=== PATIENT | male | born 1965 | race Caucasian/White ===

== ENCOUNTER → 2016-11-07 | Outpatient (CLI) | payer BC ==
[~2016-11-07] MED LIST: ALLO300T2 PO; AMOX500T PO; CARV3.122 PO; CRG625 PO; MYCO180T PO; PRED-301 PO; PRG1 PO; TACR1CAP PO
--- NOTE | 2016-11-07 10:23 | DIAGNOSTIC IMAGING REPORT ---
RENAL TRANSPLANT W/WO DUPLEX ULTRASOUND CLINICAL HISTORY: N18.9 Chronic kidney disease (CKD)Z94.0 Kidney replaced by transplant COMPARISON STUDY: Renal transplant duplex ultrasound 09/11/2015. FINDINGS: Borderline elevated peak systolic velocity within the right iliac artery and right transplant artery measuring up to 189 cm/s. However, these are nearly symmetric. Therefore, no significant stenosis. The resistive indices within the right renal transplant arcuate arteries measure between 0.5 and 0.7 which is considered normal. Mild dilatation within the upper pole collecting system of the transplant remains unchanged. The renal transplant vein is patent. The bladder is unremarkable. The [place] kidneys are atrophic and echogenic. IMPRESSION: 1. No change in the mild dilatation of the upper pole collecting system within the right lower quadrant renal transplant. 2. [place] atrophic and echogenic kidneys are again noted. 3. Resistive indices within the right renal transplant arteries are within normal limits. Electronically signed by: Galo Jerez M.D. 11/07/2016 10:21 AM Dictated Date/Time: 11/07/2016 10:12 AM
== END | disposition home or self-care (01) ==
LOC: C.ULTR 09:21
PROVIDERS: ATTEND Internal Medicine
DX: N18.9 Chronic kidney disease, unspecified (principal); Z94.0 Kidney transplant status

== ENCOUNTER → 2016-12-12 | Outpatient (CLI) | payer BC ==
[2016-12-12 12:24] LABS: BASO % 0.6 %; BASO ABS # 0.03 K/uL (0-0.2); COMPLETE YES; EOS % 2.2 %; HEMATOCRIT 34.4 % (42-52); IG% 0.2 %; LYMPH % 14.6 %; LYMPH ABS # 0.73 K/uL (1.2-3.4); MEAN CELL VOLUME 88.2 fL (80-100); MEAN CORPUSCULAR HGB CONC 32.8 g/dl (32-36); MEAN PLATELET VOLUME 9.7 fL (7.4-10.4); MONO % 8.6 %; NEUT % 73.8 %; PLATELET COUNT 214 K/uL (130-400); WHITE BLOOD COUNT 5.01 K/uL (4.8-10.8)
[2016-12-12 12:25] LABS: MANUAL MICROSCOPIC REQUIRED? NO; REVIEW REQ? NO; URINE APPEARANCE CLEAR (CLEAR); URINE BILIRUBIN NEG (NEG); URINE COLOR YELLOW; URINE EPITHELIAL CELL AUTO 0-5 /lpf (0-5); URINE NITRITE NEG (NEG); URINE PH 5.5 (4.5-7.5); URINE SPECIFIC GRAVITY 1.012 (1.000-1.030); UROBILINOGEN NEG (NEG)
[2016-12-12 12:48] LABS: BLOOD UREA NITROGEN 43 mg/dl (7-18); BUN/CREATININE RATIO 12.7 (10-20); CALCIUM 9.1 mg/dl (8.5-10.1); CARBON DIOXIDE 22 mmol/L (21-32); CHLORIDE 113 mmol/L (98-107); GLUCOSE 94 mg/dl (70-99); POTASSIUM 4.2 mmol/L (3.5-5.1); SODIUM 144 mmol/L (136-145)
[2016-12-16 14:22] LABS: FK506 TACROLIMUS HIGHLY SENS 6.9 MCG/L (5-20)
== END | disposition home or self-care (01) ==
LOC: C.LABPBG 09:28
PROVIDERS: ATTEND Internal Medicine
DX: E78.00 Pure hypercholesterolemia, unspecified (principal)

== ENCOUNTER → 2017-03-13 | Day surgery (SDC) | payer BC ==
[2017-03-10 07:36] VITALS: Ht 180.3 cm; Wt 81.8 kg
[~2017-03-13] VITALS: Ht 180.3 cm; Wt 81.8 kg
[~2017-03-13] MED LIST changes: -CARV3.122 PO; +LIDOCAINE HCL 2% 2 ML VIAL (20MG/ML) ONE; +MIDAZOLAM HCL 1 MG/ML 2ML VIAL ONE; +ONDANSETRON INJ 2 MG/ML 2 ML VIAL ONE; -PRG1 PO; +PROPOFOL IV EMULSION 10 MG/ML 20 ML VIAL IV ONE; +SODIUM CHLORIDE 0.9% 500ML 500 ML IV ONE
--- NOTE | 2017-03-13 11:56 | Endo History and Physical ---
History & Physical Date of Service: March 13, 2017. Chief Complaint: SCREENING FOR COLON CANCER Referring Physician: DR. BRAVO History of Present Illness 51 yo CM who presents for screening colonoscopy. Past Medical History Angioplasty/Stent, Kidney Disease Past Surgical History Hx Cardiac Surgery: Yes (HEART CATH, STENTS X3) Hx Internal Defibrillator: No Hx Pacemaker: No Hx Abdominal Surgery: Yes (APPY) Hx of Implantable Prosthesis: No Hx Post-Op Nausea and Vomiting: No Hx Cancer Surgery: Yes (SCC REMOVALS) Hx Thoracic Surgery: No Hx Orthopedic: No Hx Urinary Tract Surgery: Yes (URINARY RECON SURGERY, KIDNEY TRANSPLANT (STILL HAS 2 OWN)) Family History Colon [place] Social History Smoking Status: Never Smoker Hx Substance Use: No Hx Alcohol Use: Yes (OCCASIONAL) Allergies Coded Allergies: Red Dye (Verified Allergy, Unknown, ITCHY AND BLOTCHY WITH RED DYE ON IBUPROFEN, 03/13/17) Current Medications Reported Home Medications Medications Dose Route/Sig Max Daily Dose Days Date Category Augmentin 500MG (Amoxicillin & Pot Clavulanate) 1 Tab Tab 500 Mg PO MWF 03/10/17 Reported Myfortic (Mycophenolate Sodium) 180 Mg Tab 180 Mg PO BID 07/25/15 Reported Zyloprim (Allopurinol) 300 Mg Tab 450 Mg PO QAM 07/25/15 Reported Carvedilol 6.25 Mg Tab 6.25 Mg PO QPM 07/25/15 Reported Prograf (Tacrolimus) 1 Mg Cap 2 Mg PO BID 07/25/15 Reported Prednisone 5 Mg Tab 5 Mg PO QAM 12/27/10 Reported Vital Signs Weight (Kilograms): 81.82 Height (Feet): 5 Height (Inches): 11 Date Time Temp Pulse Resp B/P Pulse Ox O2 Delivery O2 Flow Rate FiO2 03/13/17 11:46 36.5 65 18 162/86 98 Room Air Physical Exam General Appearance: WD/WN, no apparent distress Respiratory/Chest: Auscultation: breath sounds normal Cardiovascular: Heart Auscultation: RRR Abdomen: Bowel Sounds: normal Inspection & Palpation: soft, non-distended, no tenderness, guarding & rebound Assessment and Plan Assessment: 51 yo CM who presents for screening colonoscopy. Plan: Proceed with colonoscopy.
--- NOTE | 2017-03-13 13:34 | GI REPORT ---
Procedure Date: 03/13/2017 1:05 PM Procedure: Colonoscopy Indications: Screening for colorectal malignant neoplasm Medicines: Monitored Anesthesia Care Complications: No immediate complications. Estimated Blood Loss: Estimated blood loss: none. Procedure: Pre-Anesthesia Assessment: - Prior to the procedure, a History and Physical was performed, and patient medications and allergies were reviewed. The patient's tolerance of previous anesthesia was also reviewed. The risks and benefits of the procedure and the sedation options and risks were discussed with the patient. All questions were answered, and informed consent was obtained. Prior Anticoagulants: The patient has taken no previous anticoagulant or antiplatelet agents. ASA Grade Assessment: III - A patient with severe systemic disease. After reviewing the risks and benefits, the patient was deemed in satisfactory condition to undergo the procedure. After I obtained informed consent, the scope was passed under direct vision. Throughout the procedure, the patient's blood pressure, pulse, and oxygen saturations were monitored continuously. The Scope was introduced through the anus and advanced to the terminal ileum. The colonoscopy was performed without difficulty. The patient tolerated the procedure well. The quality of the bowel preparation was good. The terminal ileum, ileocecal valve, appendiceal orifice, and rectum were photographed. Findings: The perianal and digital rectal examinations were normal. Pertinent negatives include normal sphincter tone, no palpable rectal lesions, normal prostate (size, shape, and consistency) and no anal lesion or abnormality was detected. A 4 mm polyp was found in the rectum. The polyp was sessile. The polyp was removed with a hot snare. Resection and retrieval were complete. Internal hemorrhoids were found during retroflexion. The hemorrhoids were small. Impression: - One 4 mm polyp in the rectum, removed with a hot snare. Resected and retrieved. - Internal hemorrhoids. Recommendation: - Resume previous diet. - Continue present medications. - Repeat colonoscopy for surveillance based on pathology results. - Return to primary care physician as previously scheduled. Gurdeep Rae, DO 03/13/2017 1:33:56 PM This report has been signed electronically. Note Initiated On: 03/13/2017 1:05 PM I attest to the content of the Intraoperative Record and orders documented therein, exceptions below
--- NOTE | 2017-03-13 13:36 | Discharge Instructions ---
Endoscopy Patient Instructions Date / Procedure(s) Performed March 13, 2017. Colonoscopy Allergy Information Coded Allergies: Red Dye (Verified Allergy, Unknown, ITCHY AND BLOTCHY WITH RED DYE ON IBUPROFEN, 03/13/17) Discharge Date / Findings March 13, 2017. Rectal polyp Internal hemorrhoids Medication Instructions OK to resume all medications today as prescribed Reported Home Medications Medications Dose Route/Sig Max Daily Dose Days Date Category Augmentin 500MG (Amoxicillin & Pot Clavulanate) 1 Tab Tab 500 Mg PO MWF 03/10/17 Reported Myfortic (Mycophenolate Sodium) 180 Mg Tab 180 Mg PO BID 07/25/15 Reported Zyloprim (Allopurinol) 300 Mg Tab 450 Mg PO QAM 07/25/15 Reported Carvedilol 6.25 Mg Tab 6.25 Mg PO QPM 07/25/15 Reported Prograf (Tacrolimus) 1 Mg Cap 2 Mg PO BID 07/25/15 Reported Prednisone 5 Mg Tab 5 Mg PO QAM 12/27/10 Reported Provider Instructions Activity Restrictions - No exercising or heavy lifting for 24 hours. - Do not drink alcohol the day of the procedure. - Do not drive a car or operate machinery until the day after the procedure. - Do not make any important decisions or sign important papers in 24 hours after the procedure. Following Day: - Return to full activity which may include returning to work/school. Diet Start your diet with liquids and light foods (jello, soup, juice, toast). Then eat your usual diet if not nauseated. Treatment For Common After Affects For mild abdominal pain, bloating, or excessive gas: - Rest - Eat lightly - Lie on right side Follow-Up Information Follow-up with DR. BRAVO as scheduled Anesthesia Information What You Should Know You have had a procedure that required some medicine to reduce anxiety and discomfort. This treatment is called moderate sedation. After receiving the treatment, you may be sleepy, but you will be able to breathe on your own. The effects of the treatment may last for several hours. Follow these instructions along with Activity/Diet recommendations noted above: * Do NOT do anything where dizziness or clumsiness would be dangerous. * Rest quietly at home today, then you can be up and about tomorrow. * Have a responsible person stay with you the rest of today. * You may have had an I.V. today. If so, you may take the dressing off later today. Recommendations Call your doctor if: * Trouble breathing * Continuous vomiting for more than 24 hours * Temperature above 101 degrees * Severe abdominal pain or bloating * Pain not relieved by pain medicine ordered * There is increased drainage or redness from any incision * A large amount of rectal bleeding greater than 2-3 tablespoons. (If you had a polyp/s removed or have hemorrhoids, a small amount of blood - from the rectum is to be expected.) * You have any unanswered questions or concerns. IN THE EVENT OF A SERIOUS EMERGENCY, GO TO THE NEAREST EMERGENCY ROOM Your discharge instructions were prepared by provider Gurdeep Rae. Patient Instructions Signature Page Jay Serrato Patient (or Guardian) Signature/Date: I have read and understand the instructions given to me by my caregivers. Caregiver/RN/Doctor Signature/Date: The above-named patient and/or guardian has received patient instructions on this date. + Original Patient Signature Page (only) stays with chart. Please make copy for patient.
[2017-03-13 13:50] VITALS: BP 112/60; PULSE 60; O2SAT 97
--- NOTE | 2017-03-13 13:59 | Anesthesiology Progress Note ---
Anesthesia Post Op Note Date & Time March 13, 2017 at 13:59 Vital Signs Pain Intensity: 0 Vital Signs Past 12 Hours Date Time Temp Pulse Resp B/P Pulse Ox O2 Delivery O2 Flow Rate FiO2 03/13/17 13:50 60 16 112/60 97 Room Air 03/13/17 13:40 68 16 105/54 98 Room Air 03/13/17 13:30 67 16 91/46 98 Room Air 03/13/17 11:46 36.5 65 18 162/86 98 Room Air Notes Mental Status: alert / awake / arousable, participated in evaluation Pt Amnestic to Procedure: Yes Nausea / Vomiting: adequately controlled Pain: adequately controlled Airway Patency, RR, SpO2: stable & adequate BP & HR: stable & adequate Hydration State: stable & adequate Anesthetic Complications: no major complications apparent
== END | disposition home or self-care (01) ==
LOC: C.GI 10:52
PROVIDERS: ATTEND Internal Medicine
DX: Z12.11 Encounter for screening for malignant neoplasm of colon (principal); Z80.0 Family history of malignant neoplasm of digestive organs; D12.8 Benign neoplasm of rectum; K64.8 Other hemorrhoids

== ENCOUNTER → 2017-03-27 | Outpatient (CLI) | payer BC ==
[~2017-03-27] MED LIST changes: -LIDOCAINE HCL 2% 2 ML VIAL (20MG/ML) ONE; -MIDAZOLAM HCL 1 MG/ML 2ML VIAL ONE; -ONDANSETRON INJ 2 MG/ML 2 ML VIAL ONE; -PROPOFOL IV EMULSION 10 MG/ML 20 ML VIAL IV ONE; -SODIUM CHLORIDE 0.9% 500ML 500 ML IV ONE
[2017-03-27 13:32] LABS: BLOOD UREA NITROGEN 46 mg/dl (7-18); BUN/CREATININE RATIO 13.2 (10-20); CALCIUM 8.9 mg/dl (8.5-10.1); CARBON DIOXIDE 20 mmol/L (21-32); CHLORIDE 116 mmol/L (98-107); GLUCOSE 99 mg/dl (70-99); PHOSPHORUS 2.2 mg/dl (2.5-4.9); POTASSIUM 4.3 mmol/L (3.5-5.1); SODIUM 145 mmol/L (136-145)
== END | disposition home or self-care (01) ==
LOC: C.LABPBG 08:45
PROVIDERS: ATTEND Internal Medicine
DX: N18.9 Chronic kidney disease, unspecified (principal)

== ENCOUNTER → 2017-04-09 | Outpatient (CLI) | payer BC ==
[2017-04-09 12:22] LABS: CHOLESTEROL/HDL RATIO 5.1
== END | disposition home or self-care (01) ==
LOC: C.LABPBG 08:17
PROVIDERS: ATTEND Physician Assistant
DX: N18.9 Chronic kidney disease, unspecified (principal)

== ENCOUNTER → 2017-06-05 | Outpatient (CLI) | payer BC ==
[2017-06-05 17:30] LABS: BASO % 0.5 %; BASO ABS # 0.03 K/uL (0-0.2); COMPLETE YES; EOS % 1.9 %; HEMATOCRIT 35.5 % (42-52); IG% 0.3 %; LYMPH % 10.5 %; LYMPH ABS # 0.61 K/uL (1.2-3.4); MEAN CELL VOLUME 89.2 fL (80-100); MEAN CORPUSCULAR HEMOGLOBIN 28.9 pg (25-34); MEAN CORPUSCULAR HGB CONC 32.4 g/dl (32-36); MEAN PLATELET VOLUME 9.7 fL (7.4-10.4); MONO % 5.3 %; NEUT % 81.5 %; PLATELET COUNT 224 K/uL (130-400); RED BLOOD COUNT 3.98 M/uL (4.7-6.1); WHITE BLOOD COUNT 5.83 K/uL (4.8-10.8)
[2017-06-05 17:39] LABS: BLOOD UREA NITROGEN 41 mg/dl (7-18); BUN/CREATININE RATIO 11.7 (10-20); CALCIUM 8.9 mg/dl (8.5-10.1); CARBON DIOXIDE 21 mmol/L (21-32); CHLORIDE 114 mmol/L (98-107); GLUCOSE 134 mg/dl (70-99); PHOSPHORUS 2.3 mg/dl (2.5-4.9); POTASSIUM 4.6 mmol/L (3.5-5.1); SODIUM 142 mmol/L (136-145)
== END | disposition home or self-care (01) ==
LOC: C.LABPBG 15:17
PROVIDERS: ATTEND Internal Medicine
DX: D64.9 Anemia, unspecified (principal); N18.9 Chronic kidney disease, unspecified; I12.9 Hypertensive chronic kidney disease with stage 1 through stage 4 chronic kidney disease, or unspecified chronic kidney disease; Z94.0 Kidney transplant status; E05.90 Thyrotoxicosis, unspecified without thyrotoxic crisis or storm

== ENCOUNTER → 2017-08-07 | Outpatient (CLI) | payer BC ==
[2017-08-07 12:41] LABS: BASO % 0.6 %; BASO ABS # 0.04 K/uL (0-0.2); COMPLETE YES; EOS % 2.7 %; HEMATOCRIT 35.4 % (42-52); IG% 0.4 %; LYMPH % 10.3 %; LYMPH ABS # 0.69 K/uL (1.2-3.4); MEAN CELL VOLUME 88.3 fL (80-100); MEAN CORPUSCULAR HEMOGLOBIN 29.2 pg (25-34); MEAN CORPUSCULAR HGB CONC 33.1 g/dl (32-36); MEAN PLATELET VOLUME 10.3 fL (7.4-10.4); MONO % 8.3 %; NEUT % 77.7 %; PLATELET COUNT 224 K/uL (130-400); RED BLOOD COUNT 4.01 M/uL (4.7-6.1); WHITE BLOOD COUNT 6.73 K/uL (4.8-10.8)
[2017-08-07 12:57] LABS: MANUAL MICROSCOPIC REQUIRED? NO; REVIEW REQ? NO; URINE APPEARANCE CLEAR (CLEAR); URINE BILIRUBIN NEG (NEG); URINE COLOR YELLOW; URINE EPITHELIAL CELL AUTO 0-5 /lpf (0-5); URINE NITRITE NEG (NEG); URINE PH 6.5 (4.5-7.5); UROBILINOGEN NEG (NEG)
[2017-08-07 13:12] LABS: BLOOD UREA NITROGEN 42 mg/dl (7-18); BUN/CREATININE RATIO 12.2 (10-20); CALCIUM 8.8 mg/dl (8.5-10.1); CARBON DIOXIDE 20 mmol/L (21-32); CHLORIDE 113 mmol/L (98-107); CREATININE 3.41 mg/dl (0.60-1.40); GLUCOSE 99 mg/dl (70-99); POTASSIUM 4.1 mmol/L (3.5-5.1); SODIUM 142 mmol/L (136-145)
[2017-08-07 13:13] LABS: PHOSPHORUS 2.7 mg/dl (2.5-4.9)
== END | disposition home or self-care (01) ==
LOC: C.LABPBG 08:42
PROVIDERS: ATTEND Physician Assistant
DX: N18.9 Chronic kidney disease, unspecified (principal)

== ENCOUNTER → 2017-09-04 | Outpatient (CLI) | payer BC ==
[2017-09-04 17:16] LABS: BASO % 0.3 %; BASO ABS # 0.02 K/uL (0-0.2); COMPLETE YES; EOS % 0.7 %; HEMATOCRIT 33.1 % (42-52); IG% 0.3 %; LYMPH % 8.8 %; LYMPH ABS # 0.64 K/uL (1.2-3.4); MEAN CELL VOLUME 89.2 fL (80-100); MEAN CORPUSCULAR HEMOGLOBIN 28.8 pg (25-34); MEAN CORPUSCULAR HGB CONC 32.3 g/dl (32-36); MEAN PLATELET VOLUME 9.7 fL (7.4-10.4); MONO % 4.8 %; NEUT % 85.1 %; PLATELET COUNT 216 K/uL (130-400); RED BLOOD COUNT 3.71 M/uL (4.7-6.1); WHITE BLOOD COUNT 7.24 K/uL (4.8-10.8)
[2017-09-04 17:38] LABS: BLOOD UREA NITROGEN 46 mg/dl (7-18); BUN/CREATININE RATIO 13.2 (10-20); CARBON DIOXIDE 22 mmol/L (21-32); CHLORIDE 115 mmol/L (98-107); CREATININE 3.46 mg/dl (0.60-1.40); GLUCOSE 96 mg/dl (70-99); SODIUM 145 mmol/L (136-145)
[2017-09-04 17:42] LABS: FERRITIN 357.7 ng/ml (8.0-388.0); PHOSPHORUS 2.5 mg/dl (2.5-4.9)
== END | disposition home or self-care (01) ==
LOC: C.LABPBG 15:54
PROVIDERS: ATTEND Internal Medicine
DX: N25.81 Secondary hyperparathyroidism of renal origin (principal); I12.9 Hypertensive chronic kidney disease with stage 1 through stage 4 chronic kidney disease, or unspecified chronic kidney disease; I73.00 Raynaud's syndrome without gangrene; N18.9 Chronic kidney disease, unspecified

== ENCOUNTER → 2017-10-09 | Outpatient (CLI) | payer BC | END | disposition home or self-care (01) | LOC: C.RDSM 11:47 | PROVIDERS: ATTEND Physical Medicine & Rehabilitation Sports Medicine | DX: M25.512 Pain in left shoulder (principal) ==

== ENCOUNTER → 2017-10-09 | Outpatient (CLI) | payer BC ==
[2017-10-09 10:34] LABS: BASO % 0.5 %; BASO ABS # 0.04 K/uL (0-0.2); COMPLETE YES; EOS % 2.3 %; HEMATOCRIT 36.2 % (42-52); IG% 0.2 %; LYMPH % 9.4 %; LYMPH ABS # 0.77 K/uL (1.2-3.4); MEAN CELL VOLUME 89.2 fL (80-100); MEAN CORPUSCULAR HEMOGLOBIN 28.6 pg (25-34); MEAN PLATELET VOLUME 9.6 fL (7.4-10.4); MONO % 6.5 %; NEUT % 81.1 %; PLATELET COUNT 226 K/uL (130-400); RED BLOOD COUNT 4.06 M/uL (4.7-6.1); WHITE BLOOD COUNT 8.17 K/uL (4.8-10.8)
[2017-10-09 10:59] LABS: BLOOD UREA NITROGEN 42 mg/dl (7-18); BUN/CREATININE RATIO 11.4 (10-20); CALCIUM 9.1 mg/dl (8.5-10.1); CARBON DIOXIDE 22 mmol/L (21-32); CHLORIDE 113 mmol/L (98-107); CREATININE 3.68 mg/dl (0.60-1.40); GLUCOSE 101 mg/dl (70-99); PHOSPHORUS 2.6 mg/dl (2.5-4.9); POTASSIUM 4.2 mmol/L (3.5-5.1); SODIUM 142 mmol/L (136-145)
== END | disposition home or self-care (01) ==
LOC: C.LAB 15:42
PROVIDERS: ATTEND Internal Medicine
DX: I42.9 Cardiomyopathy, unspecified (principal); D64.9 Anemia, unspecified; Z94.0 Kidney transplant status; N18.9 Chronic kidney disease, unspecified; E05.90 Thyrotoxicosis, unspecified without thyrotoxic crisis or storm

== ENCOUNTER → 2017-10-16 | Outpatient (CLI) | payer BC ==
--- NOTE | 2017-10-16 17:35 | DIAGNOSTIC IMAGING REPORT ---
L UPPER EXT JOINT WITHOUT CLINICAL HISTORY: LEFT SHOULDER PAIN pain TECHNIQUE: MRI multi axial acquisition COMPARISON STUDY: None FINDINGS: Generalized degenerative change of the left shoulder glenohumeral and acromioclavicular joints. Hypertrophic change of the acromioclavicular joints with the inferior osteophytic reaction from the distal clavicle creating rather significant impingement upon the musculotendinous juncture of the supraspinatus. Apparent full-thickness tear of the mid to anterior margin of the supraspinous tendon with 1 cm of muscular tendinous retraction. Moderate to significant tendinopathy of the residual posterior component of the supraspinatus tendon. Trace fluid within the subdeltoid and acromioclavicular regions. The infraspinatus and subscapularis tendons appear unremarkable. Potential small short segment linear split of the biceps tendon near the superior margin of the bicipital groove. Generalized deterioration of the glenoid labrum with moderate loss of the labral substance has anterior aspect. No evidence for bone marrow replacing process. Generalized deterioration of the articular services of the glenohumeral joint. IMPRESSION: 1. Generalized degenerative change of the left shoulder glenohumeral joint as well as acromioclavicular joint.. 2. Hypertrophic change of the distal clavicle and acromioclavicular joint creates significant impingement upon the supraspinatus musculotendinous junction. 3. Full-thickness tear mid to anterior aspect of the supraspinatus with a 1 cm muscle tendinous retraction. Significant tendinopathy of the residual posterior margin of the supraspinatus. 4. Short segment linear split/tear superior margin biceps tendon within the bicipital groove 5. Moderate substance deterioration of the glenoid. The above report was generated using voice recognition software. It may contain grammatical, syntax or spelling errors. Electronically signed by: Thiago Moser M.D. 10/16/2017 5:34 PM Dictated Date/Time: 10/16/2017 5:27 PM
== END | disposition home or self-care (01) ==
LOC: C.MRI 16:31
PROVIDERS: ATTEND Physical Medicine & Rehabilitation Sports Medicine
DX: M19.012 Primary osteoarthritis, left shoulder (principal); M75.102 Unspecified rotator cuff tear or rupture of left shoulder, not specified as traumatic; S46.212A Strain of muscle, fascia and tendon of other parts of biceps, left arm, initial encounter; M75.42 Impingement syndrome of left shoulder; X58.XXXA Exposure to other specified factors, initial encounter

== ENCOUNTER → 2017-11-13 | Outpatient (CLI) | payer BC | END | disposition home or self-care (01) | LOC: C.LABPBG 08:58 | PROVIDERS: ATTEND Surgery | DX: N18.6 End stage renal disease (principal); Z76.82 Awaiting organ transplant status ==

== ENCOUNTER → 2018-02-05 | Outpatient (CLI) | payer BC ==
[2018-02-05 17:00] LABS: BASO % 0.3 %; BASO ABS # 0.02 K/uL (0-0.2); EOS % 1.4 %; HEMATOCRIT 35.1 % (42-52); HEMOGLOBIN 11.6 g/dL (14.0-18.0); IG# 0.03 K/uL (0.00-0.02); LYMPH % 8.1 %; LYMPH ABS # 0.58 K/uL (1.2-3.4); MEAN CELL VOLUME 88.9 fL (80-100); MEAN CORPUSCULAR HEMOGLOBIN 29.4 pg (25-34); MEAN PLATELET VOLUME 9.6 fL (7.4-10.4); MONO ABS # 0.36 K/uL (0.11-0.59); NEUT % 84.8 %; NEUT ABS # 6.04 K/uL (1.4-6.5); PLATELET COUNT 235 K/uL (130-400); RED CELL DISTRIBUTION WIDTH CV 14.7 % (11.5-14.5); RED CELL DISTRIBUTION WIDTH SD 47.9 fL (36.4-46.3); WHITE BLOOD COUNT 7.13 K/uL (4.8-10.8)
[2018-02-05 17:37] LABS: ALBUMIN 3.8 gm/dl (3.4-5.0); BLOOD UREA NITROGEN 46 mg/dl (7-18); CALCIUM 9.1 mg/dl (8.5-10.1); CARBON DIOXIDE 21 mmol/L (21-32); CREATININE 3.79 mg/dl (0.60-1.40); GLUCOSE 99 mg/dl (70-99); POTASSIUM 4.4 mmol/L (3.5-5.1); SODIUM 142 mmol/L (136-145)
[2018-02-05 17:41] LABS: PHOSPHORUS 2.1 mg/dl (2.5-4.9)
== END ==
LOC: C.LABPBG 11:10
PROVIDERS: ATTEND Internal Medicine
DX: K64.8 Other hemorrhoids (principal)

== ENCOUNTER → 2018-06-04 | Outpatient (CLI) | payer BC ==
[2018-06-04 16:54] LABS: BASO % 0.4 %; BASO ABS # 0.03 K/uL (0-0.2); EOS ABS # 0.08 K/uL (0-0.5); HEMATOCRIT 35.5 % (42-52); HEMOGLOBIN 11.5 g/dL (14.0-18.0); IG# 0.02 K/uL (0.00-0.02); LYMPH % 6.2 %; LYMPH ABS # 0.51 K/uL (1.2-3.4); MEAN CELL VOLUME 90.1 fL (80-100); MEAN CORPUSCULAR HEMOGLOBIN 29.2 pg (25-34); MEAN CORPUSCULAR HGB CONC 32.4 g/dl (32-36); MEAN PLATELET VOLUME 10.2 fL (7.4-10.4); MONO % 2.8 %; MONO ABS # 0.23 K/uL (0.11-0.59); NEUT % 89.4 %; NEUT ABS # 7.42 K/uL (1.4-6.5); PLATELET COUNT 224 K/uL (130-400); RED CELL DISTRIBUTION WIDTH CV 14.8 % (11.5-14.5); RED CELL DISTRIBUTION WIDTH SD 48.3 fL (36.4-46.3); WHITE BLOOD COUNT 8.29 K/uL (4.8-10.8)
[2018-06-04 17:10] LABS: ALBUMIN 3.7 gm/dl (3.4-5.0); ALT/SGPT 19 U/L (12-78); AST/SGOT 9 U/L (15-37); BLOOD UREA NITROGEN 48 mg/dl (7-18); CALCIUM 8.8 mg/dl (8.5-10.1); CARBON DIOXIDE 17 mmol/L (21-32); CHOLESTEROL 172 mg/dl (0-200); CREATININE 3.72 mg/dl (0.60-1.40); GLUCOSE 117 mg/dl (70-99); LDL CHOLESTEROL CALCULATED 100 mg/dl; PHOSPHORUS 2.4 mg/dl (2.5-4.9); SODIUM 142 mmol/L (136-145)
== END | disposition home or self-care (01) ==
LOC: C.LABPBG 11:36
PROVIDERS: ATTEND Internal Medicine Nephrology
DX: E78.00 Pure hypercholesterolemia, unspecified (principal); Z94.0 Kidney transplant status; N18.9 Chronic kidney disease, unspecified

== ENCOUNTER 2022-04-09 15:34 | Inpatient (IN) ==
[2022-04-09] MEDS ORDERED: MoRPHine SULFATE 10 MG/ML CARP/VIAL IV STA (16:23)
[2022-04-09] MEDS ORDERED: ONDANSETRON INJ 2 MG/ML 2 ML VIAL IV STA ×2 (16:23→21:48)
--- NOTE | 2022-04-09 16:27 | Emergency Department Note ---
Impression & Plan SOB (shortness of breath), Hypomagnesemia, Left-sided chest pain, Renal failure, Pleural effusion, Leukocytosis ED Provider Note NAME: AVERY DYER AGE: 56 SEX: M : 1965 ARRIVES VIA: Walk-In INFORMANT: [Patient][family] ED PROVIDER(S): [Tom Ugarte MD] CHIEF COMPLAINT: Respiratory problems HISTORY OF PRESENT ILLNESS: The patient is a 56-year-old male who uses peritoneal dialysis. For 3 days, he has had some left chest pain. He went to the chiropractor who attempted to pop a rib back in place. The pain has persisted and it is preventing him from mo ving. Today, he has felt short of breath and just cannot take a deep breath. He is concerned that he is fluid overloaded. As per his family, he has been coughing, there has been no fever. He has not fallen. No vomiting or diarrhea. The patient has a history of kidney transplant although, the transplant failed. He has a history of periauricular squamous cell carcinoma. REVIEW OF SYSTEMS: See HPI for pertinent positives and negatives. A total of ten systems were reviewed and were otherwise negative. PMHx/PSHx: See Below SOCIAL HISTORY: See Below. PHYSICAL EXAM: GENERAL: Patient is in moderate distress from pain. HEENT: No acute trauma, normocephalic atraumatic, mucous membranes moist, no nasal congestion, no scleral icterus. NECK: No stridor, no adenopathy, no meningismus, trachea is midline. LUNGS: Breath sounds are diminished but seem fairly clear. No crackles heard. No wheezing. No respiratory distress although he does have an increased respiratory rate and does seem to be breathing fairly shallow. HEART: Tachycardic, subtle systolic murmur, normal rhythm. ABDOMEN: Soft, nontender, bowel sounds positive, no peritonitis. EXTREMITIES: No cyanosis or edema, full range of motion of all the joints without pain or difficulty, no signs for acute trauma. NEUROLOGIC: Oriented x 3, no acute motor or sensory deficits, no focal weakness. SKIN: No rash, no jaundice, no diaphoresis. DIFFERENTIAL DIAGNOSIS: Reactive airway disease, COVID-19, influenza, rib fracture, pneumothorax, COPD, CHF, infection, cardiac ischemia, pulmonary embolism, bronchitis, musculoskeletal, gastrointestinal, as well as other pathologies. EMERGENCY DEPARTMENT COURSE/PROCEDURES: ECG: Indication was shortness of breath. The ECG shows a sinus tachycardia with a right bundle branch block. The rate is 111. There is significant baseline artifact. No obvious ST elevation, no PVCs. The QTc is 495. Continuous Cardiac Monitoring: An order was placed for continuous cardiac monitoring. The monitor shows a rate of 105 with sinus tachycardia. Critical Care Note: I have personally spent 41 minutes of critical care time in the direct management of this patient. This includes bedside care, interpretation of diagnostic studies, and testing, discussion with consultants, patient, and family members, and other required patient management activities. This 41 minutes is in excess of all separately billable procedures. MEDICAL DECISION MAKING: There is a mild leukocytosis, this could be consistent with infection or his pain. The patient is anemic but he has a history of anemia. There is a normal platelet count. No concerning coagulopathy. Venous blood gas shows a very mild acidosis with a pH of 7.30. No significant CO2 retention. Renal panel testing shows his dialysis need with a creatinine of 18. Potassium was normal. Magnesium was low 1.3. Lactic acid level is not elevated making severe sepsis less likely. No worrisome liver enzyme elevation. ECG showed a sinus tachycardia with artifact and a right bundle branch block. No obvious ST elevation. Cardiac enzyme testing x1 was slightly elevated, possibly from cardiac injury or potentially mismatch. COVID test returned negative. Chest x- ray showed a left pleural effusion with a potential infiltrate at the left base. No concerning CHF. No pneumothorax. Chest CT shows a left pleural effusion and some congestion at the left base thought potentially from atelectasis. The patient was quite uncomfortable and his family was quite upset. The patient was given IV morphine for pain. He was given 6 mg IV and then 4 mg IV as needed for additional pain control. He was given IV Zofran for nausea. IV magnesium for the low magnesium value. He was given a DuoNeb and IV cefepime. I think the patient deserves a hospital stay. He is in intense pain. He has a leukocytosis and feels short of breath. He has a left pleural effusion and may be an early infiltrate at the left base. Dr. Foreman of nephrology did see the patient here in the ED and feels the patient is failing peritoneal dialysis and likely will need hemodialysis tomorrow. I spoke with the patient and his family, I talked to case the it application development manager. The on- call hospitalist was consulted. 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 3XWK FOR 2 MONTHS RIGHT UE AVF PLACED MARCH 2020 CAD (coronary artery disease) S/p stent 2010. Had stress test was in preparation for kidney transplant, resulted in cath- had stent placed due to trauma to vessel Follows with cardio as needed Managed by primary care. Cardiomyopathy NO LONGER FOLLOWS WITH DR SUAREZ AT LEAST PAST 2 YRS End stage renal disease follows with [facility] Gout, joint No recent issues HTN (hypertension) Hypercholesterolemia Peritoneal dialysis catheter in place Patient does treatments at home Daily Raynaud phenomenon Secondary hyperparathyroidism of renal origin Squamous cell carcinoma of external ear Surgical History AVF (arteriovenous fistula) RIGHT ARM History of amputation of finger index finger History of appendectomy History of cardiac cath 8 YRS AGO History of colonoscopy History of Mohs micrographic surgery for skin cancer BASAL AND SQUAMOUS CELL Kidney transplant recipient RIGHT > 8 YRS AGO Family History Mother , age 65 heart failure Diabetes Hypertension Stroke Heart disease Kidney disease on dialysis for 6 monhts Father , age 65 Burkitts lymphoma Cancer Heart disease Sister , brain tumor age 30 diabetes coma Diabetes Sister Heart disease Brother Diabetes Brother No problems noted. Brother No problems noted. Daughter No problems noted. Son No problems noted. 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 How many Children do You have: 2 Feels Safe at Home: Yes Childhood Exposure to Second-Hand Smoke: Yes caffeine: Yes (one cup per daycaffeine soda 2-3 per day) during the past year weight has: remained stable Dental Care, Regularly: Yes Physical Activity Frequency: Daily Seatbelt Use: sometimes Sunscreen Use: Yes Assistive Devices: Contacts Allergies Allergies Allergy/AdvReac Type Severity Reaction Status Date / Time cephalexin [From Keflex] Allergy Intermediate itchy/ Verified 04/09/22 17:52 nausea red dye Allergy Intermediate Hives Verified 04/09/22 17:52 Home Meds Home Medications Medication Instructions Recorded Confirmed calcitriol 0.5 mcg capsule 0.5 mcg PO QPM 10/28/21 04/09/22 lorazepam 0.5 mg tablet 1 mg PO HS PRN 04/09/22 04/09/22 Previous Rx's Medication Instructions Recorded tacrolimus 1 mg capsule, 1 mg PO BID #360 cap 11/14/21 immediate-release carvedilol 6.25 mg tablet 6.25 mg PO QPM #90 tab 01/20/22 Results & Data (ED) Vital Signs Vital Signs - 24 hr 04/09/22 15:39 04/09/22 16:52 04/09/22 16:55 Temperature 36.7 C Temperature Source Temporal Artery Scan Pulse Rate 108 H 110 H 110 H Pulse Rate from SpO2 Sensor Pulse Rhythm Regular Regular Pulse Strength Normal Respiratory Rate 20 30 H 25 H Respiratory Effort / Characteristics Non-Labored Spontaneous Respiratory Depth Normal Respiratory Pattern Regular Blood Pressure 137/83 Blood Pressure Mean 101 Blood Pressure Position Sitting Pulse Oximetry 93 96 95 Oxygen Delivery Method Room Air Nasal Cannula Room Air Oxygen Flow Rate 2 Sepsis Recent Fever Within 48 Hours No Sepsis New/Unexplained Change in Mental Status No Sepsis Action Taken by Nursing No Action Required 04/09/22 17:00 04/09/22 17:02 04/09/22 17:30 Temperature Temperature Source Pulse Rate 112 H 105 H 112 H Pulse Rate from SpO2 Sensor Pulse Rhythm Regular Pulse Strength Respiratory Rate 29 H 24 30 H Respiratory Effort / Characteristics Respiratory Depth Respiratory Pattern Blood Pressure Blood Pressure Mean Blood Pressure Position Pulse Oximetry 97 96 96 Oxygen Delivery Method Nasal Cannula Room Air Nasal Cannula Oxygen Flow Rate 2 2 Sepsis Recent Fever Within 48 Hours Sepsis New/Unexplained Change in Mental Status Sepsis Action Taken by Nursing 04/09/22 18:00 04/09/22 18:22 04/09/22 19:03 Temperature Temperature Source Pulse Rate 113 H 113 H Pulse Rate from SpO2 Sensor 122 H Pulse Rhythm Pulse Strength Respiratory Rate 26 H 35 H Respiratory Effort / Characteristics Respiratory Depth Respiratory Pattern Blood Pressure 122/78 Blood Pressure Mean 92 Blood Pressure Position Pulse Oximetry 95 92 91 Oxygen Delivery Method Nasal Cannula Nasal Cannula Nasal Cannula Oxygen Flow Rate 2 2 2 Sepsis Recent Fever Within 48 Hours Sepsis New/Unexplained Change in Mental Status Sepsis Action Taken by Nursing 04/09/22 19:49 04/09/22 19:50 04/09/22 20:00 Temperature Temperature Source Pulse Rate 110 H 109 H 107 H Pulse Rate from SpO2 Sensor Pulse Rhythm Pulse Strength Respiratory Rate 14 21 19 Respiratory Effort / Characteristics Respiratory Depth Respiratory Pattern Blood Pressure 102/56 L Blood Pressure Mean 71 Blood Pressure Position Pulse Oximetry 96 95 97 Oxygen Delivery Method Nasal Cannula Nasal Cannula Nasal Cannula Oxygen Flow Rate 2 2 2 Sepsis Recent Fever Within 48 Hours Sepsis New/Unexplained Change in Mental Status Sepsis Action Taken by Nursing 04/09/22 20:30 04/09/22 21:00 04/09/22 21:04 Temperature Temperature Source Pulse Rate 108 H 105 H 105 H Pulse Rate from SpO2 Sensor Pulse Rhythm Pulse Strength Respiratory Rate 26 H 25 H 28 H Respiratory Effort / Characteristics Respiratory Depth Respiratory Pattern Blood Pressure 96/58 L Blood Pressure Mean 70 Blood Pressure Position Pulse Oximetry 95 96 Oxygen Delivery Method Nasal Cannula Nasal Cannula Oxygen Flow Rate 2 2 Sepsis Recent Fever Within 48 Hours Sepsis New/Unexplained Change in Mental Status Sepsis Action Taken by [facility] Medications Current Medication List: was personally reviewed by me Laboratory Data Attestation: I reviewed the patient's lab results. Result diagrams: 04/09/22 16:04 04/09/22 16:04 Lab Results 04/09/22 04/09/22 04/09/22 Range/Units 16:04 16:04 16:04 WBC 13.55 H (4.8-10.8) K/uL RBC 3.71 L (4.7-6.1) M/uL Hgb 10.7 L (14.0-18.0) g/dL Hct 33.0 L (42-52) % MCV 88.9 (80-100) fL MCH 28.8 (25-34) pg MCHC 32.4 (32-36) g/dL RDW Std Deviation 60.6 H (36.4-46.3) fL RDW Coeff of Nano 18.6 H (11.5-14.5) % Plt Count 245 (130-400) K/uL MPV 8.9 (7.4-10.4) fL Immature Gran % (Auto) 0.2 % Neut % (Auto) 88.7 % Lymph % (Auto) 3.3 % [place] % (Auto) 7.0 % Eos % (Auto) 0.7 % Baso % (Auto) 0.1 % Neut # (Auto) 12.01 H (1.4-6.5) K/uL Lymph # (Auto) 0.45 L (1.2-3.4) K/uL [place] # (Auto) 0.95 H (0.11-0.59) K/uL Eos # (Auto) 0.09 (0-0.5) K/uL Baso # (Auto) 0.02 (0-0.2) K/uL Immature Gran # (Auto) 0.03 H (0.00-0.02) K/uL PT 12.1 H (9.0-12.0) Seconds INR 1.1 (0.9-1.1) APTT 34.4 H (21.0-31.0) Seconds PTT Ratio 1.3 VBG pH (7.36-7.41) VBG pCO2 (38-50) mmHg VBG pO2 mmHg VBG HCO3 mmol/L VBG O2 Saturation % VBG Base Excess mEq/L Sodium 135 L (136-145) mmol/L Potassium 4.2 (3.5-5.1) mmol/L Chloride 93 L (98-107) mmol/L Carbon Dioxide 21 (21-32) mmol/L Anion Gap 21 H (3-11) BUN 86 H (6-23) mg/dl Creatinine 18.16 H* (0.6-1.4) mg/dl Est Cr Clr Drug Dosing Not Reportable Est GFR ( Amer) 2.9 ml/min Est GFR (Non-Af Amer) 2.5 ml/min BUN/Creatinine Ratio 4.7 L (10-20) Glucose 81 (70-99(Fasting)) mg/dl Lactate (0.4-2.0) mmol/L Calcium 8.8 (8.5-10.1) mg/dl Magnesium 1.3 L (1.7-2.4) mg/dl Total Bilirubin 0.6 (0.2-1.0) mg/dl AST 9 L (13-39) U/L ALT 13 (7-52) U/L Alkaline Phosphatase 78 (34-104) U/L Troponin I High Sens 38.3 H (0-20) pg/ml Total Protein 6.9 (6.0-8.3) gm/dl Albumin 3.3 L (3.4-5.0) gm/dl Globulin 3.6 (2.5-4.0) gm/dl Albumin/Globulin Ratio 0.9 (0.9-2) SARS-CoV-2, RNA, NAAT (NEGATIVE) 04/09/22 04/09/22 04/09/22 Range/Units 17:09 17:50 Unknown WBC (4.8-10.8) K/uL RBC (4.7-6.1) M/uL Hgb (14.0-18.0) g/dL Hct (42-52) % MCV (80-100) fL MCH (25-34) pg MCHC (32-36) g/dL RDW Std Deviation (36.4-46.3) fL RDW Coeff of Nano (11.5-14.5) % Plt Count (130-400) K/uL MPV (7.4-10.4) fL Immature Gran % (Auto) % Neut % (Auto) % Lymph % (Auto) % [place] % (Auto) % Eos % (Auto) % Baso % (Auto) % Neut # (Auto) (1.4-6.5) K/uL Lymph # (Auto) (1.2-3.4) K/uL [place] # (Auto) (0.11-0.59) K/uL Eos # (Auto) (0-0.5) K/uL Baso # (Auto) (0-0.2) K/uL Immature Gran # (Auto) (0.00-0.02) K/uL PT (9.0-12.0) Seconds INR (0.9-1.1) APTT (21.0-31.0) Seconds PTT Ratio VBG pH 7.30 L (7.36-7.41) VBG pCO2 45 (38-50) mmHg VBG pO2 31 mmHg VBG HCO3 22 mmol/L VBG O2 Saturation < 60.0 % VBG Base Excess -4.4 mEq/L Sodium (136-145) mmol/L Potassium (3.5-5.1) mmol/L Chloride (98-107) mmol/L Carbon Dioxide (21-32) mmol/L Anion Gap (3-11) BUN (6-23) mg/dl Creatinine (0.6-1.4) mg/dl Est Cr Clr Drug Dosing Est GFR ( Amer) ml/min Est GFR (Non-Af Amer) ml/min BUN/Creatinine Ratio (10-20) Glucose (70-99(Fasting)) mg/dl Lactate 0.8 (0.4-2.0) mmol/L Calcium (8.5-10.1) mg/dl Magnesium (1.7-2.4) mg/dl Total Bilirubin (0.2-1.0) mg/dl AST (13-39) U/L ALT (7-52) U/L Alkaline Phosphatase (34-104) U/L Troponin I High Sens (0-20) pg/ml Total Protein (6.0-8.3) gm/dl Albumin (3.4-5.0) gm/dl Globulin (2.5-4.0) gm/dl Albumin/Globulin Ratio (0.9-2) SARS-CoV-2, RNA, NAAT NEGATIVE (NEGATIVE) Administered Medications Morphine Sulfate (Morphine Sulfate 4 Mg/Ml 1 Ml Carp\Vial) 4 mg IV Q30M PRN PRN Reason: Pain Stop: 04/23/22 16:22 Last Admin: 04/09/22 20:53 Dose: 4 mg Documented by: [id number] Admin: 04/09/22 19:46 Dose: 4 mg Documented by: [id number] Admin: 04/09/22 18:18 Dose: 4 mg Documented by: [id number] Admin: 04/09/22 17:36 Dose: 4 mg Documented by: [id number] Discontinued Medications Albuterol (Albut/Ipratrop 3mg/0.5mg Neb 3 Ml Vial) 3 ml NEB NOW STA; Protocol Stop: 04/09/22 17:04 Last Admin: 04/09/22 17:46 Dose: 3 ml Documented by: [id number] Cefepime HCl (Maxipime) 2,000 mg in 20 mls @ 5 mls/min IV NOW STA; Protocol Stop: 04/09/22 17:18 Last Admin: 04/09/22 17:57 Dose: 5 mls/min Documented by: [id number] Magnesium Sulfate/Dextrose (Magnesium Sulfate / D5w) 1 gm in 100 mls @ 100 mls/hr IV NOW STA Stop: 04/09/22 18:27 Last Infusion: 04/09/22 21:14 Dose: 0 mls/hr Documented by: [id number] Admin: 04/09/22 19:51 Dose: 100 mls/hr Documented by: [id number] Morphine Sulfate (Morphine Sulfate 10 Mg/Ml Carp/Vial) 6 mg IV NOW STA Stop: 04/09/22 16:24 Last Admin: 04/09/22 16:39 Dose: 6 mg Documented by: [id number] Ondansetron HCl (Ondansetron Inj 2 Mg/Ml 2 Ml Vial) 4 mg IV NOW STA Stop: 04/09/22 16:24 Last Admin: 04/09/22 16:37 Dose: 4 mg Documented by: [id number] Imaging Data Radiologist's Impression: Chest X-Ray 04/09/22 16:24 XR chest 1V portable CLINICAL HISTORY: Dyspnea COMPARISON STUDY: Chest CT April 05, 2021. Chest radiograph January 15, 2022. FINDINGS: There is no pneumothorax. Small left pleural effusion is noted. There is mild interstitial thickening. Enlargement of the cardiac silhouette is noted. Low lung volumes are noted. This may reflect a hypoventilatory study. Left basilar opacity is noted. IMPRESSION: 1. Small left pleural effusion with left basilar opacity which could reflect atelectasis or consolidation. Radiographic follow-up to ensure resolution is recommended. 2. Moderate enlargement of the cardiac silhouette. Pulmonary vascular congestion with possible mild pulmonary edema. ACT 112: Negative or not required by law. Electronically signed by: [email or web address] Almodovar M.D. 04/09/2022 4:[address] 04/09/22 17:16 CT chest diagnostic wo con CLINICAL HISTORY: poss pneumonia or rib fx, sob COMPARISON STUDY: Portable chest from 04/09/2022 CT DOSE: 184.03 mGy.cm TECHNIQUE: Standard CT of the Chest was performed without IV contrast. A dose lowering technique was utilized adhering to the principles of ALARA. FINDINGS: Airway: The airway is clear. No endobronchial lesion is identified. Lungs: There is breathing motion artifact present. Crowding of the bronchovascular markings is present at the lung bases. The lungs are otherwise clear of acute alveolar opacities, air bronchograms or pulmonary nodules. Pleura: There is trace fluid present at the left lung base. There is no right pleural effusion. There is no evidence for pneumothorax. Mediastinum: There is no evidence for pathologic adenopathy on these limited n oncontrast images. The heart is enlarged. There is extensive coronary artery calcification. The thoracic aorta is within normal limits. There is no evidence for pericardial effusion. Osseous structures: There is no acute osseous pathology. IMPRESSION: 1. Breathing motion artifact with crowding the bronchovascular markings at the lung bases. 2. Trace left-sided pleural effusion. 3. There is otherwise no acute chest disease on these noncontrast images. 4. Cardiomegaly with extensive coronary artery calcification. ACT 112: Negative or not required by law. Electronically signed by: Tommie Romero M.D. 04/09/2022 7:06 PM Discharge Plan Visit Data Chief Complaint: Respiratory Problems Stated Complaint: DIALYSIS PT, RESP PROBLEMS ED Provider: Tom Ugarte Discharge Problem: SOB (shortness of breath), Hypomagnesemia, Left-sided chest pain, Renal failure, Pleural effusion, Leukocytosis Patient Disposition: Admitted As Inpatient Condition: Fair Forms Stand Alone Forms: [employer] Prescriptions Prescriptions: No Action tacrolimus 1 mg capsule 1 mg PO BID Qty: 360 RF: 3 carvedilol 6.25 mg tablet 6.25 mg PO QPM Qty: 90 RF: 3 lorazepam 0.5 mg tablet 1 mg PO HS PRN (Reason: Sleep) RF: 0 calcitriol 0.5 mcg capsule 0.5 mcg PO QPM RF: 0 Referrals Referrals: PCP,NO [Primary Care Provider] -
[2022-04-09 16:52] LABS: Basophils # (auto) 0.02 K/uL (0-0.2); Basophils % (auto) 0.1 %; Eosinophils # (auto) 0.09 K/uL (0-0.5); Eosinophils % (auto) 0.7 %; Hemoglobin 10.7 g/dL (14.0-18.0); Immature Granulocytes # (auto) 0.03 K/uL (0.00-0.02); Immature Granulocytes % (auto) 0.2 %; Lymphocytes # (auto) 0.45 K/uL (1.2-3.4); Lymphocytes % (auto) 3.3 %; Mean Corpuscular Hemoglobin 28.8 pg (25-34); Mean Corpuscular Hgb Conc 32.4 g/dL (32-36); Mean Corpuscular Volume 88.9 fL (80-100); Mean Platelet Volume 8.9 fL (7.4-10.4); Monocytes # (auto) 0.95 K/uL (0.11-0.59); Neutrophils # (auto) 12.01 K/uL (1.4-6.5); Neutrophils % (auto) 88.7 %; Platelet Count 245 K/uL (130-400); RDW Coefficient of Variation 18.6 % (11.5-14.5); RDW Standard Deviation 60.6 fL (36.4-46.3); Red Blood Count 3.71 M/uL (4.7-6.1); White Blood Count 13.55 K/uL (4.8-10.8)
--- NOTE | 2022-04-09 16:58 | XRay Report ---
XR chest 1V portable CLINICAL HISTORY: Dyspnea COMPARISON STUDY: Chest CT April 05, 2021. Chest radiograph January 15, 2022. FINDINGS: There is no pneumothorax. Small left pleural effusion is noted. There is mild interstitial thickening. Enlargement of the cardiac silhouette is noted. Low lung volumes are noted. This may refl ect a hypoventilatory study. Left basilar opacity is noted. IMPRESSION: 1. Small left pleural effusion with left basilar opacity which could reflect atelectasis or consolida tion. Radiographic follow-up to ensure resolution is recommended. 2. Moderate enlargement of the cardiac silhouette. Pulmonary vascular congestion with possible mild p ulmonary edema. ACT 112: Negative or not required by law. Electronically signed by: Kodi Almodovar M.D. 04/09/2022 4:56 PM
[2022-04-09 17:02] LABS: INR 1.1 (0.9-1.1); Partial Thromboplastin Ratio 1.3; Partial Thromboplastin Time 34.4 Seconds (21.0-31.0); Prothrombin Time 12.1 Seconds (9.0-12.0)
[2022-04-09] MEDS ORDERED: ALBUT/IPRATROP 3MG/0.5MG NEB 3 ML VIAL NEB STA (17:03)
[2022-04-09] MEDS ORDERED: CEFEPIME 2,000 MG/20 ML VIAL IV STA (17:15)
[2022-04-09 17:17] LABS: Alanine Aminotransferase 13 U/L (7-52); Albumin Globulin Ratio 0.9 (0.9-2); Albumin Level 3.3 gm/dl (3.4-5.0); Alkaline Phosphatase 78 U/L (34-104); Anion Gap 21 (3-11); Aspartate Aminotransferase 9 U/L (13-39); BUN Creatinine Ratio 4.7 (10-20); Bilirubin,Total 0.6 mg/dl (0.2-1.0); Blood Urea Nitrogen 86 mg/dl (6-23); Calcium 8.8 mg/dl (8.5-10.1); Carbon Dioxide 21 mmol/L (21-32); Chloride 93 mmol/L (98-107); Est GFR (African American) 2.9 ml/min; Est GFR (Non-African American) 2.5 ml/min; Globulin 3.6 gm/dl (2.5-4.0); Glucose 81 mg/dl (70-99(Fasting)); Magnesium 1.3 mg/dl (1.7-2.4); Potassium 4.2 mmol/L (3.5-5.1); Sodium 135 mmol/L (136-145); Total Protein 6.9 gm/dl (6.0-8.3); Troponin I High Sensitivity 38.3 pg/ml (0-20)
[2022-04-09 17:19] LABS: Base Excess VBG -4.4 mEq/L; HCO3 VBG 22 mmol/L; Oxygen Saturation VBG < 60.0 %; PCO2 VBG 45 mmHg (38-50); PO2 VBG 31 mmHg
[2022-04-09] MEDS ORDERED: MAGNESIUM SULFATE / D5W 1 GM/100 ML BAG IV STA (17:28)
[2022-04-09] MEDS: MoRPHine SULFATE 4 MG/ML 1 ML CARP\\VIAL IV PRN ×4 (17:36→20:53)
--- NOTE | 2022-04-09 19:09 | CT Scan Report ---
CT chest diagnostic wo con CLINICAL HISTORY: poss pneumonia or rib fx, sob COMPARISON STUDY: Portable chest from 04/09/2022 CT DOSE: 184.03 mGy.cm TECHNIQUE: Standard CT of the Chest was performed without IV contrast. A dose lowering technique was utilized adhering to the principles of ALARA. FINDINGS: Airway: The airway is clear. No endobronchial lesion is identified. Lungs: There is breathing motion artifact present. Crowding of the bronchovascular markings is presen t at the lung bases. The lungs are otherwise clear of acute alveolar opacities, air bronchograms or p ulmonary nodules. Pleura: There is trace fluid present at the left lung base. There is no right pleural effusion. There is no evidence for pneumothorax. Mediastinum: There is no evidence for pathologic adenopathy on these limited noncontrast images. The heart is enlarged. There is extensive coronary artery calcification. The thoracic aorta is within nor mal limits. There is no evidence for pericardial effusion. Osseous structures: There is no acute osseous pathology. IMPRESSION: 1. Breathing motion artifact with crowding the bronchovascular markings at the lung bases. 2. Trace left-sided pleural effusion. 3. There is otherwise no acute chest disease on these noncontrast images. 4. Cardiomegaly with extensive coronary artery calcification. ACT 112: Negative or not required by law. Electronically signed by: Tommie Romero M.D. 04/09/2022 7:06 PM
--- NOTE | 2022-04-09 20:13 | History & Physical Report ---
Date of Service April 09, 2022 Assessment & Plan (1) Chest pain: Plan: - Unclear etiology, differential at this point includes myocarditis or pericarditis due to immunotherapy versus shingles/post hrepetic neuralgi versus ACS. He has been having this chest pain for the past 3 days and his hs trop on presentation was 38.3, EKG with poor baseline due to movement, however no new changes seen on compared to EKG from December making his presentation less concerning for ACS. hsTrop may be elevated in setting of ESRD. CT showed trace left pleural effusion with cardiomegaly. His SOB is associated with severity of his chest pain with inspiration. He also reports drinking rash developed sterile peripheral aspect of his back in the area with pain is, rash no longer present. - For now, his pain has been controlled for 30-45 minutes with 4 mg IV morphine. Will transition to 0.5 mg Dilaudid every 3 hours [address] floor. - Repeat troponin in a.m. - Continue lorazepam 1mg at night for sleep. - Given history of rash in area of pain--will cover for shingles/post-herpetic n euralgia with Valtrex 1g TID. - If pain not controlled overnight with Dilaudid, could consider thoracic MRI tomorrow to look for nerve impingement. (2) Hypomagnesemia: Plan: - 1.3, replete and recheck in a.m. (3) End stage kidney disease: Plan: - On peritoneal dialysis, baseline Cr several months ago ~6-8, however for the past month has been 14, 16, and 18 tonight in the ED. Has had some immunosuppressant medications reduced/stopped in anticipation of immunotherapy. - Consult Dr. Foreman with nephrology, has plans for hemodialysis tomorrow. - Continue carvedilol. (4) Kidney transplant failure: Plan: - Renal transplant 12 years ago. Currently on tacrolimus 1 mg BID. 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 - Libtayo immunotherapy 6 weeks ago, has been on prednisone tape up until last week due to side effects from therapy. - Consult Dr. Valentin given concern he may be having reactions/side effects from Libtayo (6) Secondary anemia: Plan: - Hgb 10.7, at his baseline. - Continue to follow on AM labs. Plan: - Admit to med/tele for pain control, nephrology and oncology consults as above. - SCDs for VTE ppx. - Full Code. 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 Proximately 8 weeks ago, patient's immun osuppressive medications were reduced due to upcoming immunotherapy for his squamous cell carcinoma. 2 weeks later, he had immunotherapy with Libtayo and had done well with this, however shortly after developed myalgias, therefore was placed on a prednisone taper. This was completed 1 week ago, and on Thursday, patient developed left sided anterolateral chest pain that wraps around to his back on the left side. It is exacerbated with breathing, the pain is so much that he becomes short of breath from it. Today, the chest pain has become unbearable so he presents to the ED for further evaluation. He states he did have a rash along the lateral aspect of his left chest, but denies fever/chills, palpitations, radiation of chest pain to arms, neck, jaw, denies cough, exacerbation of pain when lying flat. In the ED, he is tachycardic with HR 100s, otherwise vital signs wnl and stable. Labs remarkable for WBC 13.55, BUN 86, Cr 18.16, AG 21, Mg++ 1.3, hs trop 38.3. Blood cultures sent. CXR with small left pleural effusion with basilar opacity, as well as pulmonary vascular congestion, and mild pulmonary edema. CT chest confirmed these findings, no evidence of a pneumothorax or pneumonia. Allergies Allergy/AdvReac Type Severity Reaction Status Date / Time cephalexin [From Keflex] Allergy Intermediate itchy/ Verified 04/09/22 17:52 nausea red dye Allergy Intermediate Hives Verified 04/09/22 17:52 Home Medications Medication Instructions Recorded Confirmed Type calcitriol 0.5 mcg capsule 0.5 mcg PO QPM 10/28/21 04/09/22 History tacrolimus 1 mg capsule, 1 mg PO BID #360 cap 11/14/21 04/09/22 Rx immediate-release carvedilol 6.25 mg tablet 6.25 mg PO QPM #90 tab 01/20/22 04/09/22 Rx lorazepam 0.5 mg tablet 1 mg PO HS PRN 04/09/22 04/09/22 History Past Med/Surg History Medical History Amputation of right index finger Anemia 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 3XWK FOR 2 MONTHS RIGHT UE AVF PLACED MARCH 2020 CAD (coronary artery disease) S/p stent 2010. Had stress test was in preparation for kidney transplant, resulted in cath- had stent placed due to trauma to vessel Follows with cardio as needed Managed by primary care. Cardiomyopathy NO LONGER FOLLOWS WITH DR SUAREZ AT LEAST PAST 2 YRS End stage renal disease follows with [place] nephrology Gout, joint No recent issues HTN (hypertension) Hypercholesterolemia Peritoneal dialysis catheter in place Patient does treatments at home Daily Raynaud phenomenon Secondary hyperparathyroidism of renal origin Squamous cell carcinoma of external ear Surgical History AVF (arteriovenous fistula) RIGHT ARM History of amputation of finger index finger History of appendectomy History of cardiac cath 8 YRS AGO History of colonoscopy History of Mohs micrographic surgery for skin cancer BASAL AND SQUAMOUS CELL Kidney transplant recipient RIGHT > 8 YRS AGO Family History Mother , age 65 heart failure Diabetes Hypertension Stroke Heart disease Kidney disease on dialysis for 6 monhts Father , age 65 Burkitts lymphoma Cancer Heart disease Sister , brain tumor age 30 diabetes coma Diabetes Sister Heart disease Brother Diabetes Brother No problems noted. Brother No problems noted. Daughter No problems noted. Son No problems noted. Other No family history of allergies No family history of bleeding disorder Denies family history of Hearing loss Asthma Social History Smoking Status: Smoker, status unknown Tobacco Type: Cigars Age Started Using Tobacco: 15; Years Smoked: 6; Smoking End Date: 04/09/22; Second Hand Exposure: No; Do You Dip or Chew Tobacco: Yes; Tobacco Cessation Education Requested by Patient: No Hx Alcohol Use: No Hx Substance Use: No Preferred Language: Senegalese Communication Ability: Effective Out And Out Cigar Maker Hand Required: No Beliefs That Will Affect Care: None marital status: Current Living Situation: Spouse current occupational status: previously employed 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 How many Children do You have: 2 Other Information That Helps Us Care for You: No Feels Safe at Home: Yes Safety Concerns: Feels Safe At This Time Childhood Exposure to Second-Hand Smoke: Yes caffeine: Yes (one cup per daycaffeine soda 2-3 per day) during the past year weight has: remained stable Dental Care, Regularly: Yes Physical Activity Frequency: Daily Seatbelt Use: sometimes Sunscreen Use: Yes Assistive Devices: Contacts and Oxygen - Continuous Review of Systems Review of Systems: Constitutional: No fever/chills, weakness, fatigue, myalgias, anorexia, night sweats Eyes: No diplopia, no worsening or blurred vision ENT: normal hearing, no trouble swallowing Respiratory: Shortness of breath due to chest pain; no cough Cardiovascular: Pleuritic chest pain x3 days; no tightness or palpitations Abdomen: No pain, nausea, vomiting, diarrhea or constipation : Denies dysuria, hematuria, increased urgency/frequency, urinary retention Musculoskeletal: No joint pain, calf pain, swelling Neurologic: No weakness, numbness/tingling, or balance problems Psychiatric: No anxiety or depression Skin: No rash or itch Physical Exam Physical Exam: General: awake, alert, visibly agitated but not in acute distress Head: Normocephalic, atraumatic ENT: PERRL, EOMI, no pharyngeal exudate, mucous membranes moist Chest: Clear to auscultation, on room air, no adventitious breath sounds Cardiac: Tachycardic, regular rhythm, no murmur, no JVD, normal peripheral pulses, good capillary refill Abdominal: NABS x 4 quadrants, soft, nontender to palpation, no rebound, guarding or tenderness Extremities: Normal inspection, no peripheral edema or erythema, calfs nontender to palpation Psych: Normal mood and affect Neuro: AAO x 3, strength intact bilaterally and rated 5/5, no motor deficits, speech is clear, no peripheral sensory deficits Skin: no rash or erythema Results & Data Results & Data ([facility]) Vital Signs (Past 12 Hours) Vital Signs Temp Pulse Resp BP Pulse Ox 04/09/22 17:02 105 H 24 96 04/09/22 16:55 110 H 25 H 95 04/09/22 15:39 36.7 C 108 H 20 137/83 93 Laboratory Results Abnormal lab results 04/09/22 04/09/22 04/09/22 Range/Units 16:04 16:04 16:04 WBC 13.55 H (4.8-10.8) K/uL RBC 3.71 L (4.7-6.1) M/uL Hgb 10.7 L (14.0-18.0) g/dL Hct 33.0 L (42-52) % RDW Std Deviation 60.6 H (36.4-46.3) fL RDW Coeff of Nano 18.6 H (11.5-14.5) % Neut # (Auto) 12.01 H (1.4-6.5) K/uL Lymph # (Auto) 0.45 L (1.2-3.4) K/uL [place] # (Auto) 0.95 H (0.11-0.59) K/uL Immature Gran # (Auto) 0.03 H (0.00-0.02) K/uL PT 12.1 H (9.0-12.0) Seconds APTT 34.4 H (21.0-31.0) Seconds VBG pH (7.36-7.41) Sodium 135 L (136-145) mmol/L Chloride 93 L (98-107) mmol/L Anion Gap 21 H (3-11) BUN 86 H (6-23) mg/dl Creatinine 18.16 H* (0.6-1.4) mg/dl BUN/Creatinine Ratio 4.7 L (10-20) Magnesium 1.3 L (1.7-2.4) mg/dl AST 9 L (13-39) U/L Troponin I High Sens 38.3 H (0-20) pg/ml Albumin 3.3 L (3.4-5.0) gm/dl 04/09/22 Range/Units 17:09 WBC (4.8-10.8) K/uL RBC (4.7-6.1) M/uL Hgb (14.0-18.0) g/dL Hct (42-52) % RDW Std Deviation (36.4-46.3) fL RDW Coeff of Nano (11.5-14.5) % Neut # (Auto) (1.4-6.5) K/uL Lymph # (Auto) (1.2-3.4) K/uL [place] # (Auto) (0.11-0.59) K/uL Immature Gran # (Auto) (0.00-0.02) K/uL PT (9.0-12.0) Seconds APTT (21.0-31.0) Seconds VBG pH 7.30 L (7.36-7.41) Sodium (136-145) mmol/L Chloride (98-107) mmol/L Anion Gap (3-11) BUN (6-23) mg/dl Creatinine (0.6-1.4) mg/dl BUN/Creatinine Ratio (10-20) Magnesium (1.7-2.4) mg/dl AST (13-39) U/L Troponin I High Sens (0-20) pg/ml Albumin (3.4-5.0) gm/dl Diagnostic Findings Chest X-Ray 04/09/22 16:24 XR chest 1V portable CLINICAL HISTORY: Dyspnea COMPARISON STUDY: Chest CT April 05, 2021. Chest radiograph January 15, 2022. FINDINGS: There is no pneumothorax. Small left pleural effusion is noted. There is mild interstitial thickening. Enlargement of the cardiac silhouette is noted. Low lung volumes are noted. This may reflect a hypoventilatory study. Left basilar opacity is noted. IMPRESSION: 1. Small left pleural effusion with left basilar opacity which could reflect atelectasis or consolidation. Radiographic follow-up to ensure resolution is recommended. 2. Moderate enlargement of the cardiac silhouette. Pulmonary vascular congestion with possible mild pulmonary edema. ACT 112: Negative or not required by law. Electronically signed by: Kodi Almodovar M.D. 04/09/2022 4:[address] 04/09/22 17:16 CT chest diagnostic wo con CLINICAL HISTORY: poss pneumonia or rib fx, sob COMPARISON STUDY: Portable chest from 04/09/2022 CT DOSE: 184.03 mGy.cm TECHNIQUE: Standard CT of the Chest was performed without IV contrast. A dose lowering technique was utilized adhering to the principles of ALARA. FINDINGS: Airway: The airway is clear. No endobronchial lesion is identified. Lungs: There is breathing motion artifact present. Crowding of the bronchovascular markings is present at the lung bases. The lungs are otherwise clear of acute alveolar opacities, air bronchograms or pulmonary nodules. Pleura: There is trace fluid present at the left lung base. There is no right pleural effusion. There is no evidence for pneumothorax. Mediastinum: There is no evidence for pathologic adenopathy on these limited noncontrast images. The heart is enlarged. There is extensive coronary artery calcification. The thoracic aorta is within normal limits. There is no evidence for pericardial effusion. Osseous structures: There is no acute osseous pathology. IMPRESSION: 1. Breathing motion artifact with crowding the bronchovascular markings at the lung bases. 2. Trace left-sided pleural effusion. 3. There is otherwise no acute chest disease on these noncontrast images. 4. Cardiomegaly with extensive coronary artery calcification. ACT 112: Negative or not required by law. Electronically signed by: Tommie Romero M.D. 04/09/2022 7:06 PM ECG Additional Comments: Sinus tachycardia Possible Left atrial enlargement Right bundle branch block Abnormal ECG When compared with ECG of 15-JAN-2022 14:18, No significant change was found. Supervising Physician Co-Signing Physician Notes Attending addendum: I have physically seen this patient, have supervised the BENJIE's activities, and agree with the H&P unless as otherwise noted. Assessment and Plan: Chest pain- The patient will be admitted to telemetry for serial cardiac enzymes, serial EKG's, cardiac rhythm monitoring and a 2-D echocardiogram with Dopplers. Unclear etiology Initial troponin 38.3 Patient reports having had a rash transiently in this area prior to the pain developing Concerned about the possibility of postherpetic neuralgia Valtrex 1 g p.o. 3 times daily Hypomagnesemia- Magnesium level 1.3 on admission Replace both orally and IV, recheck in a.m. ESRD/kidney transplant failure- Patient has been on peritoneal dialysis, however, nephrology plans hemodialysis tomorrow, Remaining orders and notations as noted PG Care Time/CCT Total # of Minutes Spent Total Time Spent with Patient: Total time spent is greater than 50% in coordination of care (as documented) at patient's floor/unit and/or counseling patient: Coding Level of Care Code 02742 Initial Inpt Care Lvl 3 Diagnoses Squamous cell carcinoma of preauricular region C44.329 Kidney transplant failure T86.12 End stage kidney disease N18.6 Secondary anemia D64.9 Chest pain R07.9 Hypomagnesemia E83.42
[2022-04-09] MEDS ORDERED: ONDANSETRON INJ 2 MG/ML 2 ML VIAL ONE (21:39)
[2022-04-09] MEDS ORDERED: HYDROmorphone INJ 0.5 MG/0.5 ML SYR IV STA (21:47)
[2022-04-09] MEDS ORDERED: ACETAMINOPHEN 325 MG TAB PO PRN (23:04)
[2022-04-09] MEDS ORDERED: LORazepam 1 MG TAB PO PRN (23:04)
[2022-04-09] MEDS ORDERED: POLYETHYLENE (MIRALAX) 17 GM PACK PO PRN (23:04)
[2022-04-10] MEDS: CALCITRIOL 0.25 MCG CAPSULE PO SCH ×2 (00:41→20:41)
[2022-04-10] MEDS: carvediloL 6.25 MG TAB PO SCH ×2 (00:41→20:41)
[2022-04-10] MEDS: TACROLIMUS 1 MG CAP PO SCH ×3 (00:42→20:41)
[2022-04-10] MEDS: MAGNESIUM SULFATE / D5W 1 GM/100 ML BAG IV SCH ×2 (01:25→04:07)
[2022-04-10] MEDS: HYDROmorphone INJ 0.5 MG/0.5 ML SYR IV PRN ×3 (04:07→20:41)
[2022-04-10 07:45] LABS: Basophils # (auto) 0.02 K/uL (0-0.2); Basophils % (auto) 0.1 %; Eosinophils # (auto) 0.01 K/uL (0-0.5); Hematocrit (blood only) 28.2 % (42-52); Hemoglobin 9.1 g/dL (14.0-18.0); Immature Granulocytes # (auto) 0.05 K/uL (0.00-0.02); Immature Granulocytes % (auto) 0.2 %; Lymphocytes # (auto) 0.43 K/uL (1.2-3.4); Lymphocytes % (auto) 2.1 %; Mean Corpuscular Hemoglobin 28.3 pg (25-34); Mean Corpuscular Hgb Conc 32.3 g/dL (32-36); Mean Corpuscular Volume 87.9 fL (80-100); Mean Platelet Volume 8.4 fL (7.4-10.4); Monocytes # (auto) 1.03 K/uL (0.11-0.59); Neutrophils % (auto) 92.6 %; Platelet Count 172 K/uL (130-400); RDW Coefficient of Variation 18.6 % (11.5-14.5); RDW Standard Deviation 59.6 fL (36.4-46.3); Red Blood Count 3.21 M/uL (4.7-6.1); White Blood Count 20.74 K/uL (4.8-10.8)
[2022-04-10 07:52] LABS: Albumin Globulin Ratio 0.9 (0.9-2); Albumin Level 2.7 gm/dl (3.4-5.0); Bilirubin,Total 0.6 mg/dl (0.2-1.0); Calcium 8.5 mg/dl (8.5-10.1); Creatinine Clr Calc Pharmacy 4.4 ml/min; Est GFR (African American) 2.8 ml/min; Est GFR (Non-African American) 2.4 ml/min; Magnesium 2.2 mg/dl (1.7-2.4); Total Protein 5.7 gm/dl (6.0-8.3)
[2022-04-10] MEDS: valACYclovir HCL 500 MG TABLET PO SCH (08:02)
[2022-04-10] MEDS ORDERED: SODIUM CHLORIDE 0.9% 1000ML 1,000 ML IV PRN (09:10)
--- NOTE | 2022-04-10 11:09 | Nephrology Consultation ---
Date of Consultation April 10, 2022 Assessment & Plan (1) End stage kidney disease: Mr. Serrato's physical exam is c/w pericarditis. Elevated BUN/Cr on admission suggest uremia as the cause. Discussed indications/benefits of conversion from PD to HD. Mr. Serrato is agreeable. Will plan heparin free HD this afternoon and again in am. Orders have been placed in EMR and HD RN notified. Follow up ECG, echocardiogram and consultation w/ Cardiology has been requested. Case briefly discussed w/ Cardiology this morning by telephone as well. Chest CT report reviewed - no reported thoracic aortic aneurysm. Explained to Mr. Serrato that he will require several day hospitalization follow ed by outpatient HD. Case management consulted to set up outpatient HD at [facility]. History of Present Illness Reason for Consultation: ESKD Attending Physician: Roni Mcdonnell History of Present Illness Mr. Serrato is a 56 year old white male who is seen at the request of [facility] to provide dialysis and assist w/ medical management during hospitalization. Mr. 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 He did not undergo renal biopsy or immunosuppressive therapy. He was on IHD for ~ 2 months and then received a LURT from his . He suffered a slow progressive loss of allograft function and 11/09 started NCCPD therapy. PD has been complicated by inflow and outflow discomfort. He has only been able to tolerate 1500 cc fill volumes. Last evening Mr. Serrato presented to the [facility] w/ a 3 day h/o retrosternal chest discomfort radiating to his back. It was made worse by deep inspiration. He denied fever, hemoptysis, hematemesis, or abdominal pain. He has been adherent to his PD regimen and denies cloudy PD effluent or abdominal pain. Laboratory studies revealed COVID negative, mild leukocytosis, Cr 18, BUN 95. ECG was atrial tachycardia w/ mild diffuse ST segment elevation. Initial troponin was mildly elevated at 38 but repeat has risen to 61. CXR revealed small L pleural effusion and moderate enlargement of the cardiac silhouette and mild pulmonary vascular congestion. Chest CT revealed a normal thoracic aorta and trace L pleural effusion. He is currently resting comfortably after receiving IV Dilaudid PMH is significant for recurrent UTI, squamous cell CA of R external ear metastatic to the R neck/parotid. He has undergone R parotidectomy/neck dissection and adjuvant XRT. 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 Allergies Allergy/AdvReac Type Severity Reaction Status Date / Time cephalexin [From Keflex] Allergy Intermediate itchy/ Verified 04/09/22 17:52 nausea red dye Allergy Intermediate Hives Verified 04/09/22 17:52 Home Medications Medication Instructions Recorded Confirmed Type calcitriol 0.5 mcg capsule 0.5 mcg PO QPM 10/28/21 04/09/22 History tacrolimus 1 mg capsule, 1 mg PO BID #360 cap 11/14/21 04/09/22 Rx immediate-release carvedilol 6.25 mg tablet 6.25 mg PO QPM #90 tab 01/20/22 04/09/22 Rx lorazepam 0.5 mg tablet 1 mg PO HS PRN 04/09/22 04/09/22 History Patient History Medical History Amputation of right index finger Anemia 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 3XWK FOR 2 MONTHS RIGHT UE AVF PLACED MARCH 2020 CAD (coronary artery disease) S/p stent 2010. Had stress test was in preparation for kidney transplant, resulted in cath- had stent placed due to trauma to vessel Follows with cardio as needed Managed by primary care. Cardiomyopathy NO LONGER FOLLOWS WITH DR SUAREZ AT LEAST PAST 2 YRS End stage renal disease follows with [place] nephrology Gout, joint No recent issues HTN (hypertension) Hypercholesterolemia Peritoneal dialysis catheter in place Patient does treatments at home Daily Raynaud phenomenon Secondary hyperparathyroidism of renal origin Squamous cell carcinoma of external ear Surgical History AVF (arteriovenous fistula) RIGHT ARM History of amputation of finger index finger History of appendectomy History of cardiac cath 8 YRS AGO History of colonoscopy History of Mohs micrographic surgery for skin cancer BASAL AND SQUAMOUS CELL Kidney transplant recipient RIGHT > 8 YRS AGO Family History Mother , age 65 heart failure Diabetes Hypertension Stroke Heart disease Kidney disease on dialysis for 6 monhts Father , age 65 Burkitts lymphoma Cancer Heart disease Sister , brain tumor age 30 diabetes coma Diabetes Sister Heart disease Brother Diabetes Brother No problems noted. Brother No problems noted. Daughter No problems noted. Son No problems noted. Other No family history of allergies No family history of bleeding disorder Denies family history of Hearing loss Asthma Social History Smoking Status: Smoker, status unknown Tobacco Type: Cigars Age Started Using Tobacco: 15; Years Smoked: 6; Smoking End Date: 04/09/22; Second Hand Exposure: No; Do You Dip or Chew Tobacco: Yes; Tobacco Cessation Education Requested by Patient: No Hx Alcohol Use: No Hx Substance Use: No Preferred Language: Malawian Communication Ability: Effective Gear Generator Set Up Operator Required: No Beliefs That Will Affect Care: None marital status: Current Living Situation: Spouse current occupational status: previously employed 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 How many Children do You have: 2 Other Information That Helps Us Care for You: No Feels Safe at Home: Yes Safety Concerns: Feels Safe At This Time Childhood Exposure to Second-Hand Smoke: Yes caffeine: Yes (one cup per daycaffeine soda 2-3 per day) during the past year weight has: remained stable Dental Care, Regularly: Yes Physical Activity Frequency: Daily Seatbelt Use: sometimes Sunscreen Use: Yes Assistive Devices: Contacts and Oxygen - Continuous Review of Systems Constitutional: no fever Eyes: no problem reported Ear, Nose, Mouth, Throat: no problem reported Respiratory: + dyspnea (mild); no cough Cardiovascular: + chest pain (radiating to the back, made worse w/ deep inspiration) and + edema; no palpitations Gastrointestinal: no abdominal pain, no nausea, no vomiting and no diarrhea/loose stools Neurologic: no confusion Physical Exam Constitutional: no acute distress Eyes: PERRL, conjunctivae normal, anicteric sclerae ENMT: scars noted from prior R neck dissection and Moh's nasal surgery Neck: no carotid bruit Respiratory: normal respiratory effort, lungs clear to auscultation Cardiovascular: tachycardic w/ 3 component pericardial friction rub R RC AVF + bruit Gastrointestinal (Abdomen): Inspection/Auscultation: normal bowel sounds Percussion/Palpation: abdomen nontender and no guarding PD catheter w/ clean, dry dressing Neurologic: Speech / Cognition: normal speech and normal cognition Psychiatric: Mood: + depressed mood Results & Data ([facility]) Vital Signs (Past 12 Hours) Vital Signs Temp Pulse Pulse Resp BP Pulse Ox 04/10/22 06:47 36.5 C 84 18 105/68 91 04/10/22 02:01 36.8 C 84 18 107/68 97 04/10/22 01:53 96 H 04/09/22 23:38 36.9 C 98 H 20 109/72 98 Laboratory Results Laboratory Tests 04/10/22 04/10/22 06:56 06:56 WBC 20.74 H Hgb 9.1 L Hct 28.2 L Plt Count 172 Sodium 133 L Potassium 5.0 Chloride 94 L Carbon Dioxide 20 L BUN 95 H Creatinine 18.92 H* D Glucose 85 Calcium 8.5 Magnesium 2.2 Troponin I High Sens 61.0 H* D Albumin 2.7 L PG Care Time/CCT Total # of Minutes Spent Total Time Spent with Patient: Total time spent is greater than 50% in coordination of care (as documented) at patient's floor/unit and/or counseling patient: Coding Level of Care Code 46911 Inpt Consult Level 5 Diagnoses End stage kidney disease N18.6
--- NOTE | 2022-04-10 13:10 | Hospitalist Progress Note ---
Date of Service April 10, 2022 Assessment & Plan (1) Acute pericarditis: Plan: clinical picture most c/w acute pericarditis. differential - uremic pericarditis vs viral (recent rash, poor appetite, feeling poorly overall, nausea, etc) vs immunotherapy (Libtayo - recently given for SCC of skin). With latter there is reports of ~1% of people taking Libtayo developing pericarditis. Most likely etiology is uremia. Plan - * consulted Dr Hamilton - [facility] * I corresponded with Dr Hamilton - will resume prednisone at 40mg/day * as we improve his BUN & Cr with serial HD sessions the prednisone can likely be tapered * [employer] resp panel - r/o viral cause of this issue * I spoke with Dr Valentin from oncology; we discussed the Libtayo - hopefully this medication was NOT cause of his pericarditis; if it was not cause then obviously it can be used again in the future with caution * re-eval patient in AM with repeat labs, etc (2) Chest pain: Plan: likely 2nd to #1. symptoms not c/w ischemia/ACS. mild troponin elevation 2nd to #1. pain should improve with serial HD sessions as well as prednisone as above. (3) Hypomagnesemia: Plan: repleted/resolved (4) End stage kidney disease: Plan: on PD at home. despite PD his BUN and Creatinine have climbed to very high levels. s/p nephrology consult today with Dr Amaral. Due to concerns for acute pericarditis - possibly uremic in etiology - PD to switch to HD, first session today. appreciate nephrology consultation. (5) Kidney transplant failure: Plan: Renal transplant 12 years ago. Currently on tacrolimus 1 mg BID. Based on pharmacy records it appears he was taking chronic prednisone 5mg/day prior to the prednisone being increased to 60mg/day in early March. need to clarify with family. 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 Libtayo immunotherapy 6 weeks ago s/p prednisone 60mg/day starting early March for concern of reaction/side effects from the Libtayo; was tapered down about 1 week ago (7) Secondary anemia: Plan: 2nd ESRD Trend (8) CAD (coronary artery disease): Plan: prior h/o stent in the remote past current clinical picture not c/w ACS or ischemia cont coreg not on statin therapy - reason? (9) Chronic systolic CHF (congestive heart failure): Plan: compensated at this time PD or HD for volume control continue coreg EF noted on today's echo (past echos showed EF 30s) (10) Peritoneal dialysis catheter in place: (11) Squamous cell carcinoma of external ear: (12) Renal transplant recipient: Plan: previously followed by Dr Blas Grayson, now Dr Yoni Foreman based on records it appears he was on chronic prednisone 5mg/day as well as Tacrolimus BID renal transplant failed initiated PD in October 2021 see discussion above regarding transition to HD today appreciate nephrology assistance need to clarify with patient if indeed he was compliant with the 5mg of prednisone this spring Admission and Anticipated Discharge Date Admission Date: April 09, 2022 Subjective patient still with ongoing, constant pleuritic chest pain (points to just left of his mid sternum) but it is "90% better" pain present since yesterday /daughter at bedside -- they report a rash for several days on his back; no pruritis - "red little bumps" no rash other locations they report he was on immunotherapy for his SCC of the skin (face) - developed side effects, and was placed on prednisone taper (60mg) on 03/24/22 based on pharmacy records prior to that was on chronic prednisone 5mg/day - for his kidney transplant? he denies feeling short of breath today has had ongoing nausea with some vomiting at times poor appetite of late tele overnight wnl Review of Systems Review of Systems: gen - no fevers or chills; some fatigue cv - ongoing pleuritic chest pain; does not radiate pulm - no cough GI - no abdominal pain; nausea/emesis Physical Exam Physical Exam: gen - NAD, nontoxic face - dressing in place right side of face neck - no JVD mouth - MMM, no thrush heart - very loud holosystolic/holodiastolic rub heard all over chest; possible 1/6 systolic murmur LSB; RRR, s1 s2 lungs - scant rales bases, otherwise CTA b/l abd - soft NT ND BS+; PD catheter in place L abdomen - clean ext - no edema, pulses 2+ b/l vascular - RUE AV fistula skin - faint erythematous macularpapular rash on back only; palms, soles, arms, legs, torso without rash Results & Data Results & Data ([facility]) Vital Signs (Past 12 Hours) Vital Signs Temp Pulse Pulse Resp BP Pulse Ox 04/10/22 11:40 36.6 C 127 H 16 105/68 95 04/10/22 06:47 36.5 C 84 18 105/68 91 04/10/22 02:01 36.8 C 84 18 107/68 97 04/10/22 01:53 96 H Laboratory Results CBC with elevated WBC BUN/Cr noted ESR 95 CRP 25 Echo - trace pericardial effusion, EF 40-45%, no vegetations on valves PG Care Time/CCT Total # of Minutes Spent Total Time Spent with Patient: Total time spent is greater than 50% in coordination of care (as documented) at patient's floor/unit and/or counseling patient: Coding Level of Care Code 25383 Subseq Hosp Care Lvl 3 Diagnoses Chest pain R07.9 Hypomagnesemia E83.42 End stage kidney disease N18.6 Kidney transplant failure T86.12 Squamous cell carcinoma of preauricular region C44.329 Secondary anemia D64.9 Acute pericarditis I30.9 CAD (coronary artery disease) I25.10 Chronic systolic CHF (congestive heart failure) I50.22 Peritoneal dialysis catheter in place Z99.2 Squamous cell carcinoma of external ear C44.222 Laterality: right Renal transplant recipient Z94.0 (1) Squamous cell carcinoma of external ear Laterality: right Qualified Code(s): C44.222 - Squamous cell carcinoma of skin of right ear and external auricular canal
[2022-04-10] MEDS: ONDANSETRON INJ 2 MG/ML 2 ML VIAL IV PRN ×2 (13:14→18:05)
[2022-04-10] MEDS ORDERED: predniSONE 20 MG TAB PO STA (18:07)
--- NOTE | 2022-04-10 18:18 | XCELERA ---
[id number]
--- NOTE | 2022-04-11 06:56 | Electrocardiogram Report ---
Test Reason : Blood Pressure : / mmHG Vent. Rate : 111 BPM Atrial Rate : 111 BPM P-R Int : 164 ms QRS Dur : 148 ms QT Int : 364 ms P-R-T Axes : 053 119 029 degrees QTc Int : 495 ms Poor data quality, interpretation may be adversely affected Sinus tachycardia Possible Left atrial enlargement Right bundle branch block Abnormal ECG When compared with ECG of 15-JAN-2022 14:18, No significant change was found Confirmed by Scooby Tanner ([id number]) on 04/11/2022 6:56:16 AM Referred By: REFERRED SELF Confirmed By:Scooby Tanner
[2022-04-11] MEDS ORDERED: EPOETIN ALFA 10,000 UNITS/ML VIAL IV ONE (07:00)
[2022-04-11] MEDS ORDERED: SODIUM CHLORIDE 0.9% 1000ML 1,000 ML IV PRN (07:00)
--- NOTE | 2022-04-11 07:06 | Electrocardiogram Report ---
Test Reason : Blood Pressure : / mmHG Vent. Rate : 101 BPM Atrial Rate : 101 BPM P-R Int : 164 ms QRS Dur : 154 ms QT Int : 408 ms P-R-T Axes : 045 119 056 degrees QTc Int : 529 ms Sinus tachycardia Possible Left atrial enlargement Right bundle branch block Abnormal ECG When compared with ECG of 09-APR-2022 16:38, No significant change was found Confirmed by Scooby Tanner ([id number]) on 04/11/2022 7:06:33 AM Referred By: REFERRED SELF Confirmed By:Scooby Tanner
[2022-04-11 07:12] LABS: Hematocrit (blood only) 31.3 % (42-52); Hemoglobin 10.1 g/dL (14.0-18.0); Mean Corpuscular Hemoglobin 28.4 pg (25-34); Mean Corpuscular Hgb Conc 32.3 g/dL (32-36); Mean Corpuscular Volume 87.9 fL (80-100); Mean Platelet Volume 9.6 fL (7.4-10.4); Platelet Count 271 K/uL (130-400); RDW Coefficient of Variation 18.7 % (11.5-14.5); RDW Standard Deviation 60.8 fL (36.4-46.3); Red Blood Count 3.56 M/uL (4.7-6.1); White Blood Count 16.42 K/uL (4.8-10.8)
[2022-04-11 07:36] LABS: BUN Creatinine Ratio 4.7 (10-20); Calcium 9.3 mg/dl (8.5-10.1); Creatinine Clr Calc Pharmacy 5.1 ml/min; Est GFR (African American) 3.4 ml/min; Est GFR (Non-African American) 2.9 ml/min
--- NOTE | 2022-04-11 07:37 | Electrocardiogram Report ---
Test Reason : Blood Pressure : / mmHG Vent. Rate : 084 BPM Atrial Rate : 084 BPM P-R Int : 182 ms QRS Dur : 164 ms QT Int : 454 ms P-R-T Axes : 063 115 081 degrees QTc Int : 536 ms Normal sinus rhythm Right bundle branch block Abnormal ECG When compared with ECG of 09-APR-2022 21:32, No significant change was found Confirmed by Scooby Tanner ([id number]) on 04/11/2022 7:37:34 AM Referred By: REFERRED SELF Confirmed By:Scooby Tanner
[2022-04-11 07:43] LABS: C Reactive Protein 35.09 mg/dl (0-0.5)
[2022-04-11] MEDS: valACYclovir HCL 500 MG TABLET PO SCH (08:33)
[2022-04-11] MEDS: predniSONE 20 MG TAB PO SCH (08:33)
[2022-04-11] MEDS: TACROLIMUS 1 MG CAP PO SCH ×2 (08:34→20:19)
--- NOTE | 2022-04-11 09:13 | Cardiology Consultation ---
Date of Consultation April 11, 2022 History of Present Illness Reason for Consultation: Pericarditis likely secondary to uremia Attending Physician: Roni Mcdonnell History of Present Illness Tate was admitted to the hospital with significant back discomfort difficulty taking a deep breath, and associated shortness of breath. He was started on home hemodialysis but actually only was able to do it twice. He had been failing peritoneal dialysis at home. He was started on hemodialysis yesterday in the hospital his BUN was 95. With 1 dialysis treatment, improvement in his BUN, and initiation of steroids his chest discomfort this morning is dramatically better. He notes that just present if he takes moderate sized breath. At home he had chest discomfort laying flat he had difficulty getting comfortable. He notes he just could not really do anything. He thought it was related to an injury from working over the weekend. He has noticed some mild lower extremity edema. He denies any palpitations or fluttering or feeling his heart racing. [place] any fevers chills or sweats. Denies a cough. This morning he is more comfortable he notes his appetite has improved as well. The rest of a complete her systems otherwise negative Allergies Allergy/AdvReac Type Severity Reaction Status Date / Time cephalexin [From Keflex] Allergy Intermediate itchy/ Verified 04/09/22 17:52 nausea red dye Allergy Intermediate Hives Verified 04/09/22 17:52 Home Medications Medication Instructions Recorded Confirmed Type calcitriol 0.5 mcg capsule 0.5 mcg PO QPM 10/28/21 04/09/22 History tacrolimus 1 mg capsule, 1 mg PO BID #360 cap 11/14/21 04/09/22 Rx immediate-release carvedilol 6.25 mg tablet 6.25 mg PO QPM #90 tab 01/20/22 04/09/22 Rx lorazepam 0.5 mg tablet 1 mg PO HS PRN 04/09/22 04/09/22 History Patient History Medical History Amputation of right index finger Anemia 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 3XWK FOR 2 MONTHS RIGHT UE AVF PLACED MARCH 2020 CAD (coronary artery disease) S/p stent 2010. Had stress test was in preparation for kidney transplant, resulted in cath- had stent placed due to trauma to vessel Follows with cardio as needed Managed by primary care. Cardiomyopathy NO LONGER FOLLOWS WITH DR SUAREZ AT LEAST PAST 2 YRS End stage renal disease follows with [place] nephrology Gout, joint No recent issues HTN (hypertension) Hypercholesterolemia Peritoneal dialysis catheter in place Patient does treatments at home Daily Raynaud phenomenon Secondary hyperparathyroidism of renal origin Squamous cell carcinoma of external ear Surgical History AVF (arteriovenous fistula) RIGHT ARM History of amputation of finger index finger History of appendectomy History of cardiac cath 8 YRS AGO History of colonoscopy History of Mohs micrographic surgery for skin cancer BASAL AND SQUAMOUS CELL Kidney transplant recipient RIGHT > 8 YRS AGO Family History Mother , age 65 heart failure Diabetes Hypertension Stroke Heart disease Kidney disease on dialysis for 6 monhts Father , age 65 Burkitts lymphoma Cancer Heart disease Sister , brain tumor age 30 diabetes coma Diabetes Sister Heart disease Brother Diabetes Brother No problems noted. Brother No problems noted. Daughter No problems noted. Son No problems noted. Other No family history of allergies No family history of bleeding disorder Denies family history of Hearing loss Asthma Social History Smoking Status: Smoker, status unknown Tobacco Type: Cigars Age Started Using Tobacco: 15; Years Smoked: 6; Smoking End Date: 04/09/22; Second Hand Exposure: No; Do You Dip or Chew Tobacco: Yes; Tobacco Cessation Education Requested by Patient: No Hx Alcohol Use: No Hx Substance Use: No Preferred Language: Swedish Communication Ability: Effective Video Presentation Operator Required: No Beliefs That Will Affect Care: None marital status: Current Living Situation: Spouse current occupational status: previously employed 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 How many Children do You have: 2 Other Information That Helps Us Care for You: No Feels Safe at Home: Yes Safety Concerns: Feels Safe At This Time Childhood Exposure to Second-Hand Smoke: Yes caffeine: Yes (one cup per daycaffeine soda 2-3 per day) during the past year weight has: remained stable Dental Care, Regularly: Yes Physical Activity Frequency: Daily Seatbelt Use: sometimes Sunscreen Use: Yes Assistive Devices: Contacts and Oxygen - Continuous Results & Data ([facility]) Vital Signs (Past 12 Hours) Vital Signs Temp Pulse Pulse Pulse Resp BP Pulse Ox 04/11/22 07:40 111 H 04/11/22 07:37 36.6 C 87 16 119/76 94 04/11/22 03:48 36.8 C 87 16 115/79 92 04/10/22 23:03 36.6 C 85 18 112/72 92 04/10/22 22:20 86 He is awake alert and oriented x3 he did not appear to Short of breath talking in sentences. HEENT: Mildly reduced carotid upstrokes Lungs: Clear to auscultation bilaterally globally decreased breath sounds due to his discomfort of taking a deep breath Heart: Regular rate and rhythm he has a very prominent friction rub there is a soft systolic ejection murmur at the right sternal border Abdomen: Soft nontender distended positive bowel sounds : Extremities no clubbing cyanosis or edema Psychiatric: His affect appeared appropriate His echocardiogram and inpatient laboratory studies and EKG were reviewed He has diffuse ST elevation on his EKG consistent with pericarditis. Echocardiogram with mild global hypokinesis and EF in the range of 45% of note there was no significant pericardial effusion IMPRESSIONS: 1. Acute pericarditis likely secondary to uremia Without evidence of a pericardial effusion 2. History of a severe Nonischemic cardiomyopathy diagnosed in 2010 with an EF in the range of 30% EF 55% in 2015 EF this admission 45% with global hypokinesis 3. History of coronary artery disease with 3 stents to the LAD for what sounds like a coronary dissection at the time of his cardiac catheterization to [facility] number next end-stage renal disease status post renal transplantation in 2010 4. Metastatic squamous cell carcinoma 5. Renal transplantation in 2010 6. Ongoing tobacco abuse As I discussed with him likely is pericarditis is related to uremia and is also likely the cause for his worsening LV function. If there is room I would try to uptitrate his Coreg. Previously (when I last saw him two years ago) he was taking 3.125 mg in the morning and at least 9.375 mg in the evening. If he is only able to tolerate the 6.25 mg once a day then I would switch it to 3.125 mg twice a day as it is a twice a day drug My hope it is with hemodialysis and improvement in his uremia that his pericarditis will continue to improve and that his LV function will return to his baseline. HIs mildly elevated troponin is secondary to both end-stage renal disease and pericarditis there is no evidence of an acute coronary syndrome Unfortunately with his ESRD he cannot receive colchicine. The only option would be steroids to treat his discomfort and current inflammation. He is currently on 40 mg daily. He has had improvement in his symptoms. I would recommend a slow taper Over a month and hopefully this in combination with regular home hemodialysis his discomfort will not recur. He is hoping to go home tomorrow after dialysis today. Depending on that we will need to see him in the office in about 2 weeks with a limited echocardiogram just to make sure There is no evidence of pericardial effusion and make sure his symptoms have resolved. All this was discussed with the hospitalist service as well.
[2022-04-11] MEDS: ONDANSETRON INJ 2 MG/ML 2 ML VIAL IV PRN (09:49)
--- NOTE | 2022-04-11 10:54 | Nephrology Progress Note ---
Date of Service April 11, 2022 Assessment & Plan (1) End stage kidney disease: Plan: * Mr. Serrato's physical exam remains c/w active pericarditis * I have explained to Mr. Serrato that he will require daily heparin free HD until his pericardial friction rub resolves. I have encouraged him to remain hospitalized until this is completed * Once rub is no longer clinically evident on physical exam then patient can transition to outpatient dialysis * Discussed w/ Mr. Serrato today that he has lost residual renal function and likely suffered peritoneal membrane failure related to CNI/Immune checkpoint inhibitor therapy. He will need ongoing IHD. Return to PD therapy will likely be complicated by inadequate clearance and recurrent pericarditis. Mr. Serrato voice understanding * Agree w/ steroid taper. Avoid colchicine due to ESKD * Echocardiogram and chest CT reviewed - LVEF 40 - 45%, no thoracic aortic aneurysm * Case management has been consulted to set up outpatient HD at [facility] * Will schedule next heparin free inpatient HD for Thursday04/12/22. HD RN has been notified Admission and Anticipated Discharge Date Admission Date: April 09, 2022 Subjective Mr. Serrato was seen and examined in his hospital room this morning. He reports that his chest discomfort is improved. He reports no complications w/ HD yesterday Review of Systems Constitutional: no fever Eyes: no problem reported Ear, Nose, Mouth, Throat: no problem reported Respiratory: + dyspnea (mild); no cough Cardiovascular: + chest pain (radiating to the back, made worse w/ deep inspiration) and + edema; no palpitations Gastrointestinal: no abdominal pain, no nausea, no vomiting and no diarrhea/loose stools Neurologic: no confusion Physical Exam Constitutional: no acute distress Eyes: PERRL, conjunctivae normal, anicteric sclerae Neck: no carotid bruit Respiratory: normal respiratory effort, lungs clear to auscultation Cardiovascular: tachycardia w/3 component pericardial friction rub R RC AVF + bruit Gastrointestinal (Abdomen): Inspection/Auscultation: normal bowel sounds Percussion/Palpation: abdomen nontender and no guarding Neurologic: Speech / Cognition: normal speech and normal cognition Psychiatric: Mood: + depressed mood Results & Data ([facility]) Vital Signs (Past 12 Hours) Vital Signs Temp Pulse Pulse Pulse Resp BP Pulse Ox 04/11/22 07:40 111 H 04/11/22 07:37 36.6 C 87 16 119/76 94 04/11/22 03:48 36.8 C 87 16 115/79 92 04/10/22 23:03 36.6 C 85 18 112/72 92 Laboratory Results Laboratory Tests 04/10/22 04/10/22 04/10/22 06:56 06:56 11:52 WBC Hgb Hct Plt Count Sodium Potassium Chloride Carbon Dioxide BUN Creatinine Glucose Troponin I High Sens 61.0 H* D 58.8 H* C-Reactive Protein 25.40 H Albumin 2.7 L 04/11/22 04/11/22 06:46 06:46 WBC 16.42 H Hgb 10.1 L Hct 31.3 L Plt Count 271 D Sodium 135 L Potassium 5.0 Chloride 95 L Carbon Dioxide 21 BUN 75 H D Creatinine 15.98 H* D Glucose 117 H Troponin I High Sens C-Reactive Protein 35.09 H Albumin PG Care Time/CCT Total # of Minutes Spent Total Time Spent with Patient: Total time spent is greater than 50% in coordination of care (as documented) at patient's floor/unit and/or counseling patient: Coding Level of Care Code 05560 Subseq Hosp Care Lvl 3 Diagnoses End stage kidney disease N18.6
[2022-04-11 11:47] LABS: HBSAG NON-REACTIVE (NON-REACTIVE); Hepatitis B Surface Ab, Quant <5 mIU/mL (> OR = 10)
[2022-04-11] MEDS ORDERED: valACYclovir HCL 500 MG TABLET PO SCH (16:00)
[2022-04-11] MEDS: CALCITRIOL 0.25 MCG CAPSULE PO SCH (20:19)
--- NOTE | 2022-04-11 21:05 | Hospitalist Progress Note ---
Date of Service April 11, 2022 Assessment & Plan (1) Acute pericarditis: Plan: likely 2nd to uremia. IMPROVED s/p HD sessions x 2 and re-initiation of high-dose prednisone. day #2 of prednisone 40mg. plan - cont HD. prednisone taper over 1 month, then resume his usual 5mg/day. There are reports of ~1% of people taking Libtayo developing pericarditis but uremia more likely cause of his presentation. Viral etiology also possible but less likely. Appreciate nephrology & cardiology consultations. Plan for HD tomorrow per nephro. (2) Chest pain: Plan: IMPROVED. likely 2nd to #1. symptoms not c/w ischemia/ACS. mild troponin elevation 2nd to #1. pain should resolve with serial HD sessions as well as prednisone as above. (3) Hypomagnesemia: Plan: repleted/resolved (4) End stage kidney disease: Plan: on PD at home. Initiated 10/2021. despite PD his BUN and Creatinine had climbed to very high levels. s/p nephrology consult with Dr Amaral and initiation of HD. Day #2 of HD. Will dialyze in [facility] post-discharge. (5) Kidney transplant failure: Plan: Renal transplant 12 years ago. Currently on tacrolimus 1 mg BID. was taking chronic prednisone 5mg/day prior to the prednisone being increased to 60mg/day in early March. this was confirmed w/ patient today. 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 (9) Chronic systolic CHF (congestive heart failure): Plan: compensated at this time HD for volume control continue coreg EF 40s on echo this admission (improved from prior when EF was 30%) (10) Peritoneal dialysis catheter in place: (11) Squamous cell carcinoma of external ear: (12) Renal transplant recipient: Plan: previously followed by Dr Blas Grayson, now Dr Yoni Foreman based on records it appears he was on chronic prednisone 5mg/day as well as Tacrolimus BID renal transplant failed initiated PD in October 2021 see discussion above regarding transition to HD this admission appreciate nephrology assistance Plan: home tomorrow? Thursday? I updated pt's daughter, Radha, extensively by phone today Admission and Anticipated Discharge Date Admission Date: April 09, 2022 Subjective pt feels "nearly back to normal" today only the slightest of sternal pain with a very deep breath otherwise pain is basically resolved no dyspnea feeling very good today with normal appetite and resolution of nausea/emesis he does confirm that after increasing his chronic 5mg of prednisone to 60mg earlier in March that it was weaned down and then off for about 1 week he has been taking it daily since his renal transplant 10+ years ago Review of Systems Review of Systems: gen - no fevers cv - see HPI pulm - no cough or wheeze GI - no abd pain/n/v Physical Exam Physical Exam: gen - NAD, looks great today! face - dressing in place right side of face neck - no JVD mouth - MMM, no thrush heart - very loud holosystolic/holodiastolic rub heard all over chest but softer today; RRR, s1 s2 lungs - scant rales bases, otherwise CTA b/l abd - soft NT ND BS+ ext - no edema, pulses 2+ b/l vascular - RUE AV fistula Results & Data Results & Data ([facility]) Vital Signs (Past 12 Hours) Vital Signs Temp Pulse Pulse Pulse Resp BP BP 04/11/22 19:24 36.8 C 95 H 18 120/79 04/11/22 15:23 89 04/11/22 14:59 36.9 C 89 16 101/61 04/11/22 13:15 36.5 C 70 115/76 04/11/22 13:00 81 106/70 04/11/22 12:30 83 109/65 04/11/22 12:00 84 108/71 04/11/22 11:30 84 101/70 04/11/22 11:00 84 116/72 04/11/22 10:30 90 109/74 04/11/22 10:01 36.5 C 87 Pulse Ox 06/24/22 19:24 93 04/11/22 15:23 04/11/22 14:59 92 04/11/22 13:15 04/11/22 13:00 04/11/22 12:30 04/11/22 12:00 04/11/22 11:30 04/11/22 11:00 04/11/22 10:30 04/11/22 10:01 Laboratory Results Laboratory Results - last 24 hr 04/10/22 04/11/22 04/11/22 11:52 06:46 06:46 WBC 16.42 H RBC 3.56 L Hgb 10.1 L Hct 31.3 L MCV 87.9 MCH 28.4 MCHC 32.3 RDW Std Deviation 60.8 H RDW Coeff of Nano 18.7 H Plt Count 271 D MPV 9.6 Sodium 135 L Potassium 5.0 Chloride 95 L Carbon Dioxide 21 Anion Gap 19 H BUN 75 H D Creatinine 15.98 H* D Est Cr Clr Drug Dosing 5.1 Est GFR ( Amer) 3.4 Est GFR (Non-Af Amer) 2.9 BUN/Creatinine Ratio 4.7 L Glucose 117 H Calcium 9.3 C-Reactive Protein 35.09 H Hep Bs Antigen NON-REACTIVE Hep Bs Ag Confirmation TNP Hep Bs Antibody, Quant <5 L PG Care Time/CCT Total # of Minutes Spent Total Time Spent with Patient: Total time spent is greater than 50% in coordination of care (as documented) at patient's floor/unit and/or counseling patient: Coding Level of Care Code 39149 Subseq Hosp Care Lvl 2 Diagnoses Acute pericarditis I30.9 Chest pain R07.9 Hypomagnesemia E83.42 End stage kidney disease N18.6 Kidney transplant failure T86.12 Squamous cell carcinoma of preauricular region C44.329 Secondary anemia D64.9 CAD (coronary artery disease) I25.10 Chronic systolic CHF (congestive heart failure) I50.22 Peritoneal dialysis catheter in place Z99.2 Squamous cell carcinoma of external ear C44.222 Laterality: right Renal transplant recipient Z94.0 (1) Squamous cell carcinoma of external ear Laterality: right Qualified Code(s): C44.222 - Squamous cell carcinoma of [place] of right ear and external auricular canal
[2022-04-11] MEDS: carvediloL 3.125 MG TAB PO SCH (21:08)
[2022-04-12] MEDS ORDERED: SODIUM CHLORIDE 0.9% 1000ML 1,000 ML IV PRN (07:00)
[2022-04-12 08:18] VITALS: O2SAT 94
[2022-04-12] MEDS: predniSONE 20 MG TAB PO SCH (08:19)
[2022-04-12] MEDS: TACROLIMUS 1 MG CAP PO SCH (08:19)
[2022-04-12] MEDS: carvediloL 3.125 MG TAB PO SCH (08:20)
[2022-04-12 08:50] LABS: Hematocrit (blood only) 28.9 % (42-52); Immature Granulocytes % (auto) 0.3 %; Lymphocytes # (auto) 0.47 K/uL (1.2-3.4); Lymphocytes % (auto) 2.9 %; Mean Corpuscular Hemoglobin 27.9 pg (25-34); Mean Corpuscular Hgb Conc 31.1 g/dL (32-36); Mean Corpuscular Volume 89.5 fL (80-100); Mean Platelet Volume 9.5 fL (7.4-10.4); Monocytes % (auto) 4.9 %; Neutrophils # (auto) 15.15 K/uL (1.4-6.5); Neutrophils % (auto) 91.9 %; Platelet Count 290 K/uL (130-400); RDW Coefficient of Variation 18.8 % (11.5-14.5); RDW Standard Deviation 61.6 fL (36.4-46.3); Red Blood Count 3.23 M/uL (4.7-6.1); White Blood Count 16.47 K/uL (4.8-10.8)
[2022-04-12 08:51] LABS: Immature Granulocytes # (auto) 0.05 K/uL (0.00-0.02)
[2022-04-12 09:12] LABS: BUN Creatinine Ratio 5.1 (10-20); C Reactive Protein 22.56 mg/dl (0-0.5); Calcium 9.6 mg/dl (8.5-10.1); Creatinine Clr Calc Pharmacy 6.9 ml/min; Est GFR (Non-African American) 4.3 ml/min; Potassium 4.7 mmol/L (3.5-5.1)
[2022-04-12 09:54] VITALS: TEMP 98.1
--- NOTE | 2022-04-12 11:45 | Nephrology Progress Note ---
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 admitted with chest pain, shortness of breath and found to have pericarditis most likely uremic pericarditis as his BUN was found to be above 150s and creatinine 18. he was started on hemodialysis and had [id number] dialysis over last 3 days. Clinically pericardial rub improve significantly and chest pain and shortness of breath resolved. -- He agreed to continue on hemodialysis for the time being although looking forward to go back to PD as he had pretty bad experience with hemodialysis before, had difficulty tolerating and headache with each treatment. But so far has been okay with hemodialysis. His schedule to start dialysis at [facility] once he gets discharge. Will continue to follow while inpatient. Admission and Anticipated Discharge Date Admission Date: April 09, 2022 Subjective Tate was seen and examined during dialysis. He has been tolerating dialysis. No leg cramp, dizziness, hypotension during dialysis. He is still making urine. Electrolyte has been acceptable. Overall he has been feeling better, denies any chest pain, shortness of breath. Appetite has been fair. Blood pressure has been acceptable. Review of Systems Review of Systems: The detailed review of system was otherwise unremarkable. Physical Exam Constitutional: WD/WN, vitals as above no acute distress Eyes: + anicteric sclerae Neck: normal visual inspection Respiratory: Auscultation: lungs clear to auscultation bilaterally Cardiovascular: Rate/Rhythm: regular rate and regular rhythm Extremities: no edema Skin: + scar ( On left side of face); no rashes Neurologic: no focal motor deficits Psychiatric: Orientation: alert and oriented x 3 Results & Data ([facility]) Vital Signs (Past 12 Hours) Vital Signs Temp Pulse Pulse Resp BP BP Pulse Ox 04/12/22 11:00 85 120/79 04/12/22 10:40 79 121/73 04/12/22 10:20 81 117/73 04/12/22 10:00 80 114/73 04/12/22 09:40 82 114/77 04/12/22 09:35 83 116/76 06/25/22 09:33 36.7 C 83 06/25/22 08:17 36.6 C 84 18 118/75 94 04/12/22 03:13 36.6 C 81 16 110/65 93 04/11/22 23:54 36.5 C 86 16 104/67 93 04/11/22 23:46 93 H PG Care Time/CCT Total # of Minutes Spent Total Time Spent with Patient: Total time spent is greater than 50% in coordination of care (as documented) at patient's floor/unit and/or counseling patient: Coding Level of Care Code 83089 Subseq Hosp Care Lvl 3 Diagnoses End stage kidney disease N18.6 Kidney transplant failure T86.12 Acute pericarditis I30.9 HTN (hypertension) I10 Secondary anemia D64.9
[2022-04-12 14:15] VITALS: BP 127/81
[2022-04-12 15:21] VITALS: PULSE 95
--- NOTE | 2022-04-12 15:22 | Discharge Summary ---
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 Proximately 8 weeks ago, patient's immunosuppressive medications were reduced due to upcoming immunotherapy for his squamous cell carcinoma. 2 weeks later, he had immunotherapy with Libtayo and had done well with this, however shortly after developed myalgias, therefore was placed on a prednisone taper. This was completed 1 week ago, and on Thursday, patient developed left sided anterolateral chest pain that wraps around to his back on the left side. It is exacerbated with breathing, the pain is so much that he becomes short of breath from it. Today, the chest pain has become unbearable so he presents to the ED for further evaluation. He states he did have a rash along the lateral aspect of his left chest, but denies fever/chills, palpitations, radiation of chest pain to arms, neck, jaw, denies cough, exacerbation of pain when lying flat. In the ED, he is tachycardic with HR 100s, otherwise vital signs wnl and stable. Labs remarkable for WBC 13.55, BUN 86, Cr 18.16, AG 21, Mg++ 1.3, hs trop 38.3. Blood cultures sent. CXR with small left pleural effusion with basilar opacity, as well as pulmonary vascular congestion, and mild pulmonary edema. CT chest confirmed these findings, no evidence of a pneumothorax or pneumonia. Discharge Exam gen - NAD, looks great today! face - dressing in place right side of face neck - no JVD mouth - MMM, no thrush heart - very loud holosystolic/holodiastolic rub heard all over chest but softer today; RRR, s1 s2 lungs - scant rales bases, otherwise CTA b/l abd - soft NT ND BS+ ext - no edema, pulses 2+ b/l vascular - RUE AV fistula Discharge Data Allergies Allergy/AdvReac Type Severity Reaction Status Date / Time cephalexin [From Keflex] Allergy Intermediate itchy/ Verified 04/09/22 17:52 nausea red dye Allergy Intermediate Hives Verified 04/09/22 17:52 Consultations 04/09/22 19:48 ED Decision to Admit Stat 04/09/22 23:04 Consult Nephrology Routine Consult Oncology Routine 04/10/22 09:00 Consult Cardiology Routine Ordered Studies 04/09/22 17:16 CT chest diagnostic wo con Stat Hospital Course (1) Acute pericarditis: likely 2nd to uremia. IMPROVED s/p HD sessions x 2 and re-initiation of high-dose prednisone. day #2 of prednisone 40mg. plan - cont HD. prednisone taper over 1 month, then resume his usual 5mg/day. There are reports of ~1% of people taking Libtayo developing pericarditis but uremia more likely cause of his presentation. Viral etiology also possible but less likely. Appreciate nephrology & cardiology consultations. Plan for HD tomorrow per nephro. (2) Chest pain: IMPROVED. likely 2nd to #1. symptoms not c/w ischemia/ACS. mild troponin elevation 2nd to #1. pain should resolve with serial HD sessions as well as prednisone as above. (3) Hypomagnesemia: repleted/resolved (4) End stage kidney disease: on PD at home. Initiated 10/2021. despite PD his BUN and Creatinine had climbed to very high levels. s/p nephrology consult with Dr Amaral and initiation of HD. Day #2 of HD. Will dialyze in [facility] post-discharge. (5) Kidney transplant failure: Renal transplant 12 years ago. Currently on tacrolimus 1 mg BID. was taking chronic prednisone 5mg/day prior to the prednisone being increased to 60mg/day in early March. this was confirmed w/ patient today. 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 Libtayo immunotherapy 6 weeks ago s/p prednisone 60mg/day starting early March for concern of reaction/side effects from the Libtayo; was tapered down about 1 week ago and then off prednisone resumed at 40mg/day for #1 (7) Secondary anemia: 2nd ESRD Trend (8) CAD (coronary artery disease): prior h/o stent in the remote past current clinical picture not c/w ACS or ischemia cont coreg - change to 3.125mg BID not on statin therapy - reason? (9) Chronic systolic CHF (congestive heart failure): compensated at this time HD for volume control continue coreg EF 40s on echo this admission (improved from prior when EF was 30%) (10) Peritoneal dialysis catheter in place: (11) Squamous cell carcinoma of external ear: (12) Renal transplant recipient: previously followed by Dr Blas Grayson, now Dr Yoni Foreman based on records it appears he was on chronic prednisone 5mg/day as well as Tacrolimus BID renal transplant failed initiated PD in October 2021 see discussion above regarding transition to HD this admission appreciate nephrology assistance home tomorrow? Thursday? I updated pt's daughter, Radha, jeanie by phone today Discharge Plan Discharge Items Patient Disposition: Home - Self-Care Reason For Visit: CHEST PAIN Discharge Diagnosis: 1. Acute Pericarditis due to end-stage renal disease - pericarditis improving 2. End-stage renal disease - previously on PD, now on hemodialysis 3. History of renal transplant 4. Chronic prednisone use Activity: As commented below Activity Comment: No heavy exertional activities until cleared by cardiology Lifting: No more than 10 pounds Sexual Activity: Wait until after follow-up appointment Exercise/Sports: Wait until after follow-up appointment Non-emergency contact: Director Biomedical Engineering and Change Management Lead Call non-emergency contact if: you have any medication questions, your symptoms worsen, your pain is not controlled, your pain is worsening and you have a fever Follow-up/Referrals: Yoni Foreman DO [Family Provider] - (please report to [facility] on Thursday, 04/14 as scheduled ) Evangelist Hamilton DO [Physician] - (2 weeks - for follow-up of pericarditis ) Theodora Valentin MD [Physician] - (please keep any previously scheduled visit with Dr Valentin) Diet: Dialysis Renal Fluids: 1500ml (6 cups) Addtl Attending Provider Instructions: Mr Serrato, Armand were admitted to [facility] due to severe chest pain. Testing did not suggest a heart attack as the cause of your pain. After undergoing an echocardiogram, and after consultation with nephrology and cardiology, it was felt that you were suffering from "acute pericarditis" as the cause of your pain. A number of things can cause pericarditis but it was suspected that your kidney disease was the contributor. There was a very tiny chance that your Libtayo could have caused the pericarditis but this was unlikely. Viruses can also cause pericarditis but this was also felt unlikely. Pericarditis is inflammation of the lining or sac of the heart. Please see "pericarditis" handout for more information. You improved with prednisone and serial hemodialysis treatments. At time of discharge your pain was nearly gone. Recommendations - 1. prednisone - take as follows starting 04/13/22 - * 40mg once daily with food x 4 days (4 tabs of 10mg), THEN - * 30mg once daily with food x 7 days (3 tabs of 10mg), THEN - * 20mg once daily with food x 7 days (2 tabs of 10mg), THEN - * 10mg once daily with food x 7 days After you complete the above course please resume your normal 5mg daily dose of prednisone as previous. With respect to the chronic 5mg of prednisone - please speak to Dr Foreman about its ongoing use in the future. 2. to help prevent stomach irritation from the prednisone while on higher doses please take - * pantoprazole 40mg once daily every morning * take for 30 days 3. heart medication - please change your carvedilol dose to - * 3.125mg twice daily every day 4. chronic sleep issues - I have not prescribed trazodone because of several findings on your EKG. Perhaps down the line we may be able to use trazodone, however. In the meantime please use your lorazepam as previously prescribed earlier this month by Donna Ponce. If the lorazepam is not effective you can talk to Ms Ponce about a medication called mirtazapine or another agent. 5. if you need additional pain relief you can take [id number] tylenol 1000mg up to three times daily as needed. Follow-up - see separate section Return to [facility] if - * you have fevers over 100 degrees * you have worsening or ongoing severe chest pain despite taking prednisone, tylenol, etc * you have shortness of breath * you develop abdominal pains * any other concerns It was our pleasure to care for you at [facility]! Continue to feel better, Dr Mcdonnell Pending Studies at Discharge: No Stand-Alone Forms: My [facility], Smoking Cessation Medications and DC Order Prescriptions: New prednisone 10 mg tablet 10 mg PO .daily as directed Qty: 60 RF: 0 pantoprazole [Protonix] 40 mg tablet,delayed release (DR/EC) 40 mg PO QAM Qty: 30 RF: 0 Continued tacrolimus 1 mg capsule 1 mg PO BID Qty: 360 RF: 3 lorazepam 0.5 mg tablet 1 mg PO HS PRN (Reason: Sleep) RF: 0 calcitriol 0.5 mcg capsule 0.5 mcg PO QPM RF: 0 Changed carvedilol 3.125 mg tablet 3.125 mg PO BID Qty: 60 RF: 5 Discharge Orders: Discharge Order (Routine); Ordered 04/12/22 Ordered By: Roni Dockery/Other Patient Handouts: Pericarditis Admission Data Admit Date/Time: 04/09/22 21:14 Attending Provider: Roni Mcdonnell Admit Provider: Steve Kline Primary Care Provider: PCP,NO Other Providers: Steve Kline ; Yoni Foreman ; Evangelist Hamilton ; Theodora Valentin Other Interventions: Discharge Summary Assessment (RN) Last Done: 04/12/22 15:20 Coding Diagnoses Acute pericarditis I30.9 Chest pain R07.9 Hypomagnesemia E83.42 End stage kidney disease N18.6 Kidney transplant failure T86.12 Squamous cell carcinoma of preauricular region C44.329 Secondary anemia D64.9 CAD (coronary artery disease) I25.10 Chronic systolic CHF (congestive heart failure) I50.22 Peritoneal dialysis catheter in place Z99.2 Squamous cell carcinoma of external ear C44.222 Laterality: right Renal transplant recipient Z94.0
== END 2022-04-12 15:44 | disposition home or self-care (01) | DRG 314 ==
LOC: ED 15:34 → SUATTDRO 21:14 → 2N 21:14

== ENCOUNTER 2022-06-11 02:55 | Observation (INO) ==
[2022-06-11] MEDS ORDERED: MoRPHine SULFATE 4 MG/ML 1 ML CARP\\VIAL ONE (04:07)
[2022-06-11] MEDS ORDERED: MoRPHine SULFATE 4 MG/ML 1 ML CARP\\VIAL IV STA (04:11)
[2022-06-11] MEDS ORDERED: ONDANSETRON INJ 2 MG/ML 2 ML VIAL IV STA (04:11)
[2022-06-11 04:26] LABS: Hematocrit (blood only) 30.5 % (40.1-51.0); Hemoglobin 9.4 g/dl (14.0-18.0); Mean Corpuscular Hemoglobin 29.9 pg (25.0-34.0); Mean Corpuscular Hgb Conc 30.8 g/dL (32.0-36.0); Mean Corpuscular Volume 97.1 fL (80.0-100.0); Mean Platelet Volume 9.7 fL (9.4-12.4); Platelet Count 179 K/uL (130-400); RDW Coefficient of Variation 20.2 % (11.5-14.5); RDW Standard Deviation 72.7 fL (36.4-46.3); Red Blood Count 3.14 M/uL (4.63-6.08); White Blood Count 6.73 K/ul (4.8-10.8)
--- NOTE | 2022-06-11 04:31 | Emergency Department Note ---
History of Present Illness General Chief complaint: Abdominal Pain Stated complaint: SEVERE ABDOMINAL PAIN,CATHETER IN BUT NOT USED Time Seen by Provider: 06/11/22 04:09 History of Present Illness Maximum Pain Intensity: 10 This 56-year-old presents to the ER complaining of severe lower abdominal pain who gets dialyzed Thursday Location: Abdomen Quality: Severe Severity: Severe Duration: Today Timing: Today Context: Patient was concerned and came in Modifying factors: better with rest; worse with movement Patient denies chest pain, dyspnea, fevers, flank pain, testicular pain. He makes very little urine. Home Medications Medication Instructions Recorded Confirmed Type carvedilol 3.125 mg tablet 3.125 mg PO BID #60 tabs 04/12/22 06/11/22 Rx colchicine 0.6 mg tablet 0.6 mg PO QAM 06/11/22 06/11/22 History fluorouracil 5 % topical cream 1 applic topical BID PRN skin 06/11/22 06/11/22 History growths prednisone 20 mg tablet 20 mg PO QAM 06/11/22 06/11/22 History trazodone 50 mg tablet 50 mg PO HS 06/11/22 06/11/22 History Allergies Allergy/AdvReac Type Severity Reaction Status Date / Time cephalexin [From Keflex] Allergy Intermediate itchy/ Verified 06/11/22 09:45 nausea red dye Allergy Intermediate Hives Verified 06/11/22 09:45 Past Med/Surg History Medical History Amputation of right index finger Anemia 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 3XWK FOR 2 MONTHS RIGHT UE AVF PLACED MARCH 2020 Cardiomyopathy NO LONGER FOLLOWS WITH DR SUAREZ AT LEAST PAST 2 YRS End stage renal disease follows with [facility] Gout, joint No recent issues Hypercholesterolemia Raynaud phenomenon Secondary hyperparathyroidism of renal origin Squamous cell carcinoma of preauricular region Surgical History AVF (arteriovenous fistula) RIGHT ARM History of amputation of finger index finger History of appendectomy History of cardiac cath 8 YRS AGO History of colonoscopy History of Mohs micrographic surgery for skin cancer BASAL AND SQUAMOUS CELL Kidney transplant recipient RIGHT > 8 YRS AGO Family History Mother , age 65 heart failure Diabetes Hypertension Stroke Heart disease Kidney disease on dialysis for 6 monhts Father , age 65 Burkitts lymphoma Cancer Heart disease Sister , brain tumor age 30 diabetes coma Diabetes Sister Heart disease Brother Diabetes Brother No problems noted. Brother No problems noted. Daughter No problems noted. Son No problems noted. 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 How many Children do You have: 2 Feels Safe at Home: Yes Childhood Exposure to Second-Hand Smoke: Yes caffeine: Yes (one cup per daycaffeine soda 2-3 per day) during the past year weight has: remained stable Dental Care, Regularly: Yes Physical Activity Frequency: Daily Seatbelt Use: sometimes Sunscreen Use: Yes Assistive Devices: None Review of Systems A total of 10 systems reviewed and were otherwise negative Physical Exam Vital Signs Vital Signs - 24 hr 06/11/22 03:05 06/11/22 05:29 06/11/22 07:30 Temperature 36.4 C L Temperature Source Temporal Artery Scan Pulse Rate 119 H 109 H Pulse Rate [Finger] 94 H Pulse Rate from SpO2 Sensor 109 H Respiratory Rate 18 18 24 Respiratory Effort / Characteristics Non-Labored Spontaneous Non-Labored Spontaneous Respiratory Depth Normal Normal Blood Pressure 131/80 107/67 Blood Pressure [Left Arm] 103/74 Blood Pressure Mean 97 80 Blood Pressure Mean [Left Arm] 83 Blood Pressure Position Sitting Blood Pressure Position [Left Arm] Lying Pulse Oximetry 97 92 95 Oxygen Delivery Method Room Air Room Air Oxygen Flow Rate Sepsis Recent Fever Within 48 Hours Yes Sepsis New/Unexplained Change in Mental Status No Sepsis Action Taken by Nursing No Action Required 06/11/22 09:00 06/11/22 10:00 Temperature Temperature Source Pulse Rate Pulse Rate [Finger] Pulse Rate from SpO2 Sensor 93 H 98 H Respiratory Rate 18 18 Respiratory Effort / Characteristics Respiratory Depth Blood Pressure 90/60 L 98/62 L Blood Pressure [Left Arm] Blood Pressure Mean 70 74 Blood Pressure Mean [Left Arm] Blood Pressure Position Blood Pressure Position [Left Arm] Pulse Oximetry 97 95 Oxygen Delivery Method Nasal Cannula Nasal Cannula Oxygen Flow Rate 2 2 Sepsis Recent Fever Within 48 Hours Sepsis New/Unexplained Change in Mental Status Sepsis Action Taken by Nursing VITALS: Vitals are noted on the nurse's note and reviewed by myself. Vital signs reviewed. GENERAL: White male who appears in pain, in no acute distress, nondiaphoretic, well-developed well-nourished. SKIN: The skin was without rashes, erythema, edema, or bruising. There is no tenting of the skin. Capillary reflex less than 2 seconds. HEAD: Normocephalic atraumatic. EARS: External auditory canals clear, EYES: Pupils equal round and reactive to light and accommodation. Conjunctivae without injection, sclerae without icterus. Extraocular movements intact. NOSE: Patent, turbinates without inflammation or discharge MOUTH: Mucous membranes moist. Pharynx without erythema or exudate. Uvula midline. Airway patent. Tongue does not deviate. NECK: Supple without nuchal rigidity. No lymphadenopathy. No thyromegaly. Cervical spine is nontender. No JVD. HEART: Regular rate and rhythm LUNGS: Clear to auscultation bilaterally without wheezes, rales or rhonchi. No retractions or accessory muscle use. ABDOMEN: Positive bowel sounds x 4. Normal tympanic percussion. Soft, tender lower abdomen, without masses or organomegaly. Velez sign negative. No guarding or rebound tenderness. No CVA tenderness MUSCULOSKELETAL: No muscle atrophy, erythema, or edema noted. NEURO: Patient was alert and oriented to person place and time. Normal sensation to light and sharp touch. No focal neurological deficits. Course Administered Medications Carvedilol (Carvedilol 3.125 Mg Tab) 3.125 mg PO BID [facility] Stop: 07/11/22 20:59 Last Admin: 06/11/22 22:06 Dose: 3.125 mg Documented By: [facility] Epoetin Nickolas (Epoetin Nickolas 10,000 Units/Ml Vial) 10,000 units IV TODAY@1415 [facility] Stop: 06/11/22 23:59 Last Admin: 06/11/22 19:27 Dose: Not Given Documented By: CHAPINCITO Heparin Sodium (Porcine) (Heparin Sod 5,000 Unit/0.5 Ml Vial) 5,000 units SQ Q12 YENNY Stop: 07/11/22 20:59 Last Admin: 06/11/22 22:13 Dose: Not Given Documented By: LYNNE Cefepime HCl 1,000 mg/ Syringe 11.3 mls @ 5 mls/min IV Q24H YENNY; Protocol Stop: 06/13/22 20:59 Last Admin: 06/11/22 22:06 Dose: 5 mls/min Documented By: LYNNE Daptomycin 300 mg/ Syringe 6 mls @ 3 mls/min IV Q48H [facility]; Protocol Stop: 06/13/22 16:59 Last Admin: 06/11/22 19:23 Dose: 3 mls/min Documented By: CHAPINCITO Prednisone (Prednisone 20 Mg Tab) 20 mg PO QAM YENNY Stop: 07/11/22 13:49 Last Admin: 06/11/22 19:26 Dose: Not Given Documented By: CHAPINCITO Sennosides (Senna 8.6 Mg Tab) 8.6 mg PO BID YENNY Stop: 07/11/22 13:49 Last Admin: 06/11/22 22:06 Dose: 8.6 mg Documented By: Admin: 06/11/22 19:27 Dose: Not Given Documented By: CHAPINCITO Trazodone HCl (Trazodone Hcl 50 Mg Tab) 50 mg PO HS [facility] Stop: 07/11/22 20:59 Last Admin: 06/11/22 22:06 Dose: 50 mg Documented By: LYNNE Discontinued Medications Colchicine (Colchicine 0.6 Mg Tab) 0.6 mg PO NOW ONE Stop: 06/11/22 18:21 Last Admin: 06/11/22 19:57 Dose: 0.6 mg Documented By: LYNNE Glycerin (Glycerin Adult 12 Supp/Box Supp) 1 supp AK NOW ONE Stop: 06/11/22 13:51 Last Admin: 06/11/22 19:22 Dose: Not Given Documented By: CHAPINCITO Hydromorphone HCl (Hydromorphone Inj 0.5 Mg/0.5 Ml Syr) 0.25 mg IV NOW STA Stop: 06/11/22 10:37 Last Admin: 06/11/22 10:57 Dose: 0.25 mg Documented By: GERTRUDE Lidocaine HCl (Lidocaine 2% Jelly 5 Ml Tube) 1 ml EXT NOW ONE Stop: 06/11/22 12:50 Last Admin: 06/11/22 13:00 Dose: 1 ml Documented By: GERTRUDE Lidocaine HCl (Lidocaine 2% Jelly 5 Ml Tube) Confirm Administered Dose 5 ml .ROUTE .STK-MED ONE Stop: 06/11/22 13:05 Last Admin: 06/11/22 19:21 Dose: Not Given Documented By: CHAPINCITO Miscellaneous (No Heparin In Dialysis) 1 each N/A ONE ONE Stop: 06/11/22 09:19 Last Admin: 06/11/22 19:21 Dose: Not Given Documented By: CHAPINCITO Morphine Sulfate (Morphine Sulfate 4 Mg/Ml 1 Ml Carp\Vial) Confirm Administered Dose 4 mg .ROUTE .STK-MED ONE Stop: 06/11/22 04:08 Last Admin: 06/11/22 04:09 Dose: 4 mg Documented By: VELMA Morphine Sulfate (Morphine Sulfate 4 Mg/Ml 1 Ml Carp\Vial) 4 mg IV NOW STA Stop: 06/11/22 04:12 Last Admin: 06/11/22 05:09 Dose: 4 mg Documented By: PRETTY Ondansetron HCl (Ondansetron Inj 2 Mg/Ml 2 Ml Vial) 4 mg IV NOW STA Stop: 06/11/22 04:12 Last Admin: 06/11/22 05:08 Dose: 4 mg Documented By: PRETTY Prednisone (Prednisone 20 Mg Tab) 20 mg PO NOW STA Stop: 06/11/22 18:21 Last Admin: 06/11/22 19:28 Dose: 20 mg Documented By: CHAPINCITO Medical Decision Making Medical Records Attestation: I reviewed the patient's medical records. Home Medications Current Medication List: was personally reviewed by me Laboratory Data Attestation: I reviewed the patient's lab results. Result diagrams: 06/11/22 04:00 06/11/22 04:00 Lab Results 06/11/22 06/11/22 06/11/22 Range/Units 04:00 04:00 04:00 WBC 6.73 (4.8-10.8) K/ul RBC 3.14 L (4.63-6.08) M/uL Hgb 9.4 L (14.0-18.0) g/dl Hct 30.5 L (40.1-51.0) % MCV 97.1 (80.0-100.0) fL MCH 29.9 (25.0-34.0) pg MCHC 30.8 L (32.0-36.0) g/dL RDW Std Deviation 72.7 H (36.4-46.3) fL RDW Coeff of Nano 20.2 H (11.5-14.5) % Plt Count 179 (130-400) K/uL MPV 9.7 (9.4-12.4) fL Immature Gran % (Auto) 0.6 % Neut % (Auto) 91.1 % Lymph % (Auto) 3.9 % Clay % (Auto) 3.4 % Eos % (Auto) 0.7 % Baso % (Auto) 0.3 % Neut # (Auto) 6.13 (1.4-6.5) K/uL Lymph # (Auto) 0.26 L (1.2-3.4) K/uL Clay # (Auto) 0.23 L (0.24-0.82) K/uL Eos # (Auto) 0.05 (0-0.50) K/uL Baso # (Auto) 0.02 (0-0.2) K/uL Immature Gran # (Auto) 0.04 H (0.00-0.02) K/uL Polychromasia 1+ Anisocytosis Present Tear Drop Cells 1+ Ovalocytes 1+ Sodium 139 (136-145) mmol/L Potassium 4.9 (3.5-5.1) mmol/L Chloride 96 L (98-107) mmol/L Carbon Dioxide 32 (21-32) mmol/L Anion Gap 11 (3-11) BUN 60 H (6-23) mg/dl Creatinine 8.52 H* (0.6-1.4) mg/dl Est Cr Clr Drug Dosing Not Reportable Est GFR ( Amer) 7.3 ml/min Est GFR (Non-Af Amer) 6.3 ml/min BUN/Creatinine Ratio 7.0 L (10-20) Glucose 86 (70-99(Fasting)) mg/dl Calcium 7.8 L (8.5-10.1) mg/dl Total Bilirubin 0.4 (0.2-1.0) mg/dl AST 37 (13-39) U/L ALT 87 H (7-52) U/L Alkaline Phosphatase 176 H (34-104) U/L C-Reactive Protein 3.99 H (0-0.5) mg/dl Total Protein 5.4 L (6.0-8.3) gm/dl Albumin 3.0 L (3.4-5.0) gm/dl Globulin 2.4 L (2.5-4.0) gm/dl Albumin/Globulin Ratio 1.3 (0.9-2) Lipase 29 (11-82) U/L Procalcitonin (0-0.5) ng/ml 06/11/22 Range/Units 04:00 WBC (4.8-10.8) K/ul RBC (4.63-6.08) M/uL Hgb (14.0-18.0) g/dl Hct (40.1-51.0) % MCV (80.0-100.0) fL MCH (25.0-34.0) pg MCHC (32.0-36.0) g/dL RDW Std Deviation (36.4-46.3) fL RDW Coeff of Nano (11.5-14.5) % Plt Count (130-400) K/uL MPV (9.4-12.4) fL Immature Gran % (Auto) % Neut % (Auto) % Lymph % (Auto) % Clay % (Auto) % Eos % (Auto) % Baso % (Auto) % Neut # (Auto) (1.4-6.5) K/uL Lymph # (Auto) (1.2-3.4) K/uL Clay # (Auto) (0.24-0.82) K/uL Eos # (Auto) (0-0.50) K/uL Baso # (Auto) (0-0.2) K/uL Immature Gran # (Auto) (0.00-0.02) K/uL Polychromasia Anisocytosis Tear Drop Cells Ovalocytes Sodium (136-145) mmol/L Potassium (3.5-5.1) mmol/L Chloride (98-107) mmol/L Carbon Dioxide (21-32) mmol/L Anion Gap (3-11) BUN (6-23) mg/dl Creatinine (0.6-1.4) mg/dl Est Cr Clr Drug Dosing Est GFR ( Amer) ml/min Est GFR (Non-Af Amer) ml/min BUN/Creatinine Ratio (10-20) Glucose (70-99(Fasting)) mg/dl Calcium (8.5-10.1) mg/dl Total Bilirubin (0.2-1.0) mg/dl AST (13-39) U/L ALT (7-52) U/L Alkaline Phosphatase (34-104) U/L C-Reactive Protein (0-0.5) mg/dl Total Protein (6.0-8.3) gm/dl Albumin (3.4-5.0) gm/dl Globulin (2.5-4.0) gm/dl Albumin/Globulin Ratio (0.9-2) Lipase (11-82) U/L Procalcitonin 1.11 H (0-0.5) ng/ml Imaging Data Attestation: I personally reviewed and interpreted this imaging study as foll ows: MDM Narrative Prior records/ancillary studies reviewed. Triage Nursing notes reviewed. Additional history obtained from family. The patient's history was concerning for abdominal pain. Differential diagnosis: Etiologies such as appendicitis, diverticulitis, PUD, biliary pathology, UTI, pancreatitis, obstruction, mesenteric ischemia, aortic pathology, infections, inflammatory bowel disease, renal colic, as well as others were entertained. Physical examination findings: As above. ER treatment provided: An order was placed for continuous cardiac monitoring. The monitor shows a rate of 60- 150 with a sinus rhythm. Morphine, Zofran On reassessment the patient felt better. Diagnostics interpreted by me: The labs revealed stable anemia per chart review Imaging studies: As above Exam and history seem consistent with abdominal pain. Imaging was read by radiology and patient has known end-stage renal disease. Patient is requesting to go home and attend dialysis. He was upset about needing dialysis. He was offered admission and declined when I asked him. He was advised to follow-up family care in a few days or here in the ER sooner for abdominal pain, fevers, vomiting, worsening signs or symptoms or as needed. By the evaluation outlined above emergent etiologies such as appendicitis, diverticulitis, PUD, biliary pathology, UTI, pancreatitis, obstruction, mesenteric ischemia, aortic pathology, infections, inflammatory bowel disease, renal colic, as well as others were deemed relatively unlikely. The pt informed about the findings as listed above. All questions were answered and pleased with the treatment. Return instructions were outlined and the patient was discharged in stable condition. Referral: The patient was referred back to their primary care physician for follow-up in 2 to 3 days for a recheck of the current condition. The chart was completed utilizing [employer] Speech voice recognition software. Grammatical errors, random word insertions, pronoun errors, and incomplete s entences are an occassional consequence of this system due to software limitations, ambient noise, and hardware issues. Any formal questions or concerns about the content, text, or information contained within the body of this dictation should be directly addressed to the physician child center assistant for cl arification. Impression & Plan Acute abdominal pain Discharge Plan Visit Data Chief Complaint: Abdominal Pain Stated Complaint: SEVERE ABDOMINAL PAIN,CATHETER IN BUT NOT USED ED Provider: Thiago Domínguez ED Midlevel Provider: Maryana Sandhu Discharge Problem: Acute abdominal pain Patient Disposition: Admitted As Inpatient Condition: Good Discharge Instructions Interventions: ED Discharge Assessment Last Done: 06/11/22 13:49
[2022-06-11 04:56] LABS: Alanine Aminotransferase 87 U/L (7-52); Albumin Globulin Ratio 1.3 (0.9-2); Alkaline Phosphatase 176 U/L (34-104); Anion Gap 11 (3-11); Aspartate Aminotransferase 37 U/L (13-39); Bilirubin,Total 0.4 mg/dl (0.2-1.0); Blood Urea Nitrogen 60 mg/dl (6-23); Calcium 7.8 mg/dl (8.5-10.1); Carbon Dioxide 32 mmol/L (21-32); Chloride 96 mmol/L (98-107); Est GFR (African American) 7.3 ml/min; Est GFR (Non-African American) 6.3 ml/min; Globulin 2.4 gm/dl (2.5-4.0); Glucose 86 mg/dl (70-99(Fasting)); Lipase 29 U/L (11-82); Potassium 4.9 mmol/L (3.5-5.1); Sodium 139 mmol/L (136-145); Total Protein 5.4 gm/dl (6.0-8.3)
[2022-06-11] MEDS ORDERED: MoRPHine SULFATE 4 MG/ML 1 ML CARP\\VIAL IV PRN (05:00)
[2022-06-11 05:54] LABS: Basophils # (auto) 0.02 K/uL (0-0.2); Basophils % (auto) 0.3 %; Eosinophils # (auto) 0.05 K/uL (0-0.50); Eosinophils % (auto) 0.7 %; Immature Granulocytes # (auto) 0.04 K/uL (0.00-0.02); Immature Granulocytes % (auto) 0.6 %; Lymphocytes # (auto) 0.26 K/uL (1.2-3.4); Lymphocytes % (auto) 3.9 %; Monocytes # (auto) 0.23 K/uL (0.24-0.82); Monocytes % (auto) 3.4 %; Neutrophils # (auto) 6.13 K/uL (1.4-6.5); Neutrophils % (auto) 91.1 %; Ovalocytes 1+; Polychromasia 1+; Tear Drop Cells 1+
[2022-06-11 05:56] LABS: Anisocytosis Present
--- NOTE | 2022-06-11 07:17 | CT Scan Report ---
CT SCAN OF THE ABDOMEN AND PELVIS WITHOUT IV CONTRAST CLINICAL HISTORY: Generalized abdominal pain. COMPARISON STUDY: PET/CT dated 06/27/2020. Abdominal CT dated 07/06/2009. TECHNIQUE: CT scan of the abdomen and pelvis is performed from the lung bases to the proximal femora. Images are reviewed in the axial, sagittal, and coronal planes. IV contrast was not administered for this examination. A dose lowering technique was utilized adhering to the principles of ALARA. CT DOSE: 713.05 mGy.cm FINDINGS: Lung bases: The heart is markedly enlarged and without pericardial effusion. There is trace right ple ural effusion. Atelectasis is noted at the lung bases. Intralobular septal thickening is observed. A small hiatal hernia is noted. Liver: The unenhanced liver is normal in size, contour, and attenuation. There is no intrahepatic jossue iary ductal dilatation. Scattered subcentimeter hepatic hypodensities likely represent cysts but are too small for definitive characterization. Gallbladder: Unremarkable. Spleen: Normal in size and attenuation. Pancreas: The unenhanced pancreas is grossly unremarkable. Adrenal glands: Unremarkable. Kidneys: The unenhanced [place] kidneys are atrophic and without hydronephrosis. There are numerous bi lateral nonobstructing renal calculi which measure up to at least 8 mm. Bilateral renal cysts measure up to 2.1 cm. Additional subcentimeter cortical hypodensities also likely represent cysts but are to o small for definitive characterization. Abdominal vasculature: The is advanced atherosclerotic calcification and mild ectasia of the abdomina l aorta. Bowel: There is rectosigmoid fecal retention and mild to moderate constipation. No bowel obstruction is seen. There are scattered colonic diverticula without CT evidence of acute diverticulitis. The jolanta endix is nonvisualized. Peritoneum: A dialysis catheter is present in the pelvis from a ventral abdominal approach. A small v olume of free fluid is seen in the pelvis. Free fluid is also seen in the right mid abdomen. No intra peritoneal free air is identified. Lymphadenopathy: None. Pelvic viscera: The prostate gland is mildly enlarged and heterogeneous. The bladder is normal as vis ualized. A renal transplant is seen in the right pelvis. The transplant demonstrates cortical atrophy and severe hydronephrosis. There is evidence of previous right inguinal herniorrhaphy. Skeletal structures: The skeletal structures are osteopenic. There is mild lumbosacral spondylosis. T here are bilateral pars defects at L5 with advanced disc space narrowing and 10 mm of anterolisthesis at L5-S1. No lytic or blastic lesions are seen. IMPRESSION: 1. Marked cardiomegaly. Intralobular septal thickening at the lung bases could represent acute versus chronic congestive change. Clinical correlation will be required. 2. Trace right pleural effusion. 3. A dialysis catheter is present in the pelvis. A small volume of free fluid in the abdomen and pelv is is nonspecific and could be related to the catheter. 4. Rectosigmoid fecal retention and mild to moderate constipation. 5. An atrophic renal transplant in the right pelvis demonstrates severe hydronephrosis. Hydronephrosi s of the transplant has increased as compared to 07/07/2020 examination. 6. The [place] kidneys are severely atrophic and contain numerous nonobstructing calculi. 7. Additional findings as above. ACT 112: Negative or not required by law. Electronically signed by: Tom Sullivan M.D. 06/11/2022 7:15 AM
--- NOTE | 2022-06-11 08:05 | Emergency Department Note ---
ED Visit Note I was asked to assist with disposition of this patient that was originally placed for discharge per his wishes by Piper Sandhu PA-C, patient's later arrived at the bedside and stated that the patient change his mind because he is having abdominal pain again and he wishes to be admitted. Patient states that his pain began overnight, he has had chronic abdominal pain and he believes it is related to his peritoneal dialysis catheter that he no longer uses. CT imaging of the abdomen pelvis was obtained that does not show any obvious surgic al pathology, does show some hydronephrosis of transplanted kidney, mild amount of fluid around the catheter that is likely catheter related. Patient does not have any fever or leukocytosis, he does have some tenderness on abdominal exam but no guarding or rigidity and no significant distention. He is no longer using his peritoneal dialysis catheter and he is currently being dialyzed with his fistula in the right upper extremity. Patient is moderately agitated on my reevaluation, he states that he believes he needs to be admitted for pain control and to be evaluated to have his catheter removed. I did explain to the patient that I was happy to arrange this, given his abdominal pain with catheter in place I will cover him with ceftriaxone over concern for the potential of SBP. Despite this he does not have any leukocytosis or fever, he does not have any significant abdominal distention therefore diagnostic paracentesis will be deferred inpatient service if determined to be required. Patient was ordered as needed morphine, he will be admitted to the hospitalist service for further management. And his at the bedside are in agreement to the above plan and the patient was admitted in stable condition. Thiago Domínguez, DO Emergency Medicine .
[2022-06-11] MEDS ORDERED: SODIUM CHLORIDE 0.9% 1000ML 1,000 ML IV PRN (09:18)
[2022-06-11] MEDS ORDERED: HYDROmorphone INJ 0.5 MG/0.5 ML SYR IV STA (10:36)
--- NOTE | 2022-06-11 10:57 | History & Physical Report ---
Date of Service June 11, 2022 Assessment & Plan (1) Acute abdominal pain: Plan: Acute pain rectum, sharp cramping with fecal retention - DDX: Infection of intraabdominal source vs. urinary source vs. constipation vs. 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- HOLD (3) Peritoneal dialysis catheter in place: Plan: As above- await cultures appreciate vascualr surgery evaluation - not infected looking without pain surrounding site no drainage - without fevers or with elevation in WBC count (4) Squamous cell carcinoma: Plan: HX of follows with rad onc (5) Hydronephrosis: Plan: Noted increase related to previous scan - urology and nephrology consulted appreciate assistance - cath for evaluation of UTI (6) Renal transplant, status post: Plan: Renal transplant 12 years ago- which appears to have failed and is on dialysis continues prednisone therapy - Urology consulted as above (7) HFrEF (heart failure with reduced ejection fraction): Plan: Chronic not acute exacerbation - continue with carvedilol BID 3.125mg - follow volume status with dialysis History of Present Illness Primary Care Provider: [facility] PCP 56 YOM with: medical history of kidney failure transplant (tacrolimus/prednisone), Squamous cell carcinoma preauricular, anemia, CAD, HFrEF, peritoneal dialysis with catheter in place/ now on hemodialysis. Patient came to the EMD for complaints of rectal pain/abdominal pain, this occurred earlier this morning and woke him up from sleep. Patient initially reported that the pain started at his peritoneal dialysis access port and then radiated down to his rectum, however on further questioning the pain started in his rectum was sharp and stabbing then advanced up into his abdomen as sharp and cramping pain. His endorses that he had a fever of 101.3 two days ago, but he refused any further temperature checks. Patient does not use his peritoneal dialysis catheter anymore and is on hemodialysis and last dialysis was on Thursday. Patient reports that he has a normal BM every morning without pain, constipation or diarrhea. He has not noted any blood or mucous with his bowel movements. In the EMD the patient had routine labs performed and CT scan of his abdomen/pelvis- without IV contrast. This was interpreted with bilateral non- obstructing renal calculi 8mm, and rectosigmoid fecal retention and mild to moderate constipation without obstruction, prostate gland mildly enlarged but heterogenous, and increase in hydronephrosis of transplanted kidney. Patient was given morphine for pain, there was concern for possible infective process of the abdomen related to his peritoneal catheter and hospitalist team was consulted for admission. Nephrology was consulted by [facility] for culture of his dialysate fluid, this was installed and will be withdrawn by tech writer and cultured. Vascular surgery was consulted by the [facility] provider. Urology was c onsulted by Nephrology for increase in hydronephrosis of transplanted kidney. Will admit to medical surgical floor await culture from dialysis fluid, blood culture, procal, He remains making urine await urine culture, bowel regime and pain control. COVID test on admission is: NEGATIVE Allergies Allergy/AdvReac Type Severity Reaction Status Date / Time cephalexin [From Keflex] Allergy Intermediate itchy/ Verified 06/11/22 09:45 nausea red dye Allergy Intermediate Hives Verified 06/11/22 09:45 Home Medications Medication Instructions Recorded Confirmed Type carvedilol 3.125 mg tablet 3.125 mg PO BID #60 tabs 04/12/22 06/11/22 Rx colchicine 0.6 mg tablet 0.6 mg PO QAM 06/11/22 06/11/22 History fluorouracil 5 % topical cream 1 applic topical BID PRN skin 06/11/22 06/11/22 History growths prednisone 20 mg tablet 20 mg PO QAM 06/11/22 06/11/22 History trazodone 50 mg tablet 50 mg PO HS 06/11/22 06/11/22 History Past Med/Surg History Medical History Amputation of right index finger Anemia 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 3XWK FOR 2 MONTHS RIGHT UE AVF PLACED MARCH 2020 Cardiomyopathy NO LONGER FOLLOWS WITH DR SUAREZ AT LEAST PAST 2 YRS End stage renal disease follows with [place] nephrology Gout, joint No recent issues Hypercholesterolemia Raynaud phenomenon Secondary hyperparathyroidism of renal origin Squamous cell carcinoma of preauricular region Surgical History AVF (arteriovenous fistula) RIGHT ARM History of amputation of finger index finger History of appendectomy History of cardiac cath 8 YRS AGO History of colonoscopy History of Mohs micrographic surgery for skin cancer BASAL AND SQUAMOUS CELL Kidney transplant recipient RIGHT > 8 YRS AGO Family History Mother , age 65 heart failure Diabetes Hypertension Stroke Heart disease Kidney disease on dialysis for 6 monhts Father , age 65 Burkitts lymphoma Cancer Heart disease Sister , brain tumor age 30 diabetes coma Diabetes Sister Heart disease Brother Diabetes Brother No problems noted. Brother No problems noted. Daughter No problems noted. Son No problems noted. 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 How many Children do You have: 2 Feels Safe at Home: Yes Childhood Exposure to Second-Hand Smoke: Yes caffeine: Yes (one cup per daycaffeine soda 2-3 per day) during the past year weight has: remained stable Dental Care, Regularly: Yes Physical Activity Frequency: Daily Seatbelt Use: sometimes Sunscreen Use: Yes Assistive Devices: None Review of Systems Review of Systems: REVIEW OF SYSTEMS: Constitutional: (+) fever, sweats or chills- resolved following Thursday Eyes: No diplopia, no worsening or blurred vision ENT: normal hearing, no trouble swallowing Respiratory: No cough, sputum, dyspnea at rest or on exertion Cardiovascular: No chest pain, tightness or palpitations Abdomen: (+) pain, nausea, NO vomiting, diarrhea or constipation Musculoskeletal: No joint pain, calf pain, swelling Neurologic: No weakness, numbness/tingling, or balance problems Psychiatric: No anxiety or depression Skin: No rash or itch Physical Exam 2 Physical Exam: PHYSICAL EXAM: General: awake, alert, no apparent distress Head: Normocephalic, atraumatic ENT: PERRL, EOMI, no pharyngeal exudate, mucous membranes moist Neuro: AAO x 3, speech clear and appropriate, strength intact bilaterally 5/5, sensation intact and equal all extremities and dermatomes, no pronator drift Chest: equal rise and fall of the chest, no accessory muscle use, no heaves or thrills, Clear to auscultation, on room air, Cardiac: Regular rate and rhythm, telemetry reviewed, skin warm dry, cap refill <3 seconds, peripheral pulses +2 no JVD, no murmur, no edema GI: NABS x 4 quadrants, softly distended tympanic on percussion, nontender to palpation, no rebound, guarding or tenderness. no pain at rectum or prostate externally, testicles not erythematous or enlarged : Spontaneously voiding, no pain, no CVA tenderness, Extremities: Normal inspection, no peripheral edema or erythema, calfs nontender to palpation Psych: Normal mood and affect Skin: no rash or erythema Results & Data Results & Data ([facility]) Vital Signs (Past 12 Hours) Vital Signs Temp Pulse Pulse Resp BP BP Pulse Ox 06/11/22 07:30 109 H 24 107/67 95 06/11/22 05:29 94 H 18 103/74 92 06/11/22 03:05 36.4 C L 119 H 18 131/80 97 O2 Del Method 06/11/22 07:30 06/11/22 05:29 Room Air 06/11/22 03:05 Room Air Laboratory Results Abnormal lab results 06/11/22 06/11/22 Range/Units 04:00 04:00 RBC 3.14 L (4.63-6.08) M/uL Hgb 9.4 L (14.0-18.0) g/dl Hct 30.5 L (40.1-51.0) % MCHC 30.8 L (32.0-36.0) g/dL RDW Std Deviation 72.7 H (36.4-46.3) fL RDW Coeff of Nano 20.2 H (11.5-14.5) % Lymph # (Auto) 0.26 L (1.2-3.4) K/uL [place] # (Auto) 0.23 L (0.24-0.82) K/uL Immature Gran # (Auto) 0.04 H (0.00-0.02) K/uL Chloride 96 L (98-107) mmol/L BUN 60 H (6-23) mg/dl Creatinine 8.52 H* (0.6-1.4) mg/dl BUN/Creatinine Ratio 7.0 L (10-20) Calcium 7.8 L (8.5-10.1) mg/dl ALT 87 H (7-52) U/L Alkaline Phosphatase 176 H (34-104) U/L Total Protein 5.4 L (6.0-8.3) gm/dl Albumin 3.0 L (3.4-5.0) gm/dl Globulin 2.4 L (2.5-4.0) gm/dl Diagnostic Findings Abdomen/Pelvis CT 06/11/22 04:09 CT SCAN OF THE ABDOMEN AND PELVIS WITHOUT IV CONTRAST CLINICAL HISTORY: Generalized abdominal pain. COMPARISON STUDY: PET/CT dated 06/27/2020. Abdominal CT dated 07/06/2009. TECHNIQUE: CT scan of the abdomen and pelvis is performed from the lung bases to the proximal femora. Images are reviewed in the axial, sagittal, and coronal planes. IV contrast was not administered for this examination. A dose lowering technique was utilized adhering to the principles of ALARA. CT DOSE: 713.05 mGy.cm FINDINGS: Lung bases: The heart is markedly enlarged and without pericardial effusion. There is trace right pleural effusion. Atelectasis is noted at the lung bases. Intralobular septal thickening is observed. A small hiatal hernia is noted. Liver: The unenhanced liver is normal in size, contour, and attenuation. There is no intrahepatic biliary ductal dilatation. Scattered subcentimeter hepatic hypodensities likely represent cysts but are too small for definitive characterization. Gallbladder: Unremarkable. Spleen: Normal in size and attenuation. Pancreas: The unenhanced pancreas is grossly unremarkable. Adrenal glands: Unremarkable. Kidneys: The unenhanced solomon kidneys are atrophic and without hydronephrosis. There are numerous bilateral nonobstructing renal calculi which measure up to at least 8 mm. Bilateral renal cysts measure up to 2.1 cm. Additional subcentimeter cortical hypodensities also likely represent cysts but are too small for definitive characterization. Abdominal vasculature: The is advanced atherosclerotic calcification and mild ectasia of the abdominal aorta. Bowel: There is rectosigmoid fecal retention and mild to moderate constipation. No bowel obstruction is seen. There are scattered colonic diverticula without CT evidence of acute diverticulitis. The appendix is nonvisualized. Peritoneum: A dialysis catheter is present in the pelvis from a ventral abdominal approach. A small volume of free fluid is seen in the pelvis. Free fluid is also seen in the right mid abdomen. No intraperitoneal free air is identified. Lymphadenopathy: None. Pelvic viscera: The prostate gland is mildly enlarged and heterogeneous. The bladder is normal as visualized. A renal transplant is seen in the right pelvis. The transplant demonstrates cortical atrophy and severe hydronephrosis. There is evidence of previous right inguinal herniorrhaphy. Skeletal structures: The skeletal structures are osteopenic. There is mild lumbosacral spondylosis. There are bilateral pars defects at L5 with advanced disc space narrowing and 10 mm of anterolisthesis at L5-S1. No lytic or blastic lesions are seen. IMPRESSION: 1. Marked cardiomegaly. Intralobular septal thickening at the lung bases could represent acute versus chronic congestive change. Clinical correlation will be required. 2. Trace right pleural effusion. 3. A dialysis catheter is present in the pelvis. A small volume of free fluid in the abdomen and pelvis is nonspecific and could be related to the catheter. 4. Rectosigmoid fecal retention and mild to moderate constipation. 5. An atrophic renal transplant in the right pelvis demonstrates severe hydronephrosis. Hydronephrosis of the transplant has increased as compared to 07/07/2020 examination. 6. The solomon kidneys are severely atrophic and contain numerous nonobstructing calculi. 7. Additional findings as above. ACT 112: Negative or not required by law. Electronically signed by: Tom Sullivan M.D. 06/11/2022 7:15 AM Medications Administered Home Medications lorazepam 0.5 mg tablet 1 mg PO HS PRN Sleep 04/09/22 [History Confirmed 06/11/22] carvedilol 3.125 mg tablet 3.125 mg PO BID #60 tabs 04/12/22 [Rx Confirmed 06/11/22] colchicine 0.6 mg tablet 0.6 mg PO QAM 06/11/22 [History Confirmed 06/11/22] fluorouracil 5 % topical cream 1 applic topical BID PRN skin growths 06/11/22 [History Confirmed 06/11/22] prednisone 20 mg tablet 20 mg PO QAM 06/11/22 [History Confirmed 06/11/22] trazodone 50 mg tablet 50 mg PO HS 06/11/22 [History Confirmed 06/11/22] Active Medications Epoetin Nickolas (Epoetin Nickolas 10,000 Units/Ml Vial) 10,000 units IV ONE ONE Stop: 06/11/22 09:19 Hydromorphone HCl (Hydromorphone Inj 0.5 Mg/0.5 Ml Syr) 0.25 mg IV NOW STA Stop: 06/11/22 10:37 Sodium Chloride (Nss 1000ml) 1,000 mls @ 0 mls/hr IV .Q0M PRN PRN Reason: For Hemodialysis Use ONLY Stop: 06/11/22 15:17 Miscellaneous (No Heparin In Dialysis) 1 each N/A ONE ONE Stop: 06/11/22 09:19 Morphine Sulfate (Morphine Sulfate 4 Mg/Ml 1 Ml Carp\Vial) 4 mg IV Q1H PRN PRN Reason: Pain Stop: 06/25/22 04:59 ECG Additional Comments: pending on admission Code Status & VTE Plan Code Status CODE: FULL VTE: SCDS, Heparin 5000 units subq q q12 Supervising Physician Co-Signing Physician Notes 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 Ongoing and severe, thinks from PD catheter. Does make urine. O- Vitals reviewed Gen: [AAOx3, NAD but appears in pain] HEENT: [anicteric sclerae, EOMI] CV: [RRR no mgr nl S1S2] Pulm: [CTAB no wcr] Abd: [+BS soft +TTP around PD catheter ND ] Ext: [1+ pitting edema LEs] Skin: [no rashes, warm/dry] Neuro: [full strength throughout] Labs and rads reviewed Discussed case with Urology A/P-56 yo male here with h/o failed renal transplant, previously on PD and now back on HD, with acute on chronic abd pain Peritoneal fluid sample + for many polys, no bacteria. UA without evidence of UTI--> start empiric broad spectrum abx for SBP from skin source and coverage for urinary source as well follow cultures pain medication ok to continue colchicine and prednisone for uremic pericarditis consult Vascular to remove PD catheter if ok with Nephro appreciate Neprho and Urology consults PG Care Time/CCT Total # of Minutes Spent Total Time Spent with Patient: Total time spent is greater than 50% in coordination of care (as documented) at patient's floor/unit and/or counseling patient: Coding Level of Care Code INT OBSERVATION CARE 70M LVL 3 Diagnoses Acute abdominal pain R10.9 End stage renal disease N18.6 Peritoneal dialysis catheter in place Z99.2 Squamous cell carcinoma Hydronephrosis N13.30 Renal transplant, status post Z94.0 HFrEF (heart failure with reduced ejection fraction) I50.20
--- NOTE | 2022-06-11 11:25 | Nephrology Consultation ---
Date of Consultation June 11, 2022 Assessment & Plan (1) ESRD (end stage renal disease) on dialysis: * HD MWF at [facility]. Will schedule heparin free HD today. HD RN notified (2) Abdominal pain: * Possible peritonitis or recurrent UTI from hydronephrotic renal allograft * Will instill 2 L 1.5% Delflex for 90 min, drain and send to cell #, bacterial and fungal culture * Blood and urine cultures have been ordered * Recommend starting empiric broad spectrum antibiotics after above cultures have been obtained (coverage for both skin and urinary pathogens) * Will consult Vascular Surgery to assess PD catheter removal (3) Hydronephrosis: * Urinalysis w/ culture has been ordered * Will consult Urology to assess need to stent or remove hydronephrotic failed renal allograft History of Present Illness Reason for Consultation: ESKD on HD History of Present Illness Mr. Serrato is a 56 year old white male who is seen at the request of Dr. Domínguez to provide dialysis and assist w/ medical management during hospitalization. Mr. 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 He did not undergo renal biopsy or immunosuppressive therapy. He was on IHD for ~ 2 months and then received a LURT from his . He suffered a slow progressive loss of allograft function and 11/09 started NCCPD therapy. PD has been complicated by inflow and outflow discomfort. He has only been able to tolerate 1500 cc fill volumes. He was last hospitalized 04/09 with uremic pericarditis and was transitioned back to IHD. PD catheter was left in place as patient expressed a desire to potentially return to home dialysis in the future. Unfortunately he did not tolerated reini tiation of PD and remains on IHD therapy. Mr. Serrato reports a 2 day h/o fever. He awoke this morning with diffuse abdominal pain and present to the [facility] EMD. Initial evaluation revealed normal temperature and WBC#. Abdominal CT revealed normal gallbladder and pancreas, appendix was not visualized, PD catheter was appropriately positioned within the pelvis, [place] kidneys were atrophic w/ non-obstructing kidney stones, RLQ renal allograft demonstrates progressive severe hydronephrosis. Pain was controlled w/ narcotic analgesics. 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 He has undergone R parotidectomy/neck dissection and adjuvant XRT. 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 Allergies Allergy/AdvReac Type Severity Reaction Status Date / Time cephalexin [From Keflex] Allergy Intermediate itchy/ Verified 06/11/22 09:45 nausea red dye Allergy Intermediate Hives Verified 06/11/22 09:45 Home Medications Medication Instructions Recorded Confirmed Type lorazepam 0.5 mg tablet 1 mg PO HS PRN Sleep 04/09/22 06/11/22 History carvedilol 3.125 mg tablet 3.125 mg PO BID #60 tabs 04/12/22 06/11/22 Rx colchicine 0.6 mg tablet 0.6 mg PO QAM 06/11/22 06/11/22 History fluorouracil 5 % topical cream 1 applic topical BID PRN skin 06/11/22 06/11/22 History growths prednisone 20 mg tablet 20 mg PO QAM 06/11/22 06/11/22 History trazodone 50 mg tablet 50 mg PO HS 06/11/22 06/11/22 History Patient History Medical History Amputation of right index finger Anemia 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 3XWK FOR 2 MONTHS RIGHT UE AVF PLACED MARCH 2020 Cardiomyopathy NO LONGER FOLLOWS WITH DR SUAREZ AT LEAST PAST 2 YRS End stage renal disease follows with [place] nephrology Gout, joint No recent issues Hypercholesterolemia Raynaud phenomenon Secondary hyperparathyroidism of renal origin Squamous cell carcinoma of preauricular region Surgical History AVF (arteriovenous fistula) RIGHT ARM History of amputation of finger index finger History of appendectomy History of cardiac cath 8 YRS AGO History of colonoscopy History of Mohs micrographic surgery for skin cancer BASAL AND SQUAMOUS CELL Kidney transplant recipient RIGHT > 8 YRS AGO Family History Mother , age 65 heart failure Diabetes Hypertension Stroke Heart disease Kidney disease on dialysis for 6 monhts Father , age 65 Burkitts lymphoma Cancer Heart disease Sister , brain tumor age 30 diabetes coma Diabetes Sister Heart disease Brother Diabetes Brother No problems noted. Brother No problems noted. Daughter No problems noted. Son No problems noted. 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 How many Children do You have: 2 Feels Safe at Home: Yes Childhood Exposure to Second-Hand Smoke: Yes caffeine: Yes (one cup per daycaffeine soda 2-3 per day) during the past year weight has: remained stable Dental Care, Regularly: Yes Physical Activity Frequency: Daily Seatbelt Use: sometimes Sunscreen Use: Yes Assistive Devices: Contacts and Oxygen - Continuous Review of Systems Constitutional: + fever Eyes: no problem reported Ear, Nose, Mouth, Throat: no problem reported Respiratory: no cough and no dyspnea Cardiovascular: no chest pain, no palpitations and no edema Gastrointestinal: + abdominal pain; no nausea, no vomiting and no diarrhea/loose stools Neurologic: no confusion Physical Exam Constitutional: + acute distress Eyes: PERRL, conjunctivae normal, anicteric sclerae Neck: no carotid bruit Respiratory: normal respiratory effort, lungs clear to auscultation Cardiovascular: Rate/Rhythm: regular rhythm and + tachycardic Heart Sounds: no cardiac rub Extremities: + AV fistula (+ bruit) Gastrointestinal (Abdomen): Inspection/Auscultation: + hypoactive bowel sounds Percussion/Palpation: + abdomen tender (mild rebound tenderness); no guarding renal allograft is enlarged and easily palpable within the RLQ Neurologic: Speech / Cognition: normal speech and normal cognition Results & Data ([facility]) Vital Signs (Past 12 Hours) Vital Signs Temp Pulse Pulse Resp BP BP Pulse Ox 06/11/22 10:30 98/66 L 95 06/11/22 10:00 18 98/62 L 95 06/11/22 09:00 18 90/60 L 97 06/11/22 07:30 109 H 24 107/67 95 06/11/22 05:29 94 H 18 103/74 92 06/11/22 03:05 36.4 C L 119 H 18 131/80 97 O2 Del Method O2 Flow Rate 06/11/22 10:30 2 06/11/22 10:00 Nasal Cannula 2 06/11/22 09:00 Nasal Cannula 2 06/11/22 07:30 06/11/22 05:29 Room Air 06/11/22 03:05 Room Air Laboratory Results Laboratory Results - last 24 hr 06/11/22 06/11/22 06/11/22 04:00 04:00 Unknown WBC 6.73 RBC 3.14 L Hgb 9.4 L Hct 30.5 L MCV 97.1 MCH 29.9 MCHC 30.8 L RDW Std Deviation 72.7 H RDW Coeff of Nano 20.2 H Plt Count 179 MPV 9.7 Immature Gran % (Auto) 0.6 Neut % (Auto) 91.1 Lymph % (Auto) 3.9 [place] % (Auto) 3.4 Eos % (Auto) 0.7 Baso % (Auto) 0.3 Neut # (Auto) 6.13 Lymph # (Auto) 0.26 L [place] # (Auto) 0.23 L Eos # (Auto) 0.05 Baso # (Auto) 0.02 Immature Gran # (Auto) 0.04 H Polychromasia 1+ Anisocytosis Present Tear Drop Cells 1+ Ovalocytes 1+ Sodium 139 Potassium 4.9 Chloride 96 L Carbon Dioxide 32 Anion Gap 11 BUN 60 H Creatinine 8.52 H* Est Cr Clr Drug Dosing Not Reportable Est GFR ( Amer) 7.3 Est GFR (Non-Af Amer) 6.3 BUN/Creatinine Ratio 7.0 L Glucose 86 Calcium 7.8 L Total Bilirubin 0.4 AST 37 ALT 87 H Alkaline Phosphatase 176 H Total Protein 5.4 L Albumin 3.0 L Globulin 2.4 L Albumin/Globulin Ratio 1.3 Lipase 29 SARS-CoV-2, RNA, NAAT NEGATIVE PG Care Time/CCT Total # of Minutes Spent Total Time Spent with Patient: Total time spent is greater than 50% in coordination of care (as documented) at patient's floor/unit and/or counseling patient: Coding Level of Care Code 35030 Inpt Consult Level 5 Diagnoses ESRD (end stage renal disease) on dialysis N18.6; Z99.2 Abdominal pain R10.9 Hydronephrosis N13.30
[2022-06-11 12:17] LABS: Appearance Peritoneal Fluid Cloudy; Color Peritoneal Fluid Straw; RBC Peritoneal Fluid (A) < 2000 /uL; WBC Peritoneal Fluid (A) 15220 /ul (0-300)
[2022-06-11] MEDS ORDERED: LIDOCAINE 2% JELLY 5 ML TUBE EXT ONE (12:49)
[2022-06-11 13:00] LABS: Lymphocytes, Fluid 1 %; Mono,Macrophage,Mesothelial 10 %; Neutrophils, Fluid 89 %
[2022-06-11] MEDS ORDERED: LIDOCAINE 2% JELLY 5 ML TUBE ONE (13:04)
[2022-06-11] MEDS ORDERED: ACETAMINOPHEN 325 MG TAB PO PRN (13:50)
[2022-06-11] MEDS ORDERED: POLYETHYLENE (MIRALAX) 17 GM PACK PO PRN (13:50)
[2022-06-11] MEDS ORDERED: GLYCERIN ADULT 12 SUPP/BOX SUPP PR ONE (13:50)
[2022-06-11] MEDS ORDERED: LORazepam 1 MG TAB PO PRN (13:50)
[2022-06-11] MEDS ORDERED: carvediloL 3.125 MG TAB PO SCH (13:50)
[2022-06-11] MEDS ORDERED: ONDANSETRON INJ 2 MG/ML 2 ML VIAL IV PRN (13:50)
[2022-06-11 13:51] LABS: Appearance Urine Clear (Clear); Bacteria Urine Automated Negative (Negative); Bilirubin Urine Negative (Negative); Blood Urine 3+ (Negative); Color Urine Orange; Glucose Urine UA Trace (Negative); Ketones Urine Negative (Negative); Leukocyte Esterase Urine Negative (Negative); Nitrite Urine Negative (Negative); RBC Urine Automated >30 /hpf (0-4); Urobilinogen Urine Negative (Negative); pH Urine 8.5 (4.5-7.5)
[2022-06-11 13:55] LABS: Protein Urine 2+ (Negative)
[2022-06-11] MEDS ORDERED: EPOETIN ALFA 10,000 UNITS/ML VIAL IV SCH (14:15)
--- NOTE | 2022-06-11 15:56 | Urology Consultation ---
Date of Consultation June 11, 2022 Assessment & Plan (1) End stage renal disease: (2) Hydronephrosis: Plan 56-year-old male with a history of end-stage renal disease status post renal transplant which is since failed. He is currently on hemodialysis. He was admitted today due to abdominal and rectal pain and a CT scan showed a significantly hydronephrotic renal transplant in his right lower quadrant. Patient feels the pain is from something other than the kidney. The pain is in the right lower quadrant where the kidney resides but he thinks his issue is more related to the PD catheters. His pain is under better control with medications. His urinalysis was negative and I think there is low concern for infection as he has no leukocytosis. Although his hydronephrosis has worsened since previous scan, I do not think there is any urgent intervention warranted at this time. Recommend a Duncan catheter to maximally drain his bladder, which is already been placed. If he were to need any sort of intervention for his hydronephrosis, I recommend transfer to a tertiary care center where they can place a nephrostomy tube. I feel that placing a stent in him would be incredibly challenging and likely unsuccessful due to the angle of his implanted ureter as well as his significantly tortuous ureter due to prolonged obstruction. Once he is over his acute issues, recommend that he gets set up to see a transplant surgery team to further evaluate this kidney and also discuss options. The kidney may require drainage or removal if it causes any issues in the future. Urology to sign off. If patient improves, catheter can be removed per primary team's discretion. History of Present Illness Reason for Consultation: Hydronephrosis in transplant kidney Attending Physician: Jigna Wallace MD History of Present Illness 56-year-old male with a history of kidney failure status post renal transplant. He has had failure of his renal transplant and is currently on hemodialysis. He previously had used peritoneal dialysis. He came into the emergency department with rectal pain and abdominal pain. On presentation he was afebrile. He was initially tachycardic with some soft blood pressures but these have since normalized. Labs showed a white blood cell count of 6.3, hemoglobin of 9.4, creatinine of 8.52, and a urinalysis that was negative for nitrites negative for leukocyte esterase, 1-5 WBCs, 30+ RBCs and no bacteria. CT scan of the abdomen pelvis was performed which I independently reviewed and showed a significantly hydronephrotic transplant kidney in the right lower quadrant. I reviewed a PET scan previously that did show hydronephrosis but today's scan showed significant progression. He reports the pain began this morning. It is not in his right lower quadrant where his renal transplant is but he is convinced that it is unrelated to his kidney. He was unaware of the previous hydronephrosis of his renal transplant. His transplant was done at [place]. He does not follow with any transplant physicians at this time. His pain is under better control with pain medication. He does void maybe once per day but says it is a very small amount. Allergies Allergy/AdvReac Type Severity Reaction Status Date / Time cephalexin [From Keflex] Allergy Intermediate itchy/ Verified 06/11/22 09:45 nausea red dye Allergy Intermediate Hives Verified 06/11/22 09:45 Home Medications Medication Instructions Recorded Confirmed Type lorazepam 0.5 mg tablet 1 mg PO HS PRN Sleep 04/09/22 06/11/22 History carvedilol 3.125 mg tablet 3.125 mg PO BID #60 tabs 04/12/22 06/11/22 Rx colchicine 0.6 mg tablet 0.6 mg PO QAM 06/11/22 06/11/22 History fluorouracil 5 % topical cream 1 applic topical BID PRN skin 06/11/22 06/11/22 History growths prednisone 20 mg tablet 20 mg PO QAM 06/11/22 06/11/22 History trazodone 50 mg tablet 50 mg PO HS 06/11/22 06/11/22 History Patient History Medical History Amputation of right index finger Anemia 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 3XWK FOR 2 MONTHS RIGHT UE AVF PLACED MARCH 2020 Cardiomyopathy NO LONGER FOLLOWS WITH DR SUAREZ AT LEAST PAST 2 YRS End stage renal disease follows with [place] nephrology Gout, joint No recent issues Hypercholesterolemia Raynaud phenomenon Secondary hyperparathyroidism of renal origin Squamous cell carcinoma of preauricular region Surgical History AVF (arteriovenous fistula) RIGHT ARM History of amputation of finger index finger History of appendectomy History of cardiac cath 8 YRS AGO History of colonoscopy History of Mohs micrographic surgery for skin cancer BASAL AND SQUAMOUS CELL Kidney transplant recipient RIGHT > 8 YRS AGO Family History Mother , age 65 heart failure Diabetes Hypertension Stroke Heart disease Kidney disease on dialysis for 6 monhts Father , age 65 Burkitts lymphoma Cancer Heart disease Sister , brain tumor age 30 diabetes coma Diabetes Sister Heart disease Brother Diabetes Brother No problems noted. Brother No problems noted. Daughter No problems noted. Son No problems noted. 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 How many Children do You have: 2 Feels Safe at Home: Yes Childhood Exposure to Second-Hand Smoke: Yes caffeine: Yes (one cup per daycaffeine soda 2-3 per day) during the past year weight has: remained stable Dental Care, Regularly: Yes Physical Activity Frequency: Daily Seatbelt Use: sometimes Sunscreen Use: Yes Assistive Devices: Contacts and Oxygen - Continuous Review of Systems Review of Systems: 14 point review of systems negative outside of what is listed above in HPI Physical Exam Physical Exam: General: Alert and oriented, no acute distress HEENT: Normocephalic, mucous membranes moist Pulmonary: Nonlabored respirations Abdomen: Nondistended, soft, nontender during exam : Duncan catheter draining small amount of urine. Extremities: Moves all 4 spontaneously Neuro: No gross deficits Skin: Warm, dry, no rashes noted Results & Data ([facility]) Vital Signs (Past 12 Hours) Vital Signs Temp Pulse Pulse Resp BP BP Pulse Ox 06/11/22 15:30 90 118/80 06/11/22 15:00 92 H 127/84 06/11/22 14:30 95 H 123/80 06/11/22 14:00 94 H 108/76 06/11/22 13:44 36.5 C 06/11/22 13:49 36.8 C 90 20 87/62 L 06/11/22 11:00 89/62 L 98 06/11/22 10:30 98/66 L 95 06/11/22 10:00 18 98/62 L 95 06/11/22 09:00 18 90/60 L 97 06/11/22 07:30 109 H 24 107/67 95 06/11/22 05:29 94 H 18 103/74 92 O2 Del Method O2 Flow Rate 06/11/22 15:30 06/11/22 15:00 06/11/22 14:30 06/11/22 14:00 06/11/22 13:44 06/11/22 13:49 Nasal Cannula 2 06/11/22 11:00 Nasal Cannula 2 06/11/22 10:30 2 06/11/22 10:00 Nasal Cannula 2 06/11/22 09:00 Nasal Cannula 2 06/11/22 07:30 06/11/22 05:29 Room Air PG Care Time/CCT Total # of Minutes Spent Total Time Spent with Patient: Total time spent is greater than 50% in coordination of care (as documented) at patient's floor/unit and/or counseling patient: [place] [address] Inpt Consult Level 5 Patient Type New Diagnoses End stage renal disease N18.6 Hydronephrosis N13.30
[2022-06-11] MEDS ORDERED: DAPTOmycin 300 MG in SYRINGE 0 ML IV SCH (17:00)
[2022-06-11] MEDS ORDERED: predniSONE 20 MG TAB PO STA (18:20)
[2022-06-11] MEDS ORDERED: COLCHICINE 0.6 MG TAB PO ONE (18:20)
[2022-06-11] MEDS: predniSONE 20 MG TAB PO SCH (19:26)
[2022-06-11] MEDS: SENNA 8.6 MG TAB PO SCH ×2 (19:27→22:06)
[2022-06-11] MEDS: CEFEPIME 1,000 MG in SYRINGE 0 ML IV SCH (22:06)
[2022-06-11] MEDS: traZODone HCL 50 MG TAB PO SCH (22:06)
[2022-06-11] MEDS: HEPARIN SOD 5,000 UNIT/0.5 ML VIAL SQ SCH ×2 (22:06→22:13)
[2022-06-11] MEDS: carvediloL 3.125 MG TAB PO SCH (22:06)
[2022-06-12] MEDS: HYDROmorphone INJ 0.5 MG/0.5 ML SYR IV PRN ×2 (00:07→06:28)
[2022-06-12 06:46] LABS: Hematocrit (blood only) 28.6 % (40.1-51.0); Hemoglobin 8.8 g/dl (14.0-18.0); Mean Corpuscular Hemoglobin 29.5 pg (25.0-34.0); Mean Corpuscular Hgb Conc 30.8 g/dL (32.0-36.0); Platelet Count 135 K/uL (130-400); RDW Coefficient of Variation 20.3 % (11.5-14.5); RDW Standard Deviation 70.9 fL (36.4-46.3); Red Blood Count 2.98 M/uL (4.63-6.08); White Blood Count 6.55 K/ul (4.8-10.8)
[2022-06-12 07:14] LABS: Anisocytosis Present; Basophils # (auto) 0.01 K/uL (0-0.2); Basophils % (auto) 0.2 %; Immature Granulocytes # (auto) 0.04 K/uL (0.00-0.02); Immature Granulocytes % (auto) 0.6 %; Lymphocytes # (auto) 0.15 K/uL (1.2-3.4); Lymphocytes % (auto) 2.3 %; Monocytes # (auto) 0.19 K/uL (0.24-0.82); Monocytes % (auto) 2.9 %; Neutrophils # (auto) 6.16 K/uL (1.4-6.5); Ovalocytes 1+; Tear Drop Cells 1+
[2022-06-12 07:38] LABS: BUN Creatinine Ratio 6.4 (10-20); Creatinine Clr Calc Pharmacy 12.8 ml/min; Est GFR (African American) 10.2 ml/min; Est GFR (Non-African American) 8.8 ml/min; Magnesium 1.8 mg/dl (1.7-2.4)
--- NOTE | 2022-06-12 08:11 | Communication Note ---
Date of Service: June 12, 2022 Will see patient later today. Will plan on PD catheter removal if agreeable with Nephrology
[2022-06-12] MEDS ORDERED: SODIUM CHLORIDE 0.9% 1000ML 1,000 ML IV PRN (08:37)
--- NOTE | 2022-06-12 08:41 | Nephrology Progress Note ---
Date of Service June 12, 2022 Assessment & Plan (1) ESRD (end stage renal disease) on dialysis: Plan: * Will provide 3 hours HD today for correction of hyperkalemia. Orders placed in EMR and HD RN notified (2) Abdominal pain: Plan: * Peritoneal fluid c/w peritonitis. Initial culture reveals Staph. Await final sensitivities * Continue IV antibiotic therapy. Patient has not tolerated PD dialysate dwell in the past due to abdominal pain * Pharmacy is monitoring antibiotic dose and adjusting for HD * Vascular surgery has been consulted to remove PD catheter (3) Hydronephrosis: Plan: * Urinalysis w/ culture has been ordered * Will need [place] neph[place] [facility] once peritonitis resolved. Discussed w/ patient today Admission and Anticipated Discharge Date Admission Date: June 11, 2022 Subjective Mr. Serrato was evaluated in his hospital room this morning. He was dialyzed yesterday without complication. Serum potassium this morning is elevated. He is agreeable to an additional treatment today. Mr. Serrato reports that his abdominal discomfort is mildly improved. Review of Systems Constitutional: + fever Eyes: no problem reported Ear, Nose, Mouth, Throat: no problem reported Respiratory: no cough and no dyspnea Cardiovascular: no chest pain, no palpitations and no edema Gastrointestinal: + abdominal pain; no nausea, no vomiting and no diarrhea/loose stools Neurologic: no confusion Physical Exam Constitutional: + acute distress Eyes: PERRL, conjunctivae normal, anicteric sclerae Respiratory: normal respiratory effort, lungs clear to auscultation Cardiovascular: Rate/Rhythm: regular rhythm and + tachycardic Heart Sounds: no cardiac rub Extremities: + AV fistula (+ bruit) Gastrointestinal (Abdomen): Inspection/Auscultation: + hypoactive bowel sounds Percussion/Palpation: + abdomen tender (mild rebound tenderness); no guarding Neurologic: Speech / Cognition: normal speech and normal cognition Results & Data ([facility]) Vital Signs (Past 12 Hours) Vital Signs Temp Pulse Resp BP Pulse Ox O2 Del Method 06/12/22 08:06 36.9 C 85 20 95/61 L 97 Room Air 06/12/22 03:00 37.4 C 89 18 93/59 L 94 06/11/22 23:00 37.0 C 101 H 18 101/58 L 96 Laboratory Results Laboratory Tests 06/12/22 06/12/22 06:03 06:03 WBC 6.55 Hgb 8.8 L Hct 28.6 L Plt Count 135 Sodium 135 L Potassium 6.0 H D Chloride 99 Carbon Dioxide 27 BUN 41 H Creatinine 6.43 H* D Calcium 8.0 L PG Care Time/CCT Total # of Minutes Spent Total Time Spent with Patient: Total time spent is greater than 50% in coordination of care (as documented) at patient's floor/unit and/or counseling patient: Coding Level of Care Code 46316 Subseq Hosp Care Lvl 3 Diagnoses ESRD (end stage renal disease) on dialysis N18.6; Z99.2 Abdominal pain R10.9 Hydronephrosis N13.30
[2022-06-12] MEDS ORDERED: HEPARIN SOD (PORCINE) 1000 UNIT/ML IV SCH ×2 (09:00)
--- NOTE | 2022-06-12 13:34 | Hospitalist Progress Note ---
Date of Service June 12, 2022 Assessment & Plan (1) Peritonitis due to infected peritoneal dialysis catheter: Plan: P/w acute on chronic abd pain, no significant findings on CT abd/pel except hydronephrosis progressed from previous of renal transplant and also with constipation -Found to have peritonitis with many polys on peritoneal fluid sample and now growing Staph on cx -UA neg for infection Pain now improved with treating with broad spectrum abx continue Dapto and Cefepime, renally dosed await final cx results hoping for discharge tomorrow with abx-po vs IV TBD based on sensitivities nad final ID appreciate Nephrology input (2) Acute abdominal pain: Plan: as above, resolving wean off IV dilaudid, add oxycodone prn tylenol prn treating for peritonitis (3) End stage renal disease: Plan: ESRD with allograft kidney transplant- now on hemodialysis - Appreciate nephrology assistance - renally dose medications received HD today for hyperkalemia (4) Peritoneal dialysis catheter in place: Plan: Vascular surgery plans on removing PD catheter tomorrow NPO after midnight (5) Uremic pericarditis: Plan: continue prednisone and colchicine improved f/u with Cardiology as outpt (6) Squamous cell carcinoma: Plan: HX of follows with rad onc (7) Hydronephrosis: Plan: Noted increase related to previous scan - urology and nephrology consulted appreciate assistance - cath for evaluation of UTI showed no infection can dc Duncan prior to discharge plan for eval by transplant team for nephrectomy of transplant as recommended by Neprhology (8) Renal transplant, status post: Plan: Renal transplant 12 years ago- which appears to have failed and is on dialysis - Urology consulted as above (9) HFrEF (heart failure with reduced ejection fraction): Plan: Chronic not acute exacerbation - continue with carvedilol BID 3.125mg - follow volume status with dialysis Plan Dispo-continued stay, improving hopeful for dc to home tomorrow with po vs IV abx Admission and Anticipated Discharge Date Admission Date: June 12, 2022 Subjective Pt feeling so much better. No abd pain now. Is eating and drinking. No BM yet. Denies CP, SOB. Tele with NSR, normal rates Review of Systems Review of Systems: All systems reviewed & are unremarkable except as noted in HPI & below Physical Exam Constitutional: WD/WN, vitals as above Eyes: + anicteric sclerae Neck: trachea midline, no thyromegaly Respiratory: normal respiratory effort, lungs clear to auscultation Cardiovascular: Rate/Rhythm: regular rate and regular rhythm Heart Sounds: + cardiac rub; no murmur Extremities: + edema (1+ pitting edema feet and ankles) Chest (Breasts): Chest: normal inspection of chest Gastrointestinal (Abdomen): normal bowel sounds, soft, nontender, no hepatosplenomegaly Inspection/Auscultation: + abdomen abnormal to inspection (PD catheter in place) Musculoskeletal: Extremities: extremities normal to inspection; no cyanosis and no clubbing Skin: no rashes, warm and dry Neurologic: moves all extremities and awake; no focal motor deficits Psychiatric: A+Ox3, euthymic affect Lymphatic: no lymphedema Results & Data Results & Data ([facility]) Vital Signs (Past 12 Hours) Vital Signs Temp Pulse Pulse Pulse Resp BP BP 06/12/22 12:20 36.7 C 85 97/62 L 06/12/22 12:00 85 96/64 L 06/12/22 11:30 84 100/61 06/12/22 12:41 36.6 C 92 H 16 104/68 06/12/22 11:00 72 104/53 L 06/12/22 10:30 89 96/61 L 06/12/22 10:30 89 06/12/22 08:00 06/12/22 10:00 87 99/67 L 06/12/22 09:30 88 93/65 L 06/12/22 09:06 36.9 C 88 06/12/22 08:06 36.9 C 85 20 95/61 L 06/12/22 03:00 37.4 C 89 18 93/59 L Pulse Ox O2 Del Method 06/12/22 12:20 06/12/22 12:00 06/12/22 11:30 06/12/22 12:41 95 Room Air 06/12/22 11:00 06/12/22 10:30 06/12/22 10:30 06/12/22 08:00 Room Air 06/12/22 10:00 06/12/22 09:30 06/12/22 09:06 06/12/22 08:06 97 Room Air 06/12/22 03:00 94 Laboratory Results 06/12/22 06/12/22 06/11/22 Range/Units 06:03 06:03 13:20 WBC 6.55 (4.8-10.8) K/ul RBC 2.98 L (4.63-6.08) M/uL Hgb 8.8 L (14.0-18.0) g/dl Hct 28.6 L (40.1-51.0) % MCV 96.0 (80.0-100.0) fL MCH 29.5 (25.0-34.0) pg MCHC 30.8 L (32.0-36.0) g/dL RDW Std Deviation 70.9 H (36.4-46.3) fL RDW Coeff of Nano 20.3 H (11.5-14.5) % Plt Count 135 (130-400) K/uL MPV 10.0 (9.4-12.4) fL Immature Gran % (Auto) 0.6 % Neut % (Auto) 94.0 % Lymph % (Auto) 2.3 % [place] % (Auto) 2.9 % Eos % (Auto) 0.0 % Baso % (Auto) 0.2 % Neut # (Auto) 6.16 (1.4-6.5) K/uL Lymph # (Auto) 0.15 L (1.2-3.4) K/uL [place] # (Auto) 0.19 L (0.24-0.82) K/uL Eos # (Auto) 0.00 (0-0.50) K/uL Baso # (Auto) 0.01 (0-0.2) K/uL Immature Gran # (Auto) 0.04 H (0.00-0.02) K/uL Hypersegmented Neuts 1+ Anisocytosis Present Tear Drop Cells 1+ Ovalocytes 1+ Sodium 135 L (136-145) mmol/L Potassium 6.0 H D (3.5-5.1) mmol/L Chloride 99 (98-107) mmol/L Carbon Dioxide 27 (21-32) mmol/L Anion Gap 9 (3-11) BUN 41 H (6-23) mg/dl Creatinine 6.43 H* D (0.6-1.4) mg/dl Est Cr Clr Drug Dosing 12.8 ml/min Est GFR ( Amer) 10.2 ml/min Est GFR (Non-Af Amer) 8.8 ml/min BUN/Creatinine Ratio 6.4 L (10-20) Glucose 109 H (70-99(Fasting)) mg/dl Calcium 8.0 L (8.5-10.1) mg/dl Magnesium 1.8 (1.7-2.4) mg/dl C-Reactive Protein (0-0.5) mg/dl Procalcitonin (0-0.5) ng/ml Urine Color [place] Urine Appearance Clear (Clear) Urine pH 8.5 H (4.5-7.5) Ur Specific [place] 1.010 (1.000-1.030) Urine Protein 2+ H (Negative) Urine Glucose (UA) Trace H (Negative) Urine Ketones Negative (Negative) Urine Blood 3+ H (Negative) Urine Nitrite Negative (Negative) Urine Bilirubin Negative (Negative) Urine Urobilinogen Negative (Negative) Ur Leukocyte Esterase Negative (Negative) Urine WBC (Auto) 1-5 (0-5) /hpf Urine RBC (Auto) >30 H (0-4) /hpf U Hyaline Cast (Auto) 1-5 (0-5) /lpf U Epithel Cells (Auto) 10-20 H (0-5) /lpf Urine Bacteria (Auto) Negative (Negative) 06/11/22 06/11/22 Range/Units 04:00 04:00 WBC (4.8-10.8) K/ul RBC (4.63-6.08) M/uL Hgb (14.0-18.0) g/dl Hct (40.1-51.0) % MCV (80.0-100.0) fL MCH (25.0-34.0) pg MCHC (32.0-36.0) g/dL RDW Std Deviation (36.4-46.3) fL RDW Coeff of Nano (11.5-14.5) % Plt Count (130-400) K/uL MPV (9.4-12.4) fL Immature Gran % (Auto) % Neut % (Auto) % Lymph % (Auto) % [place] % (Auto) % Eos % (Auto) % Baso % (Auto) % Neut # (Auto) (1.4-6.5) K/uL Lymph # (Auto) (1.2-3.4) K/uL [place] # (Auto) (0.24-0.82) K/uL Eos # (Auto) (0-0.50) K/uL Baso # (Auto) (0-0.2) K/uL Immature Gran # (Auto) (0.00-0.02) K/uL Hypersegmented Neuts Anisocytosis Tear Drop Cells Ovalocytes Sodium (136-145) mmol/L Potassium (3.5-5.1) mmol/L Chloride (98-107) mmol/L Carbon Dioxide (21-32) mmol/L Anion Gap (3-11) BUN (6-23) mg/dl Creatinine (0.6-1.4) mg/dl Est Cr Clr Drug Dosing ml/min Est GFR ( Amer) ml/min Est GFR (Non-Af Amer) ml/min BUN/Creatinine Ratio (10-20) Glucose (70-99(Fasting)) mg/dl Calcium (8.5-10.1) mg/dl Magnesium (1.7-2.4) mg/dl C-Reactive Protein 3.99 H (0-0.5) mg/dl Procalcitonin 1.11 H (0-0.5) ng/ml Urine Color Urine Appearance (Clear) Urine pH (4.5-7.5) Ur Specific [place] (1.000-1.030) Urine Protein (Negative) Urine Glucose (UA) (Negative) Urine Ketones (Negative) Urine Blood (Negative) Urine Nitrite (Negative) Urine Bilirubin (Negative) Urine Urobilinogen (Negative) Ur Leukocyte Esterase (Negative) Urine WBC (Auto) (0-5) /hpf Urine RBC (Auto) (0-4) /hpf U Hyaline Cast (Auto) (0-5) /lpf U Epithel Cells (Auto) (0-5) /lpf Urine Bacteria (Auto) (Negative) PG Care Time/CCT Total # of Minutes Spent Total Time Spent with Patient: Total time spent is greater than 50% in coordination of care (as documented) at patient's floor/unit and/or counseling patient: Coding Level of Care Code 78849 Subseq Hosp Care Lvl 3 Diagnoses Peritonitis due to infected peritoneal dialysis catheter T85.71XA; K65.9 Acute abdominal pain R10.9 End stage renal disease N18.6 Peritoneal dialysis catheter in place Z99.2 Uremic pericarditis N18.9; I32 Squamous cell carcinoma Hydronephrosis N13.30 Renal transplant, status post Z94.0 HFrEF (heart failure with reduced ejection fraction) I50.20
[2022-06-12] MEDS: predniSONE 20 MG TAB PO SCH (13:39)
[2022-06-12] MEDS: SENNA 8.6 MG TAB PO SCH ×2 (13:39→20:19)
[2022-06-12] MEDS: carvediloL 3.125 MG TAB PO SCH ×2 (13:40→20:19)
[2022-06-12] MEDS: HEPARIN SOD 5,000 UNIT/0.5 ML VIAL SQ SCH ×3 (13:40→20:19)
[2022-06-12] MEDS: POLYETHYLENE (MIRALAX) 17 GM PACK PO SCH (13:47)
--- NOTE | 2022-06-12 14:13 | History & Physical Report ---
Date of Service June 12, 2022 Assessment & Plan (1) Peritonitis due to infected peritoneal dialysis catheter: Plan: Recommend removal of the peritoneal dialysis catheter. This will be done in the morning. Thank you very much for letting us participate in the care of this patient. Admission and Anticipated Discharge Date Admission Date: June 12, 2022 History of Present Illness Chief Complaint: Status post peritoneal dialysis catheter insertion, peritonitis Primary Care Provider: NO PCP This a 56-year-old gentleman on hemodialysis who has a peritoneal dialysis catheter in place. He came in with abdominal pain. His catheter did not work well over the last few weeks. Fluid did grew out staph species. He does have a failed transplant with a hydronephrosis of the ureter of the kidney. At time of admission he was having significant abdominal pain. Allergies Allergy/AdvReac Type Severity Reaction Status Date / Time cephalexin [From Keflex] Allergy Intermediate itchy/ Verified 06/11/22 09:45 nausea red dye Allergy Intermediate Hives Verified 06/11/22 09:45 Home Medications Medication Instructions Recorded Confirmed Type carvedilol 3.125 mg tablet 3.125 mg PO BID #60 tabs 04/12/22 06/11/22 Rx colchicine 0.6 mg tablet 0.6 mg PO QAM 06/11/22 06/11/22 History fluorouracil 5 % topical cream 1 applic topical BID PRN skin 06/11/22 06/11/22 History growths prednisone 20 mg tablet 20 mg PO QAM 06/11/22 06/11/22 History trazodone 50 mg tablet 50 mg PO HS 06/11/22 06/11/22 History Past Med/Surg History Medical History Amputation of right index finger Anemia 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 Surgical History AVF (arteriovenous fistula) RIGHT ARM History of amputation of finger index finger History of appendectomy History of cardiac cath 8 YRS AGO History of colonoscopy History of Mohs micrographic surgery for skin cancer BASAL AND SQUAMOUS CELL Kidney transplant recipient RIGHT > 8 YRS AGO Family History Mother , age 65 heart failure Diabetes Hypertension Stroke Heart disease Kidney disease on dialysis for 6 monhts Father , age 65 Burkitts lymphoma Cancer Heart disease Sister , brain tumor age 30 diabetes coma Diabetes Sister Heart disease Brother Diabetes Brother No problems noted. Brother No problems noted. Daughter No problems noted. Son No problems noted. Other No family history of allergies No family history of bleeding disorder Denies family history of Hearing loss Asthma Social History Smoking Status: Former smoker Tobacco Type: Cigars Age Started Using Tobacco: 15; Years Smoked: 6; Second Hand Exposure: No; Do You Dip or Chew Tobacco: Yes; Tobacco Cessation Education Requested by Patient: No Hx Alcohol Use: No Hx Substance Use: No Preferred Language: Spanish Communication Ability: Effective Taker Off Hemp Fiber Required: No Beliefs That Will Affect Care: None marital status: Current Living Situation: Spouse current occupational status: previously employed 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 How many Children do You have: 2 Other Information That Helps Us Care for You: No Feels Safe at Home: Yes Safety Concerns: Feels Safe At This Time Childhood Exposure to Second-Hand Smoke: Yes caffeine: Yes (one cup per daycaffeine soda 2-3 per day) during the past year weight has: remained stable Dental Care, Regularly: Yes Physical Activity Frequency: Daily Seatbelt Use: sometimes Sunscreen Use: Yes Assistive Devices: None Review of Systems All systems reviewed & are unremarkable except as noted in HPI & below Physical Exam Constitutional: WD/WN, vitals as above Respiratory: normal respiratory effort; no respiratory distress Cardiovascular: Rate/Rhythm: regular rate and regular rhythm Gastrointestinal (Abdomen): Inspection/Auscultation: abdomen normal to inspection; abdomen not distended Percussion/Palpation: + abdomen tender and abdomen soft Musculoskeletal: no cyanosis or clubbing, extremities motor strength 5/5 Neurologic: CN's II-XI intact bilaterally and moves all extremities Psychiatric: Orientation: alert and oriented x 3 Results & Data ([facility]) Vital Signs (Past 12 Hours) Vital Signs Temp Pulse Pulse Pulse Resp BP BP 06/12/22 12:20 36.7 C 85 97/62 L 06/12/22 12:00 85 96/64 L 06/12/22 11:30 84 100/61 06/12/22 12:41 36.6 C 92 H 16 104/68 06/12/22 11:00 72 104/53 L 06/12/22 10:30 89 96/61 L 06/12/22 10:30 89 06/12/22 08:00 06/12/22 10:00 87 99/67 L 06/12/22 09:30 88 93/65 L 06/12/22 09:06 36.9 C 88 06/12/22 08:06 36.9 C 85 20 95/61 L 06/12/22 03:00 37.4 C 89 18 93/59 L Pulse Ox O2 Del Method 06/12/22 12:20 06/12/22 12:00 06/12/22 11:30 06/12/22 12:41 95 Room Air 06/12/22 11:00 06/12/22 10:30 06/12/22 10:30 06/12/22 08:00 Room Air 06/12/22 10:00 06/12/22 09:30 06/12/22 09:06 06/12/22 08:06 97 Room Air 06/12/22 03:00 94 Code Status & VTE Plan VTE Prophylaxis Plan VTE Prophylaxis will be ordered: Yes
[2022-06-12] MEDS: COLCHICINE 0.6 MG TAB PO SCH (14:40)
--- NOTE | 2022-06-12 17:28 | Anesthesiology Consultation ---
Date of Service June 12, 2022 Assessment & Plan Chart Review Chart Review: Pending: Refer to Additional Notes / Consult section (resolution of hyperkalemia) and Patient NOT seen in Pre Admission Testing The patient's potassium today was 6. He underwent hemodialysis today. He will need his potassium level to be rechecked prior to receiving anesthesia. Consults Requested none medicine and nephrology are following History Surgery Operation Date: 06/13/22 08:50 Proposed Procedures p Removal Peritoneal Diaylsis Catheter - Carlos Tracy MD Height/Weight Height: 5 ft 9 in Weight: 73.2 kg Allergies Allergy/AdvReac Type Severity Reaction Status Date / Time cephalexin [From Keflex] Allergy Intermediate itchy/ Verified 06/11/22 09:45 nausea red dye Allergy Intermediate Hives Verified 06/11/22 09:45 Medications Home Medications Medication Instructions Recorded Confirmed Last Taken carvedilol 3.125 mg tablet 3.125 mg PO BID #60 tabs 04/12/22 06/11/22 06/10/22 colchicine 0.6 mg tablet 0.6 mg PO QAM 06/11/22 06/11/22 06/10/22 fluorouracil 5 % topical cream 1 applic topical BID PRN skin 06/11/22 06/11/22 06/10/22 growths prednisone 20 mg tablet 20 mg PO QAM 06/11/22 06/11/22 06/10/22 trazodone 50 mg tablet 50 mg PO HS 06/11/22 06/11/22 06/10/22 Active Medications Generic Name Dose Route Start Last Admin Trade Name Freq PRN Reason Stop Dose Admin Acetaminophen 650 mg 06/11/22 13:50 06/12/22 14:44 Acetaminophen 325 Mg Tab PO 07/11/22 13:49 650 mg Q4H PRN Administration Pain or Fever Carvedilol 3.125 mg 06/11/22 21:00 06/12/22 13:40 Carvedilol 3.125 Mg Tab PO 07/11/22 20:59 3.125 mg BID YENNY Administration Colchicine 0.6 mg 06/12/22 09:00 06/12/22 14:40 Colchicine 0.6 Mg Tab PO 07/12/22 08:59 0.6 mg QAM YENNY Administration Heparin Sodium (Porcine) 5,000 units 06/11/22 21:00 06/12/22 13:55 Heparin Sod 5,000 Unit/0.5 Ml Vial SQ 07/11/22 20:59 Not Given Q12 YENNY Heparin Sodium (Porcine) 2,000 units 06/12/22 09:00 06/12/22 10:37 Heparin Sod (Porcine) 1000 Unit/Ml IV 06/12/22 23:59 Not Given TODAY@0900 YENNY Heparin Sodium (Porcine) 1,000 units 06/12/22 09:00 06/12/22 10:37 Heparin Sod (Porcine) 1000 Unit/Ml IV 06/12/22 23:59 Not Given TODAY@0900 YENNY Hydromorphone HCl 0.25 mg 06/11/22 13:50 06/12/22 06:28 Hydromorphone Inj 0.5 Mg/0.5 Ml Syr IV 06/25/22 13:49 0.25 mg Q6H PRN Administration Pain Cefepime HCl 1,000 mg/ Syringe 11.3 mls @ 5 mls/min 06/11/22 21:00 06/11/22 22:06 IV 06/13/22 20:59 5 mls/min Q24H YENNY Administration Protocol Daptomycin 300 mg/ Syringe 6 mls @ 3 mls/min 06/11/22 17:00 06/11/22 19:23 IV 06/13/22 16:59 3 mls/min Q48H YENNY Administration Protocol Polyethylene Glycol 17 gm 06/12/22 13:30 06/12/22 13:47 Polyethylene (Miralax) 17 Gm Pack PO 07/12/22 13:29 17 gm DAILY YENNY Administration Prednisone 20 mg 06/11/22 13:50 06/12/22 13:39 Prednisone 20 Mg Tab PO 07/11/22 13:49 20 mg QAM YENNY Administration Sennosides 8.6 mg 06/11/22 13:50 06/12/22 13:39 Senna 8.6 Mg Tab PO 07/11/22 13:49 8.6 mg BID YENNY Administration Trazodone HCl 50 mg 06/11/22 21:00 06/11/22 22:06 Trazodone Hcl 50 Mg Tab PO 07/11/22 20:59 50 mg HS YENNY Administration Past Medical History Medical History Amputation of right index finger Anemia 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 Brother No problems noted. Daughter No problems noted. Son No problems noted. Other No family history of allergies No family history of bleeding disorder Denies family history of Hearing loss Asthma Past Surgical History Surgical History AVF (arteriovenous fistula) RIGHT ARM History of amputation of finger index finger History of appendectomy History of cardiac cath 8 YRS AGO History of colonoscopy History of Mohs micrographic surgery for skin cancer BASAL AND SQUAMOUS CELL Kidney transplant recipient RIGHT > 8 YRS AGO Social History Smoking Status: Former smoker tobacco type: cigarettes and smokeless tobacco Do You Dip or Chew Tobacco: Yes Hx Alcohol Use: No Alcohol type: beer alcohol intake frequency: other Hx Substance Use: No substance use type: does not use Physical Exam Vital Signs Last Vital Signs Temp 37.1 C 06/12/22 15:54 Pulse 93 H 06/12/22 15:54 Resp 19 06/12/22 15:54 BP 91/52 L 06/12/22 15:54 Pulse Ox 94 06/12/22 15:54 O2 Del Method 06/12/22 15:54 O2 Flow Rate 2 06/11/22 13:49 Testing Laboratory Results 06/12/22 06:03 06/12/22 06:03 Urine Color [place] 06/11/22 13:20 Urine Appearance Clear (Clear) 06/11/22 13:20 Urine pH 8.5 (4.5-7.5) H 06/11/22 13:20 Ur Specific [place] 1.010 (1.000-1.030) 06/11/22 13:20 Urine Protein 2+ (Negative) H 06/11/22 13:20 Urine Glucose (UA) Trace (Negative) H 06/11/22 13:20 Urine Ketones Negative (Negative) 06/11/22 13:20 Urine Nitrite Negative (Negative) 06/11/22 13:20 Ur Leukocyte Esterase Negative (Negative) 06/11/22 13:20 Urine WBC (Auto) 1-5 /hpf (0-5) 06/11/22 13:20 Urine RBC (Auto) >30 /hpf (0-4) H 06/11/22 13:20 U Hyaline Cast (Auto) 1-5 /lpf (0-5) 06/11/22 13:20 U Epithel Cells (Auto) 10-20 /lpf (0-5) H 06/11/22 13:20 Urine Bacteria (Auto) Negative (Negative) 06/11/22 13:20 06/11/22 11:22 Aerobic Blood Culture - Preliminary Blood No growth in Aerobic bottle after 24 hours. Anaerobic Blood Culture - Preliminary No growth in Anaerobic bottle after 24 hours. 06/11/22 10:55 Aerobic Blood Culture - Preliminary Blood No growth in Aerobic bottle after 24 hours. Anaerobic Blood Culture - Preliminary No growth in Anaerobic bottle after 24 hours. 06/11/22 11:15 Gram Stain - Final Peritoneal dialysis fluid Aerobic and Anaerobic Culture - Preliminary Staphylococcus species 06/11/22 11:15 Fungal Smear - Final Peritoneal Fluid Electrocardiogram Date: 04/10/22 Test Reason : Blood Pressure : / mmHG Vent. Rate : 084 BPM Atrial Rate : 084 BPM P-R Int : 182 ms QRS Dur : 164 ms QT Int : 454 ms P-R-T Axes : 063 115 081 degrees QTc Int : 536 ms Normal sinus rhythm Right bundle branch block Abnormal ECG When compared with ECG of 09-APR-2022 21:32, No significant change was found Confirmed by Scooby Tanner ([id number]) on 04/11/2022 7:37:34 AM Referred By: REFERRED SELF Confirmed By:Scooby Tanner Echocardiogram Date: 04/10/22 EF: 40-45 LV Function: dysfunctional Other Findings: + atrial enlargement (mild right, moderate left) and + LVH (mild) Valvular Disease: + MR (mild) Other Testing CT SCAN OF THE ABDOMEN AND PELVIS WITHOUT IV CONTRAST CLINICAL HISTORY: Generalized abdominal pain. COMPARISON STUDY: PET/CT dated 06/27/2020. Abdominal CT dated 07/06/2009. TECHNIQUE: CT scan of the abdomen and pelvis is performed from the lung bases to the proximal femora. Images are reviewed in the axial, sagittal, and coronal planes. IV contrast was not administered for this examination. A dose lowering technique was utilized adhering to the principles of ALARA. CT DOSE: 713.05 mGy.cm FINDINGS: Lung bases: The heart is markedly enlarged and without pericardial effusion. There is trace right pleural effusion. Atelectasis is noted at the lung bases. Intralobular septal thickening is observed. A small hiatal hernia is noted. Liver: The unenhanced liver is normal in size, contour, and attenuation. There is no intrahepatic biliary ductal dilatation. Scattered subcentimeter hepatic hypodensities likely represent cysts but are too small for definitive characterization. Gallbladder: Unremarkable. Spleen: Normal in size and attenuation. Pancreas: The unenhanced pancreas is grossly unremarkable. Adrenal glands: Unremarkable. Kidneys: The unenhanced [place] kidneys are atrophic and without hydronephrosis. There are numerous bilateral nonobstructing renal calculi which measure up to at least 8 mm. Bilateral renal cysts measure up to 2.1 cm. Additional subcentimeter cortical hypodensities also likely represent cysts but are too small for definitive characterization. Abdominal vasculature: The is advanced atherosclerotic calcification and mild ectasia of the abdominal aorta. Bowel: There is rectosigmoid fecal retention and mild to moderate constipation. No bowel obstruction is seen. There are scattered colonic diverticula without CT evidence of acute diverticulitis. The appendix is nonvisualized. Peritoneum: A dialysis catheter is present in the pelvis from a ventral abdominal approach. A small volume of free fluid is seen in the pelvis. Free fluid is also seen in the right mid abdomen. No intraperitoneal free air is identified. Lymphadenopathy: None. Pelvic viscera: The prostate gland is mildly enlarged and heterogeneous. The bladder is normal as visualized. A renal transplant is seen in the right pelvis. The transplant demonstrates cortical atrophy and severe hydronephrosis. There is evidence of previous right inguinal herniorrhaphy. Skeletal structures: The skeletal structures are osteopenic. There is mild lumbosacral spondylosis. There are bilateral pars defects at L5 with advanced disc space narrowing and 10 mm of anterolisthesis at L5-S1. No lytic or blastic lesions are seen. IMPRESSION: 1. Marked cardiomegaly. Intralobular septal thickening at the lung bases could represent acute versus chronic congestive change. Clinical correlation will be required. 2. Trace right pleural effusion. 3. A dialysis catheter is present in the pelvis. A small volume of free fluid in the abdomen and pelvis is nonspecific and could be related to the catheter. 4. Rectosigmoid fecal retention and mild to moderate constipation. 5. An atrophic renal transplant in the right pelvis demonstrates severe hydronephrosis. Hydronephrosis of the transplant has increased as compared to 07/07/2020 examination. 6. The [place] kidneys are severely atrophic and contain numerous nonobstructing calculi. 7. Additional findings as above. ACT 112: Negative or not required by law. Electronically signed by: Tom Sullivan M.D. 06/11/2022 7:15 AM Dictated:06/11/22 0706
[2022-06-12] MEDS: oxyCODONE HCL IR 5 MG TAB (IMMEDIATE RELEASE) PO PRN (18:45)
[2022-06-12 19:53] LABS: BUN Creatinine Ratio 6.5 (10-20); Est GFR (African American) 15.4 ml/min; Est GFR (Non-African American) 13.3 ml/min; Magnesium 1.8 mg/dl (1.7-2.4); Potassium 4.7 mmol/L (3.5-5.1)
[2022-06-12] MEDS ORDERED: MAGNESIUM SULFATE / D5W 1 GM/100 ML BAG IV ONE (20:17)
[2022-06-12] MEDS: CEFEPIME 1,000 MG in SYRINGE 0 ML IV SCH (20:19)
[2022-06-12] MEDS: traZODone HCL 50 MG TAB PO SCH (20:19)
[2022-06-13 07:04] LABS: Hematocrit (blood only) 26.6 % (40.1-51.0); Hemoglobin 8.1 g/dl (14.0-18.0); Mean Corpuscular Hemoglobin 29.3 pg (25.0-34.0); Mean Corpuscular Hgb Conc 30.5 g/dL (32.0-36.0); Mean Corpuscular Volume 96.4 fL (80.0-100.0); Mean Platelet Volume 9.7 fL (9.4-12.4); Platelet Count 128 K/uL (130-400); RDW Standard Deviation 70.4 fL (36.4-46.3); Red Blood Count 2.76 M/uL (4.63-6.08); White Blood Count 6.09 K/ul (4.8-10.8)
[2022-06-13 07:23] LABS: Eosinophils # (auto) 0.01 K/uL (0-0.50); Eosinophils % (auto) 0.2 %; Immature Granulocytes # (auto) 0.03 K/uL (0.00-0.02); Immature Granulocytes % (auto) 0.5 %; Lymphocytes # (auto) 0.19 K/uL (1.2-3.4); Lymphocytes % (auto) 3.1 %; Monocytes # (auto) 0.36 K/uL (0.24-0.82); Monocytes % (auto) 5.9 %; Neutrophils % (auto) 90.3 %
--- NOTE | 2022-06-13 07:34 | History & Physical Bridge Note ---
Date of Service June 13, 2022 History & Physical Bridge Note Patient for removal of pd catheter today. I have discussed the risks options and benefits of the procedure with the patient. The patient understands the risks options and benefits and agrees to the procedure. I have examined the patient, reviewed the History & Physical and in the interval since the performance of the History & Physical I have noted the following changes of clinical significance: no changes noted
[2022-06-13 07:41] LABS: BUN Creatinine Ratio 6.9 (10-20); Calcium 8.1 mg/dl (8.5-10.1); Creatinine Clr Calc Pharmacy 14.9 ml/min; Est GFR (African American) 12.3 ml/min; Est GFR (Non-African American) 10.6 ml/min; Magnesium 2.1 mg/dl (1.7-2.4); Potassium 5.1 mmol/L (3.5-5.1)
[2022-06-13] MEDS ORDERED: PROPOFOL IV EMULSION 10 MG/ML 20 ML VIAL IV ONE (08:07)
[2022-06-13] MEDS ORDERED: MIDAZOLAM HCL 1 MG/ML 2ML VIAL ONE (08:07)
[2022-06-13] MEDS ORDERED: LIDOCAINE 2% 20 MG/ML 5 ML SYR IV ONE (08:07)
[2022-06-13] MEDS ORDERED: fentaNYL citrate 100 MCG/2 ML VIAL ONE (08:07)
[2022-06-13] MEDS ORDERED: SODIUM CHLORIDE 0.9% 1000ML 1,000 ML IV PRN (08:11)
--- NOTE | 2022-06-13 08:14 | Nephrology Progress Note ---
Date of Service June 13, 2022 Assessment & Plan (1) ESRD (end stage renal disease) on dialysis: Plan: * Will provide HD today to resume outpatient MWF schedule * If discharge is anticipated, please advise patient to resume his MWF outpatient HD at [facility] (2) Abdominal pain: Plan: * Peritoneal fluid c/w peritonitis. Culture reveals Staph sensitive to Clindamycin * Recommend oral Clindamycin to complete a 14 day course of antibiotic therapy * Vascular surgery has removed PD catheter (3) Hydronephrosis: Plan: * Discussed w/ patient today the need for transplant follow up once peritonitis resolves. He will likely require transplant nephrectomy due to severe hydronephrosis and increased risk or allograft infection * I have spoken with the [facility] post public policy coordinator. [facility] transplant surgical services are not currently available * Will request that my office staff contact [facility] to set up evaluation for possible transplant nephrectomy Admission and Anticipated Discharge Date Admission Date: June 12, 2022 Subjective Mr. Serrato was evaluated in his hospital room this morning. His PD catheter had just been removed. He reports that his abdominal discomfort has markedly im proved. Mr. Serrato is anxious to have HD today and then hopefully return home Review of Systems Constitutional: + fever Eyes: no problem reported Ear, Nose, Mouth, Throat: no problem reported Respiratory: no cough and no dyspnea Cardiovascular: no chest pain, no palpitations and no edema Gastrointestinal: + abdominal pain; no nausea, no vomiting and no diarrhea/loo se stools Neurologic: no confusion Physical Exam Constitutional: + acute distress Eyes: PERRL, conjunctivae normal, anicteric sclerae Respiratory: normal respiratory effort, lungs clear to auscultation Cardiovascular: Rate/Rhythm: regular rhythm and + tachycardic Heart Sounds: no cardiac rub Extremities: + AV fistula (+ bruit) Gastrointestinal (Abdomen): Inspection/Auscultation: + hypoactive bowel sounds Percussion/Palpation: + abdomen tender (mild rebound tenderness); no guarding Neurologic: Speech / Cognition: normal speech and normal cognition Results & Data ([facility]) Vital Signs (Past 12 Hours) Vital Signs Temp Pulse Pulse Pulse Resp BP Pulse Ox 06/13/22 07:00 92 H 06/13/22 07:59 36.6 C 92 H 18 106/77 100 06/13/22 07:00 06/13/22 07:23 36.7 C 89 19 97/63 L 98 06/13/22 03:25 36.6 C 89 16 113/78 97 06/12/22 23:02 36.9 C 92 H 18 112/76 97 06/12/22 23:01 92 H O2 Del Method 06/13/22 07:00 06/13/22 07:59 Room Air 06/13/22 07:00 Room Air 06/13/22 07:23 Room Air 06/13/22 03:25 Room Air 06/12/22 23:02 Room Air 06/12/22 23:01 Laboratory Results Laboratory Tests 06/13/22 06/13/22 06:18 06:18 WBC 6.09 Hgb 8.1 L Hct 26.6 L Plt Count 128 L Sodium 137 Potassium 5.1 Chloride 103 Carbon Dioxide 25 BUN 38 H Creatinine 5.53 H* D Calcium 8.1 L Magnesium 2.1 Peritoneal fluid culture - Staph sensitive to Clindamycin PG Care Time/CCT Total # of Minutes Spent Total Time Spent with Patient: Total time spent is greater than 50% in coordination of care (as documented) at patient's floor/unit and/or counseling patient: Coding Level of Care Code 19689 Subseq Hosp Care Lvl 3 Diagnoses ESRD (end stage renal disease) on dialysis N18.6; Z99.2 Abdominal pain R10.9 Hydronephrosis N13.30
[2022-06-13] MEDS ORDERED: LIDOCAINE 1% LOCAL 20 ML VIAL ONE (08:40)
[2022-06-13] MEDS ORDERED: EPINEPHrine INJ 1 MG/ML AMP ONE (08:41)
[2022-06-13] MEDS ORDERED: BUPIVACAINE 0.5 % 5 MG/1 ML MPF 30ML VIAL ONE (08:41)
[2022-06-13] MEDS ORDERED: ONDANSETRON INJ 2 MG/ML 2 ML VIAL ONE (09:46)
[2022-06-13] MEDS ORDERED: PHENYLEPHRINE HCL 10 MG/ML VIAL ONE (09:46)
--- NOTE | 2022-06-13 09:51 | Operative Report ---
Post Operative Report Pre & Post Diagnosis Operation Date: 06/13/22 08:50 Pre-Op Diagnosis: Infected PD catheter Post-Op Diagnosis: Infected PD catheter I identified the patient and participated in the time-out.: Yes Procedure Operation Date: 06/13/22 08:50 Actual Procedures p Removal Peritoneal Diaylsis Catheter(Not Applicable) - Carlos Tracy MD Surgeon Carlos Tracy MD [employer] Estimated Blood Loss 0 Findings Consistent with Post-Op Diagnosis Specimens catheter tip for culture Anesthesia Type MAC Complications none Disposition Accompanied Patient To Recovery: No Disposition: Recovery Room Indications This is a 56-year-old male with end-stage renal disease on dialysis. He has a PD catheter in place which has become infected. He is dialyzing via using a fistula at this point. Removal of the PD catheter is recommended. I have discussed the risks options and benefits of the procedure with the patient. The patient understands the risks options and benefits and agrees to t he procedure. Description of Procedure The patient was taken the operating room and placed in supine position. After the abdomen was prepped and draped in sterile manner a timeout was performed the patient was identified. Local anesthetic was administered along the midline incision along the course of the catheter. Affect was accomplished large i ncision was made Of the old incision below the umbilicus. This was carried down to where the catheter was removed and went into the peritoneum. The Prolene suture holding the cath in place was snipped. The fibrin sheath was incised and the catheter and cuff were removed from the abdominal cavity. The tip was cut off and sent for culture. A 2-0 Prolene was used to close the hole in the fascial layer. Next the other cuff and the soft tissue was freed up from the midline incision. The fibrin sheath along the scope was then incised and the rest of the catheter was removed in total. After hemostasis was noted. The midline incision was closed using a running 3-0 Vicryl suture for subcutaneous layer and carie for the skin. Sterile dressings were applied to the wound.The patient left the operation room in satisfactory condition and tolerated the procedure well. All needle and sponge counts were correct at the end of the procedure. Donna Horn Pac assisted due to lack of resident availability and was necessary for positioning, draping, retraction, wound closure deep layers, subcutaneous tissue, and skin closure and was necessary for assisting with the case. I attest to the content of the Intraoperative Record and any orders documented therein. Any exceptions are noted below.
--- NOTE | 2022-06-13 10:58 | Anesthesiology Progress Note ---
Date of Service June 13, 2022 Anesthesia Post Procedure Vital Signs Vital Signs: Temp Pulse Pulse Pulse Pulse Resp BP 06/13/22 10:35 77 19 06/13/22 10:25 36.7 C 77 14 06/13/22 10:15 75 18 06/13/22 10:05 75 14 06/13/22 09:59 36.8 C 85 12 06/13/22 07:00 92 H 06/13/22 07:59 36.6 C 92 H 18 06/13/22 07:00 06/13/22 07:23 36.7 C 89 19 06/13/22 03:25 36.6 C 89 16 06/12/22 23:02 36.9 C 92 H 18 06/12/22 23:01 92 H 06/12/22 19:48 06/12/22 19:08 37.0 C 93 H 20 06/12/22 15:54 37.1 C 93 H 19 06/12/22 15:09 95 H 06/12/22 12:20 36.7 C 85 06/12/22 12:00 85 96/64 L 06/12/22 11:30 84 100/61 06/12/22 12:41 36.6 C 92 H 16 06/12/22 11:00 72 104/53 L BP Pulse Ox O2 Del Method O2 Flow Rate 06/13/22 10:35 82/56 L 100 Room Air 06/13/22 10:25 87/57 L 98 Room Air 06/13/22 10:15 80/55 L 100 Oxymask 5 06/13/22 10:05 79/50 L 100 Oxymask 9 06/13/22 09:59 103/70 100 Oxymask 9 06/13/22 07:00 06/13/22 07:59 106/77 100 Room Air 06/13/22 07:00 Room Air 06/13/22 07:23 97/63 L 98 Room Air 06/13/22 03:25 113/78 97 Room Air 06/12/22 23:02 112/76 97 Room Air 06/12/22 23:01 06/12/22 19:48 Room Air 06/12/22 19:08 102/61 97 Room Air 06/12/22 15:54 91/52 L 94 Room Air 06/12/22 15:09 06/12/22 12:20 97/62 L 06/12/22 12:00 06/12/22 11:30 06/12/22 12:41 104/68 95 Room Air 06/12/22 11:00 Pain Intensity Bilateral Abdomen: Pain Intensity: 0 Transfer of Care Handoff Completed per policy Notes Mental Status: alert / awake / arousable Patient Amnestic to Procedure: Yes Nausea / Vomiting: adequately controlled Pain: adequately controlled Airway Patency, RR, SpO2: stable & adequate BP & HR: stable & adequate Hydration State: stable & adequate Anesthetic Complications: no major complications apparent
[2022-06-13 11:00] VITALS: O2SAT 98
[2022-06-13] MEDS: carvediloL 3.125 MG TAB PO SCH (11:34)
[2022-06-13] MEDS: predniSONE 20 MG TAB PO SCH (11:35)
[2022-06-13] MEDS: COLCHICINE 0.6 MG TAB PO SCH (11:36)
[2022-06-13] MEDS: POLYETHYLENE (MIRALAX) 17 GM PACK PO SCH (11:36)
[2022-06-13] MEDS: SENNA 8.6 MG TAB PO SCH (11:37)
[2022-06-13] MEDS ORDERED: DexMEDEtomidine HCL IV 100 MCG/ML VIAL IV ONE (11:52)
[2022-06-13] MEDS ORDERED: EPOETIN ALFA 10,000 UNITS/ML VIAL IV SCH (12:00)
[2022-06-13] MEDS: HEPARIN SOD 5,000 UNIT/0.5 ML VIAL SQ SCH (12:30)
--- NOTE | 2022-06-13 16:24 | Discharge Summary ---
Date of Service June 13, 2022 Admission HPI Per Admitting Provider 56 YOM with: medical history of kidney failure transplant (tacrolimus/prednisone), Squamous cell carcinoma preauricular, anemia, CAD, HFrEF, peritoneal dialysis with catheter in place/ now on hemodialysis. Patient came to the [facility] for complaints of rectal pain/abdominal pain, this occurred earlier this morning and woke him up from sleep. Patient initially reported that the pain started at his peritoneal dialysis access port and then radiated down to his rectum, however on further questioning the pain started in his rectum was sharp and stabbing then advanced up into his abdomen as sharp and cramping pain. His endorses that he had a fever of 101.3 two days ago, but he refused any further temperature checks. Patient does not use his peritoneal dialysis catheter anymore and is on hemodialysis and last dialysis was on Thursday. Patient reports that he has a normal BM every morning without pain, constipation or diarrhea. He has not noted any blood or mucous with his bowel movements. In the EMD the patient had routine labs performed and CT scan of his abdomen/pelvis- without IV contrast. This was interpreted with bilateral non- obstructing renal calculi 8mm, and rectosigmoid fecal retention and mild to moderate constipation without obstruction, prostate gland mildly enlarged but heterogenous, and increase in hydronephrosis of transplanted kidney. Patient was given morphine for pain, there was concern for possible infective process of the abdomen related to his peritoneal catheter and hospitalist team was consulted for admission. Nephrology was consulted by [facility] for culture of his dialysate fluid, this was installed and will be withdrawn by facilities technician and cultured. Vascular surgery was consulted by the EMD provider. Urology was consulted by Nephrology for increase in hydronephrosis of transplanted kidney. Will admit to medical surgical floor await culture from dialysis fluid, blood culture, procal, He remains making urine await urine culture, bowel regime and pain control. COVID test on admission is: NEGATIVE Principal Diagnosis Peritonitis due to infected peritoneal dialysis catheter Discharge Exam Constitutional WD/WN, vitals as above Eyes + anicteric sclerae Neck trachea midline, no thyromegaly Respiratory normal respiratory effort, lungs clear to auscultation Cardiovascular Rate/Rhythm: regular rate and regular rhythm Heart Sounds: + cardiac rub; no murmur Extremities: + edema (1+ pitting edema feet and ankles) Chest (Breasts) Chest: normal inspection of chest Gastrointestinal (Abdomen) normal bowel sounds, soft, nontender, no hepatosplenomegaly Inspection/Auscultation: + abdomen abnormal to inspection (dressing in palce over surgocal wound c/d/i) Musculoskeletal Extremities: extremities normal to inspection; no cyanosis and no clubbing Skin no rashes, warm and dry Neurologic moves all extremities and awake; no focal motor deficits Psychiatric A+Ox3, euthymic affect Lymphatic no lymphedema Discharge Data Allergies Allergy/AdvReac Type Severity Reaction Status Date / Time cephalexin [From Keflex] Allergy Intermediate itchy/ Verified 06/11/22 09:45 nausea red dye Allergy Intermediate Hives Verified 06/11/22 09:45 Consultations 06/11/22 08:05 ED Decision to Admit Stat 06/11/22 08:13 Consult Vascular Surgery Routine 06/11/22 09:15 Consult Urology Stat Consult Vascular Surgery Routine 06/11/22 11:08 Consult Nephrology Routine 06/11/22 13:50 Consult Nephrology Routine Procedures Performed Operation Date: 06/13/22 08:50 Actual Procedures p Removal Peritoneal Diaylsis Catheter(Not Applicable) - Carlos Tracy MD Ordered Studies 06/11/22 04:09 CT abd pelvis wo con Urgent Hospital Course (1) Peritonitis due to infected peritoneal dialysis catheter: P/w acute on chronic abd pain, no significant findings on CT abd/pel except hydronephrosis progressed from previous of renal transplant and also with constipation -Found to have peritonitis with many polys on peritoneal fluid sample and now growing MSSA on peritoneal fluid culture-pansensitive -UA neg for infection Pain now completely resolved with treating with broad spectrum abx-received Dapto and Cefepime, renally dosed appreciate Nephrology input Had PD catheter removed by Vascular Surgery on 06/13-post-op care as per Surgery -dc to home on 12 more days (for total of 14 days of tx) of clindamycin 600mg po tid (2) Acute abdominal pain: as above, resolved initially treated with IV dilaudid, oxycodone prn, now not requiring any pain meds at time of discharge treating for peritonitis (3) 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 Tracy in 10-14 days culture collected during surgery and pending at time of discharge (5) Uremic pericarditis: continue prednisone and colchicine improved f/u with Cardiology as outpt (6) Squamous cell carcinoma: HX of follows with rad onc (7) Hydronephrosis: Noted increase related to previous scan - urology and nephrology consulted appreciate assistance - cath for evaluation of UTI showed no infection dcd Duncan prior to discharge plan for eval by transplant team for nephrectomy of transplant as recommended by Nephrology (8) Renal transplant, status post: Renal transplant 12 years ago- which appears to have failed and is on dialysis - Urology consulted as above (9) HFrEF (heart failure with reduced ejection fraction): Chronic not acute exacerbation - continue with carvedilol BID 3.125mg - follow volume status with dialysis Plan Dispo-stable for dc to home, much improved Total Time Total Time Spent Total Time Spent (In Minutes): 40 min Discharge Plan Discharge Items Patient Disposition: Home - Self-Care Reason For Visit: ABDOMINAL PAIN CONCERN FOR SBP Discharge Diagnosis: Peritoneal dialysis catheter associated peritonitis Condition on Discharge: Good Activity: As commented below Lifting: No more than 5 pounds Bathing: Keep incision dry Exercise/Sports: Wait until after follow-up appointment Non-emergency contact: Primary Care Provider, Surgeon and Human Resources Records Clerk Call non-emergency contact if: you have any medication questions, your symptoms worsen, your pain is not controlled, your pain is worsening, your pain is unusual for you, you have a fever, your wound has increased redness, your wound has increased drainage and your wound pain has increased Follow-up/Referrals: Carlos Tracy MD [Physician] - (Call [phone] to schedule a follow up appointment for 10-14 days post discharge) PCP,NO [Primary Care Provider] - Diet: Dialysis Renal Addtl Attending Provider Instructions: Please take the antibiotic called clindamycin for 12 more days for your abdominal infection. Your peritoneal dialysis catheter has been removed. Resume your usual dialysis schedule on Thursday. Nephrology is recommending you be evaluated for surgical removal of your transplant kidney. Dr. Foreman's office will make this referral to you for [facility]. Add Dot Compliance Coordinator Provider Instructions: ACTIVITY RECOMMENDATIONS: May remove dressing tomorrow Replace dressing if needed May shower in 48 hrs, do not soak wound under water SPECIAL CARE INSTRUCTIONS: Call your doctor if: * Temperature above 101 degrees * Pain not relieved by pain medicine ordered * There is increased drainage or redness from any incision * You have any unanswered questions or concerns. Call [phone] to schedule a follow up appointment if one not already scheduled. Pending Studies at Discharge: Yes Studies:: Final blood culture results-no growth to date Stand-Alone Forms: [facility], Smoking Cessation Medications and DC Order Prescriptions: New clindamycin HCl 300 mg capsule 600 mg PO Q8H 12 Days Qty: 72 0RF Continued carvedilol 3.125 mg tablet 3.125 mg PO BID Qty: 60 5RF Rx Instructions: must administer with a meal/food prednisone 20 mg Tablet 20 mg PO QAM fluorouracil 5 % cream 1 applic TOPICAL BID PRN (Reason: skin growths) colchicine 0.6 mg tablet 0.6 mg PO QAM trazodone 50 mg tablet 50 mg PO HS Discharge Orders: Discharge Order (Routine); Ordered 06/13/22 Ordered By: Jigna Wallace Admission Data Admit Date/Time: 06/12/22 13:13 Attending Provider: Jigna Wallace Admit Provider: Jigna Wallace Primary Care Provider: PCP,NO Other Providers: Carlos Tracy ; Israel Amaral ; Jigna Wallace ; Joe Sadler ; Atif Meneses ; Osmar Cain ; Klaudia Fong ; Israel Manuel ; Lovely Bell ; Linda Lake ; Christ Lord ; Popeye Fitzgerald ; Leeanne Cortes ; Carter Delacruz ; Kusum De La Paz ; Nick Bowles Coding Level of Care Code D/C DAY MANAGEMENT >30 MINS Diagnoses Peritonitis due to infected peritoneal dialysis catheter T85.71XA; K65.9 Acute abdominal pain R10.9 End stage renal disease N18.[address] catheter in place Z99.2 Uremic pericarditis N18.9; I32 Squamous cell carcinoma Hydronephrosis N13.30 Renal transplant, status post Z94.0 HFrEF (heart failure with reduced ejection fraction) I50.20
[2022-06-13 17:33] VITALS: BP 119/79
[2022-06-13] MEDS: oxyCODONE HCL IR 5 MG TAB (IMMEDIATE RELEASE) PO PRN (18:27)
[2022-06-13 18:42] VITALS: PULSE 88; TEMP 98.8
--- NOTE | 2022-06-26 09:17 | Consultation ---
Date of Consultation June 26, 2022 History of Present Illness Attending Physician: Jigna Wallace MD History of Present Illness [facility], [id number] History & Physical Report Signed Patient:AVERY DYER Admit Date:06/12/22 MR#:[id number] Att Phy:Jigna Wallace MD Acct ID:[id number] Dahlia Phy:PCP,NO Date:1965 Fam Phy: Age:56 Location:2S Sex:M Room/Bed:S240-2 cc: ~ *NOTICE TO RECEIVING CONSTITUTION PARTY/AGENCY This information is strictly Confidential and protected under [place] law. [place] law prohibits you from making any further disclosure of this information unless further disclosure is expressly permitted by the written consent of the person to whom it pertains or is authorized by law. A general authorization for the release of medical or other information is not sufficient for this purpose. Hospital accepts no responsibility if the information is made available to any other person, INCLUDING THE PATIENT. Date of Service June 12, 2022 Assessment & Plan (1) Peritonitis due to infected peritoneal dialysis catheter: Plan: Recommend removal of the peritoneal dialysis catheter. This will be done in the morning. Thank you very much for letting us participate in the care of this patient. Admission and Anticipated Discharge Date Admission Date: June 12, 2022 History of Present Illness Chief Complaint: Status post peritoneal dialysis catheter insertion, peritonitis Primary Care Provider: NO PCP This a 56-year-old gentleman on hemodialysis who has a peritoneal dialysis catheter in place. He came in with abdominal pain. His catheter did not work well over the last few weeks. Fluid did grew out staph species. He does have a failed transplant with a hydronephrosis of the ureter of the kidney. At time of admission he was having significant abdominal pain. Allergies Allergy/AdvReac Type Severity Reaction Status Date / Time cephalexin [From Keflex] Allergy Intermediate itchy/ Verified 06/11/22 09:45 nausea red dye Allergy Intermediate Hives Verified 06/11/22 09:45 Home Medications Medication Instructions Recorded Confirmed Type carvedilol 3.125 mg tablet 3.125 mg PO BID #60 tabs 04/12/22 06/11/22 Rx colchicine 0.6 mg tablet 0.6 mg PO QAM 06/11/22 06/11/22 Histor y fluorouracil 5 % topical cream 1 applic topical BID PRN skin 06/11/22 06/11/22 History growths prednisone 20 mg tablet 20 mg PO QAM 06/11/22 06/11/22 History trazodone 50 mg tablet 50 mg PO HS 06/11/22 06/11/22 History Past Med/Surg History Medical History Amputation of right index finger Anemia 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 3XWK FOR 2 MONTHS RIGHT UE AVF PLACED MARCH 2020 Cardiomyopathy NO LONGER FOLLOWS WITH DR SUAREZ AT LEAST PAST 2 YRSEnd stage renal disease follows with [facility]rologyGout, joint No recent issuesHypercholesterolemia Raynaud phenomenon Secondary hyperparathyroidism of renal origin Squamous cell carcinoma of preauricular region Uremic pericarditis Surgical History AVF (arteriovenous fistula) RIGHT ARMHistory of amputation of finger index fingerHistory of appendectomy History of cardiac cath 8 YRS AGOHistory of colonoscopy History of Mohs micrographic surgery for skin cancer BASAL AND SQUAMOUS CELLKidney transplant recipient RIGHT > 8 YRS AGO Family History Mother , age 65 heart failure Diabetes Hypertension Stroke Heart disease Kidney disease on dialysis for 6 monhtsFather , age 65 Burkitts lymphoma Cancer Heart diseaseSister , brain tumor age 30 diabetes coma DiabetesSister Heart diseaseBrother DiabetesBrother No problems noted. Brother No problems noted. Daughter No problems noted. Son No problems noted. Other No family history of allergies No family history of bleeding disorder Denies family history of Hearing loss Asthma Social History Smoking Status: Former smoker Tobacco Type: Cigars Age Started Using Tobacco: 15; Years Smoked: 6; Second Hand Exposure: No; Do You Dip or Chew Tobacco: Yes; Tobacco Cessation Education Requested by Patient: No Hx Alcohol Use: No Hx Substance Use: No Preferred Language: Amharic Communication Ability: Effective Glove Operator Required: No Beliefs That Will Affect Care: None marital status: Current Living Situation: Spouse current occupational status: previously employed 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 How many Children do You have: 2 Other Information That Helps Us Care for You: No Feels Safe at Home: Yes Safety Concerns: Feels Safe At This Time Childhood Exposure to Second-Hand Smoke: Yes caffeine: Yes (one cup per daycaffeine soda 2-3 per day) during the past year weight has: remained stable Dental Care, Regularly: Yes Physical Activity Frequency: Daily Seatbelt Use: sometimes Sunscreen Use: Yes Assistive Devices: None Review of Systems All systems reviewed & are unremarkable except as noted in HPI & below Physical Exam Constitutional: WD/WN, vitals as above Respiratory: normal respiratory effort; no respiratory distress Cardiovascular: Rate/Rhythm: regular rate and regular rhythm Gastrointestinal (Abdomen): Inspection/Auscultation: abdomen normal to inspection; abdomen not distended Percussion/Palpation: + abdomen tender and abdomen soft Musculoskeletal: no cyanosis or clubbing, extremities motor strength 5/5 Neurologic: CN's II-XI intact bilaterally and moves all extremities Psychiatric: Orientation: alert and oriented x 3 Results & Data ([facility]) Vital Signs (Past 12 Hours) Vital Signs Temp Pulse Pulse Pulse Resp BP BP 06/12/22 12:20 36.7 C 85 97/62 L 06/12/22 12:00 85 96/64 L 06/12/22 11:30 84 100/61 06/12/22 12:41 36.6 C 92 H 16 104/68 06/12/22 11:00 72 104/53 L 06/12/22 10:30 89 96/61 L 06/12/22 10:30 89 06/12/22 08:00 06/12/22 10:00 87 99/67 L 06/12/22 09:30 88 93/65 L 06/12/22 09:06 36.9 C 88 06/12/22 08:06 36.9 C 85 20 95/61 L 06/12/22 03:00 37.4 C 89 18 93/59 L Pulse Ox O2 Del Method 06/12/22 12:20 06/12/22 12:00 06/12/22 11:30 06/12/22 12:41 95 Room Air 06/12/22 11:00 06/12/22 10:30 06/12/22 10:30 06/12/22 08:00 Room Air 06/12/22 10:00 06/12/22 09:30 06/12/22 09:06 06/12/22 08:06 97 Room Air 06/12/22 03:00 94 Code Status & VTE Plan VTE Prophylaxis Plan VTE Prophylaxis will be ordered: Yes Signed By: <Electronically signed by Carlos Tracy MD> 06/12/22 1413 Created:06/12/22 1410 The status of this report isSigned. Draft = Not yet reviewed or approved by Medical Physician. Signed = Reviewed and approved by Medical Physician. Allergies Allergy/AdvReac Type Severity Reaction Status Date / Time cephalexin [From Keflex] Allergy Intermediate itchy/ Verified 06/11/22 09:45 nausea red dye Allergy Intermediate Hives Verified 06/11/22 09:45 Home Medications Medication Instructions Recorded Confirmed Type carvedilol 3.125 mg tablet 3.125 mg PO BID #60 tabs 04/12/22 06/11/22 Rx colchicine 0.6 mg tablet 0.6 mg PO QAM 06/11/22 06/11/22 History fluorouracil 5 % topical cream 1 applic topical BID PRN skin 06/11/22 06/11/22 History growths prednisone 20 mg tablet 20 mg PO QAM 06/11/22 06/11/22 History trazodone 50 mg tablet 50 mg PO HS 06/11/22 06/11/22 History oxycodone 5 mg tablet 5 mg PO Q4H PRN moderate-severe 06/13/22 Rx pain #15 tabs Patient History Medical History Amputation of right index finger Anemia 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 3XWK FOR 2 MONTHS RIGHT UE AVF PLACED MARCH 2020 Cardiomyopathy NO LONGER FOLLOWS WITH DR SUAREZ AT LEAST PAST 2 YRS End stage renal disease follows with [place] nephrology Gout, joint No recent issues Hypercholesterolemia Raynaud phenomenon Secondary hyperparathyroidism of renal origin Squamous cell carcinoma of preauricular region Uremic pericarditis Surgical History AVF (arteriovenous fistula) RIGHT ARM History of amputation of finger index finger History of appendectomy History of cardiac cath 8 YRS AGO History of colonoscopy History of Mohs micrographic surgery for skin cancer BASAL AND SQUAMOUS CELL Kidney transplant recipient RIGHT > 8 YRS AGO Family History Mother , age 65 heart failure Diabetes Hypertension Stroke Heart disease Kidney disease on dialysis for 6 monhts Father , age 65 Burkitts lymphoma Cancer Heart disease Sister , brain tumor age 30 diabetes coma Diabetes Sister Heart disease Brother Diabetes Brother No problems noted. Brother No problems noted. Daughter No problems noted. Son No problems noted. 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
== END 2022-06-13 18:30 | disposition home or self-care (01) | DRG 981 ==
LOC: ED 02:55 → EDINP 02:55 → INTOOBSV 10:15 → OBSVTOIN 10:15 → EDINP 13:49 → 2S 17:34

== ENCOUNTER 2022-10-16 16:59 | Inpatient (IN) ==
[2022-10-16 17:22] LABS: Basophils # (auto) 0.01 K/uL (0-0.2); Basophils % (auto) 0.1 %; Hematocrit (blood only) 35.2 % (40.1-51.0); Hemoglobin 11.9 g/dl (14.0-18.0); Immature Granulocytes # (auto) 0.13 K/uL (0.00-0.02); Immature Granulocytes % (auto) 1.2 %; Lymphocytes # (auto) 0.36 K/uL (1.2-3.4); Lymphocytes % (auto) 3.4 %; Mean Corpuscular Hemoglobin 35.8 pg (25.0-34.0); Mean Corpuscular Hgb Conc 33.8 g/dL (32.0-36.0); Mean Platelet Volume 9.6 fL (9.4-12.4); Monocytes # (auto) 0.67 K/uL (0.24-0.82); Monocytes % (auto) 6.3 %; Neutrophils # (auto) 9.49 K/uL (1.4-6.5); Nucleated RBC # (auto) 0.02 K/uL (0-0); Nucleated RBC % (auto) 0.2 %; Platelet Count 182 K/uL (130-400); RDW Coefficient of Variation 18.4 % (11.5-14.5); RDW Standard Deviation 71.7 fL (36.4-46.3); Red Blood Count 3.32 M/uL (4.63-6.08); White Blood Count 10.66 K/ul (4.8-10.8)
[2022-10-16 17:30] LABS: Partial Thromboplastin Ratio 0.9; Partial Thromboplastin Time 25.4 Seconds (21.0-31.0)
[2022-10-16 17:40] LABS: Albumin Globulin Ratio 1.4 (0.9-2); Albumin Level 3.8 gm/dl (3.4-5.0); BUN Creatinine Ratio 8.8 (10-20); Bilirubin,Total 0.6 mg/dl (0.2-1.0); Calcium 8.6 mg/dl (8.5-10.1); Creatinine Clr Calc Pharmacy 13.7 ml/min; Est GFR (African American) 10.8 ml/min; Est GFR (Non-African American) 9.3 ml/min; Globulin 2.7 gm/dl (2.5-4.0); Potassium 3.4 mmol/L (3.5-5.1); Total Protein 6.5 gm/dl (6.0-8.3)
--- NOTE | 2022-10-16 18:00 | Emergency Department Note ---
Impression & Plan Acute deep vein thrombosis of right lower extremity ED Provider Note HISTORY OF PRESENT ILLNESS: Patient is a 57-year-old male presenting with right lower extremity swelling. Patient reports he has been having swelling in his right lower extremity for the last week. 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 He is on weekly chemo and received a chemotherapy treatment today. His PET scan showed concern for a thrombus in his right femoral vein and he was referred to the emergency department for further evaluation. Patient is not on any anticoagulation. He is an ESRD patient and receives hemodialysis Thursday/Thursday/Thursday. Denies any pain in the leg. Denies any numbness or tingling down the leg. Denies any wounds on his right lower extremity. Reports that the entire leg has just been swollen for the last week. He has been wearing compression socks. ROS: Constitutional: No fever, chills, or weakness Skin: No rash or diaphoresis HENT: No headaches or congestion Eyes: No vision changes Cardio: No chest pain, palpitations +leg swelling Respiratory: No cough, wheezing or shortness of breath GI: No nausea, vomiting, diarrhea, constipation : No dysuria, polyuria MSK: No joint or back pain Neuro: No loss of sensation, confusion, focal deficits, numbness, tingling Psychiatric: No mood changes PHYSICAL EXAM: Constitutional: Patient appears in no acute distress. HENT: Head: Normocephalic and atraumatic. Eyes: EOMI, PERRL Mouth/Throat: Mucous membranes moist. Neck: Trachea midline. Neck supple. Cardiovascular: RRR, No murmurs, rubs or gallops. Intact distal pulses. Pulmonary/Chest: No respiratory distress. Breath sounds clear and equal bilaterally. No wheezes or rales. Abdominal: BS +. Abdomen soft, no tenderness, rebound or guarding. Back: No midline spinal tenderness, no paraspinal tenderness, no CVA te nderness. Musculoskeletal: No tenderness or deformity noted. RLE with +2 swelling in foot extending to knee. No erythema or wounds noted. Palpable PT pulse in RLE. Skin: Warm and dry. No rash, erythema, pallor or cyanosis Psychiatric: Appropriate mood and affect for situation. Neurological: Alert and keenly responsive. CN II-XII grossly intact, moving all extremities equally and fully. MDM: - Vitals signs stable. - Laboratory workup showed normal WBC; hypokalemia (K 3.4); ESRD (Cr 6.13) - US of RLE showed extensive deep vein thrombosis in RLE - extends from common femoral vein through distal superficial femoral vein component. Occlusive within common femoral vein. - Discussed results with patient and at bedside, as well as daughter over the phone. Recommended admission for IV anticoagulation. Patient agreeable. - IV heparin bolus and drip ordered. - Hospitlaist consulted for admission. Dr. Mcdonough recommended oncology consult. - Oncologist ground operations superintendent, Dr. Grey, consulted. He agreed with admission with IV heparin and possible transition in AM to subQ heparin for patient as outpatient. - Patient admitted to [facility] for further evaluation and management. 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 Surgical History AVF (arteriovenous fistula) RIGHT ARM History of amputation of finger index finger History of appendectomy History of cardiac cath 8 YRS AGO History of colonoscopy History of Mohs micrographic surgery for skin cancer BASAL AND SQUAMOUS CELL Kidney transplant recipient RIGHT > 8 YRS AGO Family History Mother , age 65 heart failure Diabetes Hypertension Stroke Heart disease Kidney disease on dialysis for 6 monhts Father , age 65 Burkitts lymphoma Cancer Heart disease Sister , brain tumor age 30 diabetes coma Diabetes Sister Heart disease Brother Diabetes Brother No problems noted. Brother No problems noted. Daughter No problems noted. Son No problems noted. 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 How many Children do You have: 2 Feels Safe at Home: Yes Childhood Exposure to Second-Hand Smoke: Yes caffeine: Yes (one cup per daycaffeine soda 2-3 per day) during the past year weight has: remained stable Dental Care, Regularly: Yes Physical Activity Frequency: Daily Seatbelt Use: sometimes Sunscreen Use: Yes Assistive Devices: None Allergies Allergies Allergy/AdvReac Type Severity Reaction Status Date / Time cephalexin [From Keflex] Allergy Intermediate itchy/ Verified 06/11/22 09:45 nausea red dye Allergy Intermediate Hives Verified 06/11/22 09:45 Home Meds Home Medications Medication Instructions Recorded Confirmed trazodone 50 mg tablet 50 mg PO HS 06/11/22 06/11/22 ondansetron HCl 8 mg tablet 8 mg PO Q8 PRN Nausea 10/16/22 10/16/22 prednisone 5 mg tablet 5 mg PO UD 10/16/22 10/16/22 sevelamer carbonate 800 mg tablet 800 mg PO UD 10/16/22 10/16/22 Previous Rx's Medication Instructions Recorded carvedilol 3.125 mg tablet 3.125 mg PO BID #60 tabs 04/12/22 prednisone 10 mg tablets in a dose 10 mg PO DAILY #21 ea 10/15/22 pack Results & Data (ED) Vital Signs Vital Signs - 24 hr 10/16/22 17:00 Temperature 37.0 C Temperature Source Temporal Artery Scan Pulse Rate 83 Respiratory Rate 20 Respiratory Effort / Characteristics Non-Labored Spontaneous Respiratory Depth Normal Respiratory Pattern Regular Blood Pressure 136/82 Blood Pressure Mean 100 Blood Pressure Position Sitting Pulse Oximetry 98 Oxygen Delivery Method Room Air Sepsis Recent Fever Within 48 Hours No Sepsis New/Unexplained Change in Mental Status No Sepsis Action Taken by Nursing No Action Required Laboratory Data Result diagrams: 10/16/22 17:09 10/16/22 17:09 Lab Results 10/16/22 10/16/22 10/16/22 Range/Units 17:09 17:09 17:09 WBC 10.66 (4.8-10.8) K/ul RBC 3.32 L (4.63-6.08) M/uL Hgb 11.9 L (14.0-18.0) g/dl Hct 35.2 L (40.1-51.0) % MCV 106.0 H (80.0-100.0) fL MCH 35.8 H (25.0-34.0) pg MCHC 33.8 (32.0-36.0) g/dL RDW Std Deviation 71.7 H (36.4-46.3) fL RDW Coeff of Nano 18.4 H (11.5-14.5) % Plt Count 182 (130-400) K/uL MPV 9.6 (9.4-12.4) fL Immature Gran % (Auto) 1.2 % Neut % (Auto) 89.0 % Lymph % (Auto) 3.4 % Price % (Auto) 6.3 % Eos % (Auto) 0.0 % Baso % (Auto) 0.1 % Neut # (Auto) 9.49 H (1.4-6.5) K/uL Lymph # (Auto) 0.36 L (1.2-3.4) K/uL Price # (Auto) 0.67 (0.24-0.82) K/uL Eos # (Auto) 0.00 (0-0.50) K/uL Baso # (Auto) 0.01 (0-0.2) K/uL Immature Gran # (Auto) 0.13 H (0.00-0.02) K/uL Absolute Nucleated RBC 0.02 H (0-0) K/uL Nucleated RBC % (auto) 0.2 % PT 11.0 (9.0-12.0) Seconds INR 1.0 (0.9-1.1) APTT 25.4 (21.0-31.0) Seconds PTT Ratio 0.9 Sodium 139 (136-145) mmol/L Potassium 3.4 L (3.5-5.1) mmol/L Chloride 97 L (98-107) mmol/L Carbon Dioxide 29 (21-32) mmol/L Anion Gap 13 H (3-11) BUN 54 H D (6-23) mg/dl Creatinine 6.13 H* D (0.6-1.4) mg/dl Est Cr Clr Drug Dosing 13.7 ml/min Est GFR ( Amer) 10.8 ml/min Est GFR (Non-Af Amer) 9.3 ml/min BUN/Creatinine Ratio 8.8 L (10-20) Glucose 121 H (70-99(Fasting)) mg/dl Calcium 8.6 (8.5-10.1) mg/dl Total Bilirubin 0.6 (0.2-1.0) mg/dl AST 19 (13-39) U/L ALT 55 H (7-52) U/L Alkaline Phosphatase 108 H (34-104) U/L Total Protein 6.5 (6.0-8.3) gm/dl Albumin 3.8 (3.4-5.0) gm/dl Globulin 2.7 (2.5-4.0) gm/dl Albumin/Globulin Ratio 1.4 (0.9-2) Imaging Data Radiologist's Impression: Venous Doppler Study 10/16/22 17:29 ULTRASOUND RIGHT LOWER EXTREMITY VENOUS CLINICAL HISTORY: Right leg swelling. COMPARISON STUDY: PET/CT dated 10/16/2022 TECHNIQUE: Real-time, grayscale, and color Doppler sonography of the deep veins of the right lower extremity was performed from the inguinal crease to the calf. Compression and augmentation were utilized. FINDINGS: There is extensive right lower extremity deep venous thrombosis. This extends from the common femoral vein through the distal superficial femoral vein comment and is occlusive within the common femoral vein and proximal superficial femoral vein. The popliteal vein is are patent and normally compressible. There is occlusive superficial venous thrombosis in the profunda femoris vein at the junction of the common femoral vein. The greater saphenous vein at the junction with the common femoral vein is clear. The visualized calf veins are patent. IMPRESSION: Extensive deep venous thrombosis throughout the right lower extremity as above. ACT 112: Negative or not required by law. Electronically signed by: Tom Sullivan M.D. 10/16/2022 6:29 PM Discharge Plan Visit Data Chief Complaint: Swelling/Edema to Extremity Stated Complaint: RIGHT LEG SWOLLEN ED Provider: [facility] Discharge Problem: Acute deep vein thrombosis of right lower extremity Forms Stand Alone Forms: [facility] Prescriptions Prescriptions: No Action prednisone 10 mg tablets,dose pack 10 mg PO DAILY Qty: 21 0RF Rx Instructions: day 1: take 6 tablets by mouth, day 2: take 5 tablets by mouth, day 3: take 4 tablets by mouth, day 4: take 3 tablets by mouth, day 3: take 2 tablets by mouth, day 4: take 1 tablet. then resume 5 mg PO daily. Take with food to avoid upset stomach. carvedilol 3.125 mg tablet 3.125 mg PO BID Qty: 60 5RF Rx Instructions: must administer with a meal/food trazodone 50 mg tablet 50 mg PO HS prednisone 5 mg tablet 5 mg PO UD Rx Instructions: on hold until after 10 mg taper is finished then resume 5 mg daily ondansetron HCl 8 mg tablet 8 mg PO Q8 PRN (Reason: Nausea) sevelamer carbonate 800 mg tablet 800 mg PO UD Referrals Referrals: PCP,NO [Primary Care Provider] -
--- NOTE | 2022-10-16 18:30 | Ultrasound Report ---
ULTRASOUND RIGHT LOWER EXTREMITY VENOUS CLINICAL HISTORY: Right leg swelling. COMPARISON STUDY: PET/CT dated 10/16/2022 TECHNIQUE: Real-time, grayscale, and color Doppler sonography of the deep veins of the right lower ex tremity was performed from the inguinal crease to the calf. Compression and augmentation were utilize d. FINDINGS: There is extensive right lower extremity deep venous thrombosis. This extends from the comm on femoral vein through the distal superficial femoral vein comment and is occlusive within the commo n femoral vein and proximal superficial femoral vein. The popliteal vein is are patent and normally c ompressible. There is occlusive superficial venous thrombosis in the profunda femoris vein at the julia ction of the common femoral vein. The greater saphenous vein at the junction with the common femoral vein is clear. The visualized calf veins are patent. IMPRESSION: Extensive deep venous thrombosis throughout the right lower extremity as above. ACT 112: Negative or not required by law. Electronically signed by: Tom Sullivan M.D. 10/16/2022 6:29 PM
[2022-10-16] MEDS ORDERED: Heparin IV Adult Wt-Based Standard WITH Bolus Protocol IV STA (19:16)
[2022-10-16] MEDS ORDERED: HEPARIN SOD (PORCINE) 1000 UNIT/ML IV ONE ×2 (19:31→19:45)
[2022-10-16] MEDS ORDERED: HEPARIN SODIUM/DEXTROSE 25,000 UNITS/500 ML BAG IV SCH (19:45)
--- NOTE | 2022-10-16 19:57 | Hospitalist Progress Note ---
Date of Service October 16, 2022 Assessment & Plan (1) Acute deep vein thrombosis of right lower extremity: Plan: Patient with acute right lower extremity DVT in the context of ongoing treatment for head neck cancer 10/16/2022 RLE duplex ULTRASOUND RIGHT LOWER EXTREMITY VENOUS CLINICAL HISTORY: Right leg swelling. COMPARISON STUDY: PET/CT dated 10/16/2022 TECHNIQUE: Real-time, grayscale, and color Doppler sonography of the deep veins of the right lower extremity was performed from the inguinal crease to the calf. Compression and augmentation were utilized. FINDINGS: There is extensive right lower extremity deep venous thrombosis. This extends from the common femoral vein through the distal superficial femoral vein comment and is occlusive within the common femoral vein and proximal superficial femoral vein. The popliteal vein is are patent and normally compressible. There is occlusive superficial venous thrombosis in the profunda femoris vein at the junction of the common femoral vein. The greater saphenous vein at the junction with the common femoral vein is clear. The visualized calf veins are patent. IMPRESSION: Extensive deep venous thrombosis throughout the right lower extremity as above. Challenges that he has renal failure on chronic dialysis. Enoxaparin would generally be contraindicated. While there is some early use of apixaban in dialysis patients, Up-to-Date notes ". . . some experts avoid use of apixaban for all indications in patients with a severe reduction in kidney function (CrCl < 25 mL/min, including dialysis) since safety and efficacy remain untested and cannot be assured." Best option would be initial heparinization and conversion to longer term warfarin therapy. Giving warfarin alone to start without covering heparin would risk precipitation of much more severe and even life-threatening thrombosis given the more rapid depletion of protein C/protein S as opposed to the other procoagulant factors. Especially given the extent of the clot, it would be much more prudent to at least start with intravenous heparin. Ideally I would continue him on intravenous and transition to warfarin with close monitoring but given the social circumstances are he is very insistent on going home, will suggest the following plan: 1. Admit overnight for intravenous heparin to assure rapid achievement of therapeutic levels and initial stabilization 2. Work with social work and discharge planning to coordinate an outpatient subcu heparin plan. Dosing can be weight-based at 250 units/kg subcutaneously given every 12 hours. Would plan to give him his first dose here discontinuing the IV heparin simultaneously with the administration of that dose and then continuing as outpatient. This will need to be coordinated with discharge planning and social work to assure supplies of heparin and appropriate syringes to draw it up, fortunately his daughter is one of our chemotherapy infusion nurses and can coordinate administering it at home. He should be made understand that this may be a less ideal approach and ongoing intravenous heparin but in shared decision-making it does offer him the quality of life opportunity to be home for the holiday weekend with his family. Subq heparing can then continue indefinitely. With weight-based dosing there is no need for PTT monitoring but he should have CBC and platelets checked tomorrow and then again through home health on Thursday and Thursday to watch for evolution of HIT. I will ask our offices to make sure that he has appointments coordinated with us next week for follow-up 3. Can discuss conversion in time to warfarin as an outpatient with the ongoing coverage from heparin until he is therapeutic on warfarin. There would be clear advantages in terms of an oral versus subcutaneous medication though there are some theoretical disadvantages to warfarin in the context of malignancy related thrombosis. Those are issues that can be addressed longer-term through his usual oncologist Dr. Valentin and the warfarin clinic I am available prison psychiatrist this evening and through the office tomorrow if additional comment or consultation would be helpful. Plan See above Subjective Patient with head neck cancer on longstanding cetuximab, incidental identification of extensive right lower extremity DVT earlier today not on anticoagulation Results & Data Results & Data ([facility]) Vital Signs (Past 12 Hours) Vital Signs Temp Pulse Resp BP Pulse Ox O2 Del Method 10/16/22 17:00 37.0 C 83 20 136/82 98 Room Air PG Care Time/CCT Total # of Minutes Spent Total Time Spent with Patient: Total time spent is greater than 50% in coordination of care (as documented) at patient's floor/unit and/or counseling patient: Coding Level of Care Code None Diagnoses Acute deep vein thrombosis of right lower extremity I82.401
--- NOTE | 2022-10-16 21:27 | History & Physical Report ---
Date of Service October 16, 2022 Assessment & Plan (1) Acute deep vein thrombosis of right lower extremity: Plan: Patient is a 57-year-old male with a past medical history of head and neck squamous cell carcinoma, end-stage renal disease on Thursday d ialysis, and HFrEF who presented to the emergency room for the chief complaint of right lower extremity swelling for the past week. Work-up has revealed a significant right lower extremity DVT and has been started on heparin bolus with drip. Patient is currently hemodynamically stable. Patient will need hemodialysis in the morning. -Admit to [facility] with telemetry due to ESRD -Patient started on heparin drip after being given bolus. -Hematology consulted, appreciate recommendations, initiate heparin with bolus and drip overnight with transition to subcutaneous heparin 250 units/kg twice da elvi on the morning of 10/17. Lovenox contraindicated given renal function. -Likely would need to follow-up with quality tester in the outpatient setting to determine best course of action in terms of long-term anticoagulation whether it be subcutaneous heparin or a transition to warfarin. This can be discussed in the outpatient setting. -We will need to coordinate home health set up to have CBC and platelets checked on 10/19/2021 and 10/21/2021 per hematology to evaluate for HIT. -EKG as needed for chest pain -No shortness of breath currently, so we will hold off chest CT -Supplemental oxygen as needed for saturations less than 90% (2) ESRD (end stage renal disease) on dialysis: Plan: - Patient receives hemodialysis on Thursday, Thursday, and Thursday -Creatinine greater than 6 on admission to the hospital. -Due for hemodialysis 10/17 at 5 AM. Nephrology consulted for management of dialysis, appreciate recommendations. -Renal dialysis diet ordered -Lovenox contraindicated at this time, inadequate data to support use of DOAC and ESRD -Avoid NSAIDs (3) HFrEF (heart failure with reduced ejection fraction): Plan: -Continue carvedilol -Euvolemic by exam at today's visit, given ESRD, avoid unnecessary saline infusions (4) Squamous cell carcinoma of skin of other parts of face: Plan: -Receives weekly chemotherapy which she had just received today -Zofran as needed for nausea -Low threshold for utilization of pain medication -Given that patient projected to have short hospitalization, held medicinal cannabis Disposition: Admit to [facility] with telemetry, currently on heparin drip with expectation to transition to subcu heparin on 10/17 DVT prophylaxis: Heparin drip Diet: Renal diet CODE STATUS: Full code History of Present Illness Chief Complaint: RLE swelling Primary Care Provider: [facility] PCP Patient is a 57-year-old male with a past medical history of head and neck squamous cell carcinoma, end-stage renal disease on Thursday dialysis, and HFrEF who presented to the emergency room for the chief complaint of right lower extremity swelling for the past week. Patient is diagnosed with head and neck squamous cell carcinoma and was having a PET scan today to evaluate for progress. When the PET scan was being read, it was noticed that there was concern for a right lower extremity DVT and he was called to present to the emergency room for further evaluation and treatment. While in the ED, he had an ultrasound of the right lower extremity showing extensive DVT of the femoral veins. Additionally he had routine lab work done which had showed a mild hypokalemia at 3.4. This information was discussed with the on-call quality tester who recommended admitting the patient to the hospital for initiation of IV anticoagulation. Patient otherwise is not having any chest pain, shortness of breath, nausea, vomiting, headache, or blurry vision. Reports that he gets hemodialysis Thursday and is due to get dialysis tomorrow at 5 AM. In terms of his treatment for his cancer, patient gets weekly chemotherapy and does not know the agent he is currently on. Otherwise no other complaints at this time. Allergies Allergy/AdvReac Type Severity Reaction Status Date / Time cephalexin [From Keflex] Allergy Intermediate itchy/ Verified 10/16/22 20:20 nausea red dye Allergy Intermediate Hives Verified 10/16/22 20:20 trazodone AdvReac Severe Confusion Verified 10/16/22 20:20 melatonin AdvReac Intermediate inablilty Verified 10/16/22 20:20 to sleep Home Medications Medication Instructions Recorded Confirmed Type carvedilol 3.125 mg tablet 3.125 mg PO BID #60 tabs 04/12/22 10/16/22 Rx prednisone 10 mg tablets in a dose 10 mg PO DAILY #21 ea 10/15/22 10/16/22 Rx pack Medical Marijuana 0.5 applicator PO HS 10/16/22 10/16/22 History cyanocobalamin (vitamin B-12) 1,000 mcg PO DAILY 10/16/22 10/16/22 History 1,000 mcg tablet (Vitamin B-12) ondansetron HCl 8 mg tablet 8 mg PO Q8 PRN Nausea 10/16/22 10/16/22 History prednisone 5 mg tablet 10 mg PO UD 10/16/22 10/16/22 History sevelamer carbonate 800 mg tablet 800 mg PO WM 10/16/22 10/16/22 History heparin, porcine (PF) 5,000 20,000 unit (2 mL) subcut Q12H #25 10/17/22 Rx unit/0.5 mL injection syringe mL syringe (disposable) 5 mL #125 ea 10/17/22 Rx Past Med/Surg History Medical History Amputation of right index finger Anemia 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 Surgical History AVF (arteriovenous fistula) RIGHT ARM History of amputation of finger index finger History of appendectomy History of cardiac cath 8 YRS AGO History of colonoscopy History of Mohs micrographic surgery for skin cancer BASAL AND SQUAMOUS CELL Kidney transplant recipient RIGHT > 8 YRS AGO Family History Mother , age 65 heart failure Diabetes Hypertension Stroke Heart disease Kidney disease on dialysis for 6 monhts Father , age 65 Burkitts lymphoma Cancer Heart disease Sister , brain tumor age 30 diabetes coma Diabetes Sister Heart disease Brother Diabetes Brother No problems noted. Brother No problems noted. Daughter No problems noted. Son No problems noted. 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 How many Children do You have: 2 Feels Safe at Home: Yes Childhood Exposure to Second-Hand Smoke: Yes caffeine: Yes (one cup per daycaffeine soda 2-3 per day) during the past year weight has: remained stable Dental Care, Regularly: Yes Physical Activity Frequency: Daily Seatbelt Use: sometimes Sunscreen Use: Yes Assistive Devices: None Review of Systems Review of Systems: All systems reviewed & are unremarkable except as noted in HPI & below Physical Exam Constitutional: WD/WN, vitals as above Eyes: + anicteric sclerae Neck: trachea midline Respiratory: normal respiratory effort, lungs clear to auscultation Cardiovascular: Rate/Rhythm: regular rate and regular rhythm Heart Sounds: + murmur Vessels: no JVD Extremities: + edema (2+ RLE edema) Gastrointestinal (Abdomen): Inspection/Auscultation: normal bowel sounds Percussion/Palpation: abdomen soft Musculoskeletal: Head/Neck/Chest: normocephalic and head atraumatic Extremities: + lower leg abnormality Right (2+ RLE edema, positive silvia sign) Skin: no rashes, warm and dry Neurologic: moves all extremities Psychiatric: A+Ox3, euthymic affect Results & Data Results & Data ([facility]) Vital Signs (Past 12 Hours) Vital Signs Temp Pulse Resp BP Pulse Ox O2 Del Method 10/16/22 17:00 37.0 C 83 20 136/82 98 Room Air Code Status & VTE Plan VTE Prophylaxis Plan VTE Prophylaxis will be ordered: No Reason for no VTE drug order: Contraindicated Supervising Physician Co-Signing Physician Notes Pt seen and examined in concert with Agree with the documented findings as noted in the resident documentation in both the history and the Physical eaxma and discussed with him the overall plan in detail.
[2022-10-17] MEDS ORDERED: ONDANSETRON 4 MG OD TAB PO PRN (01:13)
[2022-10-17] MEDS ORDERED: POLYETHYLENE (MIRALAX) 17 GM PACK PO PRN (01:13)
[2022-10-17] MEDS ORDERED: ACETAMINOPHEN 325 MG TAB PO PRN (01:13)
[2022-10-17] MEDS ORDERED: carvediloL 3.125 MG TAB PO SCH ×2 (01:13→09:00)
[2022-10-17] MEDS ORDERED: FLUARIX QUADRIVALENT 0.5 ML SYR IM ONE (01:59)
[2022-10-17 06:59] LABS: Basophils # (auto) 0.02 K/uL (0-0.2); Basophils % (auto) 0.2 %; Eosinophils # (auto) 0.11 K/uL (0-0.50); Eosinophils % (auto) 1.3 %; Hematocrit (blood only) 33.1 % (40.1-51.0); Hemoglobin 10.9 g/dl (14.0-18.0); Immature Granulocytes # (auto) 0.12 K/uL (0.00-0.02); Immature Granulocytes % (auto) 1.4 %; Lymphocytes # (auto) 0.55 K/uL (1.2-3.4); Lymphocytes % (auto) 6.5 %; Mean Corpuscular Hemoglobin 34.8 pg (25.0-34.0); Mean Corpuscular Hgb Conc 32.9 g/dL (32.0-36.0); Mean Corpuscular Volume 105.8 fL (80.0-100.0); Mean Platelet Volume 9.6 fL (9.4-12.4); Monocytes # (auto) 0.82 K/uL (0.24-0.82); Monocytes % (auto) 9.7 %; Neutrophils # (auto) 6.87 K/uL (1.4-6.5); Neutrophils % (auto) 80.9 %; Platelet Count 167 K/uL (130-400); RDW Coefficient of Variation 18.9 % (11.5-14.5); RDW Standard Deviation 73.4 fL (36.4-46.3); Red Blood Count 3.13 M/uL (4.63-6.08); White Blood Count 8.49 K/ul (4.8-10.8)
[2022-10-17 07:27] LABS: BUN Creatinine Ratio 9.9 (10-20); Calcium 8.1 mg/dl (8.5-10.1); Creatinine Clr Calc Pharmacy 12.4 ml/min; Est GFR (African American) 9.5 ml/min; Est GFR (Non-African American) 8.2 ml/min; Potassium 3.5 mmol/L (3.5-5.1)
[2022-10-17 07:28] LABS: INR 1.1 (0.9-1.1); Partial Thromboplastin Ratio 3.3; Prothrombin Time 11.6 Seconds (9.0-12.0)
[2022-10-17 07:33] LABS: Partial Thromboplastin Time 90.2 Seconds (21.0-31.0)
--- NOTE | 2022-10-17 07:39 | Hospitalist Progress Note ---
Date of Service October 17, 2022 Assessment & Plan (1) Acute deep vein thrombosis of right lower extremity: Plan: Patient is a 57 y/o male with a PMHx of head and neck squamous cell carcinoma, end-stage renal disease on HD MWF, and HFrEF who presented to the emergency room with right lower extremity swelling for the past week workup significant for RLE DVT now HDS on heparin drip and awaiting HD. #Acute RLE DVT Patient found to have RLE DVT on doppler, likely provoked in the setting of head and neck SCC. Condition is complicated by ESRD as Lovenox is contraindicated 2/2 renal function. Patient started on heparin drip after being given bolus in the ED. 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 Will also need home health for CBC 10/19/21 and 10/21/21 to monitor for HIT (per hematology). [] EKG as needed for chest pain [] transition from heparin gtt to subQ heparin 250 units/kg BID [] no shortness of breath currently, so we will hold off chest CT [] supplemental oxygen as needed for saturations less than 90% #ESRD on HD MWF Patient receives hemodialysis on Thursday, Thursday, and Thursday. Creatinine greater than 6 on admission to the hospital. Due for hemodialysis 10/17 at 5 AM. Nephrology consulted for management of dialysis, appreciate recommendations. Renal dialysis diet ordered [] Lovenox contraindicated at this time, inadequate data to support use of DOAC and ESRD [] Avoid NSAIDs #HFrEF [] Continue carvedilol [] Euvolemic by exam at today's visit, given ESRD, avoid unnecessary saline infusions #Squamous cell carcinoma Receives weekly chemotherapy which he last had 10/16 [] Zofran as needed for nausea [] Low threshold for utilization of pain medication [] Given that patient projected to have short hospitalization, held medicinal cannabis Disposition: Admit to [facility] with telemetry, currently on heparin drip with expectation to transition to subQ heparin on 10/17 DVT prophylaxis: Heparin drip Diet: Renal diet CODE STATUS: Full code (2) ESRD (end stage renal disease) on dialysis: (3) HFrEF (heart failure with reduced ejection fraction): (4) Squamous cell carcinoma of skin of other parts of face: Admission and Anticipated Discharge Date Admission Date: October 16, 2022 Review of Systems Review of Systems: See HPI Physical Exam Constitutional: WD/WN, vitals as above Eyes: + anicteric sclerae Neck: trachea midline Respiratory: normal respiratory effort, lungs clear to auscultation Cardiovascular: Rate/Rhythm: regular rate and regular rhythm Heart Sounds: + murmur Vessels: no JVD Extremities: + edema (2+ RLE edema) Gastrointestinal (Abdomen): Inspection/Auscultation: normal bowel sounds Percussion/Palpation: abdomen soft Musculoskeletal: Head/Neck/Chest: normocephalic and head atraumatic Extremities: + lower leg abnormality Skin: no rashes, warm and dry Neurologic: moves all extremities Psychiatric: A+Ox3, euthymic affect Results & Data Results & Data ([place]) Vital Signs (Past 12 Hours) Vital Signs Temp Pulse Pulse Resp BP BP Pulse Ox 10/17/22 01:21 10/17/22 01:21 36.6 C 85 16 164/98 H 96 10/17/22 00:16 81 16 149/91 H 94 10/16/22 22:28 80 16 123/80 123/80 95 O2 Del Method 10/17/22 01:21 Room Air 10/17/22 01:21 Room Air 10/17/22 00:16 Room Air 10/16/22 22:28 Room Air Laboratory Results 10/17/22 10/17/22 10/17/22 Range/Units 06:28 06:28 06:28 WBC 8.49 (4.8-10.8) K/ul RBC 3.13 L (4.63-6.08) M/uL Hgb 10.9 L (14.0-18.0) g/dl Hct 33.1 L (40.1-51.0) % MCV 105.8 H (80.0-100.0) fL MCH 34.8 H (25.0-34.0) pg MCHC 32.9 (32.0-36.0) g/dL RDW Std Deviation 73.4 H (36.4-46.3) fL RDW Coeff of Nano 18.9 H (11.5-14.5) % Plt Count 167 (130-400) K/uL MPV 9.6 (9.4-12.4) fL Immature Gran % (Auto) 1.4 % Neut % (Auto) 80.9 % Lymph % (Auto) 6.5 % Elmore % (Auto) 9.7 % Eos % (Auto) 1.3 % Baso % (Auto) 0.2 % Neut # (Auto) 6.87 H (1.4-6.5) K/uL Lymph # (Auto) 0.55 L (1.2-3.4) K/uL Elmore # (Auto) 0.82 (0.24-0.82) K/uL Eos # (Auto) 0.11 (0-0.50) K/uL Baso # (Auto) 0.02 (0-0.2) K/uL Immature Gran # (Auto) 0.12 H (0.00-0.02) K/uL Absolute Nucleated RBC (0-0) K/uL Nucleated RBC % (auto) % PT Pending (9.0-12.0) Seconds INR Pending (0.9-1.1) APTT Pending (21.0-31.0) Seconds PTT Ratio Pending Sodium 139 (136-145) mmol/L Potassium 3.5 (3.5-5.1) mmol/L Chloride 99 (98-107) mmol/L Carbon Dioxide 29 (21-32) mmol/L Anion Gap 11 (3-11) BUN 67 H (6-23) mg/dl Creatinine 6.79 H* D (0.6-1.4) mg/dl Est Cr Clr Drug Dosing 12.4 ml/min Est GFR ( Amer) 9.5 ml/min Est GFR (Non-Af Amer) 8.2 ml/min BUN/Creatinine Ratio 9.9 L (10-20) Glucose 96 (70-99(Fasting)) mg/dl Calcium 8.1 L (8.5-10.1) mg/dl Total Bilirubin (0.2-1.0) mg/dl AST (13-39) U/L ALT (7-52) U/L Alkaline Phosphatase (34-104) U/L Total Protein (6.0-8.3) gm/dl Albumin (3.4-5.0) gm/dl Globulin (2.5-4.0) gm/dl Albumin/Globulin Ratio (0.9-2) Nasal Screen MRSA (PCR) (Negative) SARS-CoV-2, RNA, NAAT (NEGATIVE) 10/17/22 10/16/22 10/16/22 Range/Units 02:25 Unknown 17:09 WBC (4.8-10.8) K/ul RBC (4.63-6.08) M/uL Hgb (14.0-18.0) g/dl Hct (40.1-51.0) % MCV (80.0-100.0) fL MCH (25.0-34.0) pg MCHC (32.0-36.0) g/dL RDW Std Deviation (36.4-46.3) fL RDW Coeff of Nano (11.5-14.5) % Plt Count (130-400) K/uL MPV (9.4-12.4) fL Immature Gran % (Auto) % Neut % (Auto) % Lymph % (Auto) % Elmore % (Auto) % Eos % (Auto) % Baso % (Auto) % Neut # (Auto) (1.4-6.5) K/uL Lymph # (Auto) (1.2-3.4) K/uL Elmore # (Auto) (0.24-0.82) K/uL Eos # (Auto) (0-0.50) K/uL Baso # (Auto) (0-0.2) K/uL Immature Gran # (Auto) (0.00-0.02) K/uL Absolute Nucleated RBC (0-0) K/uL Nucleated RBC % (auto) % PT 11.0 (9.0-12.0) Seconds INR 1.0 (0.9-1.1) APTT 25.4 (21.0-31.0) Seconds PTT Ratio 0.9 Sodium (136-145) mmol/L Potassium (3.5-5.1) mmol/L Chloride (98-107) mmol/L Carbon Dioxide (21-32) mmol/L Anion Gap (3-11) BUN (6-23) mg/dl Creatinine (0.6-1.4) mg/dl Est Cr Clr Drug Dosing ml/min Est GFR ( Amer) ml/min Est GFR (Non-Af Amer) ml/min BUN/Creatinine Ratio (10-20) Glucose (70-99(Fasting)) mg/dl Calcium (8.5-10.1) mg/dl Total Bilirubin (0.2-1.0) mg/dl AST (13-39) U/L ALT (7-52) U/L Alkaline Phosphatase (34-104) U/L Total Protein (6.0-8.3) gm/dl Albumin (3.4-5.0) gm/dl Globulin (2.5-4.0) gm/dl Albumin/Globulin Ratio (0.9-2) Nasal Screen MRSA (PCR) Negative (Negative) SARS-CoV-2, RNA, NAAT NEGATIVE (NEGATIVE) 10/16/22 10/16/22 Range/Units 17:09 17:09 WBC 10.66 (4.8-10.8) K/ul RBC 3.32 L (4.63-6.08) M/uL Hgb 11.9 L (14.0-18.0) g/dl Hct 35.2 L (40.1-51.0) % MCV 106.0 H (80.0-100.0) fL MCH 35.8 H (25.0-34.0) pg MCHC 33.8 (32.0-36.0) g/dL RDW Std Deviation 71.7 H (36.4-46.3) fL RDW Coeff of Nano 18.4 H (11.5-14.5) % Plt Count 182 (130-400) K/uL MPV 9.6 (9.4-12.4) fL Immature Gran % (Auto) 1.2 % Neut % (Auto) 89.0 % Lymph % (Auto) 3.4 % Elmore % (Auto) 6.3 % Eos % (Auto) 0.0 % Baso % (Auto) 0.1 % Neut # (Auto) 9.49 H (1.4-6.5) K/uL Lymph # (Auto) 0.36 L (1.2-3.4) K/uL [place] # (Auto) 0.67 (0.24-0.82) K/uL Eos # (Auto) 0.00 (0-0.50) K/uL Baso # (Auto) 0.01 (0-0.2) K/uL Immature Gran # (Auto) 0.13 H (0.00-0.02) K/uL Absolute Nucleated RBC 0.02 H (0-0) K/uL Nucleated RBC % (auto) 0.2 % PT (9.0-12.0) Seconds INR (0.9-1.1) APTT (21.0-31.0) Seconds PTT Ratio Sodium 139 (136-145) mmol/L Potassium 3.4 L (3.5-5.1) mmol/L Chloride 97 L (98-107) mmol/L Carbon Dioxide 29 (21-32) mmol/L Anion Gap 13 H (3-11) BUN 54 H D (6-23) mg/dl Creatinine 6.13 H* D (0.6-1.4) mg/dl Est Cr Clr Drug Dosing 13.7 ml/min Est GFR ( Amer) 10.8 ml/min Est GFR (Non-Af Amer) 9.3 ml/min BUN/Creatinine Ratio 8.8 L (10-20) Glucose 121 H (70-99(Fasting)) mg/dl Calcium 8.6 (8.5-10.1) mg/dl Total Bilirubin 0.6 (0.2-1.0) mg/dl AST 19 (13-39) U/L ALT 55 H (7-52) U/L Alkaline Phosphatase 108 H (34-104) U/L Total Protein 6.5 (6.0-8.3) gm/dl Albumin 3.8 (3.4-5.0) gm/dl Globulin 2.7 (2.5-4.0) gm/dl Albumin/Globulin Ratio 1.4 (0.9-2) Nasal Screen MRSA (PCR) (Negative) SARS-CoV-2, RNA, NAAT (NEGATIVE) Diagnostic Findings Venous Doppler Study 10/16/22 17:29 ULTRASOUND RIGHT LOWER EXTREMITY VENOUS CLINICAL HISTORY: Right leg swelling. COMPARISON STUDY: PET/CT dated 10/16/2022 TECHNIQUE: Real-time, grayscale, and color Doppler sonography of the deep veins of the right lower extremity was performed from the inguinal crease to the calf. Compression and augmentation were utilized. FINDINGS: There is extensive right lower extremity deep venous thrombosis. This extends from the common femoral vein through the distal superficial femoral vein comment and is occlusive within the common femoral vein and proximal superficial femoral vein. The popliteal vein is are patent and normally compressible. There is occlusive superficial venous thrombosis in the profunda femoris vein at the junction of the common femoral vein. The greater saphenous vein at the junction with the common femoral vein is clear. The visualized calf veins are patent. IMPRESSION: Extensive deep venous thrombosis throughout the right lower extremity as above. ACT 112: Negative or not required by law. Electronically signed by: Tom Sullivan M.D. 10/16/2022 6:29 PM
[2022-10-17 07:46] VITALS: O2SAT 94
[2022-10-17] MEDS: SEVELAMER HCL 800 MG TABLET PO SCH ×2 (07:49→13:13)
[2022-10-17] MEDS ORDERED: CYANOCOBALAMIN (B-12) 500 MCG TABLET PO SCH (09:00)
[2022-10-17] MEDS ORDERED: predniSONE 10 MG TABLET PO SCH (09:00)
[2022-10-17] MEDS ORDERED: SODIUM CHLORIDE 0.9% 1000ML 1,000 ML IV PRN (09:09)
--- NOTE | 2022-10-17 09:13 | Nephrology Consultation ---
Date of Consultation October 17, 2022 Assessment & Plan (1) ESRD (end stage renal disease) on dialysis: * On HD MWF at [facility] [place], Dr. Valdes (4hr, 2k 2.5Ca, F-180NR, Na 140, HCO3 38, EDW 73 kg) * Will provide HD today. Orders have been entered into EMR and HD RN notified * No heparin during HD today and patient is on heparin gtt (2) Acute deep vein thrombosis of right lower extremity: * Anticoagulation as per Heme/Onc accounting policy consultant (3) Squamous cell carcinoma of skin of other parts of face: * On Cetuximab History of Present Illness Reason for Consultation: ESKD on IHD Attending Physician: Franklin Torres MD History of Present Illness Mr. Serrato is a 56 year old white male who is seen at the request of the hospitalist service to provide dialysis and assist w/ medical management. Mr. 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 He did not undergo renal biopsy or immunosuppressive therapy. He was on IHD for ~ 2 months and then received a LURT from his . He suffered a slow progressive loss of allograft function and 11/09 started NCCPD therapy. PD was complicated by inflow and outflow discomfort, limiting fill volumes to only 1500 cc. He was hospitalized 04/09 with uremic pericarditis and transitioned back to IHD. PD catheter has been removed. Mr. Serrato has head and neck cancer. He recently developed RLE and was diagnosed w/ extensive RLE DVT. Mr. 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 Allergies Allergy/AdvReac Type Severity Reaction Status Date / Time cephalexin [From Keflex] Allergy Intermediate itchy/ Verified 10/16/22 20:20 nausea red dye Allergy Intermediate Hives Verified 10/16/22 20:20 trazodone AdvReac Severe Confusion Verified 10/16/22 20:20 melatonin AdvReac Intermediate inablilty Verified 10/16/22 20:20 to sleep Home Medications Medication Instructions Recorded Confirmed Type carvedilol 3.125 mg tablet 3.125 mg PO BID #60 tabs 06/25/22 12/29/22 Rx prednisone 10 mg tablets in a dose 10 mg PO DAILY #21 ea 10/15/22 10/16/22 Rx pack Medical Marijuana 0.5 applicator PO HS 10/16/22 10/16/22 History cyanocobalamin (vitamin B-12) 1,000 mcg PO DAILY 10/16/22 10/16/22 History 1,000 mcg tablet (Vitamin B-12) ondansetron HCl 8 mg tablet 8 mg PO Q8 PRN Nausea 10/16/22 10/16/22 History prednisone 5 mg tablet 10 mg PO UD 10/16/22 10/16/22 History sevelamer carbonate 800 mg tablet 800 mg PO WM 10/16/22 10/16/22 History Patient History Medical History Amputation of right index finger Anemia 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 Surgical History AVF (arteriovenous fistula) RIGHT ARM History of amputation of finger index finger History of appendectomy History of cardiac cath 8 YRS AGO History of colonoscopy History of Mohs micrographic surgery for skin cancer BASAL AND SQUAMOUS CELL Kidney transplant recipient RIGHT > 8 YRS AGO Family History Mother , age 65 heart failure Diabetes Hypertension Stroke Heart disease Kidney disease on dialysis for 6 monhts Father , age 65 Burkitts lymphoma Cancer Heart disease Sister , brain tumor age 30 diabetes coma Diabetes Sister Heart disease Brother Diabetes Brother No problems noted. Brother No problems noted. Daughter No problems noted. Son No problems noted. 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 How many Children do You have: 2 Feels Safe at Home: Yes Childhood Exposure to Second-Hand Smoke: Yes caffeine: Yes (one cup per daycaffeine soda 2-3 per day) during the past year weight has: remained stable Dental Care, Regularly: Yes Physical Activity Frequency: Daily Seatbelt Use: sometimes Sunscreen Use: Yes Assistive Devices: None Review of Systems Constitutional: no fever Eyes: no problem reported Ear, Nose, Mouth, Throat: no problem reported Respiratory: no cough and no dyspnea Cardiovascular: no chest pain, no palpitations and no edema Gastrointestinal: no abdominal pain, no vomiting and no diarrhea/loose stools Musculoskeletal: + problem reported (+ RLE swelling) Neurologic: no confusion Physical Exam Constitutional: no acute distress Eyes: PERRL, conjunctivae normal, anicteric sclerae Respiratory: normal respiratory effort, lungs clear to auscultation Cardiovascular: Rate/Rhythm: regular rate and regular rhythm Heart Sounds: no cardiac rub Extremities: + AV fistula (+ bruit) Gastrointestinal (Abdomen): normal bowel sounds, soft, nontender, no hepatosplenomegaly Musculoskeletal: Extremities: + lower leg abnormality Right (RLE swelling) Neurologic: Speech / Cognition: normal speech and normal cognition Results & Data ([facility]) Vital Signs (Past 12 Hours) Vital Signs Temp Pulse Pulse Resp BP BP Pulse Ox 10/17/22 07:45 37 C 82 18 142/72 H 94 10/17/22 01:21 10/17/22 01:21 36.6 C 85 16 164/98 H 96 10/17/22 00:16 81 16 149/91 H 94 10/16/22 22:28 80 16 123/80 123/80 95 O2 Del Method 10/17/22 07:45 Room Air 10/17/22 01:21 Room Air 10/17/22 01:21 Room Air 10/17/22 00:16 Room Air 10/16/22 22:28 Room Air Laboratory Results Laboratory Tests 10/16/22 10/17/22 10/17/22 Unknown 06:28 06:28 WBC 8.49 Hgb 10.9 L Hct 33.1 L Plt Count 167 Sodium 139 Potassium 3.5 Chloride 99 Carbon Dioxide 29 BUN 67 H Creatinine 6.79 H* D Glucose 96 SARS-CoV-2, RNA, NAAT NEGATIVE PG Care Time/CCT Total # of Minutes Spent Total Time Spent with Patient: Total time spent is greater than 50% in coordination of care (as documented) at patient's floor/unit and/or counseling patient: Coding Level of Care Code 17538 Inpt Consult Level 5 Diagnoses ESRD (end stage renal disease) on dialysis N18.6; Z99.2 Acute deep vein thrombosis of right lower extremity I82.401 Squamous cell carcinoma of skin of other parts of face C44.329
--- NOTE | 2022-10-17 13:52 | Discharge Summary ---
Date of Service October 17, 2022 Admission HPI Per Admitting Provider Patient is a 57-year-old male with a past medical history of head and neck squamous cell carcinoma, end-stage renal disease on Thursday dialysis, and HFrEF who presented to the emergency room for the chief complaint of right lower extremity swelling for the past week. Patient is diagnosed with head and neck squamous cell carcinoma and was having a PET scan today to evaluate for progress. When the PET scan was being read, it was noticed that there was concern for a right lower extremity DVT and he was called to present to the emergency room for further evaluation and treatment. While in the ED, he had an ultrasound of the right lower extremity showing extensive DVT of the femoral veins. Additionally he had routine lab work done which had showed a mild hypokalemia at 3.4. This information was discussed with the on-call flat knitter helper who recommended admitting the patient to the hospital for initiation of IV anticoagulation. Patient otherwise is not having any chest pain, shortness of breath, nausea, vomiting, headache, or blurry vision. Reports that he gets hemodialysis Thursday and is due to get dialysis tomorrow at 5 AM. In terms of his treatment for his cancer, patient gets weekly chemotherapy and does not know the agent he is currently on. Otherwise no other complaints at this time. Admission Exam Per Admitting Provider Constitutional: WD/WN, vitals as above Eyes: + anicteric sclerae Neck: trachea midline Respiratory: normal respiratory effort, lungs clear to auscultation Cardiovascular: Rate/Rhythm: regular rate and regular rhythm Heart Sounds: + murmur Vessels: no JVD Extremities: + edema (2+ RLE edema) Gastrointestinal (Abdomen): Inspection/Auscultation: normal bowel sounds Percussion/Palpation: abdomen soft Musculoskeletal: Head/Neck/Chest: normocephalic and head atraumatic Extremities: + lower leg abnormality Right (2+ RLE edema, positive silvia sign) Skin: no rashes, warm and dry Neurologic: moves all extremities Psychiatric: A+Ox3, euthymic affect Principal Diagnosis RLE DVT Discharge Exam Constitutional WD/WN, vitals as above Eyes + anicteric sclerae Neck trachea midline Respiratory normal respiratory effort, lungs clear to auscultation Cardiovascular Rate/Rhythm: regular rate and regular rhythm Heart Sounds: + murmur Extremities: no calf tenderness and no edema Gastrointestinal (Abdomen) Percussion/Palpation: abdomen soft Musculoskeletal Head/Neck/Chest: normocephalic and head atraumatic Skin no rashes, warm and dry Neurologic moves all extremities Psychiatric A+Ox3, euthymic affect Discharge Data Allergies Allergy/AdvReac Type Severity Reaction Status Date / Time cephalexin [From Keflex] Allergy Intermediate itchy/ Verified 10/16/22 20:20 nausea red dye Allergy Intermediate Hives Verified 10/16/22 20:20 trazodone AdvReac Severe Confusion Verified 10/16/22 20:20 melatonin AdvReac Intermediate inablilty Verified 10/16/22 20:20 to sleep Consultations 10/16/22 20:12 Consult Oncology Stat ED Decision to Admit Stat 10/17/22 01:13 Consult Nephrology Routine Ordered Studies 10/17/22 10/17/22 10/17/22 Range/Units 06:28 06:28 06:28 WBC 8.49 (4.8-10.8) K/ul RBC 3.13 L (4.63-6.08) M/uL Hgb 10.9 L (14.0-18.0) g/dl Hct 33.1 L (40.1-51.0) % MCV 105.8 H (80.0-100.0) fL MCH 34.8 H (25.0-34.0) pg MCHC 32.9 (32.0-36.0) g/dL RDW Std Deviation 73.4 H (36.4-46.3) fL RDW Coeff of Nano 18.9 H (11.5-14.5) % Plt Count 167 (130-400) K/uL MPV 9.6 (9.4-12.4) fL Immature Gran % (Auto) 1.4 % Neut % (Auto) 80.9 % Lymph % (Auto) 6.5 % Braxton % (Auto) 9.7 % Eos % (Auto) 1.3 % Baso % (Auto) 0.2 % Neut # (Auto) 6.87 H (1.4-6.5) K/uL Lymph # (Auto) 0.55 L (1.2-3.4) K/uL Braxton # (Auto) 0.82 (0.24-0.82) K/uL Eos # (Auto) 0.11 (0-0.50) K/uL Baso # (Auto) 0.02 (0-0.2) K/uL Immature Gran # (Auto) 0.12 H (0.00-0.02) K/uL Absolute Nucleated RBC (0-0) K/uL Nucleated RBC % (auto) % PT 11.6 (9.0-12.0) Seconds INR 1.1 (0.9-1.1) APTT 90.2 H* (21.0-31.0) Seconds PTT Ratio 3.3 Sodium 139 (136-145) mmol/L Potassium 3.5 (3.5-5.1) mmol/L Chloride 99 (98-107) mmol/L Carbon Dioxide 29 (21-32) mmol/L Anion Gap 11 (3-11) BUN 67 H (6-23) mg/dl Creatinine 6.79 H* D (0.6-1.4) mg/dl Est Cr Clr Drug Dosing 12.4 ml/min Est GFR ( Amer) 9.5 ml/min Est GFR (Non-Af Amer) 8.2 ml/min BUN/Creatinine Ratio 9.9 L (10-20) Glucose 96 (70-99(Fasting)) mg/dl Calcium 8.1 L (8.5-10.1) mg/dl Total Bilirubin (0.2-1.0) mg/dl AST (13-39) U/L ALT (7-52) U/L Alkaline Phosphatase (34-104) U/L Total Protein (6.0-8.3) gm/dl Albumin (3.4-5.0) gm/dl Globulin (2.5-4.0) gm/dl Albumin/Globulin Ratio (0.9-2) Nasal Screen MRSA (PCR) (Negative) SARS-CoV-2, RNA, NAAT (NEGATIVE) 10/17/22 10/16/22 10/16/22 Range/Units 02:25 Unknown 17:09 WBC (4.8-10.8) K/ul RBC (4.63-6.08) M/uL Hgb (14.0-18.0) g/dl Hct (40.1-51.0) % MCV (80.0-100.0) fL MCH (25.0-34.0) pg MCHC (32.0-36.0) g/dL RDW Std Deviation (36.4-46.3) fL RDW Coeff of Nano (11.5-14.5) % Plt Count (130-400) K/uL MPV (9.4-12.4) fL Immature Gran % (Auto) % Neut % (Auto) % Lymph % (Auto) % Braxton % (Auto) % Eos % (Auto) % Baso % (Auto) % Neut # (Auto) (1.4-6.5) K/uL Lymph # (Auto) (1.2-3.4) K/uL Braxton # (Auto) (0.24-0.82) K/uL Eos # (Auto) (0-0.50) K/uL Baso # (Auto) (0-0.2) K/uL Immature Gran # (Auto) (0.00-0.02) K/uL Absolute Nucleated RBC (0-0) K/uL Nucleated RBC % (auto) % PT 11.0 (9.0-12.0) Seconds INR 1.0 (0.9-1.1) APTT 25.4 (21.0-31.0) Seconds PTT Ratio 0.9 Sodium (136-145) mmol/L Potassium (3.5-5.1) mmol/L Chloride (98-107) mmol/L Carbon Dioxide (21-32) mmol/L Anion Gap (3-11) BUN (6-23) mg/dl Creatinine (0.6-1.4) mg/dl Est Cr Clr Drug Dosing ml/min Est GFR ( Amer) ml/min Est GFR (Non-Af Amer) ml/min BUN/Creatinine Ratio (10-20) Glucose (70-99(Fasting)) mg/dl Calcium (8.5-10.1) mg/dl Total Bilirubin (0.2-1.0) mg/dl AST (13-39) U/L ALT (7-52) U/L Alkaline Phosphatase (34-104) U/L Total Protein (6.0-8.3) gm/dl Albumin (3.4-5.0) gm/dl Globulin (2.5-4.0) gm/dl Albumin/Globulin Ratio (0.9-2) Nasal Screen MRSA (PCR) Negative (Negative) SARS-CoV-2, RNA, NAAT NEGATIVE (NEGATIVE) 10/16/22 10/16/22 Range/Units 17:09 17:09 WBC 10.66 (4.8-10.8) K/ul RBC 3.32 L (4.63-6.08) M/uL Hgb 11.9 L (14.0-18.0) g/dl Hct 35.2 L (40.1-51.0) % MCV 106.0 H (80.0-100.0) fL MCH 35.8 H (25.0-34.0) pg MCHC 33.8 (32.0-36.0) g/dL RDW Std Deviation 71.7 H (36.4-46.3) fL RDW Coeff of Nano 18.4 H (11.5-14.5) % Plt Count 182 (130-400) K/uL MPV 9.6 (9.4-12.4) fL Immature Gran % (Auto) 1.2 % Neut % (Auto) 89.0 % Lymph % (Auto) 3.4 % Braxton % (Auto) 6.3 % Eos % (Auto) 0.0 % Baso % (Auto) 0.1 % Neut # (Auto) 9.49 H (1.4-6.5) K/uL Lymph # (Auto) 0.36 L (1.2-3.4) K/uL Braxton # (Auto) 0.67 (0.24-0.82) K/uL Eos # (Auto) 0.00 (0-0.50) K/uL Baso # (Auto) 0.01 (0-0.2) K/uL Immature Gran # (Auto) 0.13 H (0.00-0.02) K/uL Absolute Nucleated RBC 0.02 H (0-0) K/uL Nucleated RBC % (auto) 0.2 % PT (9.0-12.0) Seconds INR (0.9-1.1) APTT (21.0-31.0) Seconds PTT Ratio Sodium 139 (136-145) mmol/L Potassium 3.4 L (3.5-5.1) mmol/L Chloride 97 L (98-107) mmol/L Carbon Dioxide 29 (21-32) mmol/L Anion Gap 13 H (3-11) BUN 54 H D (6-23) mg/dl Creatinine 6.13 H* D (0.6-1.4) mg/dl Est Cr Clr Drug Dosing 13.7 ml/min Est GFR ( Amer) 10.8 ml/min Est GFR (Non-Af Amer) 9.3 ml/min BUN/Creatinine Ratio 8.8 L (10-20) Glucose 121 H (70-99(Fasting)) mg/dl Calcium 8.6 (8.5-10.1) mg/dl Total Bilirubin 0.6 (0.2-1.0) mg/dl AST 19 (13-39) U/L ALT 55 H (7-52) U/L Alkaline Phosphatase 108 H (34-104) U/L Total Protein 6.5 (6.0-8.3) gm/dl Albumin 3.8 (3.4-5.0) gm/dl Globulin 2.7 (2.5-4.0) gm/dl Albumin/Globulin Ratio 1.4 (0.9-2) Nasal Screen MRSA (PCR) (Negative) SARS-CoV-2, RNA, NAAT (NEGATIVE) Venous Doppler Study 10/16/22 17:29 ULTRASOUND RIGHT LOWER EXTREMITY VENOUS CLINICAL HISTORY: Right leg swelling. COMPARISON STUDY: PET/CT dated 10/16/2022 TECHNIQUE: Real-time, grayscale, and color Doppler sonography of the deep veins of the right lower extremity was performed from the inguinal crease to the calf. Compression and augmentation were utilized. FINDINGS: There is extensive right lower extremity deep venous thrombosis. This extends from the common femoral vein through the distal superficial femoral vein comment and is occlusive within the common femoral vein and proximal superficial femoral vein. The popliteal vein is are patent and normally compressible. There is occlusive superficial venous thrombosis in the profunda femoris vein at the junction of the common femoral vein. The greater saphenous vein at the junction with the common femoral vein is clear. The visualized calf veins are patent. IMPRESSION: Extensive deep venous thrombosis throughout the right lower extremity as above. ACT 112: Negative or not required by law. Electronically signed by: Tom Sullivan M.D. 10/16/2022 6:29 PM 10/16/22 17:29 US venous doppler LE RT Stat Hospital Course (1) Acute deep vein thrombosis of right lower extremity: Patient is a 57 y/o male with a PMHx of head and neck squamous cell carcinoma, end-stage renal disease on HD MWF, and HFrEF who presented to the emergency room with right lower extremity swelling for the past week workup significant for RLE DVT treated with heparin drip and then transitioned to SubQ heparin now s/p HD, HDS and stable for discharge. #Acute RLE DVT Patient found to have RLE DVT on doppler, likely provoked in the setting of head and neck SCC. Condition is complicated by ESRD as Lovenox is contraindicated 2/2 renal function. Patient started on heparin drip after being given bolus in the ED. Hematology recommended bridge to warfarin. Patient elected to use subQ heparin 250 unit/kg BID until bridge to warfarin can be completed outpatient. F/u with heme/onc outpatient. Patient aware he needs CBC to monitor for HIT - will be done at dialysis center Mon and Wed. No SOB during admission so no CT Chest not done. Supplemental oxygen was not needed. #ESRD on HD MWF Received HD 10/17. Cr 6.13. Nephrology consulted for management of dialysis, appreciate recommendations. Renal dialysis diet ordered. Lovenox contraindicated at this time, inadequate data to support use of DOAC and ESRD #HFrEF (45-50% 04/09 Echo) Continue carvedilol #Squamous cell carcinoma Receives weekly chemotherapy last 10/16. Follows with Dr. Barbie rasmussen/onc. Disposition: admitted to [facility] with telemetry, transitioned from heparin drip to subQ heparin, ready for discharge. DVT prophylaxis: Heparin drip Diet: Renal diet CODE STATUS: Full code (2) ESRD (end stage renal disease) on dialysis: (3) HFrEF (heart failure with reduced ejection fraction): (4) Squamous cell carcinoma of skin of other parts of face: Total Time Total Time Spent Total Time Spent (In Minutes): See attending attestation Discharge Plan Discharge Items Patient Disposition: Home - Home Health Services Reason For Visit: RLE SWELLING Discharge Diagnosis: DVT RLE Activity: Per Instructions section Non-emergency contact: Primary Care Provider, Novelty Twister Tender and Oncologist Call non-emergency contact if: you have any medication questions, your pain is concerning for you and your temperature is above 101.5 Follow-up/Referrals: Yoni Foreman DO [Physician] - Theodora Valentin MD [Physician] - Teodora Burt MD [Resident] - PCP,NO [Primary Care Provider] - Diet: Dialysis Renal Addtl Attending Provider Instructions: You were admitted to the hospital for a blood clot in your right leg. You were treated with heparin. It was recommended that you stay inpatient to transition to oral warfarin. You elected to proceed with subcutaneous heparin until the transition can be done outpatient. A discharge summary will be sent to your primary care physician to ensure continuity of care. Please bring this discharge summary with you to your next office appointment so that your provider can review it at that time. Follow-up appointments: We have requested a follow-up appointment with your primary care physician within one week of discharge. Please call their office if you do not hear from them. We have requested a follow-up appointment with your respiratory therapy director. Please call their office if you do not hear from them. We have requested a follow-up appointment with your Operating Systems Programmer/Oncologist within one week of discharge. Please call their office if you do not hear from them. Medications: Your medication list has been reviewed and reconciled upon discharge to ensure accuracy and continuity of care. An updated list of all your medications is included with your hospital discharge paperwork. Please review this list closely, and make note of any changes. We sent a new medication called heparin to your pharmacy. Take heparin 2mL subcutaneous every 12 hours. You will need blood work - CBC 10/20/22 and 10/22/22. To watch for side effects from the heparin. This can be done with at the dialysis center and will be forwarded to Dr. Valentin. If you have any issues filling these prescriptions, please call [phone] and ask to leave a message for Dr. Burt Take your medications as instructed; do not skip a dose of your medicines. Make sure all of your doctors know every medicine you are taking (including dqsi-[id number] medicines, vitamins, and supplements). Call your primary care provider before taking any new medicines (including over- the- counter medicines, vitamins, and supplements), because some of these may interact with your current medications, or may make your symptoms worse. Tell your primary care provider if you cannot afford your medications. CONTACT YOUR PRIMARY CARE PROVIDER if you experience any of the following: Difficulty following your treatment plan, or difficulty taking medications CALL 911 OR GO TO THE EMERGENCY DEPARTMENT if you experience any of the following: Sudden, severe abdominal pain or nausea/vomiting Severe chest pain, or chest pain that radiates (moves) to your jaw or arm Sudden, severe shortness of breath or difficulty breathing Thank you for allowing us to participate in your care Pending Studies at Discharge: No Stand-Alone Forms: [facility], Smoking Cessation Medications and DC Order Prescriptions: New heparin, porcine (PF) 5,000 unit/0.5 mL Syringe 20,000 unit subcut Q12H Qty: 25 0RF (DME) syringe (disposable) 5 mL syringe See Rx Instructions .Route Qty: 125 0RF Rx Instructions: As directed Continued prednisone 10 mg tablets,dose pack 10 mg PO DAILY Qty: 21 0RF Rx Instructions: day 1: take 6 tablets by mouth, day 2: take 5 tablets by mouth, day 3: take 4 tablets by mouth, day 4: take 3 tablets by mouth, day 3: take 2 tablets by mouth, day 4: take 1 tablet. then resume 5 mg PO daily. Take with food to avoid upset stomach. carvedilol 3.125 mg tablet 3.125 mg PO BID Qty: 60 5RF Rx Instructions: must administer with a meal/food prednisone 5 mg tablet 10 mg PO UD Rx Instructions: on hold until after taper is finished then resume 10 mg daily ondansetron HCl 8 mg tablet 8 mg PO Q8 PRN (Reason: Nausea) sevelamer carbonate 800 mg tablet 800 mg PO WM cyanocobalamin (vitamin B-12) [Vitamin B-12] 1,000 mcg Tablet 1,000 mcg PO DAILY Medical Marijuana 0.5 applicator PO HS Rx Instructions: 1/2 dropper full Discharge Orders: Discharge Order (Routine); Ordered 10/17/22 Ordered By: Teodora Burt Admission Data Admit Date/Time: 10/16/22 21:14 Attending Provider: Franklin Torres Admit Provider: Ant Berry Primary Care Provider: PCP,NO Other Providers: Theodora Valentin ; Johnny Grey ; Douglas Mcdonough ; Yoni Foreman Supervising Physician Co-Signing Physician Notes Attending attestation Pt seen and examined in concert with Dr. Burt. In agreement with the documented findings as noted in the resident documentation with any exceptions or additions as noted here. Seen and examined in dialysis at bedside. No acute complaints at present. VS, nursing notes reviewed. On examination, S1/S2 nl RRR no MCG. CTAB. Abd NT/ND BS+ve RLE DVT, acute - will require AC appropriate for renal status, per hematology recommendations will do heparin SQ as noted ESRD on HD MWF - HD today and return to outpatient management of same Else see resident documentation as noted. Total attending physician time spent with this patient's care on the day of discharge: 35 minutes. Resident Activity Tracking Resident Involvement: Resident Care Provided Care Provided: Adult Hospital Medicine
[2022-10-17 14:13] VITALS: TEMP 98.2
[2022-10-17] MEDS ORDERED: HEPARIN SOD 5,000 UNIT/0.5 ML VIAL SQ SCH (14:30)
[2022-10-17 15:17] VITALS: BP 138/80
[2022-10-17 15:19] VITALS: PULSE 74
== END 2022-10-17 15:59 | disposition home or self-care (01) | DRG 299 ==
LOC: ED 16:59 → 2E 21:14 → INTOOBSV 21:14 → OBSVTOIN 21:14 → SUATTDRO 21:14 → 2E 10-17 01:03

== ENCOUNTER 2022-10-22 16:20 | Inpatient (IN) ==
[2022-10-22] MEDS ORDERED: VANCOMYCIN HCL 2,000 MG in SODIUM CHLORIDE 0.9% 500 ML IV ONE (16:44)
[2022-10-22] MEDS ORDERED: CEFEPIME 2,000 MG/20 ML VIAL IV STA (16:44)
[2022-10-22] MEDS ORDERED: VANCOMYCIN CONSULT ACTIVE PRN (16:44)
[2022-10-22] MEDS ORDERED: VANCOMYCIN HCL 1,750 MG in SODIUM CHLORIDE 0.9% 500 ML IV STA (16:46)
[2022-10-22 17:01] LABS: Basophils # (auto) 0.02 K/uL (0-0.2); Basophils % (auto) 0.2 %; Eosinophils # (auto) 0.07 K/uL (0-0.50); Eosinophils % (auto) 0.8 %; Hematocrit (blood only) 35.1 % (40.1-51.0); Hemoglobin 11.7 g/dl (14.0-18.0); Immature Granulocytes # (auto) 0.04 K/uL (0.00-0.02); Immature Granulocytes % (auto) 0.5 %; Lymphocytes # (auto) 0.33 K/uL (1.2-3.4); Mean Corpuscular Hemoglobin 34.9 pg (25.0-34.0); Mean Corpuscular Hgb Conc 33.3 g/dL (32.0-36.0); Mean Corpuscular Volume 104.8 fL (80.0-100.0); Mean Platelet Volume 9.8 fL (9.4-12.4); Monocytes # (auto) 0.59 K/uL (0.24-0.82); Monocytes % (auto) 7.1 %; Neutrophils # (auto) 7.24 K/uL (1.4-6.5); Neutrophils % (auto) 87.4 %; Platelet Count 163 K/uL (130-400); RDW Coefficient of Variation 18.3 % (11.5-14.5); RDW Standard Deviation 71.2 fL (36.4-46.3); Red Blood Count 3.35 M/uL (4.63-6.08); White Blood Count 8.29 K/ul (4.8-10.8)
--- NOTE | 2022-10-22 17:11 | History & Physical Report ---
Date of Service October 22, 2022 Assessment & Plan (1) Bursitis of left elbow: Plan: Jay is a 57-year-old male with a past medical history of ESRD with renal allograft with progressive loss of function ultimately requiring dialysis now on MWF regimen, heart failure with reduced ejection fraction, SCC, and recent admission 10/16- for acute DVT of the right lower extremity transitioned to warfarin. Lovenox treatment was complicated by his ESRD, this was discussed with hematology and on rare/benefits discussion patient transition from 250 unit/kg twice daily to warfarin bridge. Septic bursitis versus arthritis Patient saw Dr. Crowell as outpatient, was drained in office Patient was referred for concern of bursitis versus septic arthritis requiring operative intervention, was recommended for inpatient assessment by orthopedics Orthopedics consulted, n.p.o. at midnight, no heparinization overnight, broad- spectrum antibiotics Continue cefepime/vancomycin. Patient reports that he has had some stomach upset with Keflex in the past, no anaphylaxis allergy to his knowledge. Elbow flexion/extension is intact without any pain, strength is intact. Clinically suspect bursitis, orthopedic consulted for bursitis versus septic arthritis Right lower extremity DVT Currently on Lovenox, was pending bridging to warfarin which was supposed to be Thursday Per orthopedics hold 1 dose of warfarin tonight, will resume postoperatively tomorrow Discussed risk/benefits of holding versus continuing on operative bleeding versus risk of forming new clot/propagation. ESRD on Thursday dialysis Received dialysis 10/22/2022 Nephrology consulted Renal diet Follow on medical telemetry Severe nonischemic cardiomyopathy Last echo 04/09 with EF 45 to 50%, EF 12/2021 which was 45% with global hypokinesis Follows with [facility] cardiology Continue carvedilol No evidence of volume over SCC Follows hematology oncology DVT prophylaxis: On Lovenox JEWEL STRIPPER, temporarily held for operative intervention Diet: N.p.o. at midnight CODE STATUS: Full code Disposition: Medical telemetry (2) Acute deep vein thrombosis of right lower extremity: (3) ESRD (end stage renal disease) on dialysis: (4) HFrEF (heart failure with reduced ejection fraction): (5) Squamous cell carcinoma of skin of other parts of face: History of Present Illness Primary Care Provider: Theodora Valentin MD 3 weeks ago elbow swelled up and had drained was OK for a day or two then started to fill with fluid and progressively Not painful to him currently, first time was No discharge Drained thick pus in ortho office today No sudden change, just graduation worsening No fevers, chills, sweats No rashes No numbness or tingling in the fingers, no weakness Currently on lovenox, has not transitioned to warfarin yet. First does Thursday. Pred 10mg daily for Allograph. Stopped pred and developed pericarditis with effusion, was restarted per cardiology. Carvedilol, took today. R first digit amputation Chemo regimen: Ermatux. Keflex. Hx Heart Stents - Not able to take aspirin or plavix - Dr. Carlo Pelaez 12 years ago Medical History: Reviewed Medications: Reviewed Surgical History: Reviewed Allergies: Reviewed. Social History:Reviewed. Norma uses snuff 1 pouch every 2 weeks. No alcohol use. Medical marijuana use, evening drops. Would like to self administer. Code Status: Full Code Allergies Allergy/AdvReac Type Severity Reaction Status Date / Time cephalexin [From Keflex] Allergy Intermediate itchy/ Verified 10/16/22 20:20 nausea red dye Allergy Intermediate Hives Verified 10/16/22 20:20 trazodone AdvReac Severe Confusion Verified 10/16/22 20:20 melatonin AdvReac Intermediate inablilty Verified 10/16/22 20:20 to sleep Home Medications Medication Instructions Recorded Confirmed Type carvedilol 3.125 mg tablet 3.125 mg PO BID #60 tabs 04/12/22 10/16/22 Rx prednisone 10 mg tablets in a dose 10 mg PO DAILY #21 ea 10/15/22 10/16/22 Rx pack Medical Marijuana 0.5 applicator PO HS 10/16/22 10/16/22 History cyanocobalamin (vitamin B-12) 1,000 mcg PO DAILY 10/16/22 10/16/22 History 1,000 mcg tablet (Vitamin B-12) ondansetron HCl 8 mg tablet 8 mg PO Q8 PRN Nausea 10/16/22 10/16/22 History prednisone 5 mg tablet 10 mg PO UD 10/16/22 10/16/22 History sevelamer carbonate 800 mg tablet 800 mg PO WM 10/16/22 10/16/22 History heparin, porcine (PF) 5,000 20,000 unit (2 mL) subcut Q12H #25 10/17/22 Rx unit/0.5 mL injection syringe mL syringe (disposable) 5 mL #125 ea 10/17/22 Rx Past Med/Surg History Medical History Amputation of right index finger Anemia 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 Surgical History AVF (arteriovenous fistula) RIGHT ARM History of amputation of finger index finger History of appendectomy History of cardiac cath 8 YRS AGO History of colonoscopy History of Mohs micrographic surgery for skin cancer BASAL AND SQUAMOUS CELL Kidney transplant recipient RIGHT > 8 YRS AGO Family History Mother , age 65 heart failure Diabetes Hypertension Stroke Heart disease Kidney disease on dialysis for 6 monhts Father , age 65 Burkitts lymphoma Cancer Heart disease Sister , brain tumor age 30 diabetes coma Diabetes Sister Heart disease Brother Diabetes Brother No problems noted. Brother No problems noted. Daughter No problems noted. Son No problems noted. 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 NAD. Cooperative. HEENT: Atraumatic, normocephalic. Vision/hearing grossly intact Pulm: CTAB A&P. -wheezes, -rales, -rhonchi. Symmetrical chest rise. No increased work of breathing. No respiratory distress. Cardiac: RRR, -mrg. Radial pulses intact and symmetrical. Abdominal: Nontender, nondistended, soft. BS present. Extremities: Left elbow with mild erythema, boggy swelling nontender to the touch. Active and passive elbow flexion/extension is intact with 5/5 strength and no pain. Field Collector strength 5/5 bilaterally. Sensation soft touch intact in hands and feet. Right ankle with 2+ edema, chronic since DVT per patient and unchanged Results & Data Results & Data ([facility]) Vital Signs (Past 12 Hours) Vital Signs Temp Pulse Resp BP Pulse Ox 10/22/22 16:23 36.8 C 73 20 129/80 96 PG Care Time/CCT Total # of Minutes Spent Total Time Spent with Patient: Total time spent is greater than 50% in coordination of care (as documented) at patient's floor/unit and/or counseling patient: Coding Level of Care Code 09646 INT INP/OBS CARE 2/55MIN Diagnoses Bursitis of left elbow M70.32 Acute deep vein thrombosis of right lower extremity I82.401 ESRD (end stage renal disease) on dialysis N18.6; Z99.2 HFrEF (heart failure with reduced ejection fraction) I50.20 Squamous cell carcinoma of skin of other parts of face C44.329
[2022-10-22 17:24] LABS: INR 1.1 (0.9-1.1); Partial Thromboplastin Ratio 4.8; Prothrombin Time 11.2 Seconds (9.0-12.0)
[2022-10-22 17:26] LABS: BUN Creatinine Ratio 6.5 (10-20); Calcium 9.1 mg/dl (8.5-10.1); Creatinine Clr Calc Pharmacy 18.8 ml/min; Est GFR (African American) 15.8 ml/min; Est GFR (Non-African American) 13.6 ml/min; Potassium 2.9 mmol/L (3.5-5.1)
[2022-10-22 18:34] LABS: Partial Thromboplastin Time 131.5 Seconds (21.0-31.0)
[2022-10-22] MEDS ORDERED: ACETAMINOPHEN 325 MG TAB PO PRN (18:38)
[2022-10-22] MEDS ORDERED: POTASSIUM CHLORIDE CRTAB 20 MEQ TABCR PO STA (18:57)
--- NOTE | 2022-10-22 18:58 | Emergency Department Note ---
History of Present Illness General Chief complaint: Arm Pain Stated complaint: ELBOW DRAINED, PUSS, POSSIBLE INFECTION Time Seen by Provider: 10/22/22 16:24 History of Present Illness Provider complaint: Left elbow pain 57-year-old male stage renal disease Thursday hemodialysis who received full session of dialysis today presents emergency department with left elbow pain. Patient was referred to the emergency department by his orthopedist Dr. Gasca for admission. Home Medications Medication Instructions Recorded Confirmed Type carvedilol 3.125 mg tablet 3.125 mg PO BID #60 tabs 04/12/22 10/16/22 Rx prednisone 10 mg tablets in a dose 10 mg PO DAILY #21 ea 10/15/22 10/16/22 Rx pack Medical Marijuana 0.5 applicator PO HS 10/16/22 10/16/22 History cyanocobalamin (vitamin B-12) 1,000 mcg PO DAILY 10/16/22 10/16/22 History 1,000 mcg tablet (Vitamin B-12) ondansetron HCl 8 mg tablet 8 mg PO Q8 PRN Nausea 10/16/22 10/16/22 History prednisone 5 mg tablet 10 mg PO UD 10/16/22 10/16/22 History sevelamer carbonate 800 mg tablet 800 mg PO WM 10/16/22 10/16/22 History heparin, porcine (PF) 5,000 20,000 unit (2 mL) subcut Q12H #25 10/17/22 Rx unit/0.5 mL injection syringe mL syringe (disposable) 5 mL #125 ea 10/17/22 Rx Allergies Allergy/AdvReac Type Severity Reaction Status Date / Time cephalexin [From Keflex] Allergy Intermediate itchy/ Verified 10/16/22 20:20 nausea red dye Allergy Intermediate Hives Verified 10/16/22 20:20 trazodone AdvReac Severe Confusion Verified 10/16/22 20:20 melatonin AdvReac Intermediate inablilty Verified 10/16/22 20:20 to sleep Past Med/Surg History Medical History Amputation of right index finger Anemia 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 Surgical History AVF (arteriovenous fistula) RIGHT ARM History of amputation of finger index finger History of appendectomy History of cardiac cath 8 YRS AGO History of colonoscopy History of Mohs micrographic surgery for skin cancer BASAL AND SQUAMOUS CELL Kidney transplant recipient RIGHT > 8 YRS AGO Family History Mother , age 65 heart failure Diabetes Hypertension Stroke Heart disease Kidney disease on dialysis for 6 monhts Father , age 65 Burkitts lymphoma Cancer Heart disease Sister , brain tumor age 30 diabetes coma Diabetes Sister Heart disease Brother Diabetes Brother No problems noted. Brother No problems noted. Daughter No problems noted. Son No problems noted. 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 How many Children do You have: 2 Feels Safe at Home: Yes Childhood Exposure to Second-Hand Smoke: Yes caffeine: Yes (one cup per daycaffeine soda 2-3 per day) during the past year weight has: remained stable Dental Care, Regularly: Yes Physical Activity Frequency: Daily Seatbelt Use: sometimes Sunscreen Use: Yes Assistive Devices: None Physical Exam Vital Signs Vital Signs - 24 hr 10/22/22 16:23 10/22/22 17:30 Temperature 36.8 C Temperature Source Temporal Artery Scan Pulse Rate 73 Respiratory Rate 20 16 Respiratory Effort / Characteristics Non-Labored Spontaneous Non-Labored Respiratory Depth Normal Normal Respiratory Pattern Regular Blood Pressure 129/80 Blood Pressure Mean 96 Pulse Oximetry 96 Sepsis Recent Fever Within 48 Hours No Sepsis New/Unexplained Change in Mental Status No Sepsis Action Taken by Nursing No Action Required Physical Exam GENERAL: He is oriented to person, place, and time. He appears well-developed and well-nourished. He does not appear distressed. CV: Normal rate, regular rhythm, normal heart sounds and intact distal pulses. There is no peripheral edema. Palpable radial pulses bue. PULM/CHEST: Effort normal and breath sounds normal. No respiratory distress. No stridor. He has no wheezes. He has no rales. - Chest Wall: He exhibits no tenderness. MUSC/SKEL: Right upper extremity: AV fistula. Left upper extremity: In bandage. Course Course 1524: Received a call from Dr. gasca [facility] orthopedics who states he saw the patient in clinic and did a arthrocentesis of his left elbow. He states he is concerned the patient might have a septic bursitis vs septic arthritis. He recommends that the patient be admitted to the internal medicine service received IV antibiotics broad-spectrum and be kept n.p.o. after midnight as he might take the patient to the OR tomorrow. He states if it is possible to keep the patient off of heparin tonight also. 1624: The patient was evaluated in room D8. A complete history and physical exam was performed Cefepime and vancomycin ordered for the patient patient will be admitted to the [facility] team. 1857: Vital signs stable. Labs show normal white blood cell count hemoglobin 11.7. Patient's APTT is elevated 131.5. Patient is currently being treated with heparin. Creatinine of 4.47 potassium 2.9. Administered Medications Discontinued Medications Cefepime HCl (Maxipime) 2,000 mg in 20 mls @ 5 mls/min IV NOW STA; Protocol Stop: 10/22/22 16:47 Last Admin: 10/22/22 18:11 Dose: 5 mls/min Documented By: AMRIT Medical Decision Making Laboratory Data Attestation: I reviewed the patient's lab results. Result diagrams: 10/22/22 16:43 10/22/22 16:43 Lab Results 10/22/22 10/22/22 10/22/22 Range/Units 16:43 16:43 16:43 WBC 8.29 (4.8-10.8) K/ul RBC 3.35 L (4.63-6.08) M/uL Hgb 11.7 L (14.0-18.0) g/dl Hct 35.1 L (40.1-51.0) % MCV 104.8 H (80.0-100.0) fL MCH 34.9 H (25.0-34.0) pg MCHC 33.3 (32.0-36.0) g/dL RDW Std Deviation 71.2 H (36.4-46.3) fL RDW Coeff of Nano 18.3 H (11.5-14.5) % Plt Count 163 (130-400) K/uL MPV 9.8 (9.4-12.4) fL Immature Gran % (Auto) 0.5 % Neut % (Auto) 87.4 % Lymph % (Auto) 4.0 % [place] % (Auto) 7.1 % Eos % (Auto) 0.8 % Baso % (Auto) 0.2 % Neut # (Auto) 7.24 H (1.4-6.5) K/uL Lymph # (Auto) 0.33 L (1.2-3.4) K/uL [place] # (Auto) 0.59 (0.24-0.82) K/uL Eos # (Auto) 0.07 (0-0.50) K/uL Baso # (Auto) 0.02 (0-0.2) K/uL Immature Gran # (Auto) 0.04 H (0.00-0.02) K/uL PT 11.2 (9.0-12.0) Seconds INR 1.1 (0.9-1.1) APTT 131.5 H* (21.0-31.0) Seconds PTT Ratio 4.8 Sodium 143 (136-145) mmol/L Potassium 2.9 L (3.5-5.1) mmol/L Chloride 97 L (98-107) mmol/L Carbon Dioxide 34 H (21-32) mmol/L Anion Gap 12 H (3-11) BUN 29 H (6-23) mg/dl Creatinine 4.47 H (0.6-1.4) mg/dl Est Cr Clr Drug Dosing 18.8 ml/min Est GFR ( Amer) 15.8 ml/min Est GFR (Non-Af Amer) 13.6 ml/min BUN/Creatinine Ratio 6.5 L (10-20) Glucose 105 H (70-99(Fasting)) mg/dl Calcium 9.1 (8.5-10.1) mg/dl SARS-CoV-2, RNA, NAAT (NEGATIVE) 10/22/22 Range/Units 16:50 WBC (4.8-10.8) K/ul RBC (4.63-6.08) M/uL Hgb (14.0-18.0) g/dl Hct (40.1-51.0) % MCV (80.0-100.0) fL MCH (25.0-34.0) pg MCHC (32.0-36.0) g/dL RDW Std Deviation (36.4-46.3) fL RDW Coeff of Nano (11.5-14.5) % Plt Count (130-400) K/uL MPV (9.4-12.4) fL Immature Gran % (Auto) % Neut % (Auto) % Lymph % (Auto) % [place] % (Auto) % Eos % (Auto) % Baso % (Auto) % Neut # (Auto) (1.4-6.5) K/uL Lymph # (Auto) (1.2-3.4) K/uL [place] # (Auto) (0.24-0.82) K/uL Eos # (Auto) (0-0.50) K/uL Baso # (Auto) (0-0.2) K/uL Immature Gran # (Auto) (0.00-0.02) K/uL PT (9.0-12.0) Seconds INR (0.9-1.1) APTT (21.0-31.0) Seconds PTT Ratio Sodium (136-145) mmol/L Potassium (3.5-5.1) mmol/L Chloride (98-107) mmol/L Carbon Dioxide (21-32) mmol/L Anion Gap (3-11) BUN (6-23) mg/dl Creatinine (0.6-1.4) mg/dl Est Cr Clr Drug Dosing ml/min Est GFR ( Amer) ml/min Est GFR (Non-Af Amer) ml/min BUN/Creatinine Ratio (10-20) Glucose (70-99(Fasting)) mg/dl Calcium (8.5-10.1) mg/dl SARS-CoV-2, RNA, NAAT NEGATIVE (NEGATIVE) MDM Narrative 1524: Received a call from Dr. gasca [facility] orthopedics who states he saw the patient in clinic and did a arthrocentesis of his left elbow. He states he is concerned the patient might have a septic bursitis vs septic arthritis. He recommends that the patient be admitted to the internal medicine service received IV antibiotics broad-spectrum and be kept n.p.o. after midnight as he might take the patient to the OR tomorrow. He states if it is possible to keep the patient off of heparin tonight also. 1624: The patient was evaluated in room D8. A complete history and physical exam was performed Cefepime and vancomycin ordered for the patient patient will be admitted to the [facility] team. 1857: Vital signs stable. Labs show normal white blood cell count hemoglobin 11.7. Patient's APTT is elevated 131.5. Patient is currently being treated with heparin. Creatinine of 4.47 potassium 2.9. Impression & Plan Septic bursitis of elbow Discharge Plan Visit Data Chief Complaint: Arm Pain Stated Complaint: ELBOW DRAINED, PUSS, POSSIBLE INFECTION ED Provider: Eric Wright Discharge Problem: Septic bursitis of elbow Patient Disposition: Admitted As Inpatient Discharge Instructions Interventions: ED Discharge Assessment Last Done: 10/22/22 18:38
[2022-10-22] MEDS: SEVELAMER HCL 800 MG TABLET PO SCH (19:34)
[2022-10-22] MEDS: carvediloL 3.125 MG TAB PO SCH (22:43)
[2022-10-23 06:07] LABS: Basophils # (auto) 0.02 K/uL (0-0.2); Basophils % (auto) 0.3 %; Eosinophils # (auto) 0.08 K/uL (0-0.50); Hematocrit (blood only) 31.6 % (40.1-51.0); Hemoglobin 10.5 g/dl (14.0-18.0); Immature Granulocytes # (auto) 0.05 K/uL (0.00-0.02); Immature Granulocytes % (auto) 0.6 %; Lymphocytes % (auto) 5.1 %; Mean Corpuscular Hemoglobin 34.3 pg (25.0-34.0); Mean Corpuscular Hgb Conc 33.2 g/dL (32.0-36.0); Mean Corpuscular Volume 103.3 fL (80.0-100.0); Mean Platelet Volume 9.4 fL (9.4-12.4); Monocytes # (auto) 0.67 K/uL (0.24-0.82); Monocytes % (auto) 8.6 %; Neutrophils # (auto) 6.61 K/uL (1.4-6.5); Neutrophils % (auto) 84.4 %; Platelet Count 136 K/uL (130-400); RDW Coefficient of Variation 18.2 % (11.5-14.5); RDW Standard Deviation 69.1 fL (36.4-46.3); Red Blood Count 3.06 M/uL (4.63-6.08); White Blood Count 7.83 K/ul (4.8-10.8)
[2022-10-23 06:51] LABS: Albumin Globulin Ratio 1.4 (0.9-2); Albumin Level 3.4 gm/dl (3.4-5.0); BUN Creatinine Ratio 7.2 (10-20); Bilirubin,Total 0.7 mg/dl (0.2-1.0); Calcium 8.2 mg/dl (8.5-10.1); Creatinine Clr Calc Pharmacy 15.2 ml/min; Est GFR (African American) 12.2 ml/min; Est GFR (Non-African American) 10.5 ml/min; Globulin 2.5 gm/dl (2.5-4.0); Potassium 3.8 mmol/L (3.5-5.1); Total Protein 5.9 gm/dl (6.0-8.3)
--- NOTE | 2022-10-23 07:51 | Progress Notes ---
DATE OF SERVICE: 10/23/2022. SUBJECTIVE: Tate is sleeping. The Emmanuel wrap is off his elbow. He reports no significant problems wit h the left arm. He has been afebrile and his vital signs are stable. He is on intravenous antibioti cs. Gram stain, crystal analysis and culture pending. His white count is 7, hemoglobin 11, hematocr it 31. He has a slight left shift. ESR and CRP are pending. His heparin has been held. The olecran on bursa fluid in left elbow shows 130,000 white blood cells, 67% polys. Await further information, but suspect infection. Possible gout. Tentative plans for irrigation and debridement today in the O R. Continue n.p.o. Immunocompromised patient. He is at increased risk for complications given his ongoing cancer treatment, end-stage renal disease and recent blood clot. Job ID: [id number]
[2022-10-23] MEDS: PANTOprazole 40 MG TAB PO SCH (08:41)
[2022-10-23] MEDS: carvediloL 3.125 MG TAB PO SCH ×2 (08:41→19:37)
[2022-10-23] MEDS: predniSONE 10 MG TABLET PO SCH (08:41)
[2022-10-23] MEDS: SEVELAMER HCL 800 MG TABLET PO SCH ×4 (08:41→17:51)
--- NOTE | 2022-10-23 08:42 | Pharmacy Report ---
Pharmacy PK ABX Note - Date of Service October 23, 2022 - Assessment and Plan Assessment 57 year old M receiving VANCOMYCIN for treatment of BURSITIS OF LEFT ELBOW. Pertinent microbiologic data includes: BLOOD CULTURES PENDING Day # 2/??? of antimicrobial therapy. Plan Vancomycin * Loading dose: 1750 mg IV x 1 * Maintenance dose: Will dose vancomycin per levels due to ESRD on HD * Random level this AM 21.5mcg/mL, no vancomycin dose today * Pre-dialysis level ordered for: 10/23/22 with AM labs Pharmacy will continue to follow and will adjust dose/frequency as necessary. Thank you.
--- NOTE | 2022-10-23 09:56 | Hospitalist Progress Note ---
Date of Service October 23, 2022 Assessment & Plan (1) Bursitis of left elbow: Plan: Jay is a 57-year-old male with a past medical history of ESRD with renal allograft with progressive loss of function ultimately requiring dialysis now on MWF regimen, heart failure with reduced ejection fraction, SCC, and recent admission 10/16- for acute DVT of the right lower extremity transitioned to warfarin. Lovenox treatment was complicated by his ESRD, this was discussed with hematology and on rare/benefits discussion patient transition from 250 unit/kg twice daily to warfarin bridge. Septic bursitis versus arthritis Patient saw Dr. Crowell as outpatient, was drained in office Patient was referred for concern of bursitis versus septic arthritis requiring operative intervention, was recommended for inpatient assessment by orthopedics Orthopedics consulted, n.p.o. at midnight, no heparinization overnight, broad- spectrum antibiotics Continue cefepime/vancomycin. Patient reports that he has had some stomach upset with Keflex in the past, no anaphylaxis allergy to his knowledge. Elbow flexion/extension is intact without any pain, strength is intact. Clinically suspect bursitis, orthopedic consulted for bursitis versus septic arthritis Right lower extremity DVT Currently on Lovenox, was pending bridging to warfarin which was supposed to be Thursday Per orthopedics hold 1 dose of warfarin tonight, will resume postoperatively tomorrow Discussed risk/benefits of holding versus continuing on operative bleeding versus risk of forming new clot/propagation. 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 at midnight CODE STATUS: Full code Disposition: Medical telemetry (2) Acute deep vein thrombosis of right lower extremity: (3) ESRD (end stage renal disease) on dialysis: (4) HFrEF (heart failure with reduced ejection fraction): (5) Squamous cell carcinoma of skin of other parts of face: Admission and Anticipated Discharge Date Admission Date: October 22, 2022 Results & Data Results & Data ([facility]) Vital Signs (Past 12 Hours) Vital Signs Temp Pulse Pulse Resp BP Pulse Ox O2 Del Method 10/23/22 07:52 85 10/23/22 07:31 36.9 C 84 18 123/76 97 Room Air 10/23/22 04:21 37.5 C 82 20 137/81 96 Room Air 10/22/22 22:40 92 H 10/22/22 22:07 95 Room Air 10/22/22 22:01 37.1 C 84 18 143/85 H 94 Room Air PG Care Time/CCT Total # of Minutes Spent Total Time Spent with Patient: Total time spent is greater than 50% in coordination of care (as documented) at patient's floor/unit and/or counseling patient: Coding Diagnoses Bursitis of left elbow M70.32 Acute deep vein thrombosis of right lower extremity I82.401 ESRD (end stage renal disease) on dialysis N18.6; Z99.2 HFrEF (heart failure with reduced ejection fraction) I50.20 Squamous cell carcinoma of skin of other parts of face C44.329
--- NOTE | 2022-10-23 10:15 | Hospitalist Progress Note ---
Date of Service October 23, 2022 Assessment & Plan (1) Bursitis of left elbow: Plan: Jay is a 57-year-old male with a past medical history of ESRD with renal allograft with progressive loss of function ultimately requiring dialysis now on MWF regimen, heart failure with reduced ejection fraction, SCC, and recent admission 10/16- for acute DVT of the right lower extremity transitioned to warfarin. Lovenox treatment was complicated by his ESRD, this was discussed with hematology and on rare/benefits discussion patient transition from 250 unit/kg twice daily to warfarin bridge. Septic bursitis versus arthritis, DDx includes gout Patient saw Dr. Velez as outpatient, was drained in office Patient was referred for concern of bursitis versus septic arthritis requiring operative intervention, was recommended for inpatient assessment by orthopedics Orthopedics consulted, n.p.o. at midnight, no heparinization overnight, broad- spectrum antibiotics Continue cefepime/vancomycin. Patient reports that he has had some stomach upset with Keflex in the past, no anaphylaxis allergy to his knowledge. Tolerating cefepime well Elbow flexion/extension is intact without any pain, strength is intact. - Fluid cultures pending. +WBC, RBC - CRP 1.54 Pending operative intervention 10/23, continue to follow cultures Right lower extremity DVT Currently on heparin 250u/kg BID Discussed risk/benefits of holding versus continuing on operative bleeding versus risk of forming new clot/propagation -Discussed with orthopedics, recommend holding heparinization for at least 18 hours. Unless surgical intervention is complicated anticipate resuming heparin to 50 units/kg twice daily AM 10/24/2022 ESRD on Thursday dialysis Last Received dialysis 10/22/2022 Nephrology consulted. Anticipate dialysis tomorrow morning. 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 Diet: N.p.o. pending surgical intervention, then renal diet CODE STATUS: Full code Disposition: Medical telemetry (2) Acute deep vein thrombosis of right lower extremity: (3) ESRD (end stage renal disease) on dialysis: (4) HFrEF (heart failure with reduced ejection fraction): (5) Squamous cell carcinoma of skin of other parts of face: Admission and Anticipated Discharge Date Admission Date: October 22, 2022 Subjective Jay is seen at the bedside. Denies fever, chills, sweats, bleeding overnight. He has had no elbow pain, has not noticed any change in his elbow since yesterday. Has not eaten and would like ice chips, otherwise no questions or concerns. He has brought in THC tincture which he uses in the evening for sleep, discussed with pharmacy and can place orders for this evening. Review of Systems Review of Systems: All systems reviewed & are unremarkable except as noted in Subjective Physical Exam Physical Exam: General: A&Ox3. NAD. Cooperative. HEENT: Atraumatic, normocephalic. Vision/hearing grossly intact Pulm: CTAB A&P. -wheezes, -rales, -rhonchi. Symmetrical chest rise. No increased work of breathing. No respiratory distress. Cardiac: RRR, -mrg. Radial pulses intact and symmetrical. Abdominal: Nontender, nondistended, soft. BS present. Extremities: Left elbow with mild erythema, continues mildly swollen/boggy but nontender to the touch. Active and passive elbow flexion/extension is intact with 5/5 strength and no pain. Door Maker strength 5/5 bilaterally. Sensation soft touch intact in hands and feet. Right ankle continues with 2+ edema Results & Data Results & Data ([facility]) Vital Signs (Past 12 Hours) Vital Signs Temp Pulse Pulse Resp BP Pulse Ox O2 Del Method 10/23/22 07:52 85 10/23/22 07:31 36.9 C 84 18 123/76 97 Room Air 10/23/22 04:21 37.5 C 82 20 137/81 96 Room Air 10/22/22 22:40 92 H PG Care Time/CCT Total # of Minutes Spent Total Time Spent with Patient: Total time spent is greater than 50% in coordination of care (as documented) at patient's floor/unit and/or counseling patient: Coding Level of Care Code 30605 SUB INP/OBS CARE 2/35MIN Diagnoses Bursitis of left elbow M70.32 Acute deep vein thrombosis of right lower extremity I82.401 ESRD (end stage renal disease) on dialysis N18.6; Z99.2 HFrEF (heart failure with reduced ejection fraction) I50.20 Squamous cell carcinoma of skin of other parts of face C44.329
--- NOTE | 2022-10-23 12:52 | Nephrology Consultation ---
Date of Consultation October 23, 2022 Assessment & Plan (1) ESRD (end stage renal disease) on dialysis: (2) Septic bursitis of elbow: (3) Renal transplant failure and rejection: (4) Renal transplant, status post: Plan HD MWF. BP and volume status acceptable. Electrolytes controlled. Adequate clearance and UF with treatment yesterday. Plan next HD tomorrow per schedule. Preliminary orders have been entered into the EHR. Outpatient Rx is 4 hours on a 10 optiflux Qb 450 Qd 800. 2 K. 2.5 calcium. EDW 73 kg. Tate has been leaving dialysis closer to 75 kg. UF yesterday 2 L. He dialyzes via a RUE AVF which has been functioning well. Tate is maintained on Aranesp 60 mcg weekly. Hemoglobin at HD on 10/20 was 10.6. He receives calcitriol 0.25 mcg QHD. Medications are currently appropriately dosed for kidney function. Repeat metabolic profile tomorrow AM. Renal diet. Plan for OR today discussed. History of Present Illness Reason for Consultation: ESRD on HD Requesting Physician: Yamileth Queen DO Attending Physician: Yamileth Queen DO History of Present Illness Mr. Serrato is a 57 year-old male with ESRD. Jay is maintained on IHD at [facility] under the care of Dr. Valdes. He dialyzes MWF. There have not been any recent complications with dialysis. He completed a full treatment yesterday morning. ESRD has been attributed chronic glomerulonephritis. After spending a brief period of time on hemodialysis, he received an unrelated living donor kidney transplant about 12 years ago from his . His clinical course was complicated by issues involving his transplanted ureter. Additionally, he had recurrent urinary tract infections. He suffered a slow progressive loss of allograft function and 11/09 started NCCPD therapy. PD was complicated by inflow and outflow discomfort, limiting fill volumes to only 1500 cc. He was hospitalized 04/09 with uremic pericarditis and transitioned back to IHD. PD catheter has been removed. Mr. Serrato has head and neck cancer. He recently developed RLE and was diagnosed w/ extensive RLE DVT. 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 He presented to the ER at [facility] yesterday for evaluation of bursitis involving the left elbow. Three weeks ago the elbow was drained. Unfortunately, it started to swell shortly following this procedure. He returned to the orthopedic clinic and the bursa was found to be infected and drained purulent fluid. Surgical intervention is planned today. The patient was seen and evaluated with Dr. Mitchell this morning. Plan of care was discussed with the hospitalist. Allergies Allergy/AdvReac Type Severity Reaction Status Date / Time cephalexin [From Keflex] Allergy Intermediate itchy/ Verified 10/22/22 19:05 nausea red dye Allergy Intermediate Hives Verified 10/22/22 19:05 trazodone AdvReac Severe Confusion Verified 10/22/22 19:05 melatonin AdvReac Intermediate inablilty Verified 10/22/22 19:05 to sleep Home Medications Medication Instructions Recorded Confirmed Type carvedilol 3.125 mg tablet 3.125 mg PO BID #60 tabs 04/12/22 10/22/22 Rx prednisone 10 mg tablets in a dose 10 mg PO DAILY #21 ea 10/15/22 10/22/22 Rx pack Medical Marijuana 0.5 applicator PO HS 10/16/22 10/22/22 History cyanocobalamin (vitamin B-12) 1,000 mcg PO DAILY 10/16/22 10/22/22 History 1,000 mcg tablet (Vitamin B-12) ondansetron HCl 8 mg tablet 8 mg PO Q8 PRN Nausea 10/16/22 10/22/22 History prednisone 5 mg tablet 10 mg PO UD 10/16/22 10/22/22 History sevelamer carbonate 800 mg tablet 800 mg PO WM 10/16/22 10/22/22 History syringe (disposable) 5 mL #125 ea 10/17/22 10/22/22 Rx heparin (porcine) 10,000 unit/mL 20,000 unit subcut Q12 10/22/22 10/22/22 History injection solution Patient History Medical History Amputation of right index finger Anemia 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 Surgical History AVF (arteriovenous fistula) RIGHT ARM History of amputation of finger index finger History of appendectomy History of cardiac cath 8 YRS AGO History of colonoscopy History of Mohs micrographic surgery for skin cancer BASAL AND SQUAMOUS CELL Kidney transplant recipient RIGHT > 8 YRS AGO Family History Mother , age 65 heart failure Diabetes Hypertension Stroke Heart disease Kidney disease on dialysis for 6 monhts Father , age 65 Burkitts lymphoma Cancer Heart disease Sister , brain tumor age 30 diabetes coma Diabetes Sister Heart disease Brother Diabetes Brother No problems noted. Brother No problems noted. Daughter No problems noted. Son No problems noted. 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 How many Children do You have: 2 Feels Safe at Home: Yes Childhood Exposure to Second-Hand Smoke: Yes caffeine: Yes (one cup per daycaffeine soda 2-3 per day) during the past year weight has: remained stable Dental Care, Regularly: Yes Physical Activity Frequency: Daily Seatbelt Use: sometimes Sunscreen Use: Yes Assistive Devices: Contacts and Glasses Review of Systems Review of Systems: All systems reviewed & are unremarkable except as noted in HPI & below Physical Exam Constitutional: well developed; no acute distress Eyes: no scleral abnormality and no corneal abnormality Neck: normal visual inspection and trachea midline Respiratory: normal respiratory effort Auscultation: lungs clear to auscultation bilaterally Cardiovascular: Rate/Rhythm: regular rate Heart Sounds: normal S1 and normal S2 Extremities: + AV fistula; no edema Musculoskeletal: Extremities: no cyanosis and no clubbing Skin: normal turgor; no lesions Neurologic: Motor/Sensory: no tremor and no asterixis Psychiatric: Orientation: alert and oriented x 3 Results & Data ([facility]) Vital Signs (Past 12 Hours) Vital Signs Temp Pulse Pulse Resp BP Pulse Ox O2 Del Method 10/23/22 11:09 36.3 C L 78 18 123/75 97 Room Air 10/23/22 07:52 85 10/23/22 07:31 36.9 C 84 18 123/76 97 Room Air 10/23/22 04:21 37.5 C 82 20 137/81 96 Room Air Laboratory Results Laboratory Results - last 24 hr 10/22/22 10/22/22 10/22/22 16:43 16:43 16:43 WBC 8.29 RBC 3.35 L Hgb 11.7 L Hct 35.1 L MCV 104.8 H MCH 34.9 H MCHC 33.3 RDW Std Deviation 71.2 H RDW Coeff of Nano 18.3 H Plt Count 163 MPV 9.8 Immature Gran % (Auto) 0.5 Neut % (Auto) 87.4 Lymph % (Auto) 4.0 Daggett % (Auto) 7.1 Eos % (Auto) 0.8 Baso % (Auto) 0.2 Neut # (Auto) 7.24 H Lymph # (Auto) 0.33 L Daggett # (Auto) 0.59 Eos # (Auto) 0.07 Baso # (Auto) 0.02 Immature Gran # (Auto) 0.04 H ESR PT 11.2 INR 1.1 APTT 131.5 H* PTT Ratio 4.8 Sodium 143 Potassium 2.9 L Chloride 97 L Carbon Dioxide 34 H Anion Gap 12 H BUN 29 H Creatinine 4.47 H Est Cr Clr Drug Dosing 18.8 Est GFR ( Amer) 15.8 Est GFR (Non-Af Amer) 13.6 BUN/Creatinine Ratio 6.5 L Glucose 105 H Calcium 9.1 Total Bilirubin AST ALT Alkaline Phosphatase C-Reactive Protein Total Protein Albumin Globulin Albumin/Globulin Ratio Nasal Screen MRSA (PCR) Random Vancomycin SARS-CoV-2, RNA, NAAT 10/22/22 10/23/22 10/23/22 16:50 05:40 05:49 WBC 7.83 RBC 3.06 L Hgb 10.5 L Hct 31.6 L MCV 103.3 H MCH 34.3 H MCHC 33.2 RDW Std Deviation 69.1 H RDW Coeff of Nano 18.2 H Plt Count 136 MPV 9.4 Immature Gran % (Auto) 0.6 Neut % (Auto) 84.4 Lymph % (Auto) 5.1 Daggett % (Auto) 8.6 Eos % (Auto) 1.0 Baso % (Auto) 0.3 Neut # (Auto) 6.61 H Lymph # (Auto) 0.40 L Daggett # (Auto) 0.67 Eos # (Auto) 0.08 Baso # (Auto) 0.02 Immature Gran # (Auto) 0.05 H ESR PT INR APTT PTT Ratio Sodium Potassium Chloride Carbon Dioxide Anion Gap BUN Creatinine Est Cr Clr Drug Dosing Est GFR ( Amer) Est GFR (Non-Af Amer) BUN/Creatinine Ratio Glucose Calcium Total Bilirubin AST ALT Alkaline Phosphatase C-Reactive Protein Total Protein Albumin Globulin Albumin/Globulin Ratio Nasal Screen MRSA (PCR) Negative Random Vancomycin SARS-CoV-2, RNA, NAAT NEGATIVE 10/23/22 10/23/22 10/23/22 05:49 05:49 05:49 WBC RBC Hgb Hct MCV MCH MCHC RDW Std Deviation RDW Coeff of Nano Plt Count MPV Immature Gran % (Auto) Neut % (Auto) Lymph % (Auto) Daggett % (Auto) Eos % (Auto) Baso % (Auto) Neut # (Auto) Lymph # (Auto) Daggett # (Auto) Eos # (Auto) Baso # (Auto) Immature Gran # (Auto) ESR 14 PT INR APTT PTT Ratio Sodium 142 Potassium 3.8 D Chloride 101 Carbon Dioxide 30 Anion Gap 11 BUN 40 H Creatinine 5.52 H* D Est Cr Clr Drug Dosing 15.2 Est GFR ( Amer) 12.2 Est GFR (Non-Af Amer) 10.5 BUN/Creatinine Ratio 7.2 L Glucose 88 Calcium 8.2 L Total Bilirubin 0.7 AST 18 ALT 50 Alkaline Phosphatase 89 C-Reactive Protein Total Protein 5.9 L Albumin 3.4 Globulin 2.5 Albumin/Globulin Ratio 1.4 Nasal Screen MRSA (PCR) Random Vancomycin 21.5 H SARS-CoV-2, RNA, NAAT 10/23/22 05:49 WBC RBC Hgb Hct MCV MCH MCHC RDW Std Deviation RDW Coeff of Nano Plt Count MPV Immature Gran % (Auto) Neut % (Auto) Lymph % (Auto) Daggett % (Auto) Eos % (Auto) Baso % (Auto) Neut # (Auto) Lymph # (Auto) Daggett # (Auto) Eos # (Auto) Baso # (Auto) Immature Gran # (Auto) ESR PT INR APTT PTT Ratio Sodium Potassium Chloride Carbon Dioxide Anion Gap BUN Creatinine Est Cr Clr Drug Dosing Est GFR ( Amer) Est GFR (Non-Af Amer) BUN/Creatinine Ratio Glucose Calcium Total Bilirubin AST ALT Alkaline Phosphatase C-Reactive Protein 1.54 H Total Protein Albumin Globulin Albumin/Globulin Ratio Nasal Screen MRSA (PCR) Random Vancomycin SARS-CoV-2, RNA, NAAT PG Care Time/CCT Total # of Minutes Spent Total Time Spent with Patient: Total time spent is greater than 50% in coordination of care (as documented) at patient's floor/unit and/or counseling patient: Coding Level of Care Code INP/OBS CONSULT LVL 4, 60 MIN Diagnoses ESRD (end stage renal disease) on dialysis N18.6; Z99.2 Septic bursitis of elbow M71.122 Laterality: left Renal transplant failure and rejection T86.12; T86.11 Renal transplant, status post Z94.0 (1) Septic bursitis of elbow Laterality: left Qualified Code(s): M71.122 - Other infective bursitis, left elbow
--- NOTE | 2022-10-23 13:35 | History & Physical Bridge Note ---
Date of Service October 23, 2022 History & Physical Bridge Note I have examined the patient, reviewed the History & Physical and in the interval since the performance of the History & Physical I have noted the following changes of clinical significance: no changes noted Crystal analysis was negative. Gram stains shows many white blood cells and gram-positive cocci. Swelling of the elbow is increased even compared to this morning. Recommend incision and drainage. Discussed with the patient that his health history including cancer kidney disease on dialysis and chemotherapy and blood clot increases his risk for surgical complications including wound healing problems pulmonary embolism persistent infection among other complications. He acknowledges this. He had chewing tobacco while he was supposed to be n.p.o. He did not have anything to eat. I spoke with about this. In my opinion the benefits of surgery outweigh potential risks related to this.
[2022-10-23] MEDS ORDERED: ceFAZolin 2000MG 2,000 MG/15 ML SYR IV ONE (13:36)
[2022-10-23] MEDS ORDERED: ceFAZolin 2,000 MG/15 ML IV PUSH IV ONE (13:48)
[2022-10-23] MEDS ORDERED: ePHEDrine sulfate 50 MG/ML AMP IV PRN (14:02)
[2022-10-23] MEDS ORDERED: fentaNYL citrate 100 MCG/2 ML VIAL IV PRN (14:02)
[2022-10-23] MEDS ORDERED: ATROPINE SULFATE 0.1 MG/ML 10ML SYR IV PRN (14:02)
[2022-10-23] MEDS ORDERED: HYDROmorphone INJ 1 MG/ML SYRINGE IV PRN ×2 (14:02→17:16)
[2022-10-23] MEDS ORDERED: ONDANSETRON INJ 2 MG/ML 2 ML VIAL IV PRN ×2 (14:02→17:16)
--- NOTE | 2022-10-23 14:04 | Anesthesiology Consultation ---
Date of Service October 23, 2022 Assessment & Plan (1) Encounter for pre-operative examination: Chart Review Chart Review: Acceptable Risk for Surgery and Patient NOT seen in Pre Admission Testing Consults Requested none History Surgery Operation Date: 10/23/22 09:40 Proposed Procedures p Left Elbow Incision and Drainage - Kevin Velez MD Height/Weight Height: 5 ft 10 in Weight: 76.5 kg Allergies Allergy/AdvReac Type Severity Reaction Status Date / Time cephalexin [From Keflex] Allergy Intermediate itchy/ Verified 10/22/22 19:05 nausea red dye Allergy Intermediate Hives Verified 10/22/22 19:05 trazodone AdvReac Severe Confusion Verified 10/22/22 19:05 melatonin AdvReac Intermediate inablilty Verified 10/22/22 19:05 to sleep Medications Home Medications Medication Instructions Recorded Confirmed Last Taken carvedilol 3.125 mg tablet 3.125 mg PO BID #60 tabs 04/12/22 10/22/22 06/10/22 prednisone 10 mg tablets in a dose 10 mg PO DAILY #21 ea 10/15/22 10/22/22 Unknown pack Medical Marijuana 0.5 applicator PO HS 10/16/22 10/22/22 Unknown cyanocobalamin (vitamin B-12) 1,000 mcg PO DAILY 10/16/22 10/22/22 Unknown 1,000 mcg tablet (Vitamin B-12) ondansetron HCl 8 mg tablet 8 mg PO Q8 PRN Nausea 10/16/22 10/22/22 Unknown prednisone 5 mg tablet 10 mg PO UD 10/16/22 10/22/22 Unknown sevelamer carbonate 800 mg tablet 800 mg PO WM 10/16/22 10/22/22 Unknown syringe (disposable) 5 mL #125 ea 10/17/22 10/22/22 Unknown heparin (porcine) 10,000 unit/mL 20,000 unit subcut Q12 10/22/22 10/22/22 Unknown injection solution Active Medications Generic Name Dose Route Start Last Admin Trade Name Freq PRN Reason Stop Dose Admin Carvedilol 3.125 mg 10/22/22 21:00 10/23/22 08:41 Carvedilol 3.125 Mg Tab PO 11/21/22 20:59 3.125 mg BID YENNY Administration Pantoprazole Sodium 40 mg 10/23/22 09:00 10/23/22 08:41 Pantoprazole 40 Mg Tab PO 11/22/22 08:59 40 mg DAILY YENNY Administration Prednisone 10 mg 10/23/22 09:00 10/23/22 08:41 Prednisone 10 Mg Tablet PO 11/22/22 08:59 10 mg DAILY YENNY Administration Sevelamer HCl 800 mg 10/22/22 19:00 10/23/22 12:02 Sevelamer Hcl 800 Mg Tablet PO 11/21/22 18:59 Not Given TIDM YENNY NPO Date Last Intake of Fluids: 10/22/22 Time Last Intake of Fluids: 00:00 Last Intake of Fluids Comment: sip water for meds at 0730 Date Last Intake of Solids: 10/22/22 Time Last Intake of Solids: 23:55 Past Medical History Medical History Amputation of right index finger Anemia 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 Brother No problems noted. Daughter No problems noted. Son No problems noted. Other No family history of allergies No family history of bleeding disorder Denies family history of Hearing loss Asthma Past Surgical History Surgical History AVF (arteriovenous fistula) RIGHT ARM History of amputation of finger index finger History of appendectomy History of cardiac cath 8 YRS AGO History of colonoscopy History of Mohs micrographic surgery for skin cancer BASAL AND SQUAMOUS CELL Kidney transplant recipient RIGHT > 8 YRS AGO Social History Smoking Status: Never smoker tobacco type: cigarettes and smokeless tobacco Do You Dip or Chew Tobacco: Yes Hx Alcohol Use: No Alcohol type: beer alcohol intake frequency: other Hx Substance Use: Yes substance use type: marijuana Physical Exam Vital Signs Last Vital Signs Temp 37 C 10/23/22 12:56 Pulse 80 10/23/22 12:56 Resp 20 10/23/22 12:56 BP 119/81 10/23/22 12:56 Pulse Ox 96 10/23/22 12:56 O2 Del Method 10/23/22 12:56 Testing Laboratory Results 10/23/22 05:49 10/23/22 05:49 PT 11.2 Seconds (9.0-12.0) 10/22/22 16:43 INR 1.1 (0.9-1.1) 10/22/22 16:43 APTT 131.5 Seconds (21.0-31.0) H* 10/22/22 16:43 Electrocardiogram Date: 10/22/22 HR 84. Normal sinus rhythm Possible Left atrial enlargement Right bundle branch block T wave abnormality, consider lateral ischemia Abnormal ECG When compared with ECG of 10-APR-2022 09:01, T wave inversion now evident in Anterior leads T wave inversion less evident in Lateral leads
[2022-10-23] MEDS ORDERED: PROPOFOL IV EMULSION 10 MG/ML 20 ML VIAL IV ONE (14:17)
[2022-10-23] MEDS ORDERED: MIDAZOLAM HCL 1 MG/ML 2ML VIAL ONE (14:18)
[2022-10-23] MEDS ORDERED: LIDOCAINE 2% MPF LOCAL 5 ML VIAL INFIL ONE (14:18)
[2022-10-23] MEDS ORDERED: ONDANSETRON INJ 2 MG/ML 2 ML VIAL ONE ×2 (14:18→14:53)
[2022-10-23] MEDS ORDERED: fentaNYL citrate 100 MCG/2 ML VIAL ONE ×2 (14:18→15:06)
[2022-10-23] MEDS ORDERED: DEXAMETHASONE SOD INJ 4 MG/ML VIAL ONE (14:53)
[2022-10-23] MEDS ORDERED: SUCCINYLCHOLINE 100MG/5ML SYR IV ONE (14:53)
--- NOTE | 2022-10-23 16:25 | Operative Report ---
Post Operative Report Pre & Post Diagnosis Operation Date: 10/23/22 09:40 Pre-Op Diagnosis: Infected left elbow Post-Op Diagnosis: Infected left elbow I identified the patient and participated in the time-out.: Yes Procedure Operation Date: 10/23/22 09:40 Actual Procedures p Left Elbow Incision and Drainage(Left) - Kevin Velez MD Surgeon Kevin Velez M.D. Rf Technician Mony Nolen PA-C Estimated Blood Loss 5 Findings Consistent with Post-Op Diagnosis Specimens Left olecranon bursa fluid and tissue Drains Hemovac x 2 Anesthesia Type General Description of Procedure Patient was taken to the operating room, placed under general anesthesia. Time out performed, prepped and draped in routine sterile fashion. I was present during the entire case, please see Dr. Velez's operative report for further detail. Patient was awakened and taken to the recovery room in stable condition. I attest to the content of the Intraoperative Record and any orders documented therein. Any exceptions are noted below.
[2022-10-23] MEDS ORDERED: BUPIVACAINE 0.5 % 5 MG/1 ML MPF 30ML VIAL ONE (16:30)
--- NOTE | 2022-10-23 16:33 | Operative Report ---
Post Operative Report Pre & Post Diagnosis Operation Date: 10/23/22 09:40 Pre-Op Diagnosis: Infected left elbow olecranon bursa Post-Op Diagnosis: Same I identified the patient and participated in the time-out.: Yes Procedure Operation Date: 10/23/22 09:40 Actual Procedures p Left Elbow Incision and Drainage, extensive debridement (Left) - Kevin evans MD Surgeon Kevin Velez MD Healthcare Administration Intern Mony Nolen no resident or fellow available Estimated Blood Loss 5 Findings Consistent with Post-Op Diagnosis Specimens Excised bursa and a fluid culture for gram stain aerobic and anaerobic cultures. Drains Hemovac x2 Anesthesia Type General Regional Complications none Disposition Accompanied Patient To Recovery: No Disposition: Recovery Room Indications Tate is 57. He has kidney failure on dialysis, skin cancer on chemotherapy and recent DVT. About a month ago the patient had nonseptic olecranon bursitis with negative crystals. Painful at this time. Cortisone shot given. Subsequently he has developed elbow swelling without significant pain. Aspiration yesterday showed purulent fluid with 130,000 white cells. Gram stain showed gram-positive cocci and he is growing out staph and culture. I recommended an I&D and he agreed to proceed. Care coordinated with the medical team as well as his oncologist. Chemotherapy will be held. He was dialyzed yesterday and can get dialyzed dialysis here tomorrow. He was given IV antibiotics. His blood thinner has been held. I discussed with him the risks of the surgical procedure including wound problems persistent infection DVT PE. Description of Procedure Informed consent obtained. Patient identified. He identified the operative s ite as the left elbow. I marked with my initials. A preoperative surgical timeout was performed. A preop dose of IV antibiotics was given. He was taken to the OR positioned supine on the OR table. The anesthetic was administered. The arm was prescrubed then prepped and draped in usual sterile fashion. There were multiple eschars on the arm area. The elbow was largely swollen over the olecranon bursa mildly red without induration. He had full movement of the elbow. Mechanical devices for DVT prophylaxis. Limb exsanguinated with gravity. Tourniquet inflated 250 mmHg. A longitudinal incision was made over the olecranon. There was a large area of swelling which was about 10 cm in diameter. There was indurated tissue around the circumference and I extended the incision to this area. After incising through the skin purulent fluid was evacuated I would estimate about 75 cc. A culture was obtained. I then went ahead and explored the area. There was a thick rind of reactive bursal tissue throughout the wound area. There was a pocket that went laterally. Went ahead and carefully dissected it off of the skin. The skin was very thin. In some areas it was not possible to dissected off the skin especially laterally. In the midportion of the wound near the skin margins were to buttonholes less than a centimeter in size. Otherwise the bursa was thoroughly and completely excised in a sharp fashion using dissection scissors. The chamber out laterally was also debrided. This undermined medially and laterally about 5 cm. The thickened rind proximally and distally as well as circumferentially was dissected. The rongeur was utilized to remove any remaining tissue as it was appropriate. The ulnar nerve was palpated and its location was noted throughout the medial surgical dissection. The tourniquet was then let down and meticulous hemostasis was performed with electrocautery. There was minimal bleeding. Pressure was held. Irrigation was then performed with 1 and half liters of sterile saline. The lateral buttonhole was reapproximated with 3-0 nylon horizontal mattress stitch. The medial buttonhole was right against the skin margin and this was ellipsed out and then repaired primarily to the contralateral side with 3-0 nylon horizontal mattress sutures. The skin on the medial side was very friable and a skin tear occurred putting suture in. This was repaired side to side in a likewise fashion. The remainder of the incision was closed in a loose fashion with horizontal mattress stitches. Prior to full wound closure a large Hemovac drain x2 was introduced medially and laterally exiting out distally. Once the skin was closed the arm was cleaned with wet and dry sponges and a soft roll dressing was applied Xeroform 4 x 4's ABD cast paddi ng. Full-length posterior splint with the elbow at 90 Emmanuel wrap and arm sling. Specimens were as mentioned above. Counts were correct. Blood loss was 5 cc. At the conclusion the operation spoke patient's informed of my findings. Postop instructions were discussed. For the time being he will remain in the hospital on intravenous antibiotics and we will monitor his wound as well as the culture results and sensitivities. I attest to the content of the Intraoperative Record and any orders documented therein. Any exceptions are noted below.
[2022-10-23] MEDS ORDERED: LIDOCAINE 1%/EPINEPHRINE 1:100,000 50 ML VIAL ONE (16:37)
--- NOTE | 2022-10-23 16:44 | Anesthesiology Progress Note ---
Date of Service October 23, 2022 Anesthesia Post Procedure Vital Signs Vital Signs: Temp Pulse Pulse Pulse Resp BP BP 10/23/22 16:35 76 22 116/90 10/23/22 16:26 36.3 C L 76 16 121/63 10/23/22 12:56 37 C 80 20 119/81 10/23/22 11:09 36.3 C L 78 18 123/75 10/23/22 07:52 85 10/23/22 07:31 36.9 C 84 18 123/76 10/23/22 04:21 37.5 C 82 20 137/81 10/22/22 22:40 92 H 10/22/22 22:07 10/22/22 22:01 37.1 C 84 18 143/85 H 10/22/22 18:38 75 20 10/22/22 19:00 83 19 10/22/22 17:30 16 Pulse Ox O2 Del Method O2 Flow Rate 10/23/22 16:35 94 Oxymask 4 10/23/22 16:26 94 Oxymask 6 10/23/22 12:56 96 Room Air 10/23/22 11:09 97 Room Air 10/23/22 07:52 10/23/22 07:31 97 Room Air 10/23/22 04:21 96 Room Air 10/22/22 22:40 10/22/22 22:07 95 Room Air 10/22/22 22:01 94 Room Air 10/22/22 18:38 98 Room Air 10/22/22 19:00 95 10/22/22 17:30 Transfer of Care Handoff Completed per policy Notes Mental Status: alert / awake / arousable Patient Amnestic to Procedure: Yes Nausea / Vomiting: adequately controlled Pain: adequately controlled Airway Patency, RR, SpO2: stable & adequate BP & HR: stable & adequate Hydration State: stable & adequate Anesthetic Complications: no major complications apparent and Pt Satisfied with anesthetic care Notes: The patient is awake and comfortable. His vital signs are stable.
[2022-10-23] MEDS ORDERED: NALOXONE HCL 0.4 MG/1 ML VIAL/CARP IV PRN (17:16)
[2022-10-23] MEDS ORDERED: oxyCODONE HCL IR 5 MG TAB (IMMEDIATE RELEASE) PO PRN (17:16)
[2022-10-23] MEDS ORDERED: SODIUM CHLORIDE 0.9% 1000ML 1,000 ML IV SCH (17:16)
[2022-10-23] MEDS ORDERED: HYDROmorphone INJ 0.5 MG/0.5 ML SYR IV PRN (17:16)
[2022-10-23] MEDS ORDERED: METOCLOPRAMIDE HCL 10 MG in SYRINGE 0 ML IV PRN (17:38)
[2022-10-23] MEDS ORDERED: CEFEPIME 1,000 MG in SYRINGE 0 ML IV SCH (18:00)
[2022-10-23] MEDS ORDERED: METOCLOPRAMIDE HCL INJ 5 MG/ML 2 ML VIAL IV PRN (21:32)
--- NOTE | 2022-10-23 21:33 | Electrocardiogram Report ---
Test Reason : Blood Pressure : / mmHG Vent. Rate : 084 BPM Atrial Rate : 084 BPM P-R Int : 186 ms QRS Dur : 180 ms QT Int : 470 ms P-R-T Axes : 050 120 026 degrees QTc Int : 555 ms Normal sinus rhythm Possible Left atrial enlargement Right bundle branch block T wave abnormality, consider anterior ischemia Abnormal ECG When compared with ECG of 10-APR-2022 09:01, T wave inversion now evident in Anterior leads Confirmed by Scooby Tanner ([id number]) on 10/23/2022 9:32:40 PM Referred By: Kevin Velez Confirmed By:Scooby Tanner
[2022-10-24] MEDS ORDERED: MEDICAL MARIJUANA PO PRN (06:35)
[2022-10-24 07:53] LABS: Basophils # (auto) 0.01 K/uL (0-0.2); Basophils % (auto) 0.1 %; Eosinophils # (auto) 0.01 K/uL (0-0.50); Eosinophils % (auto) 0.1 %; Hematocrit (blood only) 29.1 % (40.1-51.0); Hemoglobin 9.7 g/dl (14.0-18.0); Immature Granulocytes # (auto) 0.03 K/uL (0.00-0.02); Immature Granulocytes % (auto) 0.4 %; Lymphocytes # (auto) 0.34 K/uL (1.2-3.4); Lymphocytes % (auto) 4.1 %; Mean Corpuscular Hemoglobin 34.8 pg (25.0-34.0); Mean Corpuscular Hgb Conc 33.3 g/dL (32.0-36.0); Mean Corpuscular Volume 104.3 fL (80.0-100.0); Mean Platelet Volume 9.8 fL (9.4-12.4); Monocytes # (auto) 0.57 K/uL (0.24-0.82); Monocytes % (auto) 6.8 %; Neutrophils # (auto) 7.38 K/uL (1.4-6.5); Neutrophils % (auto) 88.5 %; Platelet Count 132 K/uL (130-400); RDW Coefficient of Variation 18.1 % (11.5-14.5); RDW Standard Deviation 70.7 fL (36.4-46.3); Red Blood Count 2.79 M/uL (4.63-6.08); White Blood Count 8.34 K/ul (4.8-10.8)
[2022-10-24 08:05] LABS: Prothrombin Time 11.1 Seconds (9.0-12.0)
[2022-10-24 08:16] LABS: Albumin Globulin Ratio 1.2 (0.9-2); Albumin Level 3.3 gm/dl (3.4-5.0); BUN Creatinine Ratio 8.4 (10-20); Bilirubin,Total 0.5 mg/dl (0.2-1.0); Calcium 8.2 mg/dl (8.5-10.1); Creatinine Clr Calc Pharmacy 11.4 ml/min; Est GFR (African American) 8.6 ml/min; Est GFR (Non-African American) 7.4 ml/min; Globulin 2.7 gm/dl (2.5-4.0); Potassium 4.2 mmol/L (3.5-5.1)
[2022-10-24] MEDS: predniSONE 10 MG TABLET PO SCH (08:17)
[2022-10-24] MEDS: SEVELAMER HCL 800 MG TABLET PO SCH ×3 (08:17→16:50)
[2022-10-24] MEDS: PANTOprazole 40 MG TAB PO SCH (08:17)
[2022-10-24] MEDS: carvediloL 3.125 MG TAB PO SCH ×2 (08:17→20:18)
[2022-10-24] MEDS: HEPARIN SOD 5,000 UNIT/0.5 ML VIAL SQ SCH ×2 (08:17→20:18)
--- NOTE | 2022-10-24 12:15 | Nephrology Progress Note ---
Date of Service October 24, 2022 Assessment & Plan (1) ESRD (end stage renal disease) on dialysis: Plan: HD MWF. Orders for HD today entered into the EHR and reviewed with dialysis nurse. Tate is tolerating treatment well. Qb at goal. AVF functioning well. BP acceptable. Outpatient Rx is 4 hours on a 10 optiflux Qb 450 Qd 800. 2 K. 2.5 calcium. EDW 73 kg. Tate has been leaving dialysis closer to 75 kg. He dialyzes via a RUE AVF which has been functioning well. The left arm is wrapped and BP cuff has been applied to his left leg. He receives calcitriol 0.25 mcg QHD. Medications are currently appropriately dosed for kidney function. (2) Septic bursitis of elbow: Plan: POD #1 s/p I&D and debridement by DR. Velez. Tolerated surgery well. Cultures + staph. Rx cephazolin. I discussed the plan of care with Dr. Mario yesterday evening. (3) Renal transplant failure and rejection: Plan: Remains on prednisone 10 mg daily. (4) Renal transplant, status post: Admission and Anticipated Discharge Date Admission Date: October 22, 2022 Subjective No acute events overnight. Tate was seen and evaluated during HD today. He feels well and hopes to go home later today. No fevers or chills. He denies pain. The left arm is wrapped with a surgical drain in place. Review of Systems Review of Systems: All systems reviewed & are unremarkable except as noted in HPI & below Physical Exam Constitutional: well developed; no acute distress Eyes: no scleral abnormality and no corneal abnormality Neck: normal visual inspection and trachea midline Respiratory: normal respiratory effort Auscultation: lungs clear to auscultation bilaterally Cardiovascular: Rate/Rhythm: regular rate Heart Sounds: normal S1 and normal S2 Extremities: + AV fistula; no edema Musculoskeletal: Extremities: no cyanosis and no clubbing Left arm wrapped with LESLYE wrap with surgical drain in place Skin: normal turgor; no lesions Neurologic: Motor/Sensory: no tremor and no asterixis Psychiatric: Orientation: alert and oriented x 3 Results & Data ([facility]) Vital Signs (Past 12 Hours) Vital Signs Temp Pulse Pulse Pulse Resp BP BP 10/24/22 11:30 76 151/63 H 10/24/22 11:00 76 158/76 H 10/24/22 07:16 74 10/24/22 10:30 77 163/73 H 10/24/22 10:00 76 129/79 10/24/22 09:30 74 156/84 H 10/24/22 09:00 76 163/80 H 10/24/22 08:40 76 173/90 H 10/24/22 08:30 36.6 C 77 10/24/22 07:00 36.8 C 72 18 173/84 H 10/24/22 04:05 36.8 C 72 20 165/64 H Pulse Ox O2 Del Method 10/24/22 11:30 10/24/22 11:00 10/24/22 07:16 10/24/22 10:30 10/24/22 10:00 10/24/22 09:30 10/24/22 09:00 10/24/22 08:40 10/24/22 08:30 10/24/22 07:00 98 Room Air 10/24/22 04:05 98 Room Air Laboratory Results Laboratory Results - last 24 hr 10/24/22 10/24/22 10/24/22 07:29 07:29 07:29 WBC 8.34 RBC 2.79 L Hgb 9.7 L Hct 29.1 L MCV 104.3 H MCH 34.8 H MCHC 33.3 RDW Std Deviation 70.7 H RDW Coeff of Nano 18.1 H Plt Count 132 MPV 9.8 Immature Gran % (Auto) 0.4 Neut % (Auto) 88.5 Lymph % (Auto) 4.1 [place] % (Auto) 6.8 Eos % (Auto) 0.1 Baso % (Auto) 0.1 Neut # (Auto) 7.38 H Lymph # (Auto) 0.34 L [place] # (Auto) 0.57 Eos # (Auto) 0.01 Baso # (Auto) 0.01 Immature Gran # (Auto) 0.03 H PT INR Sodium 139 Potassium 4.2 Chloride 98 Carbon Dioxide 29 Anion Gap 12 H BUN 62 H D Creatinine 7.37 H* D Est Cr Clr Drug Dosing 11.4 Est GFR ( Amer) 8.6 Est GFR (Non-Af Amer) 7.4 BUN/Creatinine Ratio 8.4 L Glucose 134 H Calcium 8.2 L Total Bilirubin 0.5 AST 11 L ALT 27 Alkaline Phosphatase 78 Total Protein 6.0 Albumin 3.3 L Globulin 2.7 Albumin/Globulin Ratio 1.2 Random Vancomycin 16.5 10/24/22 07:29 WBC RBC Hgb Hct MCV MCH MCHC RDW Std Deviation RDW Coeff of Nano Plt Count MPV Immature Gran % (Auto) Neut % (Auto) Lymph % (Auto) [place] % (Auto) Eos % (Auto) Baso % (Auto) Neut # (Auto) Lymph # (Auto) [place] # (Auto) Eos # (Auto) Baso # (Auto) Immature Gran # (Auto) PT 11.1 INR 1.0 Sodium Potassium Chloride Carbon Dioxide Anion Gap BUN Creatinine Est Cr Clr Drug Dosing Est GFR ( Amer) Est GFR (Non-Af Amer) BUN/Creatinine Ratio Glucose Calcium Total Bilirubin AST ALT Alkaline Phosphatase Total Protein Albumin Globulin Albumin/Globulin Ratio Random Vancomycin PG Care Time/CCT Total # of Minutes Spent Total Time Spent with Patient: Total time spent is greater than 50% in coordination of care (as documented) at patient's floor/unit and/or counseling patient: Coding Level of Care Code 21638 SUB INP/OBS CARE 3/50MIN Diagnoses ESRD (end stage renal disease) on dialysis N18.6; Z99.2 Septic bursitis of elbow M71.122 Laterality: left Renal transplant failure and rejection T86.12; T86.11 Renal transplant, status post Z94.0 (1) Septic bursitis of elbow Laterality: left Qualified Code(s): M71.122 - Other infective bursitis, left elbow
--- NOTE | 2022-10-24 12:59 | Hospitalist Progress Note ---
Date of Service October 24, 2022 Assessment & Plan (1) Bursitis of left elbow: Plan: Jay is a 57-year-old male with a past medical history of ESRD with renal allograft with progressive loss of function ultimately requiring dialysis now on MWF regimen, heart failure with reduced ejection fraction, SCC, and recent admission 10/16- for acute DVT of the right lower extremity transitioned to warfarin. Lovenox treatment was complicated by his ESRD, this was discussed with hematology and on rare/benefits discussion patient transition from 250 unit/kg twice daily to warfarin bridge. Septic bursitis: Patient saw Dr. Velez as outpatient, was drained in office Patient was referred for concern of bursitis versus septic arthritis requiring operative intervention, was recommended for inpatient assessment by orthopedics Orthopedics consulted, patient now status post I and D -Cultures growing MSSA -Antibiotics narrowed to cefazolin Continue for a couple more days, then transition to PO upon discharge (2) Acute deep vein thrombosis of right lower extremity: Plan: Right lower extremity DVT Currently on heparin 250u/kg BID Discussed risk/benefits of holding versus continuing on operative bleeding versus risk of forming new clot/propagation -Discussed with orthopedics, recommend holding heparinization for at least 18 hours. Unless surgical intervention is complicated anticipate resuming heparin to 50 units/kg twice daily AM 10/24/2022 (3) ESRD (end stage renal disease) on dialysis: Plan: ESRD on Thursday dialysis Nephrology consulted. 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 Diet: N.p.o. pending surgical intervention, then renal diet CODE STATUS: Full code Disposition: Medical telemetry Admission and Anticipated Discharge Date Admission Date: October 22, 2022 Subjective patient seen and examined, came back from HD Review of Systems Review of Systems: All systems reviewed are negative, apart from the ones contained in the history. Physical Exam Physical Exam: The patient is awake, alert and oriented 3, well developed and well nourished, normocephalic and atraumatic, lying in bed and in no acute distress. HEENT--PERRL, EOMI, mucous membranes and oropharynx mildly dry Neck--supple. No JVD. No bruits. Thyroid normal, trachea midline, no adenopathy. Heart--normal S1 and S2. No murmurs, rubs or gallops. Lungs--clear bilaterally, no respiratory distress, no accessory muscle use. Abdomen--normal bowel sounds and soft. Mild epigastric and left sided abdominal pain Extremities--left upper extremity in bandage Dermatologic--normal skin turgor, normal color, no abnormal lymph nodes, no rash. Neurologic--cranial nerves II through XII grossly intact. Rheumatologic--normal range of motion. Psychiatric--normal affect. Results & Data Results & Data ([facility]) Vital Signs (Past 12 Hours) Vital Signs Temp Pulse Pulse Pulse Resp BP BP 10/24/22 12:26 98.1 F 78 20 157/85 H 10/24/22 11:44 98.2 F 75 155/77 H 10/24/22 11:30 76 151/63 H 10/24/22 11:00 76 158/76 H 10/24/22 07:16 74 10/24/22 10:30 77 163/73 H 10/24/22 10:00 76 129/79 10/24/22 09:30 74 156/84 H 10/24/22 09:00 76 163/80 H 10/24/22 08:40 76 173/90 H 10/24/22 08:30 97.9 F 77 10/24/22 07:00 98.2 F 72 18 173/84 H 10/24/22 04:05 98.2 F 72 20 165/64 H Pulse Ox O2 Del Method 10/24/22 12:26 97 Room Air 10/24/22 11:44 10/24/22 11:30 10/24/22 11:00 10/24/22 07:16 10/24/22 10:30 10/24/22 10:00 10/24/22 09:30 10/24/22 09:00 10/24/22 08:40 10/24/22 08:30 10/24/22 07:00 98 Room Air 10/24/22 04:05 98 Room Air PG Care Time/CCT Total # of Minutes Spent Total Time Spent with Patient: Total time spent is greater than 50% in coordination of care (as documented) at patient's floor/unit and/or counseling patient: Coding Level of Care Code 01730 SUB INP/OBS CARE 2/35MIN History Expanded Problem Focused Exam Expanded Problem Focused Medical Decision Making Moderate Complexity Diagnoses Bursitis of left elbow M70.32 Acute deep vein thrombosis of right lower extremity I82.401 ESRD (end stage renal disease) on dialysis N18.6; Z99.2 HFrEF (heart failure with reduced ejection fraction) I50.20 Squamous cell carcinoma of skin of other parts of face C44.329 Time Spent (min) 35
--- NOTE | 2022-10-24 14:24 | Progress Notes ---
DATE OF SERVICE: 10/24/2022. SUBJECTIVE: Resting comfortably. No problems other than he wants to leave. Drain output is 10 mL. The drain vacuum has actually lost and it is pulled out through the skin. Drain is pulled out. He i s afebrile. His vital signs are stable. Median, radial, and ulnar motor and sensory functions intac t. Capillary refill less than 2 seconds. White count is 8, hemoglobin 10, hematocrit 29, platelets 132. He has been restarted on his heparin. He is growing out methicillin-sensitive staph. He is on Ancef. Splint clean, dry and intact. My recommendation would be a minimum of 72 hours of IV antibiotics postop. That would take him throu until Thursday. At that point, I will change dressing and evaluate the wound. If there is any resi dual infection or need for ongoing antibiotic therapy, then I would recommend that we continue the an tibiotics even further. If the wound is healing well, then I would go ahead and consider discharge o n oral antibiotics. I spoke to him about my concerns regarding the health of the wound and the poten tial for breakdown. This may potentially need to be treated with a wound VAC, which I described to marcella salazar. He can be up and about. Continue IV antibiotics. Dr. Bates will be covering over the weekend. I will be on Thursday. Job ID: [id number]
[2022-10-24] MEDS: ceFAZolin 1000MG 1,000 MG/7.5 ML SYR IV SCH (17:52)
[2022-10-25] MEDS: SEVELAMER HCL 800 MG TABLET PO SCH ×3 (08:18→17:42)
[2022-10-25] MEDS: carvediloL 3.125 MG TAB PO SCH ×2 (08:18→20:50)
[2022-10-25] MEDS: PANTOprazole 40 MG TAB PO SCH (08:19)
[2022-10-25] MEDS: predniSONE 10 MG TABLET PO SCH (08:19)
[2022-10-25] MEDS: HEPARIN SOD 5,000 UNIT/0.5 ML VIAL SQ SCH ×2 (08:20→20:50)
[2022-10-25 08:57] LABS: Hematocrit (blood only) 28.7 % (40.1-51.0); Hemoglobin 9.6 g/dl (14.0-18.0); Mean Corpuscular Hemoglobin 35.3 pg (25.0-34.0); Mean Corpuscular Hgb Conc 33.4 g/dL (32.0-36.0); Mean Corpuscular Volume 105.5 fL (80.0-100.0); Mean Platelet Volume 9.9 fL (9.4-12.4); Platelet Count 129 K/uL (130-400); RDW Coefficient of Variation 18.2 % (11.5-14.5); RDW Standard Deviation 70.5 fL (36.4-46.3); Red Blood Count 2.72 M/uL (4.63-6.08); White Blood Count 7.93 K/ul (4.8-10.8)
[2022-10-25 09:19] LABS: BUN Creatinine Ratio 6.7 (10-20); Calcium 8.2 mg/dl (8.5-10.1); Creatinine Clr Calc Pharmacy 12.8 ml/min; Est GFR (African American) 9.9 ml/min; Est GFR (Non-African American) 8.5 ml/min; Potassium 3.9 mmol/L (3.5-5.1)
--- NOTE | 2022-10-25 10:58 | Orthopedic Progress Note ---
Date of Service October 25, 2022 Assessment & Plan (1) Septic bursitis of elbow: Plan Patient did well overnight. This morning, awake and happy. No f/c/n/v; pain well manage Elbow splint intact, no obvious signs of drainage Per Dr Velez, no dressing change today. He will change dressing tomorrow evening NO changes recommended to current plan Admission and Anticipated Discharge Date Admission Date: October 22, 2022 Results & Data ([facility]) Vital Signs (Past 12 Hours) Vital Signs Temp Pulse Pulse Resp BP Pulse Ox O2 Del Method 10/25/22 08:00 37 C 80 20 164/66 H 96 Room Air 10/25/22 02:18 36.8 C 76 18 158/66 H 97 Room Air 10/24/22 23:34 87 10/24/22 23:00 36.9 C 83 18 162/65 H 98 Room Air (1) Septic bursitis of elbow Laterality: left Qualified Code(s): M71.122 - Other infective bursitis, left elbow
--- NOTE | 2022-10-25 11:24 | Nephrology Progress Note ---
Date of Service October 25, 2022 Assessment & Plan (1) ESRD (end stage renal disease) on dialysis: Plan: * Outpatient Rx is MWF [place] - 4 hr, Qb 450/Qd 800, 2 K, EDW 73 kg * Volume status and electrolyte balance are acceptable. No acute indication for HD today (2) Septic bursitis of elbow: Plan: * s/p I&D L elbow 10/23/22 * Cultures + staph. Rx cephazolin. (3) Renal transplant failure and rejection: Plan: * Remains on prednisone 10 mg daily. Admission and Anticipated Discharge Date Admission Date: October 22, 2022 Subjective Mr. Serrato was evaluated in his hospital room this morning. He denied fever or L arm pain. He was dialyzed yesterday for 2 L UF without complication Review of Systems Constitutional: no fever Eyes: no problem reported Ear, Nose, Mouth, Throat: no problem reported Respiratory: no dyspnea Cardiovascular: no chest pain Gastrointestinal: no abdominal pain, no vomiting and no diarrhea/loose stools Neurologic: no confusion Physical Exam Constitutional: not in distress Eyes: PERRL, conjunctivae normal, anicteric sclerae ENMT: external ear and nose normal, oropharynx normal Neck: trachea midline, no thyromegaly Respiratory: normal respiratory effort, lungs clear to auscultation Cardiovascular: Rate/Rhythm: regular rate and regular rhythm Extremities: + AV fistula (+ thrill) Gastrointestinal (Abdomen): normal bowel sounds, soft, nontender, no hepatosplenomegaly Neurologic: awake; not confused Results & Data ([facility]) Vital Signs (Past 12 Hours) Vital Signs Temp Pulse Pulse Resp BP Pulse Ox O2 Del Method 10/25/22 08:00 37 C 80 20 164/66 H 96 Room Air 10/25/22 02:18 36.8 C 76 18 158/66 H 97 Room Air 10/24/22 23:34 87 Laboratory Results Laboratory Tests 10/25/22 10/25/22 08:32 08:32 WBC 7.93 Hgb 9.6 L Hct 28.7 L Plt Count 129 L Sodium 141 Potassium 3.9 Chloride 104 Carbon Dioxide 25 BUN 44 H Creatinine 6.57 H* D PG Care Time/CCT Total # of Minutes Spent Total Time Spent with Patient: Total time spent is greater than 50% in coordination of care (as documented) at patient's floor/unit and/or counseling patient: Coding Level of Care Code 91216 SUB INP/OBS CARE 50MIN Diagnoses ESRD (end stage renal disease) on dialysis N18.6; Z99.2 Septic bursitis of elbow M71.122 Laterality: left Renal transplant failure and rejection T86.12; T86.11 (1) Septic bursitis of elbow Laterality: left Qualified Code(s): M71.122 - Other infective bursitis, left elbow
--- NOTE | 2022-10-25 11:26 | Hospitalist Progress Note ---
Date of Service October 25, 2022 Assessment & Plan (1) Bursitis of left elbow: Plan: Jay is a 57-year-old male with a past medical history of ESRD with renal allograft with progressive loss of function ultimately requiring dialysis now on MWF regimen, heart failure with reduced ejection fraction, SCC, and recent admission 10/16- for acute DVT of the right lower extremity transitioned to warfarin. Lovenox treatment was complicated by his ESRD, this was discussed with hematology and on rare/benefits discussion patient transition from 250 unit/kg twice daily to warfarin bridge. Septic bursitis: Patient saw Dr. Velez as outpatient, was drained in office Patient was referred for concern of bursitis versus septic arthritis requiring operative intervention, was recommended for inpatient assessment by orthopedics Orthopedics consulted, patient now status post I and D -Cultures growing MSSA -Antibiotics narrowed to cefazolin Continue for a couple more days, then transition to PO upon discharge -Wound dressing per ortho (2) Acute deep vein thrombosis of right lower extremity: Plan: Right lower extremity DVT Currently on heparin 250u/kg BID (3) ESRD (end stage renal disease) on dialysis: Plan: ESRD on Thursday dialysis Nephrology consulted. 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 Diet: renal diet CODE STATUS: Full code Disposition: Medical telemetry Admission and Anticipated Discharge Date Admission Date: October 22, 2022 Subjective patient seen and examined, no new complaints, no fevers or chills Review of Systems Review of Systems: All systems reviewed are negative, apart from the ones contained in the history. Physical Exam Physical Exam: The patient is awake, alert and oriented 3, well developed and well nourished, normocephalic and atraumatic, lying in bed and in no acute distress. HEENT--PERRL, EOMI, mucous membranes and oropharynx mildly dry Neck--supple. No JVD. No bruits. Thyroid normal, trachea midline, no adenopathy. Heart--normal S1 and S2. No murmurs, rubs or gallops. Lungs--clear bilaterally, no respiratory distress, no accessory muscle use. Abdomen--normal bowel sounds and soft. Mild epigastric and left sided abdominal pain Extremities--left upper extremity in bandage Dermatologic--normal skin turgor, normal color, no abnormal lymph nodes, no rash. Neurologic--cranial nerves II through XII grossly intact. Rheumatologic--normal range of motion. Psychiatric--normal affect. Results & Data Results & Data ([facility]) Vital Signs (Past 12 Hours) Vital Signs Temp Pulse Pulse Resp BP Pulse Ox O2 Del Method 10/25/22 08:00 98.6 F 80 20 164/66 H 96 Room Air 10/25/22 02:18 98.2 F 76 18 158/66 H 97 Room Air 10/24/22 23:34 87 PG Care Time/CCT Total # of Minutes Spent Total Time Spent with Patient: Total time spent is greater than 50% in coordination of care (as documented) at patient's floor/unit and/or counseling patient: Coding Level of Care Code 78851 SUB INP/OBS CARE 2/35MIN Diagnoses Bursitis of left elbow M70.32 Acute deep vein thrombosis of right lower extremity I82.401 ESRD (end stage renal disease) on dialysis N18.6; Z99.2 HFrEF (heart failure with reduced ejection fraction) I50.20 Squamous cell carcinoma of skin of other parts of face C44.329 Time Spent (min) 35
[2022-10-25] MEDS: ceFAZolin 1000MG 1,000 MG/7.5 ML SYR IV SCH (17:42)
[2022-10-26 06:11] LABS: Mean Corpuscular Hemoglobin 34.9 pg (25.0-34.0); Mean Corpuscular Hgb Conc 33.3 g/dL (32.0-36.0); Mean Corpuscular Volume 104.7 fL (80.0-100.0); Mean Platelet Volume 10.5 fL (9.4-12.4); Platelet Count 121 K/uL (130-400); RDW Coefficient of Variation 17.8 % (11.5-14.5); RDW Standard Deviation 69.5 fL (36.4-46.3); Red Blood Count 2.58 M/uL (4.63-6.08); White Blood Count 6.81 K/ul (4.8-10.8)
[2022-10-26 06:36] LABS: BUN Creatinine Ratio 6.9 (10-20); Calcium 8.2 mg/dl (8.5-10.1); Creatinine Clr Calc Pharmacy 10.2 ml/min; Est GFR (African American) 7.5 ml/min; Est GFR (Non-African American) 6.5 ml/min; Potassium 4.3 mmol/L (3.5-5.1)
[2022-10-26] MEDS: PANTOprazole 40 MG TAB PO SCH (08:42)
[2022-10-26] MEDS: carvediloL 3.125 MG TAB PO SCH (08:42)
[2022-10-26] MEDS: SEVELAMER HCL 800 MG TABLET PO SCH ×2 (08:42→12:50)
[2022-10-26] MEDS: predniSONE 10 MG TABLET PO SCH (08:43)
[2022-10-26] MEDS: HEPARIN SOD 5,000 UNIT/0.5 ML VIAL SQ SCH (08:45)
--- NOTE | 2022-10-26 09:13 | Nephrology Progress Note ---
Date of Service October 26, 2022 Assessment & Plan (1) ESRD (end stage renal disease) on dialysis: Plan: * Outpatient Rx is MWF [place] - 4 hr, Qb 450/Qd 800, 2 K, EDW 73 kg * Volume status and electrolyte balance are acceptable. No acute indication for HD today * Will provide HD tomorrow if still hospitalized. Advised patient to resume MWF outpatient HD if discharged (2) Septic bursitis of elbow: Plan: * s/p I&D L elbow 10/23/22 * Cultures + staph. Rx cephazolin. (3) Renal transplant failure and rejection: Plan: * Remains on prednisone 10 mg daily. Admission and Anticipated Discharge Date Admission Date: October 22, 2022 Subjective Mr. Serrato was evaluated in his hospital room this morning. He denied fever or L arm pain. Review of Systems Constitutional: no fever Eyes: no problem reported Ear, Nose, Mouth, Throat: no problem reported Respiratory: no dyspnea Cardiovascular: no chest pain Gastrointestinal: no abdominal pain, no vomiting and no diarrhea/loose stools Neurologic: no confusion Physical Exam Constitutional: not in distress Eyes: PERRL, conjunctivae normal, anicteric sclerae ENMT: external ear and nose normal, oropharynx normal Neck: trachea midline, no thyromegaly Respiratory: normal respiratory effort, lungs clear to auscultation Cardiovascular: Rate/Rhythm: regular rate and regular rhythm Extremities: + AV fistula (+ thrill) Gastrointestinal (Abdomen): normal bowel sounds, soft, nontender, no hepatosp lenomegaly Neurologic: awake; not confused Results & Data ([facility]) Vital Signs (Past 12 Hours) Vital Signs Temp Pulse Resp BP Pulse Ox O2 Del Method 10/26/22 07:54 36.6 C 77 20 140/75 97 Room Air 10/26/22 07:38 Room Air 10/26/22 03:44 36.9 C 80 18 163/89 H 97 Room Air 10/25/22 23:12 37 C 86 18 164/93 H 98 Room Air Laboratory Results Laboratory Tests 10/26/22 10/26/22 05:42 05:42 WBC 6.81 Hgb 9.0 L Hct 27.0 L Plt Count 121 L Sodium 140 Potassium 4.3 Chloride 104 Carbon Dioxide 25 BUN 57 H Creatinine 8.28 H* D Glucose 97 PG Care Time/CCT Total # of Minutes Spent Total Time Spent with Patient: Total time spent is greater than 50% in coordination of care (as documented) at patient's floor/unit and/or counseling patient: Coding Level of Care Code 34313 SUB INP/OBS CARE 3/50MIN Diagnoses ESRD (end stage renal disease) on dialysis N18.6; Z99.2 Septic bursitis of elbow M71.122 Laterality: left Renal transplant failure and rejection T86.12; T86.11 (1) Septic bursitis of elbow Laterality: left Qualified Code(s): M71.122 - Other infective bursitis, left elbow
[2022-10-26 11:28] VITALS: BP 162/76; TEMP 98.4; O2SAT 98
--- NOTE | 2022-10-26 12:10 | Hospitalist Progress Note ---
Date of Service October 26, 2022 Assessment & Plan (1) Bursitis of left elbow: Plan: Jay is a 57-year-old male with a past medical history of ESRD with renal allograft with progressive loss of function ultimately requiring dialysis now on MWF regimen, heart failure with reduced ejection fraction, SCC, and recent admission 10/16- for acute DVT of the right lower extremity transitioned to warfarin. Lovenox treatment was complicated by his ESRD, this was discussed with hematology and on rare/benefits discussion patient transition from 250 unit/kg twice daily to warfarin bridge. Septic bursitis: Patient saw Dr. Velez as outpatient, was drained in office Patient was referred for concern of bursitis versus septic arthritis requiring operative intervention, was recommended for inpatient assessment by orthopedics Orthopedics consulted, patient now status post I and D -Cultures growing MSSA -Antibiotics narrowed to cefazolin Continue for a couple more days, then transition to PO upon discharge -Wound dressing per ortho (2) Acute deep vein thrombosis of right lower extremity: Plan: Right lower extremity DVT Currently on heparin 250u/kg BID (3) ESRD (end stage renal disease) on dialysis: Plan: ESRD on Thursday dialysis Nephrology consulted. 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 Diet: renal diet CODE STATUS: Full code Disposition: Hopefully d/c home in the next 24-48 hrs Admission and Anticipated Discharge Date Admission Date: October 22, 2022 Subjective patient seen and examined, no new complaints Review of Systems Review of Systems: All systems reviewed are negative, apart from the ones contained in the history. Physical Exam Physical Exam: The patient is awake, alert and oriented 3, well developed and well nourished, normocephalic and atraumatic, lying in bed and in no acute distress. HEENT--PERRL, EOMI, mucous membranes and oropharynx mildly dry Neck--supple. No JVD. No bruits. Thyroid normal, trachea midline, no adenopathy. Heart--normal S1 and S2. No murmurs, rubs or gallops. Lungs--clear bilaterally, no respiratory distress, no accessory muscle use. Abdomen--normal bowel sounds and soft. Mild epigastric and left sided abdominal pain Extremities--left upper extremity in bandage Dermatologic--normal skin turgor, normal color, no abnormal lymph nodes, no rash. Neurologic--cranial nerves II through XII grossly intact. Rheumatologic--normal range of motion. Psychiatric--normal affect. Results & Data Results & Data ([facility]) Vital Signs (Past 12 Hours) Vital Signs Temp Pulse Resp BP Pulse Ox O2 Del Method 10/26/22 11:27 98.4 F 76 19 162/76 H 98 Room Air 10/26/22 07:54 97.9 F 77 20 140/75 97 Room Air 10/26/22 07:38 Room Air 10/26/22 03:44 98.4 F 80 18 163/89 H 97 Room Air PG Care Time/CCT Total # of Minutes Spent Total Time Spent with Patient: Total time spent is greater than 50% in coordination of care (as documented) at patient's floor/unit and/or counseling patient: Coding Level of Care Code 28602 SUB INP/OBS CARE 2/35MIN Diagnoses Bursitis of left elbow M70.32 Acute deep vein thrombosis of right lower extremity I82.401 ESRD (end stage renal disease) on dialysis N18.6; Z99.2 HFrEF (heart failure with reduced ejection fraction) I50.20 Squamous cell carcinoma of skin of other parts of face C44.329 Time Spent (min) 35
--- NOTE | 2022-10-26 14:25 | Discharge Summary ---
Date of Service October 26, 2022 Admission HPI Per Admitting Provider 3 weeks ago elbow swelled up and had drained was OK for a day or two then started to fill with fluid and progressively Not painful to him currently, first time was No discharge Drained thick pus in ortho office today No sudden change, just graduation worsening No fevers, chills, sweats No rashes No numbness or tingling in the fingers, no weakness Currently on lovenox, has not transitioned to warfarin yet. First does Thursday. Pred 10mg daily for Allograph. Stopped pred and developed pericarditis with effusion, was restarted per cardiology. Carvedilol, took today. R first digit amputation Chemo regimen: Ermatux. Keflex. Hx Heart Stents - Not able to take aspirin or plavix - Dr. Carlo Pelaez 12 years ago Medical History: Reviewed Medications: Reviewed Surgical History: Reviewed Allergies: Reviewed. Social History:Reviewed. Currenly uses snuff 1 pouch every 2 weeks. No alcohol use. Medical marijuana use, evening drops. Would like to self administer. Code Status: Full Code Principal Diagnosis Bursitis Discharge Exam The patient is awake, alert and oriented 3, well developed and well nourished, normocephalic and atraumatic, lying in bed and in no acute distress. HEENT--PERRL, EOMI, mucous membranes and oropharynx mildly dry Neck--supple. No JVD. No bruits. Thyroid normal, trachea midline, no adenopathy. Heart--normal S1 and S2. No murmurs, rubs or gallops. Lungs--clear bilaterally, no respiratory distress, no accessory muscle use. Abdomen--normal bowel sounds and soft. Mild epigastric and left sided abdominal pain Extremities--left upper extremity in bandage Dermatologic--normal skin turgor, normal color, no abnormal lymph nodes, no rash. Neurologic--cranial nerves II through XII grossly intact. Rheumatologic--normal range of motion. Psychiatric--normal affect. Discharge Data Allergies Allergy/AdvReac Type Severity Reaction Status Date / Time cephalexin [From Keflex] Allergy Intermediate itchy/ Verified 10/22/22 19:05 nausea red dye Allergy Intermediate Hives Verified 10/22/22 19:05 trazodone AdvReac Severe Confusion Verified 10/22/22 19:05 melatonin AdvReac Intermediate inablilty Verified 10/22/22 19:05 to sleep Consultations 10/22/22 16:45 ED Decision to Admit Stat 10/22/22 17:35 Consult Orthopedic Surgery Stat 10/22/22 18:38 Consult Nephrology Routine Procedures Performed Operation Date: 10/23/22 09:40 Actual Procedures p Left Elbow Incision and Drainage(Left) - Kevin Velez MD Hospital Course (1) Bursitis of left elbow: Jay is a 57-year-old male with a past medical history of ESRD with renal allograft with progressive loss of function ultimately requiring dialysis now on MWF regimen, heart failure with reduced ejection fraction, SCC, and recent admission 10/16- for acute DVT of the right lower extremity transitioned to warfarin. Lovenox treatment was complicated by his ESRD, this was discussed with hematology and on rare/benefits discussion patient transition from 250 unit/kg twice daily to warfarin bridge. Septic bursitis: Patient saw Dr. Velez as outpatient, was drained in office Patient was referred for concern of bursitis versus septic arthritis requiring operative intervention, was recommended for inpatient assessment by orthopedics Orthopedics consulted, patient now status post I and D -Cultures growing MSSA -Antibiotics narrowed to cefazolin Continue for a couple more days, then transition to PO upon discharge, Bactrim for 5 more days -Wound dressing per ortho, follow up at discharge (2) Acute deep vein thrombosis of right lower extremity: Right lower extremity DVT Currently on heparin 250u/kg BID (3) ESRD (end stage renal disease) on dialysis: ESRD on Thursday dialysis Nephrology consulted. 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 Diet: renal diet CODE STATUS: Full code Disposition: Hopefully d/c home in the next 24-48 hrs Total Time Total Time Spent Total Time Spent (In Minutes): 35 Discharge Plan Discharge Items Patient Disposition: Home - Self-Care Reason For Visit: SEPTIC ARTHRITIS VS BURSITIS Discharge Diagnosis: Septic olecranon bursitis left elbow Activity: Per Instructions section Weightbearing: Left non-weightbearing Weightbearing Comment: upper extremity Non-emergency contact: Surgeon Call non-emergency contact if: you have any medication questions, your symptoms worsen, your pain is not controlled, your temperature is above 101, your wound has increased redness and your wound has increased drainage Follow-up/Referrals: Theodora Valentin MD [Primary Care Provider] - Diet: Regular Addtl Attending Provider Instructions: please make appointment to follow up with Ortho Addtl Culture Manager Provider Instructions: Orthopedic instructions: - Keep splint on left arm at all times. - Elevate left arm above heart to relieve pain/swelling. - Ice to left elbow as needed for pain/swelling. - No pressure on left elbow - Sling when ambulating. - Follow up as instructed by Dr. Velez Pending Studies at Discharge: No Stand-Alone Forms: My [facility] SiteMinder, Smoking Cessation Medications and DC Order Prescriptions: New sulfamethoxazole-trimethoprim [Bactrim] 400-80 mg tablet 1 tab PO BID 5 Days Qty: 10 0RF Continued carvedilol 3.125 mg tablet 3.125 mg PO BID Qty: 60 5RF Rx Instructions: must administer with a meal/food prednisone 5 mg tablet 10 mg PO UD Rx Instructions: on hold until after taper is finished then resume 10 mg daily ondansetron HCl 8 mg tablet 8 mg PO Q8 PRN (Reason: Nausea) sevelamer carbonate 800 mg tablet 800 mg PO WM cyanocobalamin (vitamin B-12) [Vitamin B-12] 1,000 mcg Tablet 1,000 mcg PO DAILY Medical Marijuana 0.5 applicator PO HS Rx Instructions: 1/2 dropper full (DME) syringe (disposable) 5 mL syringe See Rx Instructions .Route Qty: 125 0RF Rx Instructions: As directed heparin (porcine) 10,000 unit/mL solution 20,000 unit subcut Q12 Discontinued prednisone 10 mg tablets,dose pack 10 mg PO DAILY Qty: 21 0RF Rx Instructions: day 1: take 6 tablets by mouth, day 2: take 5 tablets by mouth, day 3: take 4 tablets by mouth, day 4: take 3 tablets by mouth, day 3: take 2 tablets by mouth, day 4: take 1 tablet. then resume 5 mg PO daily. Take with food to avoid upset stomach. Discharge Orders: Discharge Order (Routine); Ordered 10/26/22 Ordered By: Shan Willett Admission Data Admit Date/Time: 10/22/22 17:35 Attending Provider: Shan Willett Admit Provider: Kevin Mario Primary Care Provider: Theodora Valentin Other Providers: Kevin Mario ; Kevin Velez ; Yoni Foreman Coding Level of Care Code HOSP INP/OBS DISCH >30 MIN Diagnoses Bursitis of left elbow M70.32 Acute deep vein thrombosis of right lower extremity I82.401 ESRD (end stage renal disease) on dialysis N18.6; Z99.2 HFrEF (heart failure with reduced ejection fraction) I50.20 Squamous cell carcinoma of skin of other parts of face C44.329 Time Spent (min) 35
--- NOTE | 2022-10-26 14:35 | Progress Notes ---
Attempts resting comfortably in bed. No problems are noted. He is afebrile. His vital signs are stable. His white count is normal. His H and H are approximately 9 and 27. Cultures have grown out pansensitive Staph aureus. His gross distal neurovascular function is intact. The dressing is changed. There is bloody drainage on the dressing. The erythema has resolved. There is no skin necrosis; however, the central portion medial skin flap looks like there is a skin tear there secondary to very thin skin. There is no active drainage. This is about a centimeter in size. The underlying granulation tissue is visible. There is no fluctuance within the soft tissues. No recurrence of any type of hematoma or purulence. The area was cleaned and then redressed with Xeroform gauze, soft wrap, posterior splint down to the wrist with Emmanuel wrap and then sling. He is okay for discharge from my perspective. Follow up with me on Thursday. Limit activity. Elevate, rest the arm to keep clean and dry. If there are any problems, call my office or go to the Emergency Room. We will give his today's dose of Ancef a little early. Discharge on oral antibiotic, possibly Bactrim, but will defer to hospitalist for their choice. Length of treatment at least 5 days with a refill. Recommend holding chemotherapy until we have some degree of wound healing. He should continue on the injectable blood thinner. If it is possible, I would hold on Coumadin until we have further wound stability to know that he does not need any further operative intervention. Discussed situation with the patient and his . Hopefully things continue to heal up. Further wound care treatments including wound VAC might be necessary. Job ID: [id number] [facility]
[2022-10-26] MEDS: ceFAZolin 1000MG 1,000 MG/7.5 ML SYR IV SCH (14:45)
[2022-10-26 14:53] VITALS: PULSE 72
[2022-10-27] MEDS ORDERED: SODIUM CHLORIDE 0.9% 1000ML 1,000 ML IV PRN (07:00)
[2022-10-27] MEDS ORDERED: HEPARIN SOD (PORCINE) 1000 UNIT/ML IV ONE (07:00)
[2022-10-27] MEDS ORDERED: HEPARIN SOD (PORCINE) 1000 UNIT/ML IV SCH (07:00)
--- NOTE | 2022-10-28 12:23 | Orthopedic Consultation ---
Date of Consultation October 28, 2022 Assessment & Plan (1) Septic bursitis of elbow: Tate has suspected septic olecranon bursitis. Possible gout we will follow-up on culture results and cell count within the fluid. Plan is n.p.o. after midnight. Hold chemotherapy. Hold blood thinner. N.p.o. after midnight. Plan for I&D of elbow and wound care as appropriate. Will coordinate care with oncology and hospitalist service. Probable surgery tomorrow. Present on Admission?: Yes History of Present Illness Attending Physician: Shan Willett MD History of Present Illness Tate is 57. He is several weeks status post aspiration and cortisone injection for what was believed to be nonseptic olecranon bursitis. He has now developed a large recurrence of fluid in the olecranon bursa. Aspiration has shown purulent type material. He is admitted to the hospital for IV antibiotics irrigation and debridement. Allergies Allergy/AdvReac Type Severity Reaction Status Date / Time cephalexin [From Keflex] Allergy Intermediate itchy/ Verified 10/22/22 19:05 nausea red dye Allergy Intermediate Hives Verified 10/22/22 19:05 trazodone AdvReac Severe Confusion Verified 10/22/22 19:05 melatonin AdvReac Intermediate inablilty Verified 10/22/22 19:05 to sleep Home Medications Medication Instructions Recorded Confirmed Type carvedilol 3.125 mg tablet 3.125 mg PO BID #60 tabs 04/12/22 10/22/22 Rx Medical Marijuana 0.5 applicator PO HS 10/16/22 10/22/22 History cyanocobalamin (vitamin B-12) 1,000 mcg PO DAILY 10/16/22 10/22/22 History 1,000 mcg tablet (Vitamin B-12) ondansetron HCl 8 mg tablet 8 mg PO Q8 PRN Nausea 10/16/22 10/22/22 History prednisone 5 mg tablet 10 mg PO UD 10/16/22 10/22/22 History sevelamer carbonate 800 mg tablet 800 mg PO WM 10/16/22 10/22/22 History syringe (disposable) 5 mL #125 ea 10/17/22 10/22/22 Rx heparin (porcine) 10,000 unit/mL 20,000 unit subcut Q12 10/22/22 10/22/22 History injection solution sulfamethoxazole 400 1 tab PO BID 5 days #10 tabs 10/26/22 Rx mg-trimethoprim 80 mg tablet (Bactrim) Patient History Medical History Amputation of right index finger Anemia 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 Surgical History AVF (arteriovenous fistula) RIGHT ARM History of amputation of finger index finger History of appendectomy History of cardiac cath 8 YRS AGO History of colonoscopy History of Mohs micrographic surgery for skin cancer BASAL AND SQUAMOUS CELL Kidney transplant recipient RIGHT > 8 YRS AGO Family History Mother , age 65 heart failure Diabetes Hypertension Stroke Heart disease Kidney disease on dialysis for 6 monhts Father , age 65 Burkitts lymphoma Cancer Heart disease Sister , brain tumor age 30 diabetes coma Diabetes Sister Heart disease Brother Diabetes Brother No problems noted. Brother No problems noted. Daughter No problems noted. Son No problems noted. 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 Strength normal. Distal neurovascular function intact. Capillary refill intact. Median radial and ulnar motor and sensory functions intact. There is large a collection of fluid over the left elbow about 8 to 10 cm in diameter. Indurated minimally red not significantly tender. (1) Septic bursitis of elbow Laterality: left Qualified Code(s): M71.122 - Other infective bursitis, left elbow
== END 2022-10-26 15:29 | disposition home or self-care (01) | DRG 500 ==
LOC: ED 16:20 → EDINP 17:35 → SUATTDRO 17:35 → 2N 21:49